=== PATIENT | male | born 1980 | race Caucasian/White ===

== ENCOUNTER 2016-06-08 06:55 | Day surgery (SDC) | payer OTHER ==
[2016-06-08] MEDS ORDERED: ONDANSETRON IVPB ONE (08:00)
[2016-06-08] MEDS ORDERED: SODIUM CHLORIDE IVPB ONE ×2 (08:00→08:30)
[2016-06-08] MEDS ORDERED: CYANOCOBALAMIN (VITAMIN B-12) 1000 MCG/1 ML VIAL IM ONE (08:00)
[2016-06-08] MEDS ORDERED: DEXAMETHASONE IVPB ONE (08:00)
[2016-06-08] MEDS ORDERED: PEMETREXED DISODIUM IVPB ONE (08:30)
[2016-06-08] MEDS ORDERED: SODIUM CHLORIDE 250 ML IV ONE (08:40)
[2016-06-08 11:50] LABS: BASOPHIL 0.9 % (0-2.0); EOSINOPHIL 1.5 % (0-4.5); MCH 30.6 pg (25.7-33.7); MCHC 33.9 g/dl (32.0-35.9); MEAN CELL VOLUME 90.2 fl (80-96); MEAN PLT VOLUME 7.4 fl (7.5-11.1); PLATELET COUNT 376 K/MM3 (134-434); RDW 14.9 % (11.9-15.9); WHITE BLOOD COUNT 8.3 K/mm3 (4.0-10.0)
[2016-06-08 12:02] LABS: ALBUMIN 3.9 g/dl (3.4-5.0); ALK PHOS 114 U/L (45-117); ANION GAP 9 (8-16); BILIRUBIN,TOTAL 0.7 mg/dL (0.2-1.0); CALCIUM 9.4 mg/dL (8.5-10.1); CO2 22 mmol/L (21-32); CREATININE 0.7 mg/dL (0.7-1.3); GLUCOSE,RANDOM 87 mg/dL (74-106); SGOT/AST 66 U/L (15-37); SGPT/ALT 56 U/L (12-78); TOT PROT 7.4 g/dl (6.4-8.2)
[2016-06-08 15:16] LABS: ALK PHOS 107 U/L (45-117); ANION GAP 10 (8-16); BILIRUBIN,TOTAL 0.5 mg/dL (0.2-1.0); CO2 27 mmol/L (21-32); CREATININE 0.6 mg/dL (0.7-1.3); GLUCOSE,RANDOM 76 mg/dL (74-106); SGOT/AST 28 U/L (15-37); SGPT/ALT 50 U/L (12-78); TOT PROT 7.1 g/dl (6.4-8.2)
[2016-06-08 15:57] VITALS: BP 117/70; PULSE 86; TEMP 98.1
== END 2016-06-08 16:20 | disposition home or self-care (01) ==
LOC: JONCCHEMO 06:55 → J7W 06:55 → JONCCHEMO 16:20
PROVIDERS: ATTEND Internal Medicine Hematology & Oncology
DX: Z51.11 Encounter for antineoplastic chemotherapy (principal); C34.92 Malignant neoplasm of unspecified part of left bronchus or lung; C79.31 Secondary malignant neoplasm of brain; C79.49 Secondary malignant neoplasm of other parts of nervous system
CPT/HCPCS: 96361; 96367; 96409; J9305; 36415; 80053; 85025; 96413

== ENCOUNTER 2016-06-08 22:23 | Emergency (ER) | payer OTHER ==
[2016-06-08 22:48] VITALS: BP 125/80; PULSE 80; TEMP 98.5; BMI 28.7
[2016-06-08] MEDS ORDERED: PANTOPRAZOLE SODIUM 40 MG in SODIUM CHLORIDE 100 ML IVPB ONE (22:49)
[2016-06-08] MEDS ORDERED: SODIUM CHLORIDE 1,000 ML IV STA (22:49)
[2016-06-08] MEDS ORDERED: DEXAMETHASONE SOD PHOSPHATE 10 MG/1 ML VIAL IVPB ONE (22:49)
--- NOTE | 2016-06-08 22:51 | PDOC ---
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 Today the patient underwent chemo, states he felt fine prior to treatment, and afterwards went to visit family. The patient takes Decadron before and after his chemotherapy sessions, but today he missed a dose after his session. He reports feeling fine afterwards, however, at around 9:00PM he began feeling a throbbing and numbing sensation to his left arm. When the patient went to urinate, he had a ten minute episode of uncontrollable jerking movements to his left arm and left sided facial twitching. The patient contacted his oncologist, Dr. Conde, who advised him to be evaluated in the ED. The patient also takes 500 mg of Keppra BID. The patient denies LOC. Allergies: NKDA Past Surgical History: Stent placement. Lung tumor removal. Social Histroy: Former smoker (quit in 01/2015) Oncologist: Dr. Amaya León [phone] when diagnosed with lung Ca) . He denies ETOH use. He admits to Marijuana use. Neurologist: Dr. Ochoa Michaud [phone] <Sonal Malloy - Last Filed: 06/09/16 01:17> - General History Source: Patient, Old Records Exam Limitations: No Limitations <Curtis Marte - Last Filed: 06/09/16 02:18> - General Stated Complaint: SEIZURE Time Seen by Provider: 06/08/16 22:28 Past History <Sonal Malloy - Last Filed: 06/09/16 01:17> - Past Medical History Anemia: No Asthma: Yes ( A CHILD - RESOLVED) 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,RADIATION) Cardiac Disorders: No CVA: No COPD: No CHF: No Dementia: No Diabetes: No GI Disorders: No Disorders: No HTN: No Hypercholesterolemia: No Liver Disease: No Seizures: No Thyroid Disease: No - Surgical History Lung Surgery: Yes (TUMOR REMOVED L LUNG) - Immunization History Immunization Up to Date: Yes - Psycho/Social/Smoking Cessation Hx Anxiety: No Suicidal Ideation: No Smoking History: Former smoker Have you smoked in the past 12 months: Yes Number of Cigarettes Smoked Daily: 0 If you are a former smoker, when did you quit?: 7 MO AGO Information on smoking cessation initiated: No 'Breaking Loose' booklet given: 02/21/16 Hx Alcohol Use: No Drug/Substance Use Hx: No Substance Use Type: Marijuana Hx Substance Use Treatment: No <Curtis Marte - Last Filed: 06/09/16 02:18> - Past Medical History Allergies/Adverse Reactions: Allergies Allergy/AdvReac Type Severity Reaction Status Date / Time No Known Drug Allergies Allergy Verified 03/07/16 10:01 Home Medications: Ambulatory Orders Aspirin [ASA -] 81 mg PO DAILY 08/20/15 Alprazolam [Xanax] 0.25 mg PO DAILY PRN 02/21/16 Oxycodone HCl 5 mg PO Q4H PRN 02/21/16 Dexamethasone [Decadron -] 4 mg PO Q6H #120 tablet 03/08/16 Pantoprazole Sodium [Protonix -] 40 mg PO DAILY #30 tablet.ec 03/08/16 Levetiracetam [Keppra -] 750 mg PO BID #60 tablet 06/09/16 Review of Systems - Review of Systems Comments:: 06/09/16 00:01 GENERAL/CONSTITUTIONAL: No fever or chills. No weakness. HEAD, EYES, EARS, NOSE AND THROAT: No change in vision. No ear pain or discharge. No sore throat. CARDIOVASCULAR: No chest pain or shortness of breath. RESPIRATORY: No cough, wheezing, or hemoptysis. GASTROINTESTINAL: No nausea, vomiting, diarrhea or constipation. GENITOURINARY: No dysuria, frequency, or change in urination. MUSCULOSKELETAL: No joint or muscle swelling or pain. No neck or back pain. SKIN: No rash NEUROLOGIC: Left arm numbness and jerking. Left facial twitching. No headache, vertigo, or loss of consciousness. <Sonal Malloy - Last Filed: 06/09/16 01:17> *Physical Exam - Vital Signs Last Vital Signs Temp Pulse Resp BP Pulse Ox 98.5 F 80 20 125/80 99 06/08/16 22:44 06/08/16 22:44 06/08/16 22:44 06/08/16 22:44 06/08/16 22:44 - Physical Exam Comments: 06/09/16 00:02 GENERAL: Awake, alert, and fully oriented, in no acute distress HEAD: No signs of trauma EYES: PERRLA, EOMI, sclera anicteric, conjunctiva clear ENT: Auricles normal inspection, hearing grossly normal, nares patent, oropharynx clear without exudates. Moist mucosa NECK: Normal ROM, supple, no lymphadenopathy, JVD, or masses LUNGS: Breath sounds equal, clear to auscultation bilaterally. No wheezes, and no crackles HEART: Regular rate and rhythm, normal S1 and S2, no murmurs, rubs or gallops ABDOMEN: Soft, nontender, normoactive bowel sounds. No guarding, no rebound. No masses EXTREMITIES: Normal range of motion, no edema. No clubbing or cyanosis. No cords, erythema, or tenderness NEUROLOGICAL: Cranial nerves II-XII intact, 5/5 motor strength to the upper and lower extremities, sensation intact throughout, speech normal, gait normal, finger to nose normal, rapid alternating normal. SKIN: Warm, Dry, normal turgor, no rashes or lesions noted. ENDOCRINE: No increased thirst. No abnormal weight change. HEMATOLOGIC/LYMPHATIC: No anemia, easy bleeding, or history of blood clots. ALLERGIC/IMMUNOLOGIC: No hives or skin allergy. <Sonal Malloy - Last Filed: 06/09/16 01:17> - Vital Signs Last Vital Signs Temp Pulse Resp BP Pulse Ox 98.5 F 80 20 125/80 99 06/08/16 22:44 06/08/16 22:44 06/08/16 22:44 06/08/16 22:44 06/08/16 22:44 <Curtis Marte - Last Filed: 06/09/16 02:18> ED Treatment Course - LABORATORY CBC & Chemistry Diagram: 06/08/16 23:23 06/08/16 23:23 - RADIOLOGY Radiograph Interpretation: 06/09/16 01:17 Produce Department Supervisor: ([email or web address]) Report Date: 06/09/2016 00:14:00 Report Status: Addendum Begin of Report Content Referring Physician: Curtis Marte Sherman Bermanmo Discussed with Dr. Marte at 12:56am (EST). THIS DOCUMENT HAS BEEN ELECTRONICALLY SIGNED Anurag Zaragoza MD 06/09/2016 00:57 EST M.D. Please call Imaging Binder Fixer [phone]) with questions. PREVIOUS REPORT: Referring Physician: Curtis Marte Patient Name: Sherman Frias THIS IS A PRELIMINARY REPORT FROM IMAGING PROJECT DEVELOPMENT MANAGER EXAM: CT of the brain without contrast. IMAGES: 409. Comparison made to the provided prior evaluation dated 03/07/2016 While the region of right temporal lobe presumed vasogenic edema remains grossly unchanged in distribution but not as hypodense as on the prior (? interval XRT), the ipsilateral focus of vasogenic edema documented on the prior involving the vertex frontoparietal junction has substantially increased in size (e.g. axial image 24 of the current vs. image 21 of the prior). A small new focus of presumed vasogenic edema is present in the mesial portion of the left frontal lobe vertex. There is no intra/extra-axial hemorrhage, midline shift or gross additional interval change. Impression: progression of disease, as above. THIS DOCUMENT HAS BEEN ELECTRONICALLY SIGNED Anurag Zaragoza MD 06/09/2016 00:54 EST M.D. Please call Imaging Binder Fixer [phone] with questions. End of Report Content Produce Department Supervisor: ([email or web address]) Report Date: 06/09/2016 00:14:00 Report Status: Preliminary Begin of Report Content Referring Physician: Curtis Marte Patient Name: Sherman Frias THIS IS A PRELIMINARY REPORT FROM IMAGING PROJECT DEVELOPMENT MANAGER EXAM: CT of the brain without contrast. IMAGES: 409. Comparison made to the provided prior evaluation dated 03/07/2016 While the region of right temporal lobe presumed vasogenic edema remains grossly unchanged in distribution but not as hypodense as on the prior (? interval XRT), the ipsilateral focus of vasogenic edema documented on the prior involving the vertex frontoparietal junction has substantially increased in size (e.g. axial image 24 of the current vs. image 21 of the prior). A small new focus of presumed vasogenic edema is present in the mesial portion of the left frontal lobe vertex. There is no intra/extra-axial hemorrhage, midline shift or gross additional interval change. Impression: progression of disease, as above. THIS DOCUMENT HAS BEEN ELECTRONICALLY SIGNED Anurag Zaragoza MD 06/09/2016 00:54 TOM Galdamez. Please call Imaging Binder Fixer [phone] with questions. End of Report Content - Medications Given in the ED: ED Medications Discontinued Medications Generic Name Dose Route Start Last Admin Trade Name Shayna PRN Reason Stop Dose Admin Dexamethasone Sodium Phosphate 10 mg 06/08/16 22:49 06/08/16 23:39 Decadron Injection - IVPB 06/08/16 22:50 10 mg ONCE ONE Administration Pantoprazole Sodium 40 mg/ 100 mls @ 200 mls/hr 06/08/16 22:49 06/08/16 23:39 Sodium Chloride IVPB 06/08/16 23:18 200 mls/hr ONCE ONE Administration Sodium Chloride 1,000 mls @ 1,000 mls/hr 06/08/16 22:49 06/08/16 23:39 Normal Saline - IV 06/08/16 23:48 1,000 mls/hr ASDIR STA Administration <Sonal Malloy - Last Filed: 06/09/16 01:17> - LABORATORY CBC & Chemistry Diagram: 06/08/16 23:23 06/08/16 23:23 - RADIOLOGY Radiology Studies Ordered: Category Date Time Status HEAD CT WITHOUT CONTRAST [CT] Stat CT Scan 06/08/16 22:48 Ordered <Curtis Marte - Last Filed: 06/09/16 02:18> Medical Decision Making - Medical Decision Making 06/08/16 23:12 A portion of this note was documented by scribe services under my direction. I have reviewed the details of the note, within reason, and agree with the documentation with the following case summary and management plan written by me. Patient treated in the ED. Nursing notes are reviewed and incorporated into the medical decision-making. Vital signs reviewed. Peripheral IV access obtained by the nurse, laboratory studies are drawn and sent, reviewed and interpreted by myself. 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 The patient reports that he takes 500 mg Keppra twice a day and reports adherence to the medications. States he initially was on for a grams of Decadron has been only taking them prior and after his chemotherapy sessions. Today, he was on his fourth chemotherapy session and missed a dose of Decadron. He had completed his chemotherapy today and was feeling in his usual state health. Approximate 9: 30 PM, the patient started developing spastic tonic clonic movements of his left upper extremity and left face but never lost consciousness. His symptoms persisted for 10 minutes until it resolved on its own. The patient called his oncologist Dr. Conde who advised the patient to go to the emergency room. She requested Decadron 10 mg IV and then subsequently 4 mg IV every 6 hours. The patient is currently neurologically intact and in no distress. We'll obtain a head CT and blood work and a Keppra level. We'll need to touch base with the patient's oncologist for further management disposition. We'll initiate IV Decadron. 06/09/16 02:06 CT head reviewed. CBC, BMP 06/08/16 23:23 06/08/16 23:23 CMP Sodium 137 mmol/L (136-145) 06/08/16 23:23 Potassium 4.9 mmol/L (3.5-5.1) 06/08/16 23:23 Chloride 99 mmol/L (98-107) 06/08/16 23:23 Carbon Dioxide 25 mmol/L (21-32) 06/08/16 23:23 Anion Gap 13 (8-16) 06/08/16 23:23 BUN 12 mg/dL (7-18) 06/08/16 23:23 Creatinine 0.9 mg/dL (0.7-1.3) D 06/08/16 23:23 Creat Clearance w eGFR > 60 (>60) 06/08/16 23:23 Random Glucose 116 mg/dL (74-106) H D 06/08/16 23:23 Calcium 9.5 mg/dL (8.5-10.1) 06/08/16 23:23 Magnesium 2.0 mg/dL (1.8-2.4) 06/08/16 23:23 Total Bilirubin 0.4 mg/dL (0.2-1.0) 06/08/16 23:23 AST 32 U/L (15-37) 06/08/16 23:23 ALT 55 U/L (12-78) 06/08/16 23:23 Alkaline Phosphatase 114 U/L (45-117) 06/08/16 23:23 Total Protein 7.9 g/dl (6.4-8.2) 06/08/16 23:23 Albumin 4.3 g/dl (3.4-5.0) 06/08/16 23:23 The patient has been observed and without any symptoms. Given the findings on the CT head, the patient was recommended that he be admitted to the hospital for q6h IV decadron. However, after a lengthy discussion with the patient, the patient does not absolutely want to stay in the hospital. He prefers to go home and take care of the symptoms as an outpatient. Despite my attempts to keep him, the patient requests to leave AMA. The patient does have capacity and is AAOx3. He can repeat the risks to me including more seizures, neurological sequelae. I had discussed in details regarding the patient's preference for AMA to Dr. Conde. Dr. Conde requests that I discharge him with 4 mg decadron q6h for 2 days and then 4mg q8h until his next appointment next week. I had contacted Dr. Holt at the request of Dr. Conde. After discussing case with Dr. Holt (as patient has not yet has his first appointment with [facility]), will give loading dose of 1g of keppra IV here and increase his dosing to 750 mg IV keppra BID. Patient reports that he has a significant amount of decadron in his home and declines a prescription. However, he will take a prescription for the keppra. Return precautions given. Patient will leave AMA. <Curtis Marte - Last Filed: 06/09/16 02:18> *DC/Admit/Observation/Transfer - Attestations Scribe Attestion: 06/09/16 00:05 Documentation prepared by Sonal Malloy, acting as nurses medical assistants phlebotomists for Curtis Marte MD. 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 We are increasing your steroids. Take 750 mg keppra every 12 hours. At the request of your oncologist, take 4 mg of decadron every 6 hours for the first 2 days. Then take 4 mg of decadron every 8 hours for days 3 to 6. This medication may give you severe acid reflux, so take your protonix and carafate at home. Please follow up with Dr. Conde next week.
--- NOTE | 2016-06-08 23:12 | PDOC ---
NIH Stroke Scale - Last Known Well Date/Time & Onset Date Last Known Well: 06/08/16 Time Last Known Well: 21:30 - Initial Evaluation Level of consciousness: Alert Ask patient the month and their age: Answers both correctly Ask patient to open & close eyes; make fist and let go: Obeys both correctly Best gaze (horizontal eye movement): Normal Visual field testing: No visual field loss Facial paresis (Show teeth/raise eyebrows/close eyes tight): Normal symmetrical movement Motor Function: Left Arm: Normal Motor Function: Right Arm: Normal (extends arm 90 (or 45) degrees for 10 seconds without drift Motor Function: Left Leg: Normal (extends leg 30 degrees for 5 seconds without drift) Motor Function: Right Leg: Normal (extends leg 30 degrees for 5 seconds without drift) Limb Ataxia: No ataxia Sensory(Use pinprick test arms,legs,trunk,face/side to side): Normal Best language (Describe picture, name items, read sentences): No Aphasia Dysarthria (read several words): Normal articulation Extinction and Inattention: No abnormality - Total Score NIH Stroke Scale Score: 0
[2016-06-08] MEDS ORDERED: PANTOPRAZOLE SODIUM 40 MG VIAL ONE (23:25)
[2016-06-08] MEDS ORDERED: DEXAMETHASONE SOD PHOSPHATE 10 MG/1 ML VIAL ONE (23:25)
[2016-06-08 23:55] LABS: BASOPHIL 0.4 % (0-2.0); MCH 30.4 pg (25.7-33.7); MCHC 33.7 g/dl (32.0-35.9); MEAN CELL VOLUME 90.2 fl (80-96); MEAN PLT VOLUME 7.3 fl (7.5-11.1); NEUTROPHILS 92.5 % (42.8-82.8); PLATELET COUNT 410 K/MM3 (134-434); RDW 14.4 % (11.9-15.9); WHITE BLOOD COUNT 9.5 K/mm3 (4.0-10.0)
[2016-06-09 00:06] LABS: ALBUMIN 4.3 g/dl (3.4-5.0); ALK PHOS 114 U/L (45-117); ANION GAP 13 (8-16); BILIRUBIN,TOTAL 0.4 mg/dL (0.2-1.0); CALCIUM 9.5 mg/dL (8.5-10.1); CO2 25 mmol/L (21-32); CREATININE 0.9 mg/dL (0.7-1.3); GLUCOSE,RANDOM 116 mg/dL (74-106); SGOT/AST 32 U/L (15-37); SGPT/ALT 55 U/L (12-78); TOT PROT 7.9 g/dl (6.4-8.2)
[2016-06-09] MEDS ORDERED: levETIRAcetam 500 MG/5 ML INJECTION VIAL IVPB ONE ×2 (01:52→01:59)
== END 2016-06-09 02:18 | disposition left against medical advice (07) ==
LOC: JER 22:23
PROC: 3E033GC Introduction of Other Therapeutic Substance into Peripheral Vein, Percutaneous Approach (ICD-10-PCS; principal; 2016-06-08)
PROC: 3E0337Z Introduction of Electrolytic and Water Balance Substance into Peripheral Vein, Percutaneous Approach (ICD-10-PCS; 2016-06-08)
DX: G40.89 Other seizures (principal); C34.90 Malignant neoplasm of unspecified part of unspecified bronchus or lung; C79.31 Secondary malignant neoplasm of brain; Z79.899 Other long term (current) drug therapy; Z87.891 Personal history of nicotine dependence
CPT/HCPCS: 36415; 70450-TC; 80053; 83735; 85025; 99282-25

== ENCOUNTER 2016-07-10 18:43 | Emergency (ER) | payer OTHER ==
[2016-07-10 19:16] VITALS: BMI 28.9
--- NOTE | 2016-07-10 19:56 | PDOC ---
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 Patient denies any head trauma, tongue biting , or bladder/bowel incontinence. Patient had his first seizure in February 2016 and at that time he was found to have a brain mass. Patient is being followed by Dr. Amaya León and is currently on keppra 750mg BID and decadron 3mg. Recent radiation was 2 weeks ago. Patient states he became concerned because he has not had a seizure episode within the past 2 months and thus decided to come into the ER. The patient denies fever, chills, cough, SOB, chest pain, and palpitations. The patient denies abdominal pain, nausea, vomiting, and diarrhea. Allergies: NKDA Social History: Admits to being an occasional smoker. Marijuana use. Denies etoh use. Past Surgical History: Stent placement. Lung tumor removal. Oncologist: Dr. Amaya León <Nicolette Dobbins - Last Filed: 07/10/16 23:08> - General Chief Complaint: Seizure Stated Complaint: SEIZURE Time Seen by Provider: 07/10/16 19:49 Past History - Past Medical History Anemia: No Asthma: Yes ( A CHILD - RESOLVED) 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,RADIATION,BRAIN,ADRENAL GLAND) Cardiac Disorders: No CVA: No COPD: No CHF: No Dementia: No Diabetes: No GI Disorders: No Disorders: No HTN: No Hypercholesterolemia: No Liver Disease: No Seizures: No Thyroid Disease: No Other medical history: BLOOD CLOTS TO LUE - Surgical History Lung Surgery: Yes (TUMOR REMOVED GENNY LUNG) - Immunization History Immunization Up to Date: Yes - Psycho/Social/Smoking Cessation Hx Anxiety: No Suicidal Ideation: No Smoking History: Current every day smoker Have you smoked in the past 12 months: Yes Number of Cigarettes Smoked Daily: 3 If you are a former smoker, when did you quit?: 7 MO AGO Information on smoking cessation initiated: No 'Breaking Loose' booklet given: 02/21/16 Hx Alcohol Use: No Drug/Substance Use Hx: Yes Substance Use Type: Marijuana Hx Substance Use Treatment: No <Dov Ochoa - Last Filed: 07/10/16 22:42> <Nicolette Dobbins - Last Filed: 07/10/16 23:08> - Past Medical History Allergies/Adverse Reactions: Allergies Allergy/AdvReac Type Severity Reaction Status Date / Time No Known Drug Allergies Allergy Verified 07/10/16 19:16 Home Medications: Ambulatory Orders Aspirin [ASA -] 81 mg PO DAILY 08/20/15 Alprazolam [Xanax] 0.25 mg PO TID PRN 02/21/16 Oxycodone HCl 10 mg PO Q4H PRN 02/21/16 Pantoprazole Sodium [Protonix -] 40 mg PO DAILY #30 tablet.ec 03/08/16 Levetiracetam [Keppra -] 750 mg PO BID #60 tablet 06/09/16 Dexamethasone [Decadron -] 3 mg PO Q6H 07/10/16 Folic Acid 1 mg PO DAILY 07/10/16 Review of Systems - Review of Systems Able to Perform ROS?: Yes Comments:: 07/10/16 20:10 CONSTITUTIONAL: Absent: fever, chills, diaphoresis, generalized weakness, malaise, loss of appetite HEENT: Absent: rhinorrhea, nasal congestion, throat pain, throat swelling, difficulty swallowing, mouth swelling, ear pain, eye pain, visual Changes CARDIOVASCULAR: Absent: chest pain, syncope, palpitations, irregular heart rate, lightheadedness , peripheral edema RESPIRATORY: Absent: cough, shortness of breath, dyspnea with exertion, orthopnea, wheezing, stridor, hemoptysis GASTROINTESTINAL: Absent: abdominal pain, abdominal distension, nausea, vomiting, diarrhea, constipation, melena, hematochezia GENITOURINARY: Absent: dysuria, frequency, urgency, hesitancy, hematuria, flank pain, genital pain MUSCULOSKELETAL: Absent: myalgia, arthralgia, joint swelling SKIN: Absent: rash, itching, pallor NEUROLOGIC: +seizure Absent: headache, focal weakness or paresthesias, dizziness, unsteady gait, mental status changes, bladder or bowel incontinence <Nicolette Dobbins - Last Filed: 07/10/16 23:08> *Physical Exam - Vital Signs Last Vital Signs Temp Pulse Resp BP Pulse Ox 98.3 F 102 H 16 141/78 97 07/10/16 18:50 07/10/16 18:50 07/10/16 18:50 07/10/16 18:50 07/10/16 18:50 <Dov Ochoa - Last Filed: 07/10/16 22:42> - Vital Signs Last Vital Signs Temp Pulse Resp BP Pulse Ox 98.3 F 102 H 16 141/78 97 07/10/16 18:50 07/10/16 18:50 07/10/16 18:50 07/10/16 18:50 07/10/16 18:50 - Physical Exam Comments: 07/10/16 20:11 GENERAL: Well developed, well nourished. Awake and alert. No acute distress. HEENT: Normocephalic, atraumatic. No raccoon or plunkett signs. PERRLA, EOMI. No conjunctival pallor. Sclera are non-icteric. Moist mucous membranes. Oropharynx is clear. No tongue lesions. No hemotympanum. NECK: Supple. Full ROM. No JVD. Carotid pulses 2+ and symmetric, without bruits. No thyromegaly. No lymphadenopathy. CARDIOVASCULAR: Regular rate and rhythm. No murmurs, rubs, or gallops. Distal pulses are 2+ and symmetric. PULMONARY: No evidence of respiratory distress. Lungs clear to auscultation bilaterally. No wheezing, rales or rhonchi. ABDOMINAL: Soft. Non-tender. Non-distended. No rebound or guarding. No organomegaly. Normoactive bowel sounds. MUSCULOSKELETAL Normal range of motion at all joints. No bony deformities or tenderness. No CVA tenderness. EXTREMITIES: No cyanosis. No clubbing. No edema. No calf tenderness. SKIN: Warm and dry. Normal capillary refill. No rashes. No jaundice. NEUROLOGICAL: Alert, awake, appropriate. Cranial nerves 2-12 intact. No deficits to light touch and temperature in face, upper extremities and lower extremities. No motor deficits in the in face, upper extremities and lower extremities. Normoreflexic in the upper and lower extremities. Normal speech. <Nicolette Dobbins - Last Filed: 07/10/16 23:08> Heart Score/ECG Review - ECG Impressions Comment:: 07/10/16 22:34 NSR @82bpm Possible left atrial enlargement Borderline ECG <Nicolette Dobbins - Last Filed: 07/10/16 23:08> ED Treatment Course - LABORATORY CBC & Chemistry Diagram: 07/10/16 20:20 07/10/16 20:20 <Dov Ochoa - Last Filed: 07/10/16 22:42> - LABORATORY CBC & Chemistry Diagram: 07/10/16 20:20 07/10/16 20:20 - RADIOLOGY Radiograph Interpretation: 07/10/16 22:13 EXAM: CT/HEAD CT WITHOUT CONTRAST Radiologist's Impression: in comparison to a previous CT exam of 06/09/2016 interval development of a 2.9 x 2 x 1.7 cm acute right parietal hemorrhage is noted at the site of a previously identified metastatic neoplastic lesion. There is mild perihemorrhagic edema. The degree of edema in that region appears improved since the previous study. Mild ventral temporal lobe edema is seen which has improved since the previous study. There has been interval resolution of a small focus of edema within the left posterior frontal lobe at the high convexity level medially. No midline displacement is identified. There is no extra-axial fluid collection. The ventricles and cisterns appear unremarkable. Impression: In comparison to a previous CT exam of 06/09/2016 interval development of a 2.9 x 2 x 1.7 cm right parietal hemorrhage is seen. There is mild perihemorrhagic edema. The degree of edema in that region has improved since the prior study. Mild right temporal lobe focal edema is noted which appears improved. There has been interval resolution of a small focus of edema within the left posterior frontal lobe. <Nicolette Dobbins - Last Filed: 07/10/16 23:08> Medical Decision Making - Medical Decision Making 07/10/16 22:44 Dr. Ochoa: The scribe's documentation has been prepared under my direction and personally reviewed by me in its entirery. I confirm that the note above accurately reflects all work, treatment, procedures, and medical decision making performed by me. <Dov Ochoa - Last Filed: 07/10/16 22:42> - Medical Decision Making 07/10/16 21:51 Paged [facility]) transfer center for neurology on-call [phone] Awaiting call back for possible acceptance 07/10/16 21:[address] Amaya León (via answering service) at 21:55 Awaiting call back 07/10/16 21:56 Patient case discussed with Dr. León at 21:[address] Ramirez, neurosurgeon, accepts patient's case. Patient to be transferred to ER at [facility]). <Nicolette Dobbins - Last Filed: 07/10/16 23:08> *DC/Admit/Observation/Transfer - Discharge Dispostion Admit: No - Transfer to Acute Care Facility Receiving Facility: [facility] (Dr. Ramirez accepts) <Dov Ochoa - Last Filed: 07/10/16 22:42> - Attestations Scribe Attestion: 07/10/16 20:11 Documentation prepared by Nicolette Dobbins, acting as diploma medical assistant for Dov Ochoa MD <Nicolette Dobbins - Last Filed: 07/10/16 23:08> Diagnosis at time of Disposition: Seizure, Intracranial hemorrhage - Discharge Dispostion Disposition: TRANSFER ACUTE CARE/OTHER HOSP Condition at time of disposition: Stable
[2016-07-10] MEDS ORDERED: levETIRAcetam 500 MG/5 ML INJECTION VIAL IVPB ONE ×2 (19:57→20:03)
[2016-07-10 20:35] LABS: MCH 31.3 pg (25.7-33.7); MCHC 33.4 g/dl (32.0-35.9); MEAN CELL VOLUME 93.9 fl (80-96); PLATELET COUNT 237 K/MM3 (134-434); RDW 17.1 % (11.9-15.9); WHITE BLOOD COUNT 21.4 K/mm3 (4.0-10.0)
[2016-07-10 20:56] LABS: INR 0.9 (0.82-1.09); PROTHROMBIN TIME (PATIENT) 9.9 SEC (9.98-11.88)
[2016-07-10 21:07] LABS: ALK PHOS 73 U/L (45-117); ANION GAP 12 (8-16); BILIRUBIN,TOTAL 0.3 mg/dL (0.2-1.0); CALCIUM 8.8 mg/dL (8.5-10.1); CO2 26 mmol/L (21-32); CREATININE 1.1 mg/dL (0.7-1.3); GLUCOSE,RANDOM 128 mg/dL (74-106); SGOT/AST 21 U/L (15-37); SGPT/ALT 71 U/L (12-78); TOT PROT 6.9 g/dl (6.4-8.2)
[2016-07-10 21:18] LABS: METAMYELOCYTE 2 % (0-2)
[2016-07-10 21:19] LABS: PLATELET ESTIMATE ADEQUATE (NORMAL)
[2016-07-10] MEDS ORDERED: FOLIC ACID 1 MG TABLET (FP) PO ONE (22:31)
[2016-07-10] MEDS ORDERED: ALPRAZolam 0.25 MG TABLET PO ONE (22:32)
[2016-07-10] MEDS ORDERED: DEXAMETHASONE 4 MG TABLET (FP) PO STA (22:32)
[2016-07-10] MEDS ORDERED: ALPRAZolam 0.25 MG TABLET ONE (22:56)
[2016-07-10] MEDS ORDERED: FOLIC ACID 1 MG TABLET (FP) ONE (22:57)
[2016-07-10] MEDS ORDERED: DEXAMETHASONE SOD PHOSPHATE 4 MG/1 ML VIAL ONE (22:57)
[2016-07-10 23:18] VITALS: BP 134/78; PULSE 80; TEMP 98
--- NOTE | 2016-07-11 11:55 | EKG ---
Test Reason : Blood Pressure : / mmHG Vent. Rate : 082 BPM Atrial Rate : 082 BPM P-R Int : 116 ms QRS Dur : 082 ms QT Int : 336 ms P-R-T Axes : 062 073 025 degrees QTc Int : 392 ms NORMAL SINUS RHYTHM POSSIBLE LEFT ATRIAL ENLARGEMENT BORDERLINE ECG WHEN COMPARED WITH ECG OF 09-JAN-2015 11:38, NO SIGNIFICANT CHANGE WAS FOUND Confirmed by JOANN KOCH MD ([id number]) on 07/11/2016 11:55:03 AM Referred By: Confirmed By:JOANN KOCH MD
== END 2016-07-10 23:00 | disposition short-term general hospital (02) ==
LOC: JER 18:43
PROC: 3E033GC Introduction of Other Therapeutic Substance into Peripheral Vein, Percutaneous Approach (ICD-10-PCS; principal; 2016-07-10)
DX: I61.8 Other nontraumatic intracerebral hemorrhage (principal); C34.92 Malignant neoplasm of unspecified part of left bronchus or lung; C79.31 Secondary malignant neoplasm of brain; C79.70 Secondary malignant neoplasm of unspecified adrenal gland; Z86.718 Personal history of other venous thrombosis and embolism; F17.210 Nicotine dependence, cigarettes, uncomplicated
CPT/HCPCS: 36415; 70450-TC; 80053; 83735; 85025; 85610; 85730; 93005; 93010; 96374; 99285-25

== ENCOUNTER 2016-07-13 07:02 | Day surgery (SDC) | payer OTHER ==
[2016-07-13] MEDS ORDERED: FAMOTIDINE 20 MG/50 ML IVPB 50 ML IVPB ONE (08:00)
[2016-07-13] MEDS ORDERED: CYANOCOBALAMIN (VITAMIN B-12) 1000 MCG/1 ML VIAL IM ONE (08:00)
[2016-07-13] MEDS ORDERED: SODIUM CHLORIDE IVPB ONE ×6 (08:00→12:30)
[2016-07-13] MEDS ORDERED: DEXAMETHASONE IVPB ONE ×3 (08:00)
[2016-07-13] MEDS ORDERED: ONDANSETRON IVPB ONE ×2 (08:00)
[2016-07-13] MEDS ORDERED: SODIUM CHLORIDE 250 ML IV ONE ×3 (08:00→11:25)
[2016-07-13] MEDS ORDERED: DIPHENHYDRAMINE IVPB ONE (08:00)
[2016-07-13] MEDS ORDERED: PEMETREXED DISODIUM IVPB ONE ×2 (08:30→12:30)
[2016-07-13] MEDS ORDERED: DARATUMUMAB IVPB ONE (08:30)
[2016-07-13 10:55] LABS: EOSINOPHIL 0.1 % (0-4.5); MCH 31.4 pg (25.7-33.7); MCHC 33.3 g/dl (32.0-35.9); MEAN CELL VOLUME 94.3 fl (80-96); MEAN PLT VOLUME 7.4 fl (7.5-11.1); NEUTROPHILS 96.3 % (42.8-82.8); PLATELET COUNT 257 K/MM3 (134-434); RDW 16.8 % (11.9-15.9); WHITE BLOOD COUNT 17.7 K/mm3 (4.0-10.0)
[2016-07-13] MEDS ORDERED: DEXTROSE 5% IV ONE (11:15)
[2016-07-13] MEDS ORDERED: WATER IV ONE (11:15)
[2016-07-13] MEDS ORDERED: CARFILZOMIB IV ONE (11:15)
[2016-07-13 11:25] LABS: ALBUMIN 4.1 g/dl (3.4-5.0); ANION GAP 13 (8-16); CALCIUM 9.5 mg/dL (8.5-10.1); CO2 22 mmol/L (21-32); CREATININE 0.9 mg/dL (0.7-1.3); GLUCOSE,RANDOM 169 mg/dL (74-106); MAGNESIUM 2.1 mg/dL (1.8-2.4); TOT PROT 7.4 g/dl (6.4-8.2)
[2016-07-13 11:26] LABS: ALK PHOS 75 U/L (45-117); BILIRUBIN,TOTAL 0.7 mg/dL (0.2-1.0); SGOT/AST 43 U/L (15-37); SGPT/ALT 76 U/L (12-78)
[2016-07-13 11:39] LABS: BILIRUBIN,DIRECT 0.1 mg/dL (0.0-0.2)
[2016-07-13 14:46] VITALS: TEMP 98.1
[2016-07-13 14:48] VITALS: BP 120/80; PULSE 92
[2016-07-13] MEDS ORDERED: PORTA CATH FLUSH 10 ML IVPUSH ONE (14:48)
--- NOTE | 2016-07-14 10:11 | PN ---
Progress Note (short form) - Note Progress Note: called patient informed him about CT findings PAtient repiorts no symptoms scheuled for MRI On sunday to /u next week
== END 2016-07-13 13:00 | disposition home or self-care (01) ==
LOC: JONCCHEMO 07:02 → J7W 11:17 → JONCCHEMO 13:00
PROVIDERS: ATTEND Internal Medicine Hematology & Oncology
PROC: 3E03305 Introduction of Other Antineoplastic into Peripheral Vein, Percutaneous Approach (ICD-10-PCS; principal; 2016-07-13)
PROC: 3E013GC Introduction of Other Therapeutic Substance into Subcutaneous Tissue, Percutaneous Approach (ICD-10-PCS; 2016-07-13)
DX: Z51.11 Encounter for antineoplastic chemotherapy (principal); C34.90 Malignant neoplasm of unspecified part of unspecified bronchus or lung; C79.9 Secondary malignant neoplasm of unspecified site; E53.8 Deficiency of other specified B group vitamins
CPT/HCPCS: 36415; 70450-TC; 80053; 80076; 83735; 85025; 96372; 96409; 96413; J9305

== ENCOUNTER 2016-08-03 07:05 | Day surgery (SDC) | payer OTHER ==
[2016-08-03] MEDS ORDERED: CYANOCOBALAMIN (VITAMIN B-12) 1000 MCG/1 ML VIAL IM ONE (08:00)
[2016-08-03] MEDS ORDERED: DEXAMETHASONE INJECTION 8 MG in SODIUM CHLORIDE 50 ML IVPB ONE (08:00)
[2016-08-03] MEDS ORDERED: ONDANSETRON INJECTION 12 MG in SODIUM CHLORIDE 50 ML IVPB ONE (08:00)
[2016-08-03] MEDS ORDERED: SODIUM CHLORIDE IVPB ONE (08:30)
[2016-08-03] MEDS ORDERED: PEMETREXED DISODIUM IVPB ONE (08:30)
[2016-08-03] MEDS ORDERED: SODIUM CHLORIDE 250 ML IV ONE (08:40)
[2016-08-03 11:15] LABS: BASOPHIL 0.4 % (0-2.0); EOSINOPHIL 0.4 % (0-4.5); MCH 32.5 pg (25.7-33.7); MEAN CELL VOLUME 95.5 fl (80-96); MEAN PLT VOLUME 6.7 fl (7.5-11.1); NEUTROPHILS 80.1 % (42.8-82.8); PLATELET COUNT 179 K/MM3 (134-434); RDW 17.8 % (11.9-15.9); WHITE BLOOD COUNT 9.3 K/mm3 (4.0-10.0)
[2016-08-03 11:51] LABS: ALBUMIN 3.9 g/dl (3.4-5.0); ALK PHOS 65 U/L (45-117); ANION GAP 9 (8-16); BILIRUBIN,TOTAL 0.4 mg/dL (0.2-1.0); CALCIUM 8.9 mg/dL (8.5-10.1); CO2 30 mmol/L (21-32); COCKROFT - GAULT 0; CREATININE 0.7 mg/dL (0.7-1.3); GLUCOSE,RANDOM 73 mg/dL (74-106); MAGNESIUM 2.2 mg/dL (1.8-2.4); SGOT/AST 35 U/L (15-37); SGPT/ALT 150 U/L (12-78); TOT PROT 6.7 g/dl (6.4-8.2)
[2016-08-03 12:53] LABS: BILIRUBIN,DIRECT 0.1 mg/dL (0.0-0.2)
[2016-08-03 14:50] VITALS: TEMP 97.8
[2016-08-03 14:55] VITALS: BP 113/65; PULSE 76
== END 2016-08-03 13:30 | disposition home or self-care (01) ==
LOC: JONCCHEMO 07:05 → J7W 11:53 → JONCCHEMO 13:30
PROVIDERS: ATTEND Internal Medicine Hematology & Oncology
PROC: 3E04305 Introduction of Other Antineoplastic into Central Vein, Percutaneous Approach (ICD-10-PCS; principal; 2016-08-03)
PROC: 3E013GC Introduction of Other Therapeutic Substance into Subcutaneous Tissue, Percutaneous Approach (ICD-10-PCS; 2016-08-03)
PROC: 3E043GC Introduction of Other Therapeutic Substance into Central Vein, Percutaneous Approach (ICD-10-PCS; 2016-08-03)
DX: Z51.11 Encounter for antineoplastic chemotherapy (principal); C34.90 Malignant neoplasm of unspecified part of unspecified bronchus or lung; C79.9 Secondary malignant neoplasm of unspecified site; E53.8 Deficiency of other specified B group vitamins
CPT/HCPCS: 36415; 80053; 80076; 83735; 85025; 96360; 96367; 96372; 96409; 96413; J9305

== ENCOUNTER 2016-08-19 15:45 | Inpatient (IN) | payer OTHER ==
[2016-08-19] MEDS ORDERED: LORAZEPAM CARPU-JECT 2 MG/ML DISP.SYRIN ONE ×3 (15:48→16:36)
[2016-08-19] MEDS ORDERED: DEXAMETHASONE SOD PHOSPHATE 10 MG/1 ML VIAL ONE (15:54)
[2016-08-19] MEDS ORDERED: SODIUM CHLORIDE 1,000 ML IV ONE (16:01)
--- NOTE | 2016-08-19 16:01 | PDOC ---
History of Present Illness - General History Source: Patient, Family Exam Limitations: No Limitations - History of Present Illness Initial Comments: 08/19/16 16:50 The patient is a 36 year old male presenting with his mother, with a significant past medical history of Multiple brain tumors (one growing in size) , Metastatic Lung CA (2014, currently on chemo, last chemo 3 weeks ago) s/p left lung surgery and seizures who presents to the emergency department with seizures onset shortly prior to arrival while shopping with his mother. Upon presentation the patient is seizing constantly, which is involving both his eyes , face, upper body and left upper extremity. He reports that his Keppra medication was recently increased from 500 mg to 750 mg. He also notes that his last seizure was on 07/10/2016. The patient denies chest pain, shortness of breath, headache and dizziness. Denies fever, chills, nausea, vomit, diarrhea and constipation. Allergies: None Past surgical history: Tumor removed left lung Social history: Former smoker of cigarettes and marijuana <Dov Starks - Last Filed: 08/19/16 17:04> <Allan Cook - Last Filed: 08/19/16 17:17> - General Stated Complaint: SEIZURE Time Seen by Provider: 08/19/16 15:54 Past History <Dov Starks - Last Filed: 08/19/16 17:04> - Past Medical History Anemia: No Asthma: Yes ( A CHILD - RESOLVED) 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,RADIATION,BRAIN,ADRENAL GLAND) Cardiac Disorders: No CVA: No COPD: No CHF: No Dementia: No Diabetes: No GI Disorders: No Disorders: No HTN: No Hypercholesterolemia: No Liver Disease: No Seizures: No Thyroid Disease: No - Surgical History Lung Surgery: Yes (TUMOR REMOVED GENNY LUNG) - Immunization History Immunization Up to Date: Yes - Psycho/Social/Smoking Cessation Hx Anxiety: No Suicidal Ideation: No Smoking History: Current every day smoker Have you smoked in the past 12 months: Yes Number of Cigarettes Smoked Daily: 3 If you are a former smoker, when did you quit?: 7 MO AGO 'Breaking Loose' booklet given: 02/21/16 Hx Alcohol Use: No Drug/Substance Use Hx: Yes Substance Use Type: Marijuana Hx Substance Use Treatment: No <Allan Cook - Last Filed: 08/19/16 17:17> - Past Medical History Allergies/Adverse Reactions: Allergies Allergy/AdvReac Type Severity Reaction Status Date / Time No Known Drug Allergies Allergy Verified 08/19/16 16:13 Home Medications: Ambulatory Orders Aspirin [ASA -] 81 mg PO DAILY 08/20/15 Alprazolam [Xanax] 0.25 mg PO TID PRN 02/21/16 Oxycodone HCl 10 mg PO Q4H PRN 02/21/16 Pantoprazole Sodium [Protonix -] 40 mg PO DAILY #30 tablet.ec 03/08/16 Levetiracetam [Keppra -] 750 mg PO BID #60 tablet 06/09/16 Dexamethasone [Decadron -] 3 mg PO Q6H 07/10/16 Folic Acid 1 mg PO DAILY 07/10/16 Review of Systems - Review of Systems Constitutional: No: Chills, Fever HEENTM: No: Recent change in vision Cardiac (ROS): No: Chest Pain ABD/GI: No: Nausea, Vomiting Neurological: Yes: Seizure. No: Headache All Other Systems: Reviewed and Negative <Allan Cook - Last Filed: 08/19/16 17:17> *Physical Exam - Vital Signs Last Vital Signs Temp Pulse Resp BP Pulse Ox 88 18 166/55 100 08/19/16 16:03 08/19/16 16:03 08/19/16 16:03 08/19/16 16:03 - Physical Exam Comments: 08/19/16 16:49 GENERAL: The patient is awake, alert, and fully oriented. (+) Diaphoretic. HEAD: Normal with no signs of trauma. EYES: Pupils equal, round and reactive to light, extraocular movements intact, sclera anicteric, conjunctiva clear with no pallor. ENT: Ears normal, nares patent, oropharynx clear without exudates. Moist mucous membranes. NECK: Normal range of motion, supple without lymphadenopathy, JVD, or masses. LUNGS: Breath sounds equal, clear to auscultation bilaterally. No wheeze/ crackles. HEART: Regular rate and rhythm, normal S1 and S2 without murmur or rub. ABDOMEN: Soft/nontender/nondistended. BS wnl. No guarding or rebound. No palpable masses. No hepatosplenomegaly. EXTREMITIES: Normal range of motion, no edema. No clubbing or cyanosis. No cords , erythema, or tenderness. NEUROLOGICAL: Cranial nerves II through XII grossly intact. Normal speech. (+) Seizure involving both eyes, left side of face and left arm. SKIN: Warm, Dry, normal turgor, no rashes or lesions noted. <Dov Starks - Last Filed: 08/19/16 17:04> Heart Score/ECG Review #1 ECG reviewed & interpreted by me at: 17:06 (still with partial seizure) General ECG Interpretation: Sinus Rhythm, Normal Rate (127), Normal Intervals ( qtc 430), No acute ischemic changes <Allan Cook - Last Filed: 08/19/16 17:17> ED Treatment Course - LABORATORY CBC & Chemistry Diagram: 08/19/16 16:00 08/19/16 16:00 - ADDITIONAL ORDERS Additional order review: Laboratory Results 08/19/16 16:00 INR 1.08 08/19/16 16:00 RBC 4.32 MCV 95.9 MCHC 32.8 RDW 17.3 H MPV 7.1 L Neutrophils % 85.6 H Lymphocytes % 9.8 D Monocytes % 4.5 Eosinophils % 0.0 D Basophils % 0.1 - RADIOLOGY Radiograph Interpretation: 08/19/16 17:[address] Reviewed by: Dr. David Cochran Impression: A 2.7 cm right parietal lesion is noted which is partially hemorrhagic. More confluent hemorrhage was note that site on a previous CT study of 07/13/2016. On the current exam there is moderate perilesional edema which appears increased. Mild focal right temporal lobe edema is seen ventrally which is probably slightly increased. - Medications Given in the ED: ED Medications Discontinued Medications Generic Name Dose Route Start Last Admin Trade Name Freq PRN Reason Stop Dose Admin Dexamethasone Sodium Phosphate 10 mg 08/19/16 16:02 08/19/16 16:00 Decadron Injection - IVPUSH 08/19/16 16:03 10 mg ONCE ONE Administration Lorazepam 4 mg 08/19/16 16:02 08/19/16 16:00 Ativan Injection - IVPUSH 08/19/16 16:03 4 mg ONCE ONE Administration Lorazepam 2 mg 08/19/16 16:36 08/19/16 16:39 Ativan Injection - IVPUSH 08/19/16 16:37 2 mg ONCE ONE Administration <Dov Starks - Last Filed: 08/19/16 17:04> - LABORATORY CBC & Chemistry Diagram: 08/19/16 16:00 08/19/16 16:00 <JoyceAllan - Last Filed: 08/19/16 17:17> Medical Decision Making - Medical Decision Making 08/19/16 16:50 Dr. Conde was consuled regading the patient at 3:50pm Dr. Sanchez was consulted regarding the patietn at 4:38pm <Dov Starks - Last Filed: 08/19/16 17:04> - Critical Care Time Total Critical Care Time (minutes): 65 Critical Care Statement: The care of this patient involved high complexity decision making to prevent further life threatening deterioration of the patient 's condition and/or to evalute & treat vital organ system(s) failure or risk of failure. - Medical Decision Making 08/19/16 16:04 A portion of this note was documented by scribe services under my direction. I have reviewed the details of the note, within reason, and agree with the documentation with the following case summary and management plan written by me. Called to bedside to evaluate this 36-year-old male with known metastatic lung CA with brain metastases resulting in seizures, controlled on Keppra with last seizure on 07/10, had MRI this week that showed progression of one of the 4 brain lesions with plans for radiation therapy on Sunday at [facility], now brought in by mom after he began having left-sided seizures while shopping. Facial and left upper extremity involvement, has maintained his mental status throughout, seizure has been ongoing for about 10 minutes now. Compliant with his Keppra, denies any other infectious complaints. Vital signs as noted. Alert and following commands and speaking full sentences, but left facial and left upper extremity partial seizure, early involvement of left leg improved after he was given the first dose of IV Ativan push at the bedside 36-year-old male with known seizures secondary to brain metastases from lung CA presents with recurrence of seizure in the setting of known worsening of a brain lesion. Airway and mental status are intact. Placed immediately on monitor, supplemental oxygen administered, 2 mg of Ativan IV push [address] Darnell while at bedside, who knows the patient well. Recommends decadron 10mg IV and likely admission - transfer to [facility] if acute hemorrhage on CT CT head will load with fosphenytoin given limited response to benzo IV admit v. transfer 08/19/16 16:38 CT confirms acute/subacute hemorrhage around a right parietal lesion, this is all questionably changed from a CT on 07/13/16, which also had confluent hemorrhage around the lesion. There is some increased edema in the area. Patient states symptoms have slightly improved, still with convulsions of the left arm -- now ongoing for about 60 minutes, consistent with status. Mental status remains intact, vital signs remained within normal limits other than tachycardia. So far he has received the 4 mg of Ativan, the Decadron push, and a fosphenytoin load has been started. We'll give another dose of Ativan, case discussed with Dr. Yanez of neurology, who is in house and en route to see the patient. Pt does not want to go to [facility]. Will require ICU admission. 08/19/16 17:01 White count 11.5, anion gap 18, labs are otherwise within normal limits including CK. Rectal temp 98, glucose 118. Seizures improving significantly on fosphenytoin. Accepted for ICU by Dr. Galeano. Accepted for admission by Dr. Worthington, signout given to [employer] MACHINE OPERATOR Curtis. Awaiting neuro consult. Patient was signed out to the oncoming ED physician to monitor the patient and airway, and proceed with ICU admission plan. 08/19/16 17:[address] Sanchez, will add additional 500mg fosphenytoin and keppra 1000mg. Discussed again with Dr. Darnell, requested consults from rad onc and nsgy, which were entered. <Allan Cook - Last Filed: 08/19/16 17:17> *DC/Admit/Observation/Transfer - Attestations Scribe Attestion: 08/19/16 16:50 Documentation prepared by Dov Starks, acting as biomedical engineering technologist for Allan Cook MD <Dov Starks - Last Filed: 08/19/16 17:04> - Discharge Dispostion Admit: Yes <Allan Cook - Last Filed: 08/19/16 17:17> Diagnosis at time of Disposition: Simple partial seizure disorder, Status epilepticus due to complex partial seizure Metastatic lung carcinoma Qualifiers: Laterality: left Qualified Code(s): C78.02 - Secondary malignant neoplasm of left lung - Discharge Dispostion Condition at time of disposition: Guarded - Referrals Referrals: Harlan Brown MD [Primary Care Provider] -
[2016-08-19] MEDS ORDERED: DEXAMETHASONE SOD PHOSPHATE 10 MG/1 ML VIAL IVPUSH ONE (16:02)
[2016-08-19] MEDS ORDERED: LORAZEPAM CARPU-JECT 2 MG/ML DISP.SYRIN IVPUSH ONE ×3 (16:02→16:43)
[2016-08-19] MEDS ORDERED: FOSPHENYTOIN SODIUM 1,000 MG in SODIUM CHLORIDE 100 ML IVPB ONE (16:02)
[2016-08-19 16:13] VITALS: BMI 29.9
[2016-08-19 16:19] LABS: BASOPHIL 0.1 % (0-2.0); MCH 31.4 pg (25.7-33.7); MCHC 32.8 g/dl (32.0-35.9); MEAN CELL VOLUME 95.9 fl (80-96); MEAN PLT VOLUME 7.1 fl (7.5-11.1); NEUTROPHILS 85.6 % (42.8-82.8); PLATELET COUNT 404 K/MM3 (134-434); RDW 17.3 % (11.9-15.9); WHITE BLOOD COUNT 11.5 K/mm3 (4.0-10.0)
[2016-08-19 16:36] LABS: INR 1.08 (0.82-1.09); PROTHROMBIN TIME (PATIENT) 11.9 SEC (9.98-11.88)
[2016-08-19 16:47] LABS: ALBUMIN 4.4 g/dl (3.4-5.0); ANION GAP 18 (8-16); BILIRUBIN,TOTAL 0.2 mg/dL (0.2-1.0); CALCIUM 9.6 mg/dL (8.5-10.1); CO2 18 mmol/L (21-32); CREATININE 1.2 mg/dL (0.7-1.3); GLUCOSE,RANDOM 118 mg/dL (74-106); SGOT/AST 63 U/L (15-37); SGPT/ALT 172 U/L (12-78); TOT PROT 7.5 g/dl (6.4-8.2)
[2016-08-19 16:50] LABS: ALK PHOS 91 U/L (45-117); TROPONIN I < 0.02 ng/ml (0.00-0.05)
[2016-08-19] MEDS ORDERED: FOSPHENYTOIN SODIUM 500 MG in SODIUM CHLORIDE 100 ML IVPB ONE (17:11)
[2016-08-19] MEDS ORDERED: levETIRAcetam 500 MG/5 ML INJECTION VIAL IVPB ONE ×2 (17:11→17:36)
--- NOTE | 2016-08-19 17:15 | HP ---
CHIEF COMPLAINT: status seizure activities PCP: Dr. Conde HISTORY OF PRESENT ILLNESS: The patient is a 36 year old male presenting with his mother, with a significant past medical history of Multiple brain tumors (one growing in size) , Metastatic Lung CA (2014, currently on chemo, last chemo 3 weeks ago) s/p left lung surgery and seizures who presents to the emergency department with seizures onset shortly prior to arrival while shopping with his mother. Upon presentation the patient is seizing constantly, which is involving both his eyes , face, upper body and left upper extremity. He reports that his Keppra medication was recently increased from 500 mg to 750 mg. He also notes that his last seizure was on 07/10/2016. The patient denies chest pain, shortness of breath, headache and dizziness. Denies fever, chills, nausea, vomit, diarrhea and constipation. ER course was notable for: (1) seizure activity on keppra with initiation of fosphenytoin loading dose and 6 mg of atvian to help break cycle. (2) CT head, according to oncologist appears similar (3) current chemo treatment Recent Travel: none PAST MEDICAL HISTORY: lung CA with mets to brain with seizure activities on keppra PAST SURGICAL HISTORY: lobectomy Social History: Smoking:current every day Alcohol:denies Drugs: marijuana Family History: Allergies No Known Drug Allergies Allergy (Verified 08/19/16 16:13) HOME MEDICATIONS: Home Medications Medication Instructions Recorded Aspirin [ASA -] 81 mg PO DAILY 08/20/15 Alprazolam [Xanax] 0.25 mg PO TID PRN 02/21/16 Oxycodone HCl 10 mg PO Q4H PRN 02/21/16 Pantoprazole Sodium [Protonix -] 40 mg PO DAILY #30 tablet.ec 03/08/16 Levetiracetam [Keppra -] 750 mg PO BID #60 tablet 06/09/16 Dexamethasone [Decadron -] 3 mg PO Q6H 07/10/16 Folic Acid 1 mg PO DAILY 07/10/16 REVIEW OF SYSTEMS Difficult to obtain with current seizure activity and postictal state. PHYSICAL EXAMINATION Vital Signs - 24 hr 08/19/16 08/19/16 08/19/16 15:50 16:03 16:15 Temperature Pulse Rate 88 Pulse Rate [ 150 H 140 H Left] Respiratory 36 H 18 30 H Rate Blood Pressure 166/55 Blood Pressure [Arm] O2 Sat by Pulse 99 100 100 Oximetry (%) 08/19/16 08/19/16 16:53 17:04 Temperature 98.0 F Pulse Rate Pulse Rate [ 123 H Left] Respiratory 26 H Rate Blood Pressure Blood Pressure 153/62 [Arm] O2 Sat by Pulse 100 Oximetry (%) GENERAL: lethargic and postictal HEAD: Normal with no signs of trauma. EYES: NECK: Normal range of motion, supple without lymphadenopathy, JVD, or masses. LUNGS: Breath sounds equal, clear to auscultation bilaterally. No wheezes, and no crackles. No accessory muscle use. no airway compromise HEART: Regular rate and rhythm, normal S1 and S2 without murmur, rub or gallop. tachycardic ABDOMEN: Soft, nontender, not distended, normoactive bowel sounds, no guarding, no rebound, no masses. No hepatomegaly or splenomegaly. MUSCULOSKELETAL: unable to assess at current with postical state UPPER EXTREMITIES: 2+ pulses, warm, well-perfused. No cyanosis. No clubbing. No peripheral edema. LOWER EXTREMITIES: 2+ pulses, warm, well-perfused. No calf tenderness. No peripheral edema. NEUROLOGICAL: lethargic Laboratory Results - last 24 hr 08/19/16 08/19/16 08/19/16 16:00 16:00 16:00 WBC 11.5 H RBC 4.32 Hgb 13.6 Hct 41.5 MCV 95.9 MCHC 32.8 RDW 17.3 H Plt Count 404 D MPV 7.1 L Neutrophils % 85.6 H Lymphocytes % 9.8 D Monocytes % 4.5 Eosinophils % 0.0 D Basophils % 0.1 INR 1.08 Sodium 141 Potassium 4.4 Chloride 105 Carbon Dioxide 18 L D Anion Gap 18 H BUN 16 D Creatinine 1.2 D Creat Clearance w eGFR > 60 Random Glucose 118 H D Calcium 9.6 Total Bilirubin 0.2 D AST 63 H D ALT 172 H Alkaline Phosphatase 91 D Creatine Kinase 124 Troponin I < 0.02 Total Protein 7.5 Albumin 4.4 ASSESSMENT/PLAN: 36 yr old male with seizure activity presenting to ER with status formation 2nd to brain mets and + brain leisions. 1. Seizures -was on keppra, recently increased to 750 mg BID per neurology will start with load and continue with 1 gm IV -dilantin daily with 400 mg iv per neuro -klonopin 1 mg bid -was given fosphenytoin, steriods, ativan and seizure activity slowing in ER with good airway patency -placing in ICU for monitoring -appreciate neurology consult to evaluate for antiseizure meds -monitor for airway patency -pulse ox -care per ICU team -repeat head CT in 8 hours. -seizure precautions -NPO currently -IVF for hydration -appreciate RENEE consult placed. 2. CA lung and brain -appreciate ER placing Dr. Conde, onc on consult. Visit type - Emergency Visit Emergency Visit: Yes ED Registration Date: 08/19/16 Care time: The patient presented to the Emergency Department on the above date and was hospitalized for further evaluation of their emergent condition. - New Patient This patient is new to me today: Yes Date on this admission: 08/19/16 - Critical Care Critical Care patient: Yes Total Critical Care Time (in minutes): 35 Critical Care Statement: The care of this patient involved high complexity decision making to prevent further life threatening deterioration of the patient 's condition and/or to evalute & treat vital organ system(s) failure or risk of failure.
--- NOTE | 2016-08-19 17:24 | CON.NEURO ---
Consult Consult Specialty:: Neurology Reason for Consultation:: Partial status epilepticus - History of Present Illness Chief Complaint: Left face/arm/leg shaking History of Present Illness: The patient is a 36 year old male presenting with his mother, with a significant past medical history of Multiple brain tumors (one growing in size) , Metastatic Lung CA (2014, currently on chemo, last chemo 3 weeks ago) s/p left lung surgery and seizures who presents to the emergency department with seizures onset shortly prior to arrival while shopping with his mother. This past year he has had multiple episodes of partial( focal) seizures involving left face/arm/leg movements.Upon presentation the patient was seizing constantly, which is involving left eye, face, upper body and left upper extremity. He reports that his Keppra was recently increased from 500 mg to 750 mg. He also notes that his last seizure was on 07/10/2016. In the ER given Decadron 10mg i/vx1, Ativan 4mgx1 than 2mgx1. Ct head 2.7 cm right parietal subcortical lesion at high convexity level with small amount of blood acute/ subacute in this lesion + perilesional edema is noted which appears increased with resultant partial effacement of the trigone of the right lat. vent. No midline shift is seen. + mild focal subcortical edema is seen within rioght ventral temporal lobe which may be slightly increased compared to previous CT. of 07/13/16 - Past Medical History Cardio/Vascular: Yes: Deep Vein Thrombosis, HTN, Other Pulmonary: Yes: Cancer, Other Gastrointestinal: Yes: Other (adrenal gland metastasis ) Endocrine: Yes: Other (rt adrenal mass) - Alcohol/Substance Use Hx Alcohol Use: No History of Substance Use: reports: Marijuana Date of Last Use: 03/06/16 (2-3 joints/day) - Smoking History Smoking history: Current every day smoker Have you smoked in the past 12 months: Yes Aproximately how many cigarettes per day: 3 If you are a former smoker, when did you quit?: 7 MO AGO - Social History Usual Living Arrangement: Other ADL: Independent Occupation: works at [employer] History of Recent Travel: No Home Medications - Allergies Allergies/Adverse Reactions: Allergies Allergy/AdvReac Type Severity Reaction Status Date / Time No Known Drug Allergies Allergy Verified 08/19/16 16:13 - Home Medications Home Medications: Ambulatory Orders Aspirin [ASA -] 81 mg PO DAILY 08/20/15 Alprazolam [Xanax] 0.25 mg PO TID PRN 02/21/16 Oxycodone HCl 10 mg PO Q4H PRN 02/21/16 Pantoprazole Sodium [Protonix -] 40 mg PO DAILY #30 tablet.ec 03/08/16 Levetiracetam [Keppra -] 750 mg PO BID #60 tablet 06/09/16 Dexamethasone [Decadron -] 3 mg PO Q6H 07/10/16 Folic Acid 1 mg PO DAILY 07/10/16 Family Disease History - Family Disease History Family Disease History: CA: Mother (HTN, ovarian cancer), Other: Father (, had HIV) Physical Exam-Neuro Vital Signs: Vital Signs Temperature 98.0 F 08/19/16 17:04 Pulse Rate 123 H 08/19/16 16:53 Respiratory Rate 26 H 08/19/16 16:53 Blood Pressure 153/62 08/19/16 16:53 O2 Sat by Pulse Oximetry (%) 100 08/19/16 16:53 Labs: CBC, BMP 08/19/16 16:00 08/19/16 16:00 INR, PTT INR 1.08 (0.82-1.09) 08/19/16 16:00 - Neuro Exam Level Of Consciousness: Yes: Alert, Oriented to Person, Oriented to Place Speech: WNL (touch/pain diminished in left face/arm/leg) Dominant Hand: Right Mini Mental Exam: Awake, well orineted, impaired attention DTR's: 0 Right Achilles, 2+ Left Tricep, 2+ Right Tricep, 2+ Right Brachioradialis, 3+ Left Bicep, 3+ Right Bicep, 3+ Left Brachioradialis, 3+ Left Achilles Babinski: Present (left is upgoing) Response to light touch: Abnormal Response to pain prick: Abnormal Movement Disorders: Seizures (noted to have left face twitching and left leg shaking on arrival in er but not now. + irregular, rather rapid movenments persistent of left arm ) Coordination: Normal: Finger to Nose (Unabl;e to test coordination) Motor Strength: 3/5: Left Arm, 4/5: Left Leg, 5/5: Right Arm, Right Leg Gait: Deferred (Pt. in status, unable to atand) NIH Stroke Scale - Total Score NIH Stroke Scale Score: 0 Imaging - Results Cat Scan: Report Reviewed (Ct head 2.7 cm right parietal subcortical lesion at high convexity level with small amount of blood acute/subacute in this lesion + perilesional edema is noted which appears increased with resultant partial effacement of the trigone of the right lat. vent. No midline shift is seen. + mild focal subcortical edema is seen within rioght ventral temporal lobe which may be slightly increased compared to previous CT. of 07/13/16) Assessment/Plan Pt. in partial(focal status epilepticus secondary to right parietal met, niow with increased edema. Suggest 1) Load with dilantin 1500mg I/V slowly and contionue with 400mg i/V slowly daily 2) Load with Keppra 1000mg i/v x1 now and cont with 1000mg i/v bid 3) Klonopin 1mg, po, bid-pt. is on Xanax, he is at risk for reduction of seizure threshold from Xanax and may have with drawl seizures. 4) Decadron 4mg i/vss q 6 hrs. Please call me if needed anytime Thank you, MNorris Sanchez MD [phone]
[2016-08-19] MEDS: SODIUM CHLORIDE 1,000 ML IV SCH (18:18)
--- NOTE | 2016-08-19 20:55 | CONSULT ---
Consult - text type - Consultation Consultation Note: PULM/CCM CHIEF COMPLAINT: status seizure activities PCP: Dr. Conde HISTORY OF PRESENT ILLNESS: Briefly Mr Frias is a 36 year old man with a significant past medical history of Metastatic Lung CA (2014, currently on chemo, last chemo 3 weeks ago) s/p left lung surgery, and brain metastases with resultant seizure disorder who presented today to emergency department with status epilepticus. He initially was seizing while out shopping with his mother. He was postical but then had more sz in ED without full regaining of consciousness. He received multiple doses of ativan, was given additional dose of Keppra and loaded with phenytoin as well. CT of head shows " 2.7 cm right parietal sub-cortical lesion at high convexity level with small amount of blood acute/subacute in this lesion + perilesional edema is noted which appears increased with resultant partial effacement of the trigone of the right lat. vent. No midline shift is seen. + mild focal subcortical edema is seen within right ventral temporal lobe which may be slightly increased compared to 07/13/16" . He was given decadron 10 given noted edema. Pt was otherwise hemodynamically stable once sz resolved. Mental status improved and pt was brought to ICU for close monitoring for status. - Past Medical History Cardio/Vascular: Yes: Deep Vein Thrombosis, HTN, Other Pulmonary: Yes: Cancer, Other Gastrointestinal: Yes: Other (adrenal gland metastasis ) Endocrine: Yes: Other (rt adrenal mass) - Alcohol/Substance Use Hx Alcohol Use: No History of Substance Use: reports: Marijuana Date of Last Use: 03/06/16 (2-3 joints/day) - Smoking History Smoking history: Current every day smoker Have you smoked in the past 12 months: Yes Aproximately how many cigarettes per day: 3 If you are a former smoker, when did you quit?: 7 MO AGO - Social History Usual Living Arrangement: Other ADL: Independent Occupation: works at [employer] History of Recent Travel: No No Known Drug Allergies Allergy (Verified 08/19/16 16:13) HOME MEDICATIONS: Home Medications Medication Instructions Recorded Aspirin [ASA -] 81 mg PO DAILY 08/20/15 Alprazolam [Xanax] 0.25 mg PO TID PRN 02/21/16 Oxycodone HCl 10 mg PO Q4H PRN 02/21/16 Pantoprazole Sodium [Protonix -] 40 mg PO DAILY #30 tablet.ec 03/08/16 Levetiracetam [Keppra -] 750 mg PO BID #60 tablet 06/09/16 Dexamethasone [Decadron -] 3 mg PO Q6H 07/10/16 Folic Acid 1 mg PO DAILY 07/10/16 REVIEW OF SYSTEMS No other complaints, as per HPI. PHYSICAL EXAMINATION Vital Signs Temp 98.4 F 08/19/16 19:43 Pulse 104 H 08/19/16 20:00 Resp 17 08/19/16 20:00 BP 132/94 08/19/16 20:00 Pulse Ox 100 08/19/16 19:53 Intake & Output 08/18/16 08/19/16 08/19/16 23:59 11:59 23:59 Weight 84.368 kg Other: Voiding Method External Catheter Height 5 ft 6 in Body Mass Index (BMI) 29.9 GENERAL: lethargic but awake, alert HEAD: Normal with no signs of trauma. EYES: EOMI NECK: Normal range of motion, supple without lymphadenopathy, JVD, or masses. LUNGS: Breath sounds equal, clear to auscultation bilaterally. No wheezes, and no crackles. No accessory muscle use. no airway compromise HEART: Regular rate and rhythm, normal S1 and S2 without murmur, rub or gallop. tachycardic ABDOMEN: Soft, nontender, not distended, normoactive bowel sounds, no guarding, no rebound, no masses. No hepatomegaly or splenomegaly. MUSCULOSKELETAL: unable to assess at current with postical state UPPER EXTREMITIES: 2+ pulses, warm, well-perfused. No cyanosis. No clubbing. No peripheral edema. LOWER EXTREMITIES: 2+ pulses, warm, well-perfused. No calf tenderness. No peripheral edema. NEUROLOGICAL: lethargic, no Laboratory Results - last 24 hr 08/19/16 08/19/16 08/19/16 16:00 16:00 16:00 WBC 11.5 H RBC 4.32 Hgb 13.6 Hct 41.5 MCV 95.9 MCHC 32.8 RDW 17.3 H Plt Count 404 D MPV 7.1 L Neutrophils % 85.6 H Lymphocytes % 9.8 D Monocytes % 4.5 Eosinophils % 0.0 D Basophils % 0.1 INR 1.08 Sodium 141 Potassium 4.4 Chloride 105 Carbon Dioxide 18 L D Anion Gap 18 H BUN 16 D Creatinine 1.2 D Creat Clearance w eGFR > 60 Random Glucose 118 H D Calcium 9.6 Total Bilirubin 0.2 D AST 63 H D ALT 172 H Alkaline Phosphatase 91 D Creatine Kinase 124 Troponin I < 0.02 Total Protein 7.5 Albumin 4.4 ASSESSMENT/PLAN: 36 yr old male with seizure activity presenting to ER with status epilepitcus 2nd to brain mets despite increasing level of AE -neurology following, recs appreciated 1) Load with dilantin 1500mg I/V slowly and continue with 400mg i/V slowly daily 2) Load with Keppra 1000mg i/v x1 now and cont with 1000mg i/v bid 3) Klonopin 1mg, po, bid-pt. is on Xanax, he is at risk for reduction of seizure threshold from Xanax and may have with drawl seizures. 4) Decadron 4mg i/vss q 6 hrs -pt seen by radiation oncologist, planning for whole brain radiation on sunday -ativan prn for breakthrough -no heparin--> SCD -regular diet -observe overnight, if no further sz, can go to floor, ultimately needs d/c home so can go to radiation on sunday - Critical Care Critical Care patient: Yes Total Critical Care Time (in minutes): 35 Critical Care Statement: The care of this patient involved high complexity decision making to prevent further life threatening deterioration of the patient 's condition and/or to evalute & treat vital organ system(s) failure or risk of failure.
--- NOTE | 2016-08-19 21:14 | PN ---
Progress Note (short form) - Note Progress Note: Radiation Oncology: patient seen and examined and films reviewed. consult dictated. He would benefit from whole brain radiation . Plan would be to initiate on sunday. I discussed the risks and benefits with the patient.
[2016-08-19 21:43] LABS: URINE APPEARANCE CLEAR; URINE BILIRUBIN NEGATIVE (NEGATIVE); URINE BLOOD NEGATIVE (NEGATIVE); URINE COLOR STRAW; URINE GLUCOSE (UA) NEGATIVE (NEGATIVE); URINE KETONE NEGATIVE (NEGATIVE); URINE LEUK ESTERASE NEGATIVE (NEGATIVE); URINE NITRITE NEGATIVE (NEGATIVE); URINE PROTEIN NEGATIVE (NEGATIVE); URINE UROBILINOGEN NEGATIVE E.U./dl (0.2-1.0)
[2016-08-19] MEDS: DEXAMETHASONE SOD PHOSPHATE 4 MG/1 ML VIAL IVPB SCH (21:47)
[2016-08-19] MEDS: CHLORHEXIDINE GLUCONATE 4% CLEANSER FOR DECOLONIZATION TP SCH (21:47)
[2016-08-19] MEDS: MUPIROCIN 2% TOPICAL OINTMENT FOR DECOLONIZATION NS SCH (21:47)
[2016-08-19] MEDS: levETIRAcetam 500 MG/5 ML INJECTION VIAL IVPB SCH (21:48)
[2016-08-19] MEDS ORDERED: clonazePAM 2 MG TABLET PO SCH (22:00)
[2016-08-19] MEDS: clonazePAM 0.5 MG TABLET PO SCH (22:07)
--- NOTE | 2016-08-19 22:56 | CONS ---
DATE OF CONSULTATION: 08/19/2016 DIAGNOSIS: Brain metastasis from lung cancer. HISTORY OF PRESENT ILLNESS: The patient is a 36-year-old man who presented more than a year ago with a locally advanced lung cancer, treated with surgery, radiation , and chemotherapy. He subsequently developed brain metastasis and, according to him , he had 2 courses of radiosurgery, initially for 3 lesions, date unknown, but, more recently, in June, he developed a seizure. Workup revealed a single lesion, which he received radiosurgery. Both of these were delivered at [facility]. He was discussing with them whole-brain radiotherapy, but this was not delivered. He is now admitted because of seizures. He responded to Decadron and he had a CT of the head, which showed a 2.7-cm right parietal subcortical linked lesion. An MRI was done, which has not been reported, but appears to show only one lesion. PAST MEDICAL HISTORY: Other than the cancer with systemic metastasis, no other known risks, other than deep vein thrombosis and hypertension. SOCIAL HISTORY: He has a long history of smoking both cigarettes and, in the past, he has smoked marijuana. ALLERGIES: None known. HOME MEDICATIONS: Dexamethasone 3 mg q.6 hours, pantoprazole 40 mg once a day, oxycodone 10 mg q.4 hours as needed, alprazolam 0.25 mg, and aspirin 81 mg. FAMILY HISTORY: His mother had a history of hypertension and ovarian cancer. His father from HIV. PHYSICAL EXAMINATION: Vital Signs: Blood pressure of 132/84, pulse of 85. His respiratory rate is 17. His temperature is 98.5 degrees Fahrenheit. His KPS is 30. General: He is a fall risk and bedridden. HEENT: His face is symmetric. His tongue is midline. Neurologic: He is alert and oriented by three. He is able to raise his eyebrows, blow out his cheeks, raise his shoulders. On strength testing, on his left side, he has 3/5 strength in his left hand, 4/5 in his left leg; 5/5 strength in right leg and right arm. He is alert and oriented. His cranial nerves are intact. Heart: Normal heart sounds are present. Lungs: Clear. Abdomen: Soft. Bowel sounds are present. Extremities: No edema. IMPRESSION/PLAN: Although he has the history of metastatic disease, given that this is a solitary lesion and very close to the skull, a neurosurgical consult might be of benefit. He would certainly benefit from whole-brain radiotherapy. We will track down the records from his previous radiosurgeries. I discussed the risks and benefits with the patient for considering radiation, which he has agreed to. DAYTON PASCUAL M.D. GASTON/[id number] MTDD
[2016-08-20] MEDS: DEXAMETHASONE SOD PHOSPHATE 4 MG/1 ML VIAL IVPB SCH ×4 (02:31→21:24)
[2016-08-20 06:57] LABS: BASOPHIL 0.1 % (0-2.0); MCH 32.6 pg (25.7-33.7); MCHC 34.5 g/dl (32.0-35.9); MEAN CELL VOLUME 94.5 fl (80-96); MEAN PLT VOLUME 7.1 fl (7.5-11.1); NEUTROPHILS 91.6 % (42.8-82.8); PLATELET COUNT 348 K/MM3 (134-434); RDW 16.5 % (11.9-15.9); WHITE BLOOD COUNT 9.9 K/mm3 (4.0-10.0)
[2016-08-20 07:15] LABS: INR 1.1 (0.82-1.09); PROTHROMBIN TIME (PATIENT) 12.1 SEC (9.98-11.88)
[2016-08-20 07:18] LABS: ACTIVATED PTT 28.2 SECONDS (26.9-34.4)
[2016-08-20 07:42] LABS: CALCIUM 9.3 mg/dL (8.5-10.1); MAGNESIUM 2.3 mg/dL (1.8-2.4)
[2016-08-20 07:43] LABS: COCKROFT - GAULT 248.41; CREATININE 0.5 mg/dL (0.7-1.3); PHOSPHOROUS 3.4 mg/dL (2.5-4.9)
--- NOTE | 2016-08-20 09:30 | PN ---
Progress Note (short form) - Note Progress Note: Patient seen and examined in the ICU. Awake and alert. No seizure overnight. No CP or SOB. No RAM or Dizziness or BOV. Intake & Output 08/17/16 08/18/16 08/19/16 08/20/16 23:59 23:59 23:59 23:59 Intake Total 500 1400 Output Total 1500 1200 Balance -1000 200 Weight 186 lb Last Vital Signs Temp Pulse Resp BP Pulse Ox 98.5 F 80 16 144/84 98 08/20/16 06:00 08/20/16 08:00 08/20/16 08:00 08/20/16 08:00 08/20/16 08:10 Active Medications Chlorhexidine Gluconate (Hibiclens For Decolonization -) 1 applic TP HS [facility] Last Admin: 08/19/16 21:47 Dose: 1 applic Clonazepam (Klonopin -) 1 mg PO BID [facility] Last Admin: 08/19/16 22:07 Dose: 1 mg Dexamethasone Sodium Phosphate (Decadron Injection -) 4 mg IVPB Q6H-IV [facility] Last Admin: 08/20/16 02:31 Dose: 4 mg Sodium Chloride (Normal Saline -) 1,000 mls @ 100 mls/hr IV ASDIR [facility] Last Admin: 08/19/16 18:18 Dose: 100 mls/hr Levetiracetam (Keppra Injection -) 1,000 mg IVPB BID [facility] Last Admin: 08/19/16 21:48 Dose: 1,000 mg Mupirocin (Bactroban Ointment (For Decolonization) -) 1 applic NS BID [facility] Stop: 08/24/16 21:59 Last Admin: 08/19/16 21:47 Dose: 1 applic Phenytoin Sodium (Dilantin Injection -) 400 mg IVPB DAILY [facility] GENERAL: awake, alert HEAD: Normal with no signs of trauma. EYES: EOMI NECK: (-) JVD LUNGS: Breath sounds equal, clear to auscultation bilaterally. No wheezes, and no crackles. No accessory muscle use. HEART: Regular rate and rhythm, normal S1 and S2 without murmur ABDOMEN: Soft, NT, ND, (+) BS, no guarding, no rebound, no masses. No hepatomegaly or splenomegaly. MUSCULOSKELETAL: WNL UPPER EXTREMITIES: 2+ pulses, warm. LOWER EXTREMITIES: 2+ pulses, warm NEUROLOGICAL: Non-focal Laboratory Results - last 24 hr 08/19/16 08/19/16 08/19/16 16:00 16:00 16:00 WBC 11.5 H RBC 4.32 Hgb 13.6 Hct 41.5 MCV 95.9 MCHC 32.8 RDW 17.3 H Plt Count 404 D MPV 7.1 L Neutrophils % 85.6 H Lymphocytes % 9.8 D Monocytes % 4.5 Eosinophils % 0.0 D Basophils % 0.1 INR 1.08 PTT (Actin FS) Sodium 141 Potassium 4.4 Chloride 105 Carbon Dioxide 18 L D Anion Gap 18 H BUN 16 D Creatinine 1.2 D Creat Clearance w eGFR > 60 POC Glucometer Random Glucose 118 H D Calcium 9.6 Phosphorus Magnesium Total Bilirubin 0.2 D AST 63 H D ALT 172 H Alkaline Phosphatase 91 D Creatine Kinase 124 Troponin I < 0.02 Total Protein 7.5 Albumin 4.4 Urine Color Urine Appearance Urine pH Ur Specific [place] Urine Protein Urine Glucose (UA) Urine Ketones Urine Blood Urine Nitrite Urine Bilirubin Urine Urobilinogen Ur Leukocyte Esterase Blood Type Antibody Screen 08/19/16 08/19/16 08/19/16 16:00 20:45 20:58 WBC RBC Hgb Hct MCV MCHC RDW Plt Count MPV Neutrophils % Lymphocytes % Monocytes % Eosinophils % Basophils % INR PTT (Actin FS) Sodium Potassium Chloride Carbon Dioxide Anion Gap BUN Creatinine Creat Clearance w eGFR POC Glucometer [id number] Random Glucose Calcium Phosphorus Magnesium Total Bilirubin AST ALT Alkaline Phosphatase Creatine Kinase Troponin I Total Protein Albumin Urine Color Straw Urine Appearance Clear Urine pH 7.0 D Ur Specific [place] 1.010 Urine Protein Negative Urine Glucose (UA) Negative Urine Ketones Negative Urine Blood Negative Urine Nitrite Negative Urine Bilirubin Negative Urine Urobilinogen Negative Ur Leukocyte Esterase Negative Blood Type A POSITIVE Antibody Screen Negative 08/19/16 08/20/16 08/20/16 22:20 05:27 05:27 WBC 9.9 RBC 4.15 Hgb 13.5 Hct 39.2 MCV 94.5 MCHC 34.5 RDW 16.5 H Plt Count 348 MPV 7.1 L Neutrophils % 91.6 H Lymphocytes % 5.4 L D Monocytes % 2.9 L Eosinophils % 0.0 Basophils % 0.1 INR 1.10 PTT (Actin FS) 28.2 Sodium Potassium Chloride Carbon Dioxide Anion Gap BUN Creatinine Creat Clearance w eGFR POC Glucometer [id number] Random Glucose Calcium Phosphorus Magnesium Total Bilirubin AST ALT Alkaline Phosphatase Creatine Kinase Troponin I Total Protein Albumin Urine Color Urine Appearance Urine pH Ur Specific [place] Urine Protein Urine Glucose (UA) Urine Ketones Urine Blood Urine Nitrite Urine Bilirubin Urine Urobilinogen Ur Leukocyte Esterase Blood Type Antibody Screen 08/20/16 05:27 WBC RBC Hgb Hct MCV MCHC RDW Plt Count MPV Neutrophils % Lymphocytes % Monocytes % Eosinophils % Basophils % INR PTT (Actin FS) Sodium 139 Potassium 4.3 Chloride 102 Carbon Dioxide 26 D Anion Gap 11 BUN 9 D Creatinine 0.5 L D Creat Clearance w eGFR POC Glucometer Random Glucose 120 H Calcium 9.3 Phosphorus 3.4 Magnesium 2.3 Total Bilirubin AST ALT Alkaline Phosphatase Creatine Kinase Troponin I Total Protein Albumin Urine Color Urine Appearance Urine pH Ur Specific [place] Urine Protein Urine Glucose (UA) Urine Ketones Urine Blood Urine Nitrite Urine Bilirubin Urine Urobilinogen Ur Leukocyte Esterase Blood Type Antibody Screen ASSESSMENT/PLAN: 36 yr old male with seizure activity presenting to ER with status epilepitcus 2nd to brain mets due to Adenocarcinoma lung AE per Neuro D/C johnson O2 as needed Decadron Ativan PRN SCDs PO as tolerated Floor Dr Galeano
--- NOTE | 2016-08-20 09:47 | PN ---
Progress Note (short form) - Note Progress Note: NEUROSURGERY CONSULT DICTATED Chart reviewed MRI/CT reviewed Pt examined H/o metastatic Lung CA since 2014, currently on chemo s/p left lung surgery and seizure order who presents with seizures while shopping with his mother. This past year he has had multiple episodes of focal seizures involving left face/arm /leg movements. He reports that his last seizure was on 07/10/2016. In the ED pt was given Decadron and Ativan. PE: T 98.5, VSS; O2 sat 98% HEENT- NC/AT; Neck- supple; Cor- RR; Lungs- decreased BS at bases B; Abd- benign ; Ext- no sign of DVT A/A/Ox3; CN- intact without facial or tongue assymmetry; Motor- L UE and foot DF 4+; Sensation- intact LT; DTR- 3+, toes downgoing Head CT- R frontal (motor) hyperdensity with associated edema and mass effect; R anterior temporal and L high medial frontal mild edema; no HCP MRI (08-17) c/w with June scan: enlarging R ant temporal ring enhancing lesion( about 1.5 cm diameter) and R frontal motor 2.5x 2.8 cm enhancing tumor with edema and mass effect; and small L high medial frontal ring enhancing lesion Multiple prior scans reviewed from last 6 months and tumors have continued to enlarge, andrew R frontal 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 and could receive his f/u care/tx there Prognosis poor given progression of brain lesions despite tx
--- NOTE | 2016-08-20 09:47 | CONSULT ---
Consult Consult Specialty:: Oncology-HematologyDr. Worthington Referred by:: Dr. Worthington Reason for Consultation:: Lung ca -BRUSH FILLER HAND Mets. . - History of Present Illness Chief Complaint: Left sided seizures History of Present Illness: Adenoca of lung , s/p surgery, RT, Multiple lines of chemotherapy, including immunotherpy , currently on Alimta. Developed seizures while shopping in mall. Has had SRS x [address] with progressive BRUSH FILLER HAND met and plan was for institution of whole brain RT as outpatient. Developed seizures and came to ER. - History Source History Provided By: Patient - Past Medical History BRUSH FILLER HAND: Yes: Seizure, Other (brain mets, s/p SRS x 2 ; progression of BRUSH FILLER HAND met) Cardio/Vascular: Yes: Deep Vein Thrombosis, HTN, Other Pulmonary: Yes: Cancer, Other (adenoca of lung undergoing chemotherapy) Gastrointestinal: Yes: Other (adrenal gland metastasis ) Endocrine: Yes: Other (rt adrenal mass) - Alcohol/Substance Use Hx Alcohol Use: No History of Substance Use: reports: Marijuana Date of Last Use: 03/06/16 (2-3 joints/day) - Smoking History Smoking history: Current every day smoker Have you smoked in the past 12 months: Yes Aproximately how many cigarettes per day: 3 If you are a former smoker, when did you quit?: 7 MO AGO - Social History Usual Living Arrangement: Other ADL: Independent Occupation: works at [employer] History of Recent Travel: No Home Medications - Allergies Allergies/Adverse Reactions: Allergies Allergy/AdvReac Type Severity Reaction Status Date / Time No Known Drug Allergies Allergy Verified 08/19/16 16:13 - Home Medications Home Medications: Ambulatory Orders Aspirin [ASA -] 81 mg PO DAILY 08/20/15 Alprazolam [Xanax] 0.25 mg PO TID PRN 02/21/16 Oxycodone HCl 10 mg PO Q4H PRN 02/21/16 Pantoprazole Sodium [Protonix -] 40 mg PO DAILY #30 tablet.ec 03/08/16 Levetiracetam [Keppra -] 750 mg PO BID #60 tablet 06/09/16 Dexamethasone [Decadron -] 3 mg PO Q6H 07/10/16 Folic Acid 1 mg PO DAILY 07/10/16 Family Disease History - Family Disease History Family Disease History: CA: Mother (HTN, ovarian cancer), Other: Father (, had HIV) Review of Systems - Review of Systems Constitutional: reports: Loss of Appetite, Weakness Eyes: denies: Blurred Vision, Double Vision, Photophobia, Recent Change in Vision HENT: denies: Throat Pain Neck: denies: Stiffness, Tenderness Cardiovascular: reports: Shortness of Breath. denies: Chest Pain Respiratory: reports: SOB on Exertion Gastrointestinal: denies: Diarrhea, Dysphagia, Nausea, Vomiting Musculoskeletal: reports: Muscle Weakness Integumentary: denies: Bruising, Erythema Neurological: reports: Weakness, Other (left sided weakness recently) Hematology/Lymphatic: denies: Easily Bruised, Swollen Glands Psychiatric: reports: No Symptoms Physical Exam Vital Signs: Vital Signs Temperature 98.5 F 08/20/16 06:00 Pulse Rate 80 08/20/16 08:00 Respiratory Rate 16 08/20/16 08:00 Blood Pressure 144/84 08/20/16 08:00 O2 Sat by Pulse Oximetry (%) 98 08/20/16 08:10 Constitutional: Yes: Mild Distress Eyes: Yes: PERRL. No: Diplopia, Ptosis, Sclera Icterus HENT: No: Hoarseness, Pharyngeal Erythema, Tonsillar Exudate Neck: Yes: Supple. No: Lymphadenopathy, Tenderness, Thyromegaly Cardiovascular: Yes: Regular Rate and Rhythm. No: Murmur Respiratory: Yes: CTA Bilaterally Gastrointestinal: Yes: Soft. No: Splenomegaly Renal/: No: CVA Tenderness - Left, CVA Tenderness - Right Musculoskeletal: Yes: Muscle Weakness Extremities: No: Calf Tenderness Edema: No Integumentary: No: Bruising, Erythema, Jaundice, Rash Neurological: Yes: Weakness, Other (left sided) Psychiatric: Yes: WNL Labs: CBC, BMP 08/20/16 05:27 08/20/16 05:27 Imaging - Results X-ray: Report Reviewed, Image Reviewed Cat Scan: Report Reviewed, Image Reviewed Problem List - Problems (1) Metastatic lung carcinoma Assessment/Plan: Systemically on Alimta. To continue q 3 weeks. Has had SRS x 2 . Progression of BRUSH FILLER HAND met. For whole brain RT. Code(s): C78.00 - SECONDARY MALIGNANT NEOPLASM OF UNSPECIFIED LUNG Qualifiers : Laterality: left Qualified Code(s): C78.02 - Secondary malignant neoplasm of left lung (2) Seizure Assessment/Plan: Presented with uncontrolled seizures requiring ativan and dilant. Would follow up dilantin level. Code(s): R56.9 - UNSPECIFIED CONVULSIONS (3) Cavitating mass in left upper lung lobe Assessment/Plan: History of adenoca of lung , s/p Surgery and RT. Multiple therapies in past. Currently on q 3 weeks Alimta. Will be continued on same. Code(s): J98.4 - OTHER DISORDERS OF LUNG Assessment/Plan Adenoca of lung s/p surgery, RT, multiple lines of therapy including immunotherpy currently on Alimta. Has BRUSH FILLER HAND and adrenal mets . S/P whole brain SRS x 2 with BRUSH FILLER HAND progression and breakthrough seizures. Currently seizures have been broken with ativan and dilantin. Will need to check dilantin level. Would hold on DVT prophylaxis. Has been seen by radiation and will begin RT to whole brain. Seizure management per neurology.
[2016-08-20] MEDS: PHENYTOIN SODIUM 100 MG/2 ML VIAL IVPB SCH (10:18)
[2016-08-20] MEDS: clonazePAM 0.5 MG TABLET PO SCH ×2 (10:25→21:24)
[2016-08-20] MEDS: levETIRAcetam 500 MG/5 ML INJECTION VIAL IVPB SCH ×2 (10:42→21:24)
[2016-08-20] MEDS: MUPIROCIN 2% TOPICAL OINTMENT FOR DECOLONIZATION NS SCH ×2 (10:46→21:24)
--- NOTE | 2016-08-20 11:06 | CONS ---
DATE OF CONSULTATION: DATE OF DICTATION: 08/20/2016 REQUESTING PHYSICIAN: Allan Cook MD DIRECTOR OF PEOPLE: Archie Muir MD, Neurosurgery CHIEF COMPLAINT: Focal seizure secondary to brain metastasis. HISTORY OF PRESENT ILLNESS: The patient is a 36-year-old right-handed male with history of metastatic lung adenocarcinoma initially diagnosed in 2014, who complains of intermittent seizure activity. He generally experiences focal seizure activity involving the left face, arm, and one in the leg. These would generally be self-limiting. The last seizure was on July 20, 2016. Just prior to admission, he was out shopping with his mother when he experienced a focal seizure episode again. He denies significant headache and has no nausea or vomiting. He has been on Keppra, which has recently been increased. He denies fevers or chills. He has undergone left lung surgery previously. He stated that he has also undergone whole-brain radiation, by report. He has been on chemotherapy; the last dose was about 3 weeks ago. PAST MEDICAL HISTORY: Left lung adenocarcinoma with brain metastases, seizure disorder. MEDICATION: Currently includes Decadron, Dilantin, Keppra, Klonopin and he had previously received Ativan during the seizure episode. PHYSICAL EXAMINATION: Vital Signs: Temperature is 98.5, blood pressure is 144/84 with a pulse rate 80, O2 saturation 98% on room air. HEENT: Normocephalic, atraumatic, anicteric. Neck: Supple with no lymphadenopathy, no carotid bruit. Coronary: Regular rhythm. Lungs: Clear bilaterally, except for decreased breath sounds in the bases. Abdomen: Mildly obese, but benign. Extremities: No signs of DVT. Neurologic: He is awake, alert, and oriented x3. His speech is slightly slow, but he is generally fluent. There is no significant aphasia. Cranial nerve examination is intact, 2 through 12. He has symmetric facial musculature and his tongue was midline. Motor examination is 5/5, except for left upper extremity and leftward dorsiflexion, which are 4+/5. He has a slight drift of the left upper extremity. Sensory examination is intact to light touch and vibratory sensation. Deep tendon reflexes are 3+ throughout and toes are downgoing. Gait is not tested for safety reasons. Cerebellar examination demonstrates normal coordination without tremor. LABORATORY EXAMINATION: White blood cell count is 9900, hemoglobin is 13.5, platelet count is 348,000. INR is 1.1 and PTT is 28.2. Serum sodium is 139, potassium is 4.3, BUN is 9, creatinine is 0.5. Urinalysis was negative. CT scan of the head done yesterday demonstrates a 3 cm right posterior frontal region just under modal cortex and just anterior to the central sulcus. There is partial hyperdensity. There was a prior CT scan on July 13, which also demonstrated the right frontal hemorrhage, which was more confluent at the time. There is somewhat more perilesional edema. There is a small right anterior frontal region edema as well as a left medial frontal region edema, which is noted as well. MRI of the brain from August 17 demonstrated was compared to a prior scan done in June 2016. On the MRI from 3 days earlier, there is a right anterior temporal 15 x 11 mm oval-shaped, rim-enhancing lesion. There was a small left medial high frontal 5 to 7 to 8 mm rim-enhancing lesion. The largest lesion is the right frontal lobe just anterior to the central sulcus. There is associated edema. The size is approximately 25 x 28 mm, 2.5 x 2.8 cm, which is slightly larger compared to the MRI from June. There is associated vasogenic edema and mild mass effect. These MRIs were compared to a 3rd prior MRI from last year, at which time these lesions were generally less than 1 cm. IMPRESSION: 1. Metastatic lung adenocarcinoma to the brain with increased size of the edema as well as intralesional hemorrhage. 2. Seizure disorder. RECOMMENDATIONS: The patient presents with focal seizure associated with brain metastases. He has had these hemorrhagic transformations to the largest right frontal metastasis. There is slightly more vasogenic edema currently, which is not unexpected given the recent hemorrhage. Further neurology treatment and medication adjustment for his focal motor seizures is recommended. Given that the tumors have continued to increase somewhat in size, local boost with gamma stereotactic radiosurgery could be considered. The patient has reportedly been treated at [facility] previously and continues to receive his followup care there as well. The above option was discussed with the patient. The patient is not a surgical candidate because of the location of the largest lesion, of which is right under modal cortex and just under the central sulcus. Pros and cons of treatment approach were discussed. All questions were answered at the bedside. ARCHIE MUIR M.D. [id number]
[2016-08-20] MEDS: SODIUM CHLORIDE 1,000 ML IV SCH (13:31)
--- NOTE | 2016-08-20 14:13 | PN ---
Physical Exam: SUBJECTIVE: Patient seen and examined at bedside in ICU. OBJECTIVE: Vital Signs Period Temp Pulse Resp BP Sys/Lindo Pulse Ox Last 24 Hr 98.0 F-98.5 F 65-104 13-17 92-147/57-96 98-100 GENERAL: The patient is awake, alert, and fully oriented, in no acute distress. HEAD: Normal with no signs of trauma. EYES: PERRL, extraocular movements intact, sclera anicteric, conjunctiva clear. No ptosis. LUNGS: Breath sounds equal, clear to auscultation bilaterally, no wheezes, no crackles, no accessory muscle use. HEART: Regular rate and rhythm, S1, S2 without murmur, rub or gallop. ABDOMEN: Soft, nontender, nondistended, normoactive bowel sounds, no guarding, no rebound EXTREMITIES: 2+ pulses, warm, well-perfused, no edema. NEUROLOGICAL: Cranial nerves II through XII grossly intact. Normal speech, gait not observed. Laboratory Results - last 24 hr 08/19/16 08/19/16 08/19/16 20:45 20:58 22:20 WBC RBC Hgb Hct MCV MCHC RDW Plt Count MPV Neutrophils % Lymphocytes % Monocytes % Eosinophils % Basophils % INR PTT (Actin FS) Sodium Potassium Chloride Carbon Dioxide Anion Gap BUN Creatinine POC Glucometer [phone] Random Glucose Calcium Phosphorus Magnesium Urine Color Straw Urine Appearance Clear Urine pH 7.0 D Ur Specific [place] 1.010 Urine Protein Negative Urine Glucose (UA) Negative Urine Ketones Negative Urine Blood Negative Urine Nitrite Negative Urine Bilirubin Negative Urine Urobilinogen Negative Ur Leukocyte Esterase Negative 08/20/16 08/20/16 08/20/16 05:27 05:27 05:27 WBC 9.9 RBC 4.15 Hgb 13.5 Hct 39.2 MCV 94.5 MCHC 34.5 RDW 16.5 H Plt Count 348 MPV 7.1 L Neutrophils % 91.6 H Lymphocytes % 5.4 L D Monocytes % 2.9 L Eosinophils % 0.0 Basophils % 0.1 INR 1.10 PTT (Actin FS) 28.2 Sodium 139 Potassium 4.3 Chloride 102 Carbon Dioxide 26 D Anion Gap 11 BUN 9 D Creatinine 0.5 L D POC Glucometer Random Glucose 120 H Calcium 9.3 Phosphorus 3.4 Magnesium 2.3 Urine Color Urine Appearance Urine pH Ur Specific [place] Urine Protein Urine Glucose (UA) Urine Ketones Urine Blood Urine Nitrite Urine Bilirubin Urine Urobilinogen Ur Leukocyte Esterase Active Medications Generic Name Dose Route Start Last Admin Trade Name Shayna PRN Reason Stop Dose Admin Chlorhexidine Gluconate 1 applic 08/19/16 22:00 08/19/16 21:47 Hibiclens For Decolonization - TP 1 applic HS RISHI Administration Clonazepam 1 mg 08/19/16 22:00 08/20/16 10:25 Klonopin - PO 1 mg BID RISHI Administration Dexamethasone Sodium Phosphate 4 mg 08/19/16 21:00 08/20/16 10:24 Decadron Injection - IVPB 4 mg Q6H-IV RISHI Administration Sodium Chloride 1,000 mls @ 100 mls/hr 08/19/16 17:30 08/20/16 13:31 Normal Saline - IV 100 mls/hr ASDIR RISHI Administration Levetiracetam 1,000 mg 08/19/16 22:00 08/20/16 10:42 Keppra Injection - IVPB 1,000 mg BID RISHI Administration Mupirocin 1 applic 08/19/16 22:00 08/20/16 10:46 Bactroban Ointment (For Decolonization) - NS 08/24/16 21:59 1 applic BID RISHI Administration Phenytoin Sodium 400 mg 08/20/16 10:00 08/20/16 10:18 Dilantin Injection - IVPB 400 mg DAILY RISHI Administration ASSESSMENT/PLAN 36 year-old male with a PMH of adenocarcinoma of the lung with multiple brain mets, admitted for seizure. Focal status epilepticus secondary to metastatic lung cancer with metastases to brain --loaded with dilantin IV 1500mg; continue 400mg IV daily --loaded with Keppra 1000mg IV; continue 1000mg IV bid --Xanax dc'd --continue Klonopin PO 1mg BID --continue decadron IV 4mg q6h Metastatic lung cancer --plan is for patient to start full brain radiation, appointment with Dr. Barroso on 08/21 F/E/N Fluids: PO intake adequate Electrolytes: replete as indicated Nutrition: regular diet Physical therapy evaluation: patient with unsteady gait today when ambulated with staff DVT prophylaxis: SCDs, oob, ambulation Dispo: continues to require inpatient care. Full code. Visit type - Emergency Visit Emergency Visit: Yes ED Registration Date: 08/19/16 Care time: The patient presented to the Emergency Department on the above date and was hospitalized for further evaluation of their emergent condition. - New Patient This patient is new to me today: Yes Date on this admission: 08/20/16 - Critical Care Critical Care patient: Yes Total Critical Care Time (in minutes): 35 Critical Care Statement: The care of this patient involved high complexity decision making to prevent further life threatening deterioration of the patient 's condition and/or to evalute & treat vital organ system(s) failure or risk of failure.
[2016-08-20] MEDS: FOLIC ACID 1 MG TABLET (FP) PO SCH (18:13)
[2016-08-20] MEDS: oxyCODONE HCL 5 MG TABLET PO PRN (19:19)
[2016-08-20] MEDS ORDERED: ATOVAQUONE 750 MG/5 ML (UNIT-DOSE PACKAGING) PO SCH (19:30)
[2016-08-20] MEDS ORDERED: ATOVAQUONE 750 MG/5 ML PO SCH (19:31)
[2016-08-20] MEDS: CHLORHEXIDINE GLUCONATE 4% CLEANSER FOR DECOLONIZATION TP SCH (21:24)
--- NOTE | 2016-08-21 00:08 | EKG ---
Test Reason : Blood Pressure : / mmHG Vent. Rate : 127 BPM Atrial Rate : 127 BPM P-R Int : 124 ms QRS Dur : 066 ms QT Int : 296 ms P-R-T Axes : 055 070 012 degrees QTc Int : 430 ms POOR DATA QUALITY, INTERPRETATION MAY BE ADVERSELY AFFECTED SINUS TACHYCARDIA OTHERWISE NORMAL ECG WHEN COMPARED WITH ECG OF 10-JUL-2016 22:20, VENT. RATE HAS INCREASED BY 45 BPM T WAVE AMPLITUDE HAS DECREASED IN LATERAL LEADS Confirmed by MARISOL PAREDES MD ([id number]) on 08/21/2016 12:07:25 AM Referred By: Confirmed By:MARISOL PAREDES MD
[2016-08-21] MEDS: oxyCODONE HCL 5 MG TABLET PO PRN (02:44)
[2016-08-21] MEDS: DEXAMETHASONE SOD PHOSPHATE 4 MG/1 ML VIAL IVPB SCH ×3 (02:44→15:33)
[2016-08-21 06:13] LABS: MCHC 33.9 g/dl (32.0-35.9); MEAN CELL VOLUME 94.5 fl (80-96); MEAN PLT VOLUME 6.7 fl (7.5-11.1); NEUTROPHILS 85.2 % (42.8-82.8); PLATELET COUNT 389 K/MM3 (134-434); RDW 16.8 % (11.9-15.9); WHITE BLOOD COUNT 10.6 K/mm3 (4.0-10.0)
[2016-08-21 06:58] LABS: CALCIUM 9.4 mg/dL (8.5-10.1)
[2016-08-21 07:05] LABS: ALBUMIN 3.6 g/dl (3.4-5.0); ALK PHOS 80 U/L (45-117); ANION GAP 10 (8-16); BILIRUBIN,TOTAL 0.3 mg/dL (0.2-1.0); CO2 29 mmol/L (21-32); COCKROFT - GAULT 207.01; CREATININE 0.6 mg/dL (0.7-1.3); GLUCOSE,RANDOM 91 mg/dL (74-106); MAGNESIUM 2.6 mg/dL (1.8-2.4); SGOT/AST 65 U/L (15-37); SGPT/ALT 130 U/L (12-78); TOT PROT 6.2 g/dl (6.4-8.2)
[2016-08-21] MEDS ORDERED: PT OWN MED DRAWER 7, Y5N ONE ×2 (08:58→17:58)
--- NOTE | 2016-08-21 08:59 | PN ---
Progress Note (short form) - Note Progress Note: Radiation Oncology: neurosurgery note appreciated. I will arrange for whole brain radiotherapy when patient is out of ICU and stable.
[2016-08-21] MEDS: FOLIC ACID 1 MG TABLET (FP) PO SCH (09:00)
[2016-08-21] MEDS: clonazePAM 0.5 MG TABLET PO SCH (09:00)
[2016-08-21] MEDS: PHENYTOIN SODIUM 100 MG/2 ML VIAL IVPB SCH (09:02)
[2016-08-21] MEDS: levETIRAcetam 500 MG/5 ML INJECTION VIAL IVPB SCH (09:02)
[2016-08-21] MEDS ORDERED: LORAZEPAM CARPU-JECT 2 MG/ML DISP.SYRIN IVPUSH ONE (09:03)
--- NOTE | 2016-08-21 09:34 | PN ---
Progress Note (short form) - Note Progress Note: NEUROSURGERY No H/A, N/V Had one focal sz episode PE: Tmax 99.1, VSS; O2 sat 100% on RA HEENT- NC/AT; Neck- supple; Cor- RR; Lungs- decreased BS at bases B; Abd- benign ; Ext- no sign of DVT A/A/Ox3; CN- intact without facial or tongue assymmetry; Motor- L UE and foot DF 4+; Sensation- intact LT; DTR- 3+, toes downgoing Head CT- R frontal (motor) hyperdensity with associated edema and mass effect; R anterior temporal and L high medial frontal mild edema; no HCP MRI (08-17) c/w with June MRI: enlarging R ant temporal ring enhancing lesion( now about 1.5 cm diameter) and R frontal motor 2.5x 2.8 cm enhancing tumor with edema and mass effect; and small L high medial frontal ring enhancing lesion Multiple prior scans reviewed from last 6 months and tumors have continued to enlarge, andrew R frontal lesion Multiple brain mets (lung adenocarcinoma) with focal motor seizure Neurology f/u for anticonvulsant adjustments Had reportedly undergone WBXRT? could consider gamma knife boost for the 3 lesions or additional fractions per rad onc if feasible Prognosis poor given progression of brain lesions despite prior treatments
--- NOTE | 2016-08-21 10:30 | PN ---
Physical Exam: SUBJECTIVE: Patient seen and examined. Nurse reports pt with seizure activity this AM. Pt states he woke up fine, but then shortly after awakening his right arm started shaking which is typical of his seizure activity. He was given ativan 2mg IV at 910am. No seizure activity at time of exam at 1010AM. Pt reports feeling "tired"; otherwise without complaint. OBJECTIVE: Vital Signs - 24 hr 3 08/20/16 08/20/16 08/20/16 12:00 14:00 16:00 Temperature Pulse Rate 100 H 84 Respiratory 18 20 18 Rate Blood Pressure 125/87 124/87 O2 Sat by Pulse 98 Oximetry (%) 3 08/20/16 08/20/16 08/20/16 17:00 18:00 19:46 Temperature Pulse Rate 104 H Respiratory 18 18 18 Rate Blood Pressure 125/87 114/87 O2 Sat by Pulse 98 Oximetry (%) 3 08/20/16 08/20/16 08/21/16 20:00 21:00 00:00 Temperature 98.4 F Pulse Rate 87 Respiratory 18 18 Rate Blood Pressure 123/74 117/75 O2 Sat by Pulse 98 Oximetry (%) 3 08/21/16 08/21/16 08/21/16 02:00 03:46 04:00 Temperature 99.1 F Pulse Rate 75 80 Respiratory 18 18 20 Rate Blood Pressure 130/90 O2 Sat by Pulse 98 Oximetry (%) 3 08/21/16 08/21/16 08/21/16 06:00 08:00 09:44 Temperature 98.1 F Pulse Rate 83 80 88 Respiratory 18 18 18 Rate Blood Pressure 134/84 120/80 102/84 O2 Sat by Pulse 100 Oximetry (%) 08/21/16 08/21/16 09:46 09:54 Temperature Pulse Rate 91 H Respiratory Rate Blood Pressure O2 Sat by Pulse 97 95 Oximetry (%) GENERAL: The patient is awake, alert, and fully oriented, in no acute distress. HEAD: Normal with no signs of trauma. EYES: PERRL, extraocular movements intact, sclera anicteric, conjunctiva clear. No ptosis. ENT: Ears normal, nares patent, oropharynx clear without exudates, moist mucous membranes. NECK: Trachea midline, full range of motion, supple. LUNGS: Breath sounds equal, clear to auscultation bilaterally, no wheezes, no crackles, no accessory muscle use. HEART: Regular rate and rhythm, S1, S2 without murmur, rub or gallop. ABDOMEN: Soft, nontender, nondistended, normoactive bowel sounds, no guarding, no rebound, no hepatosplenomegaly, no masses. EXTREMITIES: 2+ pulses, warm, well-perfused, no edema. NEUROLOGICAL: Cranial nerves II through XII grossly intact. Normal speech, gait not observed. PSYCH: Normal mood, normal affect. SKIN: Warm, dry, normal turgor, no rashes or lesions noted Laboratory Results - last 24 hr 3 08/20/16 08/21/16 08/21/16 19:40 05:20 05:20 WBC 10.6 H RBC 4.07 Hgb 13.0 Hct 38.5 MCV 94.5 MCHC 33.9 RDW 16.8 H Plt Count 389 MPV 6.7 L Neutrophils % 85.2 H Lymphocytes % 7.3 L D Monocytes % 7.5 D Eosinophils % 0.0 Basophils % 0.0 Sodium 141 Potassium 4.0 Chloride 102 Carbon Dioxide 29 Anion Gap 10 BUN 13 D Creatinine 0.6 L Creat Clearance w eGFR > 60 POC Glucometer [phone] Random Glucose 91 D Calcium 9.4 Magnesium 2.6 H Total Bilirubin 0.3 D AST 65 H ALT 130 H D Alkaline Phosphatase 80 Total Protein 6.2 L Albumin 3.6 Active Medications 3 Generic Name Dose Route Start Last Admin Trade Name Freq PRN Reason Stop Dose Admin Atovaquone 1,500 mg 08/20/16 19:31 Mepron - PO DAILY@1800 RISHI Chlorhexidine Gluconate 1 applic 08/19/16 22:00 08/20/16 21:24 Hibiclens For Decolonization - TP 1 applic HS RISHI Administration Clonazepam 1 mg 08/19/16 22:00 08/21/16 09:00 Klonopin - PO 1 mg BID RISHI Administration Dexamethasone Sodium Phosphate 4 mg 08/19/16 21:00 08/21/16 09:02 Decadron Injection - IVPB 4 mg Q6H-IV RISHI Administration Folic Acid 1 mg 08/20/16 17:45 08/21/16 09:00 Folic Acid - PO 1 mg DAILY RISHI Administration Levetiracetam 1,000 mg 08/19/16 22:00 08/21/16 09:02 Keppra Injection - IVPB 1,000 mg BID RISHI Administration Mupirocin 1 applic 08/19/16 22:00 08/20/16 21:24 Bactroban Ointment (For Decolonization) - NS 08/24/16 21:59 1 applic BID RISHI Administration Oxycodone HCl 10 mg 08/20/16 19:03 08/21/16 02:44 Roxicodone - PO 10 mg Q4H PRN Administration PAIN Phenytoin Sodium 400 mg 08/20/16 10:00 08/21/16 09:02 Dilantin Injection - IVPB 400 mg DAILY RISHI Administration ASSESSMENT/PLAN: 36 year-old male with a PMH of adenocarcinoma of the lung with multiple brain mets, admitted for seizure. Focal status epilepticus secondary to metastatic lung cancer with metastases to brain - loaded with dilantin IV 1500mg; continue 400mg IV daily - loaded with Keppra 1000mg IV; continue 1000mg IV bid - home xanax changed to klonopin - Neurology regarding home medication recommendations. Advised to obtain drug levels and then decision to be made. Lung cancer with mets to brain - continue decadron IV 4mg q6h - plan is for patient to start full brain radiation, appointment with Dr. Barroso on 08/21, will put on hold until out of ICU - unsteady gait noted yesterday, PT eval ordered and pending. F/E/N Fluids: PO intake adequate Electrolytes: replete as indicated Nutrition: regular diet DVT prophylaxis: SCDs, oob, ambulation, defer chemoprophylaxis due to bleeding risk at tumor site Dispo: continues to require inpatient care. Full code. Visit type - Emergency Visit Emergency Visit: Yes ED Registration Date: 08/19/16 Care time: The patient presented to the Emergency Department on the above date and was hospitalized for further evaluation of their emergent condition. - New Patient This patient is new to me today: Yes Date on this admission: 08/21/16 - Critical Care Critical Care patient: No - Discharge Referral Referred to [facility] No
--- NOTE | 2016-08-21 13:48 | PN ---
Physical Exam: SUBJECTIVE: Patient seen and examined Patient had seizure this morningaround 9:00 am, ativan 2mg given and patient iv antiepileptic given. Seizure stopped. irregular movements were just noticed in left upper limb Patient denies aura. Patient has no post ictal confusion Patient denies lightheadedness, dizziness, chest pain, sob, palpitations, nausea , vomiting OBJECTIVE: Vital Signs Period Temp Pulse Resp BP Sys/Lindo Pulse Ox Last 24 Hr 98.1 F-99.1 F 75-111 18-20 102-134/68-90 95-100 GENERAL: The patient is awake, alert, and fully oriented, in no acute distress. EYES: PERRL, extraocular movements intact, ENT: Ears normal, nares patent,, moist mucous membranes. LUNGS: Breath sounds equal, clear to auscultation bilaterally, no wheezes, no crackles, no accessory muscle use. mid line scar present from previous surgery HEART: s1s2 normal . ABDOMEN: Soft, nontender, nondistended, normoactive bowel sounds, no guarding, no rebound, EXTREMITIES: 2+ pulses, warm, well-perfused, no edema. NEUROLOGICAL: Cranial nerves II through XII grossly intact. Normal speech, gait not observed. PSYCH: Normal mood, normal affect. SKIN: Warm, dry, Laboratory Results - last 24 hr 08/20/16 08/21/16 08/21/16 19:40 05:20 05:20 WBC 10.6 H RBC 4.07 Hgb 13.0 Hct 38.5 MCV 94.5 MCHC 33.9 RDW 16.8 H Plt Count 389 MPV 6.7 L Neutrophils % 85.2 H Lymphocytes % 7.3 L D Monocytes % 7.5 D Eosinophils % 0.0 Basophils % 0.0 Sodium 141 Potassium 4.0 Chloride 102 Carbon Dioxide 29 Anion Gap 10 BUN 13 D Creatinine 0.6 L Creat Clearance w eGFR > 60 POC Glucometer 169.96369 Random Glucose 91 D Calcium 9.4 Magnesium 2.6 H Total Bilirubin 0.3 D AST 65 H ALT 130 H D Alkaline Phosphatase 80 Total Protein 6.2 L Albumin 3.6 Phenytoin 08/21/16 08/21/16 11:20 12:33 WBC RBC Hgb Hct MCV MCHC RDW Plt Count MPV Neutrophils % Lymphocytes % Monocytes % Eosinophils % Basophils % Sodium Potassium Chloride Carbon Dioxide Anion Gap BUN Creatinine Creat Clearance w eGFR POC Glucometer [phone] Random Glucose Calcium Magnesium Total Bilirubin AST ALT Alkaline Phosphatase Total Protein Albumin Phenytoin 27.7 H* Active Medications Generic Name Dose Route Start Last Admin Trade Name Shayna PRN Reason Stop Dose Admin Atovaquone 1,500 mg 08/20/16 19:31 Mepron - PO DAILY@1800 RISHI Chlorhexidine Gluconate 1 applic 08/19/16 22:00 08/20/16 21:24 Hibiclens For Decolonization - TP 1 applic HS RISHI Administration Clonazepam 1 mg 08/19/16 22:00 08/21/16 09:00 Klonopin - PO 1 mg BID RISHI Administration Dexamethasone Sodium Phosphate 4 mg 08/19/16 21:00 08/21/16 09:02 Decadron Injection - IVPB 4 mg Q6H-IV RISHI Administration Folic Acid 1 mg 08/20/16 17:45 08/21/16 09:00 Folic Acid - PO 1 mg DAILY RISHI Administration Levetiracetam 1,000 mg 08/19/16 22:00 08/21/16 09:02 Keppra Injection - IVPB 1,000 mg BID RISHI Administration Mupirocin 1 applic 08/19/16 22:00 08/20/16 21:24 Bactroban Ointment (For Decolonization) - NS 08/24/16 21:59 1 applic BID RISHI Administration Oxycodone HCl 10 mg 08/20/16 19:03 08/21/16 02:44 Roxicodone - PO 10 mg Q4H PRN Administration PAIN Phenytoin Sodium 400 mg 08/20/16 10:00 08/21/16 09:02 Dilantin Injection - IVPB 400 mg DAILY RISHI Administration ASSESSMENT/PLAN: 36 yr old male with seizure activity presenting to ER with status formation 2nd to brain mets and + brain leisions. 1. Seizures continue with keppra 1000mg bid continue with phenytoin continue with decadron 4mg q6h neurology on case take aspiration precautions Take aspiration precautions 2 Lung cancer with mets to brain continue decadron IV 4mg q6h plan is for patient to start full brain radiation, neurosurgery, oncology and radiation oncology F/E/N Fluids:orally allowed Electrolytes: repeat in am Nutrition: regular diet DVT prophylaxis: SCDs, oob, ambulation, gi : not required dispo : transfer to med surg Visit type - Emergency Visit Emergency Visit: Yes ED Registration Date: 08/20/16 Care time: The patient presented to the Emergency Department on the above date and was hospitalized for further evaluation of their emergent condition. - New Patient This patient is new to me today: No - Critical Care Critical Care patient: Yes Total Critical Care Time (in minutes): 45 Critical Care Statement: The care of this patient involved high complexity decision making to prevent further life threatening deterioration of the patient 's condition and/or to evalute & treat vital organ system(s) failure or risk of failure.
--- NOTE | 2016-08-21 14:29 | PN ---
Teaching Attending Note Name of Resident: Ashvin Vallejo ATTENDING PHYSICIAN STATEMENT I saw and evaluated the patient. I reviewed the resident's note and discussed the case with the resident. I agree with the resident's findings and plan as documented. SUBJECTIVE: Pt seen and examined in the ICU. Focal seizure activity this AM. No headache, nausea or vomiting. No shortness of breath or chest pain. OBJECTIVE: Last Vital Signs Temp Pulse Resp BP Pulse Ox 98.1 F 86 20 115/78 95 08/21/16 13:47 08/21/16 13:47 08/21/16 13:47 08/21/16 13:47 08/21/16 09:54 Intake & Output 08/18/16 08/19/16 08/20/16 08/21/16 23:59 23:59 23:59 23:59 Intake Total 500 2800 700 Output Total 1500 1900 1000 Balance -1000 900 -300 Weight 186 lb 183 lb 1.6 oz Gen: NAD at rest Heart: RRR Lung: decreased breath sounds at the bases Abd: soft, nontender Ext: no edema CBC, BMP 08/21/16 05:20 08/21/16 05:20 Active Medications Atovaquone (Mepron -) 1,500 mg PO DAILY@1800 [facility] Chlorhexidine Gluconate (Hibiclens For Decolonization -) 1 applic TP HS [facility] Last Admin: 08/20/16 21:24 Dose: 1 applic Clonazepam (Klonopin -) 1 mg PO BID [facility] Last Admin: 08/21/16 09:00 Dose: 1 mg Dexamethasone Sodium Phosphate (Decadron Injection -) 4 mg IVPB Q6H-IV [facility] Last Admin: 08/21/16 09:02 Dose: 4 mg Folic Acid (Folic Acid -) 1 mg PO DAILY [facility] Last Admin: 08/21/16 09:00 Dose: 1 mg Levetiracetam (Keppra Injection -) 1,000 mg IVPB BID [facility] Last Admin: 08/21/16 09:02 Dose: 1,000 mg Mupirocin (Bactroban Ointment (For Decolonization) -) 1 applic NS BID [facility] Stop: 08/24/16 21:59 Last Admin: 08/20/16 21:24 Dose: 1 applic Oxycodone HCl (Roxicodone -) 10 mg PO Q4H PRN PRN Reason: PAIN Last Admin: 08/21/16 02:44 Dose: 10 mg Phenytoin Sodium (Dilantin Injection -) 400 mg IVPB DAILY RISHI Last Admin: 08/21/16 09:02 Dose: 400 mg ASSESSMENT AND PLAN: Metastatic NSCLC (adenocarcinoma) with brain mets Seizures - titrate antiepileptics per neurology - benzos PRN - continue decadron - seizure precautions - DVT prophylaxis - can monitor on floor
[2016-08-21] MEDS: MUPIROCIN 2% TOPICAL OINTMENT FOR DECOLONIZATION NS SCH (15:29)
[2016-08-21] MEDS ORDERED: oxyCODONE HCL 5 MG TABLET PO PRN (16:34)
[2016-08-21] MEDS ORDERED: ATOVAQUONE 750 MG/5 ML PO SCH (18:00)
[2016-08-21 18:59] VITALS: BP 121/84; PULSE 100; TEMP 97.3
--- NOTE | 2016-08-21 19:02 | DS ---
Physical Exam: SUBJECTIVE: Patient seen and examined OBJECTIVE: Vital Signs 3 Period Temp Pulse Resp BP Sys/Lindo Pulse Ox Last 24 Hr 98.1 F-99.1 F 75-111 18-20 102-134/68-90 95-100 PHYSICAL EXAM GENERAL: The patient is awake, alert, and fully oriented, in no acute distress. HEAD: Normal with no signs of trauma. EYES: PERRL, extraocular movements intact, sclera anicteric, conjunctiva clear. ENT: Ears normal, nares patent, oropharynx clear without exudates, moist mucous membranes. NECK: Trachea midline, full range of motion, supple. LUNGS: Breath sounds equal, clear to auscultation bilaterally, no wheezes, no crackles, no accessory muscle use. HEART: Regular rate and rhythm, S1, S2 without murmur, rub or gallop. ABDOMEN: Soft, nontender, nondistended, normoactive bowel sounds, no guarding, no rebound, no hepatosplenomegaly, no masses. EXTREMITIES: 2+ pulses, warm, well-perfused, no edema. NEUROLOGICAL: Cranial nerves II through XII grossly intact. Normal speech, gait not observed. no seizure activity noted. PSYCH: Normal mood, normal affect. SKIN: Warm, dry, normal turgor, no rashes or lesions noted. LABS Laboratory Results - last 24 hr 3 08/20/16 08/21/16 08/21/16 19:40 05:20 05:20 WBC 10.6 H RBC 4.07 Hgb 13.0 Hct 38.5 MCV 94.5 MCHC 33.9 RDW 16.8 H Plt Count 389 MPV 6.7 L Neutrophils % 85.2 H Lymphocytes % 7.3 L D Monocytes % 7.5 D Eosinophils % 0.0 Basophils % 0.0 Sodium 141 Potassium 4.0 Chloride 102 Carbon Dioxide 29 Anion Gap 10 BUN 13 D Creatinine 0.6 L Creat Clearance w eGFR > 60 POC Glucometer [phone] Random Glucose 91 D Calcium 9.4 Magnesium 2.6 H Total Bilirubin 0.3 D AST 65 H ALT 130 H D Alkaline Phosphatase 80 Total Protein 6.2 L Albumin 3.6 Phenytoin 3 08/21/16 08/21/16 11:20 12:33 WBC RBC Hgb Hct MCV MCHC RDW Plt Count MPV Neutrophils % Lymphocytes % Monocytes % Eosinophils % Basophils % Sodium Potassium Chloride Carbon Dioxide Anion Gap BUN Creatinine Creat Clearance w eGFR POC Glucometer [phone] Random Glucose Calcium Magnesium Total Bilirubin AST ALT Alkaline Phosphatase Total Protein Albumin Phenytoin 27.7 H* HOSPITAL COURSE: Date of Admission:08/19/16 Date of Discharge: 08/21/16 36 year-old male with a PMH of adenocarcinoma of the lung with multiple brain mets, admitted for seizure. Pt presented to the ED on 08/19 with focal status epilepticus secondary to metastatic lung cancer with metastases to brain. He was loaded with keppra and dilantin IV. He had no further seizure until a focal seizure this morning in left arm/shoulder. He was given ativan 2mg IVP with resolution. Pt with no further seizure activity. DW neurology. Pt ok for DC home. Dr. Sanchez to call pt in AM to tell him what time to see him in the morning. Pt also to f/u with radiation oncology for initiation of whole brain therapy. Pt and sister aware of discharge instructions and are in understanding. Sister already picked up prescriptions from pharmacy. Minutes to complete discharge: 45 Discharge Summary Reason For Visit: SEIZURE DISORDER/ LUNG CARCINOMA Current Active Problems Metastatic lung carcinoma (Acute) Simple partial seizure disorder (Acute) Status epilepticus due to complex partial seizure (Acute) Condition: Stable - Instructions Diet, Activity, Other Instructions: Return to the ED for any recurrence of seizure activity. Follow up with neurology and radiation oncology as instructed. You may resume a regular diet. Referrals: Harlan Brown MD [Primary Care Provider] - Anurag Wallace MD [Staff Physician] - (call TOMORROW to make an appointment to start your radiation therapy) Fish Sanchez MD [Staff Physician] - (follow up first thing in the morning, Dr. Sanchez will call you with a time in the morning.) Disposition: HOME - Home Medications Comprehensive Discharge Medication List: Ambulatory Orders Oxycodone HCl 10 mg PO Q4H PRN 02/21/16 Pantoprazole Sodium [Protonix -] 40 mg PO DAILY #30 tablet.ec 03/08/16 Folic Acid 800 mcg PO DAILY 07/10/16 Atovaquone [Mepron Oral Solution -] 1,500 mg PO DAILY@1800 #300 ml 08/21/16 Clonazepam [Klonopin -] 1 mg PO BID #14 tablet MDD 2 08/21/16 Dexamethasone 4 mg PO QID #120 tablet 08/21/16 Levetiracetam [Keppra -] 1,000 mg PO BID #120 tablet 08/21/16 This patient is new to me today: Yes Date on this admission: 08/21/16 Emergency Visit: Yes ED Registration Date: 08/20/16 Care time: The patient presented to the Emergency Department on the above date and was hospitalized for further evaluation of their emergent condition. Critical Care patient: Yes Total Critical Care Time (in minutes): 35 Critical Care Statement: The care of this patient involved high complexity decision making to prevent further life threatening deterioration of the patient 's condition and/or to evalute & treat vital organ system(s) failure or risk of failure. - Discharge Referral Referred to [facility] No
[2016-08-21] MEDS ORDERED: DEXAMETHASONE SOD PHOSPHATE 4 MG/1 ML VIAL IVPB SCH (21:00)
[2016-08-21] MEDS ORDERED: CHLORHEXIDINE GLUCONATE 4% CLEANSER FOR DECOLONIZATION TP SCH (22:00)
[2016-08-21] MEDS ORDERED: clonazePAM 0.5 MG TABLET PO SCH (22:00)
[2016-08-21] MEDS ORDERED: MUPIROCIN 2% TOPICAL OINTMENT FOR DECOLONIZATION NS SCH (22:00)
[2016-08-21] MEDS ORDERED: levETIRAcetam 500 MG/5 ML INJECTION VIAL IVPB SCH (22:00)
[2016-08-22] MEDS ORDERED: PHENYTOIN SODIUM 100 MG/2 ML VIAL IVPB SCH (10:00)
[2016-08-22] MEDS ORDERED: FOLIC ACID 1 MG TABLET (FP) PO SCH (10:00)
== END 2016-08-21 19:15 | disposition home or self-care (01) | DRG 53 ==
LOC: JER 15:45 → INTOOBSV 17:03 → JERBED 17:03 → OBSVTOIN 17:03 → UNDOADMIN 17:03 → JERBED 19:21 → JICU 19:21 → JERBED 08-20 13:39 → JICU 08-20 13:39
PROVIDERS: ADMIT Internal Medicine; ATTEND Registered Nurse
DX: G40.801 Other epilepsy, not intractable, with status epilepticus (principal); C34.90 Malignant neoplasm of unspecified part of unspecified bronchus or lung; C79.31 Secondary malignant neoplasm of brain; C79.70 Secondary malignant neoplasm of unspecified adrenal gland; G93.6 Cerebral edema; I10 Essential (primary) hypertension; R26.81 Unsteadiness on feet; F12.10 Cannabis abuse, uncomplicated; Z51.11 Encounter for antineoplastic chemotherapy; Z51.12 Encounter for antineoplastic immunotherapy; Z87.891 Personal history of nicotine dependence; Z86.718 Personal history of other venous thrombosis and embolism
CPT/HCPCS: 36415; 70450-TC; 71010-TC; 80048; 80053; 80185; 81003; 82550; 83735; 84100; 84484; 85025; 85610; 85730; 86850; 86900; 86901; 93005; 93010; 97161-GP; 99284-25

== ENCOUNTER 2016-08-24 17:06 | Emergency (ER) | payer OTHER ==
[2016-08-24] MEDS ORDERED: LORAZEPAM CARPU-JECT 2 MG/ML DISP.SYRIN ONE (17:12)
[2016-08-24 17:18] VITALS: BP 126/76; PULSE 104; TEMP 98.3; BMI 29.9
[2016-08-24] MEDS ORDERED: LORAZEPAM CARPU-JECT 2 MG/ML DISP.SYRIN IVPUSH ONE ×2 (17:38→17:39)
[2016-08-24] MEDS ORDERED: levETIRAcetam 500 MG TABLET (FP) PO ONE ×4 (17:39→19:00)
--- NOTE | 2016-08-24 18:03 | PDOC ---
History of Present Illness - General Chief Complaint: Seizure Stated Complaint: SEIZURE Time Seen by Provider: 08/24/16 17:34 History Source: Patient Exam Limitations: No Limitations - History of Present Illness Initial Comments: 08/24/16 18:03 36-year-old male presents to the ED status post seizure activity. As per patient he started to have tremors to the left arm which is normally a precursor for seizure activity but states since symptoms continue and did not resolve he decided come to the ER for further evaluation. Patient denies other associated symptoms but states since being diagnosed with lung cancer along with brain metastases in February, seizures have been coming more frequently requiring increased dosing of his Keppra. Patient also states receives radiation therapy for the brain lesions and is under the care of Dr. Alvarez. Patient arrived with twitching along with involuntary movement of his left arm without decreased alertness or change in mentation. Patient was here on Sunday which required him to be admitted after having a head CT and an increase in his Keppra he had went home. Timing/Duration: momentarily Severity: moderate Associated Symptoms: reports: seizure Past History - Past Medical History Allergies/Adverse Reactions: Allergies Allergy/AdvReac Type Severity Reaction Status Date / Time No Known Drug Allergies Allergy Verified 08/19/16 16:13 Home Medications: Ambulatory Orders Oxycodone HCl 10 mg PO Q4H PRN 02/21/16 Pantoprazole Sodium [Protonix -] 40 mg PO DAILY #30 tablet.ec 03/08/16 Folic Acid 800 mcg PO DAILY 07/10/16 Atovaquone [Mepron Oral Solution -] 1,500 mg PO DAILY@1800 #300 ml 08/21/16 Dexamethasone 4 mg PO QID #120 tablet 08/21/16 Clonazepam [Klonopin -] 0.5 mg PO BID MDD 2 08/26/16 Lamotrigine [Lamictal] 25 mg PO BID #60 tablet 08/26/16 Levetiracetam [Keppra -] 1,500 mg PO BID 08/26/16 Anemia: No Asthma: Yes ( A CHILD - RESOLVED) 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,RADIATION,BRAIN,ADRENAL GLAND) Cardiac Disorders: No CVA: No COPD: No CHF: No Dementia: No Diabetes: No GI Disorders: No Disorders: No HTN: Yes Hypercholesterolemia: No Liver Disease: No Seizures: Yes Thyroid Disease: No - Surgical History Lung Surgery: Yes (TUMOR REMOVED GENNY LUNG) - Immunization History Immunization Up to Date: Yes - Psycho/Social/Smoking Cessation Hx Anxiety: No Suicidal Ideation: No Smoking History: Current some day smoker Have you smoked in the past 12 months: Yes Number of Cigarettes Smoked Daily: 2 If you are a former smoker, when did you quit?: 7 MO AGO Information on smoking cessation initiated: No 'Breaking Loose' booklet given: 08/19/16 Hx Alcohol Use: No Drug/Substance Use Hx: No Substance Use Type: None Hx Substance Use Treatment: No Patient Lives Alone: No Review of Systems - Review of Systems Able to Perform ROS?: Yes Constitutional: No: Symptoms Reported HEENTM: No: Symptoms Reported Respiratory: No: Symptoms reported Cardiac (ROS): No: Symptoms Reported ABD/GI: No: Symptoms Reported : No: Symptoms Reported Integumentary: No: Symptoms Reported Neurological: Yes: Seizure, Tremors Endocrine: No: Symptoms Reported *Physical Exam - Vital Signs Last Vital Signs Temp Pulse Resp BP Pulse Ox 98.3 F 104 H 20 126/76 97 08/24/16 17:14 08/24/16 17:14 08/24/16 17:14 08/24/16 17:14 08/24/16 17:14 - Physical Exam General Appearance: Yes: Nourished, Appropriately Dressed. No: Apparent Distress HEENT: positive: EOMI, YEIMI, TMs Normal, Pharynx Normal. negative: Pale Conjunctivae Neck: positive: Supple Respiratory/Chest: positive: Lungs Clear, Normal Breath Sounds. negative: Respiratory Distress, Accessory Muscle Use Cardiovascular: positive: Regular Rhythm, Tachycardia. negative: Murmur Gastrointestinal/Abdominal: positive: Soft. negative: Tenderness Extremity: positive: Normal Capillary Refill. negative: Pedal Edema Integumentary: positive: Normal Color, Warm, Moist Neurologic: positive: Normal Mood/Affect, Motor Strength 08/25 ED Treatment Course - LABORATORY CBC & Chemistry Diagram: 08/24/16 17:50 08/24/16 17:50 - Medications Given in the ED: ED Medications Discontinued Medications Generic Name Dose Route Start Last Admin Trade Name Freq PRN Reason Stop Dose Admin Levetiracetam 1,000 mg 08/24/16 17:39 08/24/16 17:44 Keppra - PO 08/24/16 17:40 1,000 mg ONCE ONE Administration Lorazepam 1 mg 08/24/16 17:38 08/24/16 17:13 Ativan Injection - IVPUSH 08/24/16 17:39 1 mg ONCE ONE Administration Lorazepam 1 mg 08/24/16 17:39 08/24/16 17:14 Ativan Injection - IVPUSH 08/24/16 17:40 1 mg ONCE ONE Administration Medical Decision Making - Critical Care Time Total Critical Care Time (minutes): 35 Critical Care Statement: The care of this patient involved high complexity decision making to prevent further life threatening deterioration of the patient 's condition and/or to evalute & treat vital organ system(s) failure or risk of failure. - Medical Decision Making 08/24/16 18:07 Patient status post seizure activity which involved his left upper extremity. Patient on Sunday was admitted for the same but with weakness of the left upper extremity and left lower extremity. Head CT showed no acute infarct but was admitted for monitoring and increased of his Keppra upon discharge. Call was received prior to patient's arrival today by his oncologist Dr. Alvarez who recommends patient be admitted to hospitalist and have Dilantin loading. I have discussed this with the patient states does not want to be admitted since he does not want to Mrs. rasta tomorrow and needs to be home with his family. Patient was given 2 mg of Ativan since arrival which seemed to subside his symptoms. Patient also ordered for labs, fluids, urine, and was given his dose of Keppra. 08/24/16 18:30 Recieved call from patient's oncologist Dr. Alvarez who recommended that I contact patient no neurologist Dr. Yariel quinones in regards to his consideration of starting Dilantin. I have called Dr. Sandoval at [phone] which is his cellular phone and he recommends to increase his Keppra now to 1500 twice a day and does not recommend Dilantin at this time since it has adverse effects with someone there is receiving radiation therapy. 08/24/16 18:45 Patient given his 1500 mg here in the ER for tonight and understands that he is signing out AGAINST MEDICAL ADVICE. forms signed by patient. fluids almost completed. *DC/Admit/Observation/Transfer Diagnosis at time of Disposition: Seizure disorder, Simple partial seizure disorder - Discharge Dispostion Disposition: AGAINST MEDICAL ADVICE Condition at time of disposition: Stable - Referrals Referrals: Amaya León MD [Primary Care Provider] - - Patient Instructions Printed Discharge Instructions: DI for Seizure Disorder -- Adult Additional Instructions: Understand that you are signing out AGAINST MEDICAL ADVICE and assume responsibility including seizure activity and possibly . You have an appointment with the neurologist Dr. Sandoval tomorrow at 10 AM has recommended that you take 1500 mg of Keppra twice a day starting tomorrow morning.
[2016-08-24 18:28] LABS: MCH 31.8 pg (25.7-33.7); MCHC 33.8 g/dl (32.0-35.9); MEAN CELL VOLUME 94.1 fl (80-96); PLATELET COUNT 336 K/MM3 (134-434); RDW 17.2 % (11.9-15.9); WHITE BLOOD COUNT 10.8 K/mm3 (4.0-10.0)
[2016-08-24] MEDS ORDERED: SODIUM CHLORIDE 1,000 ML IV STA (18:35)
[2016-08-24 19:06] LABS: ALBUMIN 3.6 g/dl (3.4-5.0); ANION GAP 11 (8-16); CALCIUM 9.2 mg/dL (8.5-10.1); CO2 30 mmol/L (21-32); GLUCOSE,RANDOM 146 mg/dL (74-106); MAGNESIUM 2.3 mg/dL (1.8-2.4)
[2016-08-24 19:11] LABS: ALK PHOS 90 U/L (45-117); BILIRUBIN,TOTAL 0.2 mg/dL (0.2-1.0); SGOT/AST 35 U/L (15-37); SGPT/ALT 96 U/L (12-78); TOT PROT 6.3 g/dl (6.4-8.2)
--- NOTE | 2016-08-24 19:18 | PDOC ---
*Physical Exam - Vital Signs Last Vital Signs Temp Pulse Resp BP Pulse Ox 98.3 F 104 H 20 126/76 97 08/24/16 17:14 08/24/16 17:14 08/24/16 17:14 08/24/16 17:14 08/24/16 17:14 ED Treatment Course - LABORATORY CBC & Chemistry Diagram: 08/24/16 17:50 08/24/16 17:50 - ADDITIONAL ORDERS Additional order review: 08/24/16 17:50 RBC 4.28 MCV 94.1 MCHC 33.8 RDW 17.2 H MPV 7.0 L Neutrophils % Y Lymphocytes % Y - Medications Given in the ED: ED Medications Discontinued Medications Generic Name Dose Route Start Last Admin Trade Name Freq PRN Reason Stop Dose Admin Levetiracetam 1,000 mg 08/24/16 17:39 08/24/16 17:44 Keppra - PO 08/24/16 17:40 1,000 mg ONCE ONE Administration Levetiracetam 500 mg 08/24/16 18:38 08/24/16 19:00 Keppra - PO 08/24/16 18:39 500 mg ONCE ONE Administration Lorazepam 1 mg 08/24/16 17:38 08/24/16 17:13 Ativan Injection - IVPUSH 08/24/16 17:39 1 mg ONCE ONE Administration Lorazepam 1 mg 08/24/16 17:39 08/24/16 17:14 Ativan Injection - IVPUSH 08/24/16 17:40 1 mg ONCE ONE Administration Medical Decision Making - Medical Decision Making 08/24/16 19:17 36 yo male with h/o brain mass, secondary seizure disorder, currently on decadron and keppra recently increased, here with seizure this evening. given versed by EMS, now with persistant lue partial seizures. no f/c no head trauma. pt recently had imaging one week ago. on exam awake and alert, nuerologically intact CTAB. RRRR no m/r/g. ddgx worsening mass effect, infeective medication, electrolyte disturbance, plan keppra, possible dilanting load, labs, will d/w nuerology. pt likley to be admitted. due to recent imaging no recurrent imageing needed. agree with assessment and plan by AVIVA [email or web address] *DC/Admit/Observation/Transfer Diagnosis at time of Disposition: Seizure disorder, Simple partial seizure disorder - Discharge Dispostion Disposition: AGAINST MEDICAL ADVICE Condition at time of disposition: Stable - Referrals Referrals: Amaya León MD [Primary Care Provider] - - Patient Instructions Printed Discharge Instructions: DI for Seizure Disorder -- Adult Additional Instructions: Understand that you are signing out AGAINST MEDICAL ADVICE and assume responsibility including seizure activity and possibly . You have an appointment with the neurologist Dr. Sandoval tomorrow at 10 AM has recommended that you take 1500 mg of Keppra twice a day starting tomorrow morning. - Post Discharge Activity
[2016-08-24 20:56] LABS: PLATELET ESTIMATE ADEQUATE (NORMAL)
== END 2016-08-24 19:33 | disposition left against medical advice (07) ==
LOC: JER 17:06
PROC: 3E0337Z Introduction of Electrolytic and Water Balance Substance into Peripheral Vein, Percutaneous Approach (ICD-10-PCS; principal; 2016-08-24)
PROC: 3E033NZ Introduction of Analgesics, Hypnotics, Sedatives into Peripheral Vein, Percutaneous Approach (ICD-10-PCS; 2016-08-24)
DX: G40.109 Localization-related (focal) (partial) symptomatic epilepsy and epileptic syndromes with simple partial seizures, not intractable, without status epilepticus (principal); I10 Essential (primary) hypertension; C34.92 Malignant neoplasm of unspecified part of left bronchus or lung; C79.70 Secondary malignant neoplasm of unspecified adrenal gland; C79.31 Secondary malignant neoplasm of brain; Z87.891 Personal history of nicotine dependence
CPT/HCPCS: 36415; 80053; 83735; 85025; 99284-25

== ENCOUNTER 2016-08-26 05:57 | Emergency (ER) | payer OTHER ==
[2016-08-26 06:21] VITALS: PULSE 87; TEMP 98.2; BMI 30.2
--- NOTE | 2016-08-26 07:10 | PDOC ---
History of Present Illness <Anabella Peters - Last Filed: 08/26/16 07:41> - General History Source: Patient, Old Records Exam Limitations: No Limitations - History of Present Illness Initial Comments: 08/26/16 07:27 36-year-old male with history of lung cancer with metastases to the brain and subsequent seizures recently admitted to the hospital with grand mal seizures and several visits to the ED within the past week with focal seizures presents to the emergency department today after having left arm "shaking" that lasted approximately 5 minutes this morning. The patient has been taking Keppra that was recently increased to 1500 mg twice a day for the seizures. There was consideration of starting Dilantin in addition to the Her however it was decided that Dilantin was not a good choice because it has adverse effects with the radiation and other medications that the patient is receiving. The patient had no loss of urinary or fecal continence, tongue biting. He is currently asymptomatic and has no complaints. <Char Garcia - Last Filed: 08/26/16 09:27> - General Chief Complaint: Seizure Stated Complaint: SEIZURE Time Seen by Provider: 08/26/16 06:07 Past History <Anabella Peters - Last Filed: 08/26/16 07:41> - Travel Traveled outside of the country in the last 30 days: No Close contact w/someone who was outside of country & ill: No - Past Medical History Anemia: No Asthma: Yes ( A CHILD - RESOLVED) 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,RADIATION,BRAIN,ADRENAL GLAND) Cardiac Disorders: No CVA: No COPD: No CHF: No Dementia: No Diabetes: No GI Disorders: No Disorders: No HTN: Yes Hypercholesterolemia: No Liver Disease: No Seizures: Yes Thyroid Disease: No - Surgical History Lung Surgery: Yes (TUMOR REMOVED GENNY LUNG) - Immunization History Immunization Up to Date: Yes - Psycho/Social/Smoking Cessation Hx Anxiety: No Suicidal Ideation: No Smoking History: Current some day smoker Have you smoked in the past 12 months: Yes Number of Cigarettes Smoked Daily: 4 If you are a former smoker, when did you quit?: 7 MO AGO Information on smoking cessation initiated: No 'Breaking Loose' booklet given: 08/19/16 Hx Alcohol Use: No Drug/Substance Use Hx: No Substance Use Type: None Hx Substance Use Treatment: No <Benny Garciay - Last Filed: 08/26/16 09:27> - Past Medical History Allergies/Adverse Reactions: Allergies Allergy/AdvReac Type Severity Reaction Status Date / Time No Known Drug Allergies Allergy Verified 08/26/16 06:18 Home Medications: Ambulatory Orders Oxycodone HCl 10 mg PO Q4H PRN 02/21/16 Pantoprazole Sodium [Protonix -] 40 mg PO DAILY #30 tablet.ec 03/08/16 Folic Acid 800 mcg PO DAILY 07/10/16 Atovaquone [Mepron Oral Solution -] 1,500 mg PO DAILY@1800 #300 ml 08/21/16 Dexamethasone 4 mg PO QID #120 tablet 08/21/16 Clonazepam [Klonopin -] 0.5 mg PO BID MDD 2 08/26/16 Lamotrigine [Lamictal] 25 mg PO BID #60 tablet 08/26/16 Levetiracetam [Keppra -] 1,500 mg PO BID 08/26/16 Review of Systems - Review of Systems Able to Perform ROS?: Yes Is the patient limited Italian proficient: No Constitutional: No: Symptoms Reported HEENTM: No: Symptoms Reported Respiratory: No: Symptoms reported Cardiac (ROS): No: Symptoms Reported ABD/GI: No: Symptoms Reported : No: Symptoms Reported Musculoskeletal: No: Symptoms Reported Integumentary: No: Symptoms Reported Neurological: Yes: See HPI, Seizure <SolnikChar - Last Filed: 08/26/16 09:27> *Physical Exam - Vital Signs Last Vital Signs Temp Pulse Resp BP Pulse Ox 98.2 F 87 18 107/63 100 08/26/16 06:18 08/26/16 06:18 08/26/16 06:18 08/26/16 06:18 08/26/16 06:18 <Anabella Peters - Last Filed: 08/26/16 07:41> - Vital Signs Last Vital Signs Temp Pulse Resp BP Pulse Ox 98.2 F 87 18 107/63 100 08/26/16 06:18 08/26/16 06:18 08/26/16 06:18 08/26/16 06:18 08/26/16 06:18 - Physical Exam Comments: 08/26/16 07:28 GENERAL: Well developed, well nourished. Awake and alert. No acute distress. HEENT: Normocephalic, atraumatic. PERRLA, EOMI. No conjunctival pallor. Sclera are non- icteric. Moist mucous membranes. Oropharynx is clear. NECK: Supple. Full ROM. No JVD. No lymphadenopathy. CARDIOVASCULAR: Regular rate and rhythm. No murmurs, rubs, or gallops. Distal pulses are 2+ and symmetric. PULMONARY: No evidence of respiratory distress. Lungs clear to auscultation bilaterally. No wheezing, rales or rhonchi. ABDOMINAL: Soft. Non-tender. Non-distended. No rebound or guarding. No organomegaly. Normoactive bowel sounds. MUSCULOSKELETAL Normal range of motion at all joints. No bony deformities or tenderness. No CVA tenderness. EXTREMITIES: No cyanosis. No clubbing. No edema. No calf tenderness. SKIN: Warm and dry. Normal capillary refill. No rashes. No jaundice. NEUROLOGICAL: Alert, awake, appropriate. Cranial nerves 2-12 intact. Grossly non-focal exam. PSYCHIATRIC: Cooperative. Good eye contact. Appropriate mood and affect. <Char Garcia - Last Filed: 08/26/16 09:27> ED Treatment Course - LABORATORY CBC & Chemistry Diagram: 08/26/16 07:30 08/26/16 07:30 <Anabella Peters - Last Filed: 08/26/16 07:41> - LABORATORY CBC & Chemistry Diagram: 08/26/16 07:30 08/26/16 07:30 <Char Garcia - Last Filed: 08/26/16 09:27> Medical Decision Making - Medical Decision Making 08/26/16 07:41 Call placed to Neurologist, Dr. Colon. Immediate connection. Case was discussed. <Anabella Peters - Last Filed: 08/26/16 07:41> - Medical Decision Making 08/26/16 07:30 36-year-old male with lung cancer and metastases to the brain with frequent seizures on Keppra 1500 mg twice a day presenting with a focal seizure to the left upper extremity. Differential diagnosis includes but is not limited to: Breakthrough seizure, electrolyte abnormality, toxic/metabolic derangement. Plan: 1. Labs 2. Willl contact the patient's neurologist to see if there is another antiepileptic agent other than Dilantin at is recommended as a second agent 3. Observe and reevaluate 08/26/16 09:24 Addendum: I have spoken to the patient's neurologist regarding this case. The feeling was that the patient has not been on the most recently increased dose of Keppra for it to take its therapeutic effect. However, since he's had repeated seizures will add an additional agent: Lamictal 25 mg twice a day. The labs have been reviewed and are noted in the EMR. We'll discharge home on lamictal 25 mg twice a day. Follow-up with neurologist as scheduled on Sunday of this coming week. Return to the emergency department if symptoms persist, worsen, or new symptoms arise. <Char Garcia - Last Filed: 08/26/16 09:27> *DC/Admit/Observation/Transfer <David Petersine - Last Filed: 08/26/16 07:41> - Discharge Dispostion Admit: No <Char Garcia - Last Filed: 08/26/16 09:27> Diagnosis at time of Disposition: Seizure disorder, Metastatic lung carcinoma - Discharge Dispostion Disposition: HOME Condition at time of disposition: Stable - Prescriptions Prescriptions: Lamotrigine [Lamictal] 25 mg PO BID #60 tablet - Referrals Referrals: Harlan Brown MD [Primary Care Provider] - - Patient Instructions Printed Discharge Instructions: DI for Seizure Disorder -- Adult Additional Instructions: You are being prescribed an additional antiepileptic agent called Lamictal. The doses 25 mg twice per day. You received the first dose in the emergency department. A prescription has been sent to your pharmacy. Please follow-up with the neurologist as scheduled on Sunday. Please continue to take the Keppra 1500 mg twice daily as prescribed in addition to this new medication. Please return to the emergency department if your symptoms persist, worsen, or new symptoms arise.
[2016-08-26 07:47] LABS: BASOPHIL 0.1 % (0-2.0); EOSINOPHIL 0.1 % (0-4.5); MCH 32.5 pg (25.7-33.7); MCHC 34.3 g/dl (32.0-35.9); MEAN CELL VOLUME 94.7 fl (80-96); MEAN PLT VOLUME 6.9 fl (7.5-11.1); PLATELET COUNT 301 K/MM3 (134-434); RDW 16.8 % (11.9-15.9); WHITE BLOOD COUNT 9.9 K/mm3 (4.0-10.0)
[2016-08-26] MEDS ORDERED: lamoTRIgine 25 MG TABLET PO ONE (07:53)
[2016-08-26] MEDS ORDERED: lamoTRIgine 25 MG TABLET ONE (07:57)
[2016-08-26 08:22] LABS: ALK PHOS 96 U/L (45-117); ANION GAP 10 (8-16); BILIRUBIN,TOTAL 0.3 mg/dL (0.2-1.0); CO2 28 mmol/L (21-32); COCKROFT - GAULT 208.12; CREATININE 0.6 mg/dL (0.7-1.3); GLUCOSE,RANDOM 88 mg/dL (74-106); MAGNESIUM 2.3 mg/dL (1.8-2.4); PHOSPHOROUS 2.2 mg/dL (2.5-4.9); SGOT/AST 39 U/L (15-37); SGPT/ALT 109 U/L (12-78); TOT PROT 7.1 g/dl (6.4-8.2)
[2016-08-26 09:14] LABS: URINE APPEARANCE CLEAR; URINE BILIRUBIN NEGATIVE (NEGATIVE); URINE BLOOD NEGATIVE (NEGATIVE); URINE COLOR STRAW; URINE GLUCOSE (UA) NEGATIVE (NEGATIVE); URINE KETONE NEGATIVE (NEGATIVE); URINE LEUK ESTERASE NEGATIVE (NEGATIVE); URINE NITRITE NEGATIVE (NEGATIVE); URINE PROTEIN NEGATIVE (NEGATIVE); URINE UROBILINOGEN NEGATIVE E.U./dl (0.2-1.0)
[2016-08-26 09:47] VITALS: BP 128/88
== END 2016-08-26 09:47 | disposition home or self-care (01) ==
LOC: JER 05:57
DX: G40.109 Localization-related (focal) (partial) symptomatic epilepsy and epileptic syndromes with simple partial seizures, not intractable, without status epilepticus (principal); I10 Essential (primary) hypertension; C34.92 Malignant neoplasm of unspecified part of left bronchus or lung; C79.70 Secondary malignant neoplasm of unspecified adrenal gland; C79.31 Secondary malignant neoplasm of brain; Z87.891 Personal history of nicotine dependence
CPT/HCPCS: 36415; 80053; 81003; 83735; 84100; 85025; 99283-25

== ENCOUNTER 2016-09-19 07:23 | Day surgery (SDC) | payer OTHER ==
[2016-09-19] MEDS ORDERED: PALONOSETRON HCL 0.25 MG in SODIUM CHLORIDE 50 ML IVPB ONE (10:00)
[2016-09-19] MEDS ORDERED: DEXAMETHASONE INJECTION 10 MG in SODIUM CHLORIDE 50 ML IVPB ONE (10:00)
[2016-09-19] MEDS ORDERED: SODIUM CHLORIDE IVPB ONE (10:30)
[2016-09-19] MEDS ORDERED: PACLITAXEL PROTEIN BOUND IVPB ONE (10:30)
[2016-09-19 10:59] LABS: MCH 32.6 pg (25.7-33.7); MEAN CELL VOLUME 95.7 fl (80-96); MEAN PLT VOLUME 6.6 fl (7.5-11.1); PLATELET COUNT 147 K/MM3 (134-434); RDW 17.1 % (11.9-15.9); WHITE BLOOD COUNT 12.6 K/mm3 (4.0-10.0)
[2016-09-19 11:25] LABS: ALBUMIN 3.9 g/dl (3.4-5.0); ANION GAP 9 (8-16); BILIRUBIN,TOTAL 0.7 mg/dL (0.2-1.0); CALCIUM 9.3 mg/dL (8.5-10.1); CO2 29 mmol/L (21-32); COCKROFT - GAULT 140; CREATININE 0.9 mg/dL (0.7-1.3); GLUCOSE,RANDOM 104 mg/dL (74-106); MAGNESIUM 2.4 mg/dL (1.8-2.4); SGOT/AST 67 U/L (15-37); SGPT/ALT 227 U/L (12-78); TOT PROT 6.8 g/dl (6.4-8.2)
[2016-09-19 11:26] LABS: ALK PHOS 73 U/L (45-117)
[2016-09-19 11:47] VITALS: TEMP 98.7
[2016-09-19] MEDS ORDERED: PORTA CATH FLUSH 10 ML IVPUSH ONE (11:56)
[2016-09-19 12:08] LABS: METAMYELOCYTE 1 % (0-2); PLATELET ESTIMATE ADEQUATE (NORMAL)
[2016-09-19 13:46] VITALS: BP 139/90; PULSE 77
== END 2016-09-19 14:37 | disposition home or self-care (01) ==
LOC: JONCCHEMO 07:23 → J7W 11:32 → JONCCHEMO 14:37
PROVIDERS: ATTEND Internal Medicine Hematology & Oncology
DX: Z51.11 Encounter for antineoplastic chemotherapy (principal); C34.92 Malignant neoplasm of unspecified part of left bronchus or lung; C79.31 Secondary malignant neoplasm of brain; C79.49 Secondary malignant neoplasm of other parts of nervous system
CPT/HCPCS: 36415; 80053; 83735; 85025; 96367; 96375; 96413; J2469; J9264

== ENCOUNTER 2016-09-26 07:28 | Day surgery (SDC) | payer OTHER ==
[2016-09-26 09:11] LABS: MCHC 34.5 g/dl (32.0-35.9); MEAN CELL VOLUME 95.6 fl (80-96); MEAN PLT VOLUME 6.8 fl (7.5-11.1); PLATELET COUNT 139 K/MM3 (134-434); RDW 15.8 % (11.9-15.9); WHITE BLOOD COUNT 7.8 K/mm3 (4.0-10.0)
[2016-09-26 09:22] LABS: ANION GAP 9 (8-16); CALCIUM 9.3 mg/dL (8.5-10.1); CO2 31 mmol/L (21-32); MAGNESIUM 2.4 mg/dL (1.8-2.4)
[2016-09-26 09:27] LABS: BILIRUBIN,TOTAL 0.4 mg/dL (0.2-1.0); COCKROFT - GAULT 180; CREATININE 0.7 mg/dL (0.7-1.3); GLUCOSE,RANDOM 102 mg/dL (74-106); SGOT/AST 40 U/L (15-37); SGPT/ALT 206 U/L (12-78); TOT PROT 6.9 g/dl (6.4-8.2)
[2016-09-26 09:28] LABS: ALK PHOS 72 U/L (45-117)
[2016-09-26] MEDS ORDERED: PORTA CATH FLUSH 10 ML IVPUSH ONE (10:00)
[2016-09-26] MEDS ORDERED: PALONOSETRON HCL 0.25 MG in SODIUM CHLORIDE 50 ML IVPB ONE (10:00)
[2016-09-26] MEDS ORDERED: SODIUM CHLORIDE 250 ML IV ONE (10:00)
[2016-09-26] MEDS ORDERED: DEXAMETHASONE INJECTION 10 MG in SODIUM CHLORIDE 50 ML IVPB ONE (10:00)
[2016-09-26] MEDS ORDERED: SODIUM CHLORIDE IVPB ONE (10:30)
[2016-09-26] MEDS ORDERED: PACLITAXEL PROTEIN BOUND IVPB ONE (10:30)
[2016-09-26 11:14] LABS: METAMYELOCYTE 2 % (0-2); PLATELET ESTIMATE SLT DECREASED (NORMAL)
--- NOTE | 2016-09-26 11:55 | PN ---
Progress Note (short form) - Note Progress Note: ID Consult dictated Chart reviewed, pt examined. Discussed with Dr. Conde Advise dermatology follow up for skin bx No objection to chemo administration
[2016-09-26 12:34] VITALS: BP 138/91; PULSE 76; TEMP 98.1
== END 2016-09-26 13:36 | disposition home or self-care (01) ==
LOC: JONCCHEMO 07:28 → J7W 09:38 → JONCCHEMO 13:36
PROVIDERS: ATTEND Internal Medicine Hematology & Oncology
DX: Z51.11 Encounter for antineoplastic chemotherapy (principal); C34.92 Malignant neoplasm of unspecified part of left bronchus or lung; C79.31 Secondary malignant neoplasm of brain; C79.49 Secondary malignant neoplasm of other parts of nervous system
CPT/HCPCS: 36415; 80053; 83735; 85025; 96360; 96361; 96367; 96375; 96413; J2469; J9264

== ENCOUNTER 2016-09-30 13:18 | Inpatient (IN) | payer OTHER ==
[2016-09-30] MEDS ORDERED: LORazepam 2 MG/ML SDV VIAL ONE ×2 (13:25→16:45)
[2016-09-30] MEDS ORDERED: DEXAMETHASONE SOD PHOSPHATE 10 MG/1 ML VIAL ONE ×2 (13:28→22:22)
[2016-09-30] MEDS ORDERED: SODIUM CHLORIDE 0.9% 1000 ML INFUS.BAG IV ONE (13:43)
[2016-09-30] MEDS ORDERED: LORAZEPAM CARPU-JECT 2 MG/ML DISP.SYRIN IVPUSH ONE ×2 (13:43→16:45)
[2016-09-30] MEDS ORDERED: ADENOSINE 6 MG/2 ML VIAL IVPUSH ONE (13:43)
[2016-09-30] MEDS ORDERED: DEXAMETHASONE SOD PHOSPHATE 10 MG/1 ML VIAL IVPUSH ONE (13:44)
--- NOTE | 2016-09-30 13:57 | PDOC ---
History of Present Illness - General History Source: EMS, Family Exam Limitations: No Limitations - History of Present Illness Initial Comments: 09/30/16 14:49 The patient is a 36 year old male, accompanied by mother, with a significant past medical history of asthma, hypertension, lung cancer with metastases to the brain(on radiation and chemo; last session on Sunday) and subsequent seizures, who presents to the emergency department with seizure episodes since approximately 12:35. As per mother the patient experienced a seizure earlier this morning that lasted approximately 45 minutes. She reports the patient was going to shower, when he told her to call EMS. When EMS arrived on scene the patient had stopped seizing, was awake, talking, and answering questions appropriately. At the time patient reported he took his Keppra(1500 mg daily) and had no trauma.. However, during transport the patient began to seize again , and EMS gave 2.5 mg Versed. Per mother, the patient was admitted about 1 month ago for seizure episodes. During that admission, his seizures lasted approximately 4 hours. Patient was not complaining of any headache or dizziness earlier today. Patient is currently symptomatic for seizures with his eyes drifting to the left. Allergies: None reported Social History: Former smoker(Quit 7 months ago) Past Surgical History: Tumor removed GENNY Lung Oncologist: Dr. Amaya León Neurologist: Dr. Sanchez ([phone]) <Thien Trejo - Last Filed: 09/30/16 17:07> <Lary Mendieta - Last Filed: 09/30/16 17:30> - General Chief Complaint: Seizure Stated Complaint: SEIZURE Past History <Thien Trejo - Last Filed: 09/30/16 17:07> - Past Medical History Anemia: No Asthma: Yes ( A CHILD - RESOLVED) 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,RADIATION,BRAIN,ADRENAL GLAND) Cardiac Disorders: No CVA: No COPD: No CHF: No Dementia: No Diabetes: No GI Disorders: No Disorders: No HTN: Yes Hypercholesterolemia: No Liver Disease: No Seizures: Yes Thyroid Disease: No - Surgical History Lung Surgery: Yes (TUMOR REMOVED GENNY LUNG) - Immunization History Immunization Up to Date: Yes - Psycho/Social/Smoking Cessation Hx Anxiety: No Suicidal Ideation: No Smoking History: Never smoked Have you smoked in the past 12 months: No Number of Cigarettes Smoked Daily: 4 If you are a former smoker, when did you quit?: 7 MO AGO Information on smoking cessation initiated: No 'Breaking Loose' booklet given: 08/19/16 Hx Alcohol Use: No Drug/Substance Use Hx: No Substance Use Type: None Hx Substance Use Treatment: No <Lary Mendieta - Last Filed: 09/30/16 17:30> - Past Medical History Allergies/Adverse Reactions: Allergies Allergy/AdvReac Type Severity Reaction Status Date / Time No Known Drug Allergies Allergy Verified 09/30/16 13:32 Home Medications: Ambulatory Orders Oxycodone HCl 10 mg PO Q6H PRN 02/21/16 Pantoprazole Sodium [Protonix -] 40 mg PO DAILY #30 tablet.ec 03/08/16 Folic Acid 800 mcg PO DAILY 07/10/16 Atovaquone [Mepron Oral Solution -] 1,500 mg PO DAILY@1800 #300 ml 08/21/16 Clonazepam [Klonopin -] 0.5 mg PO BID MDD 2 08/26/16 Levetiracetam [Keppra -] 1,500 mg PO BID 08/26/16 Dexamethasone 4 mg PO DAILY 09/30/16 Lamotrigine [Lamictal] 50 mg PO DAILY 09/30/16 Review of Systems - Review of Systems Able to Perform ROS?: Yes Comments:: 09/30/16 14:50 GENERAL/CONSTITUTIONAL: Yes: +Actively seizing. No fever or chills. HEAD, EYES, EARS, NOSE AND THROAT: Yes: +eyes drifting to the left.. No ear pain or discharge. No sore throat. CARDIOVASCULAR: No chest pain or shortness of breath. RESPIRATORY: No cough, wheezing, or hemoptysis. GASTROINTESTINAL: No nausea, vomiting, diarrhea or constipation. GENITOURINARY: No dysuria, frequency, or change in urination. MUSCULOSKELETAL: No joint or muscle swelling or pain. No neck or back pain. SKIN: No rash NEUROLOGIC: Yes: +Actively seizing. No headache, vertigo, or change in sensation. ENDOCRINE: No increased thirst. No abnormal weight change. HEMATOLOGIC/LYMPHATIC: No anemia, easy bleeding, or history of blood clots. ALLERGIC/IMMUNOLOGIC: No hives or skin allergy. <TrejoThien vale - Last Filed: 09/30/16 17:07> *Physical Exam - Vital Signs Last Vital Signs Temp Pulse Resp BP Pulse Ox 109 H 22 128/83 99 09/30/16 13:37 09/30/16 13:37 09/30/16 13:37 09/30/16 14:23 - Physical Exam Comments: 09/30/16 14:51 GENERAL: + Patient actively seizing. Awake. HEAD: No signs of trauma EYES:+ Eyes deviated to the left. Sclera anicteric, conjunctiva clear ENT: Auricles normal inspection, hearing grossly normal, nares patent. Moist mucosa NECK: Normal ROM, supple, no lymphadenopathy, JVD, or masses LUNGS: Breath sounds equal, clear to auscultation bilaterally. No wheezes, and no crackles HEART: +Tachycardic. Regular rhythm, normal S1 and S2, no murmurs, rubs or gallops ABDOMEN: +Abdominal fasciculations. Soft, normoactive bowel sounds. No guarding , no rebound. EXTREMITIES: Normal range of motion, no edema. No clubbing or cyanosis. No cords, erythema, or tenderness. DP/PT pulses 2+ and symmetric. Warm and well perfused. NEUROLOGICAL: +Actively seizing, does not follow commands. Nonverbal. SKIN: Warm, Dry, normal turgor, no rashes or lesions noted. <Thien Trejo - Last Filed: 09/30/16 17:07> - Vital Signs Last Vital Signs Temp Pulse Resp BP Pulse Ox 109 H 20 111/91 99 09/30/16 13:33 09/30/16 13:33 09/30/16 13:33 09/30/16 13:33 <Lary Mendieta - Last Filed: 09/30/16 17:30> Heart Score/ECG Review #1 General ECG Interpretation: Sinus Rhythm, Normal Rate (119 sinus tachycardia), Normal Intervals, No acute ischemic changes Compared to previous ECG there are: No significant change - ECG Intrepretation Rhythm: Regular Rhythm Comment:: 09/30/16 13:58 TWI III, AVF <Lary Mendieta - Last Filed: 09/30/16 17:30> ED Treatment Course - LABORATORY CBC & Chemistry Diagram: 09/30/16 13:52 09/30/16 13:52 - ADDITIONAL ORDERS Additional order review: Laboratory Results 09/30/16 09/30/16 13:52 13:52 Sodium 138 Potassium 4.0 Chloride 102 Carbon Dioxide 27 Anion Gap 9 BUN 11 Creatinine 0.8 Creat Clearance w eGFR > 60 Random Glucose 163 H D Lactic Acid 2.5 H* Calcium 7.8 L Total Bilirubin 0.4 AST 33 ALT 170 H Alkaline Phosphatase 69 Creatine Kinase 52 Total Protein 5.8 L Albumin 3.4 09/30/16 13:52 RBC 3.88 L MCV 98.0 H MCHC 33.9 RDW 15.7 MPV 6.6 L Neutrophils % 89.8 H Lymphocytes % 7.5 L Monocytes % 2.5 L D Eosinophils % 0.1 Basophils % 0.1 - RADIOLOGY Radiograph Interpretation: 09/30/16 17:08 EXAM: Head CT INTERPRETED BY: Dr. Cochran REVIEWED BY: Dr. Mendieta IMPRESSION: No interval hemorrhage is identified in comparison to a prior CT exam of 08/19/2016. There is mild to moderate focal right parietal vasogenic edema which appears improved. A small amount of blood is seen in that same region which also appears improved. Minimal focal right temporal lobe edema is seen ventrally which has also improved. - Medications Given in the ED: ED Medications Discontinued Medications Generic Name Dose Route Start Last Admin Trade Name Shayna PRN Reason Stop Dose Admin Dexamethasone Sodium Phosphate 10 mg 09/30/16 13:44 09/30/16 13:28 Decadron Injection - IVPUSH 09/30/16 13:45 10 mg ONCE ONE Administration Fosphenytoin Sodium 1,000 mg/ 120 mls @ 1,000 mls/hr 09/30/16 14:06 09/30/16 14 :42 Sodium Chloride IVPB 09/30/16 14:13 1,000 mls/hr ONCE ONE Administration Lorazepam 2 mg 09/30/16 13:43 09/30/16 13:25 Ativan Injection - IVPUSH 09/30/16 13:44 2 mg ONCE ONE Administration Sodium Chloride 1,000 ml 09/30/16 13:43 09/30/16 13:44 Normal Saline - IV 09/30/16 13:44 1,000 ml ONCE ONE Administration <Thien Trejo - Last Filed: 09/30/16 17:07> - LABORATORY CBC & Chemistry Diagram: 09/30/16 13:52 09/30/16 13:52 - RADIOLOGY Radiology Studies Ordered: Category Date Time Status HEAD CT WITHOUT CONTRAST [CT] Stat CT Scan 09/30/16 13:42 Ordered - Medications Given in the ED: ED Medications Discontinued Medications Generic Name Dose Route Start Last Admin Trade Name Shayna PRN Reason Stop Dose Admin Dexamethasone Sodium Phosphate 10 mg 09/30/16 13:44 09/30/16 13:28 Decadron Injection - IVPUSH 09/30/16 13:45 10 mg ONCE ONE Administration Lorazepam 2 mg 09/30/16 13:43 09/30/16 13:25 Ativan Injection - IVPUSH 09/30/16 13:44 2 mg ONCE ONE Administration Sodium Chloride 1,000 ml 09/30/16 13:43 09/30/16 13:44 Normal Saline - IV 09/30/16 13:44 1,000 ml ONCE ONE Administration <Lary Mendieta - Last Filed: 09/30/16 17:30> Medical Decision Making - Medical Decision Making 09/30/16 14:52 First call placed to Dr. Sanchez at 14:34. Awaiting call back. First call placed to Dr. Conde at 14:40. Case discussed with Dr. Vitale at this time. First call placed to Dr. Garzon 14:48. Awaiting call back. Second call placed to Dr. Garzon at 15:12. Awaiting call back. <Thien Trejo - Last Filed: 09/30/16 17:07> - Medical Decision Making 09/30/16 13:52 36 yo M with h/o lung ca metastatic to brain, ( dgx 02/2016), on radiation and chemo, no surgery , here wtih seizure. pt last seizure was a month ago. today had seizure this am. lasted about 45 min, EMS was called. on arrival. pt was not seizing, awake and talking answering questions appropriately. no f/c . no trauma. took keppra 1500mg daily. was admitted 1 mo ago wtih status epilepiticus one month ago took 4 hours to get seizures to stop. no advanced directives. EMS gave 2/5mg of versed. on exam pt actively seizin eyes deviated to left, abd fasiculations, at bedside who provides history. lungs clear, heart reg tachycardic. abd soft . ext wwp. no rash. nuero. pt actively seizing, does not follow commands nonverbal. differential: ich, worsenin brain edema, status, electrolyt abnormality , rhabdo from seizure, dehydration, plan labs ck ekg ativan [address] head decadron given. consider dilantin load. will d/w on cll nuerology. 09/30/16 14:23 09/30/16 14:37 pt was given 2 mg ativan with some resolution of seizure. still had partial activity with eye deviation. dilantin loaded. iv fluids given. decadron given. 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 pt oncologist paged. repeat imaging due to h/o prior intratumor bleed. will likley require icu admission. 09/30/16 14:45 d/w DR. Winifred oden for oncologist DR Conde. 09/30/16 17:28 dw/ dr muñiz regarding need for ICU, will admit to ICU d/w dr norwood for admission reviewed medication with pt mother, pt taking keppra 1500mg twice daily. lamictal 50 mg clonazepem 0.5mg twice daily, and was now down to decadron 4 mg only once daily over last week. <Lary Mendieta - Last Filed: 09/30/16 17:30> *DC/Admit/Observation/Transfer - Attestations Scribe Attestion: 09/30/16 14:51 Documentation prepared by Thien Trejo, acting as medical records administrator for Lary Mendieta MD. 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
[2016-09-30] MEDS ORDERED: FOSPHENYTOIN SODIUM 1,000 MG in SODIUM CHLORIDE 100 ML IVPB ONE (14:06)
[2016-09-30 14:08] LABS: BASOPHIL 0.1 % (0-2.0); EOSINOPHIL 0.1 % (0-4.5); MCH 33.2 pg (25.7-33.7); MCHC 33.9 g/dl (32.0-35.9); MEAN PLT VOLUME 6.6 fl (7.5-11.1); NEUTROPHILS 89.8 % (42.8-82.8); PLATELET COUNT 121 K/MM3 (134-434); RDW 15.7 % (11.9-15.9)
[2016-09-30 14:31] LABS: ALBUMIN 3.4 g/dl (3.4-5.0); ANION GAP 9 (8-16); BILIRUBIN,TOTAL 0.4 mg/dL (0.2-1.0); CALCIUM 7.8 mg/dL (8.5-10.1); CO2 27 mmol/L (21-32); COCKROFT - GAULT 154.42; CREATININE 0.8 mg/dL (0.7-1.3); GLUCOSE,RANDOM 163 mg/dL (74-106); SGOT/AST 33 U/L (15-37); SGPT/ALT 170 U/L (12-78); TOT PROT 5.8 g/dl (6.4-8.2)
[2016-09-30 14:32] LABS: ALK PHOS 69 U/L (45-117)
[2016-09-30] MEDS ORDERED: oxyCODONE HCL 5 MG TABLET PO PRN (17:36)
--- NOTE | 2016-09-30 17:45 | HP ---
Admitting History and Physical - Admission Chief Complaint: Witnessed seizures History of Present Illness: 36 yrs old man H/O HTN, anxiety, Ca lung with Brain mets, seizures disorders, multiple breakthrough seizure last was 1 month ago, patient is sedated cant provide much information , as per mother , patient was in his usual stae of health around 12.45 PM developed shaking of Left UE that lasted > 45 minutes they called 911 , patient recived larazepalm 2 mg IVSS in the Ed became seizure free at the time of examination, sedated unable to provide much information denies as per mother no c/o head ache, fever, nausea or vomiting, no bowel bladder incontinence. 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, Other (brain mets, s/p SRS x 2 ; progression of [employer]IL[employer] SH[employer] SUPERVISOR met) Cardiovascular: Yes: Deep Vein Thrombosis, HTN, Other Pulmonary: Yes: Cancer, Other (adenoca of lung undergoing chemotherapy) Gastrointestinal: Yes: Other (adrenal gland metastasis ) Endocrine: Yes: Other (rt adrenal mass) - Smoking History Smoking history: Never smoked Have you smoked in the past 12 months: No Aproximately how many cigarettes per day: 4 If you are a former smoker, when did you quit?: 7 MO AGO - Alcohol/Substance Use Hx Alcohol Use: No History of Substance Use: reports: Marijuana Date of Last Use: 03/06/16 (2-3 joints/day) - Social History ADL: Independent Occupation: works at [employer] History of Recent Travel: No Home Medications - Allergies Allergies/Adverse Reactions: Allergies Allergy/AdvReac Type Severity Reaction Status Date / Time No Known Drug Allergies Allergy Verified 09/30/16 13:32 - Home Medications Home Medications: Ambulatory Orders Oxycodone HCl 10 mg PO Q6H PRN 02/21/16 Pantoprazole Sodium [Protonix -] 40 mg PO DAILY #30 tablet.ec 03/08/16 Folic Acid 800 mcg PO DAILY 07/10/16 Atovaquone [Mepron Oral Solution -] 1,500 mg PO DAILY@1800 #300 ml 08/21/16 Clonazepam [Klonopin -] 0.5 mg PO BID MDD 2 08/26/16 Levetiracetam [Keppra -] 1,500 mg PO BID 08/26/16 Dexamethasone 4 mg PO DAILY 09/30/16 Lamotrigine [Lamictal] 50 mg PO DAILY 09/30/16 Family Disease History - Family Disease History Family Disease History: CA: Mother (HTN, ovarian cancer), Other: Father (, had HIV) Review of Systems Unable to obtain ROS, reason: Pt is sedated Findings/Remarks: Vital Signs Period Temp Pulse Resp BP Sys/Lindo Pulse Ox Last 24 Hr 102-119 20-24 95-128/53-91 98-100 young man not in distress sedated breathing comfortably , arousable moving all extermities HEENT: Facial swelling, PERRLA, EOMI NECK; No JVD No Bruit CHEST: CTA B/L CVS; S1S2 R no m/g/r ABD: Obese non tender Bs + EXT: No maria luisa afeet, no calf tenderness, Pulses +2 [employer] SU[employer]: Patient received loarzepalm at present drowsy and sedated , limited exam moving all extremities. Physical Examination Vital Signs: Vital Signs Temperature Pulse Rate 102 H 09/30/16 17:00 Respiratory Rate 20 09/30/16 17:00 Blood Pressure 105/76 09/30/16 17:00 O2 Sat by Pulse Oximetry (%) 99 09/30/16 17:00 Labs: CBC, BMP 09/30/16 13:52 09/30/16 13:52 Imaging - Results Cat Scan: Report Reviewed (CT Head shows mild to moderate vasogenic edema Rt Parietal lobe improving since previous scan, mild hemmorhage also resolving.) EKG: Pending Problem List - Problems (1) Seizure disorder, complex partial Assessment/Plan: Present with breakthrough seizures, Pt has focal seizures due to Brain mets, compliant with meds will cont all home, meds, admit in ICU for close observation , Neurology consult vcaled from the ED, NPO except meds till latered. Code(s): G40.209 - LOCAL-REL SYMPTC EPI W CMPLX PRT SEIZ,NOT NTRCT,W/O STAT EPI Qualifiers: Epilepsy type: partial symptomatic (2) Metastatic lung carcinoma Assessment/Plan: S/P Chemotherap no active issue Code(s): C78.00 - SECONDARY MALIGNANT NEOPLASM OF UNSPECIFIED LUNG (3) Brain metastases Assessment/Plan: H/o Brain mets completed Rt now on chemothery. Code(s): C79.31 - SECONDARY MALIGNANT NEOPLASM OF BRAIN (4) Anxiety Assessment/Plan: Cont Clonazepam Code(s): F41.9 - ANXIETY DISORDER, UNSPECIFIED
[2016-09-30] MEDS ORDERED: ATOVAQUONE 750 MG/5 ML (UNIT-DOSE PACKAGING) PO SCH (18:00)
[2016-09-30] MEDS ORDERED: SODIUM CHLORIDE 1,000 ML IV SCH (19:15)
--- NOTE | 2016-09-30 19:30 | HOSP ---
Subjective - Review of Symptoms Events since last encounter: Spoke with Dr. Soto, neurologist. Reviewed medications. He changed Lamictal from daily to BID. Order entered. No other changes at this time. He will see patient tomorrow. Physical Examination Vital Signs: Vital Signs Temperature 98 F 09/30/16 18:57 Pulse Rate 112 H 09/30/16 18:57 Respiratory Rate 19 09/30/16 18:57 Blood Pressure 121/75 09/30/16 18:57 O2 Sat by Pulse Oximetry (%) 97 09/30/16 19:00
--- NOTE | 2016-09-30 20:29 | CONSULT ---
Consult Consult Specialty:: PULMONARY / CRITICAL CARE Referred by:: Dr Armas Reason for Consultation:: brain mass, seizure - History of Present Illness Chief Complaint: seizure, altered mental status History of Present Illness: In brief, 36 y/o man with lung CA, brain mets, subsequent seizure disorder, he is on AEDs, last seizure was a month ago. He was brought to the ED following a 45min focal seizure involving his LUE. He received Lorazepam in the ED with resolution. CT of the head was done which was unchanged from prior. Neurology was consulted, AEDs were adjusted. He was admitted to the ICU. 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, Other (brain mets, s/p SRS x 2 ; progression of SHEET METAL ROOFER met) Cardio/Vascular: Yes: Deep Vein Thrombosis, HTN, Other Pulmonary: Yes: Cancer, Other (adenoca of lung undergoing chemotherapy) Gastrointestinal: Yes: Other (adrenal gland metastasis ) Endocrine: Yes: Other (rt adrenal mass) - Alcohol/Substance Use Hx Alcohol Use: No History of Substance Use: reports: Marijuana Date of Last Use: 03/06/16 (2-3 joints/day) - Smoking History Smoking history: Never smoked Have you smoked in the past 12 months: No Aproximately how many cigarettes per day: 4 If you are a former smoker, when did you quit?: 7 MO AGO - Social History Usual Living Arrangement: Other ADL: Independent Occupation: works at [employer] History of Recent Travel: No Home Medications - Allergies Allergies/Adverse Reactions: Allergies Allergy/AdvReac Type Severity Reaction Status Date / Time No Known Drug Allergies Allergy Verified 09/30/16 13:32 - Home Medications Home Medications: Ambulatory Orders Oxycodone HCl 10 mg PO Q6H PRN 02/21/16 Pantoprazole Sodium [Protonix -] 40 mg PO DAILY #30 tablet.ec 03/08/16 Folic Acid 800 mcg PO DAILY 07/10/16 Atovaquone [Mepron Oral Solution -] 1,500 mg PO DAILY@1800 #300 ml 08/21/16 Clonazepam [Klonopin -] 0.5 mg PO BID MDD 2 08/26/16 Levetiracetam [Keppra -] 1,500 mg PO BID 08/26/16 Dexamethasone 4 mg PO DAILY 06/10/17 Lamotrigine [Lamictal] 50 mg PO DAILY 09/30/16 Family Disease History - Family Disease History Family Disease History: CA: Mother (HTN, ovarian cancer), Other: Father (, had HIV) Review of Systems Unable to obtain ROS, reason: Pt is unable to answer Physical Exam Vital Signs: Vital Signs Temperature 98 F 09/30/16 18:57 Pulse Rate 112 H 09/30/16 18:57 Respiratory Rate 19 09/30/16 18:57 Blood Pressure 121/75 09/30/16 18:57 O2 Sat by Pulse Oximetry (%) 97 09/30/16 19:00 Constitutional: Yes: Well Nourished Eyes: Yes: WNL HENT: Yes: Atraumatic, Normocephalic Neck: Yes: WNL Cardiovascular: Yes: Tachycardia Respiratory: Yes: CTA Bilaterally Gastrointestinal: Yes: Soft. No: Tenderness Extremities: Yes: WNL Edema: No Peripheral Pulses WNL: Yes Neurological: Yes: Other (lethargic, unable to answer questions or follow commands. moving all extremities) ...Motor Strength: WNL Labs: CBC, BMP 09/30/16 13:52 09/30/16 13:52 Imaging - Results Chest X-ray: Image Reviewed Cat Scan: Report Reviewed EKG: Pending Problem List - Problems (1) Seizure disorder, complex partial Code(s): G40.209 - LOCAL-REL SYMPTC EPI W CMPLX PRT SEIZ,NOT NTRCT,W/O STAT EPI Qualifiers: Epilepsy type: partial symptomatic (2) Metastatic lung carcinoma Code(s): C78.00 - SECONDARY MALIGNANT NEOPLASM OF UNSPECIFIED LUNG Assessment/Plan Metastatic lung CA - brain mets Seizure dissorder Altered mental status likely post-ictal -Neurology following -AEDs -Steroids -PRN Lorazepam for seizure -?EEG -Neuro checks -Normoglycemia -No heparin - will use SCDs Transfer to the floor romorrow if remains stable Thank you for this interesting consult [facility]/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
[2016-09-30 20:56] VITALS: BMI 30.3
[2016-09-30] MEDS ORDERED: lamoTRIgine 25 MG TABLET PO SCH (22:00)
[2016-09-30] MEDS ORDERED: levETIRAcetam 500 MG TABLET (FP) PO SCH (22:00)
[2016-09-30] MEDS ORDERED: clonazePAM 0.5 MG TABLET PO SCH (22:00)
[2016-10-01] MEDS ORDERED: DEXAMETHASONE SOD PHOSPHATE 4 MG/1 ML VIAL IVPB SCH (02:00)
[2016-10-01 06:26] LABS: MCH 32.6 pg (25.7-33.7); MCHC 33.8 g/dl (32.0-35.9); MEAN CELL VOLUME 96.5 fl (80-96); MEAN PLT VOLUME 7.4 fl (7.5-11.1); NEUTROPHILS 87.9 % (42.8-82.8); PLATELET COUNT 150 K/MM3 (134-434); RDW 15.7 % (11.9-15.9); WHITE BLOOD COUNT 5.3 K/mm3 (4.0-10.0)
[2016-10-01 06:51] LABS: ALBUMIN 3.8 g/dl (3.4-5.0); ANION GAP 11 (8-16); BILIRUBIN,TOTAL 0.8 mg/dL (0.2-1.0); CALCIUM 9.5 mg/dL (8.5-10.1); CO2 28 mmol/L (21-32); COCKROFT - GAULT 209.23; CREATININE 0.6 mg/dL (0.7-1.3); GLUCOSE,RANDOM 102 mg/dL (74-106); SGOT/AST 36 U/L (15-37); SGPT/ALT 188 U/L (12-78)
[2016-10-01 06:52] LABS: ALK PHOS 69 U/L (45-117); TOT PROT 6.5 g/dl (6.4-8.2)
[2016-10-01] MEDS ORDERED: PT OWN MED DRAWER 7, Y5N ONE (09:12)
--- NOTE | 2016-10-01 09:51 | PN ---
Progress Note (short form) - Note Progress Note: PULMONARY/CCM Pt seen and examined in the ICU. No further seizures noted overnight. Sister at bedside states that every time the decadron is tapered to daily dosing, the seizures recur. Pt denies headache, sister states mental status is at baseline. Last Vital Signs Temp Pulse Resp BP Pulse Ox 98 F 81 18 90/62 96 10/01/16 06:00 10/01/16 06:00 10/01/16 06:00 10/01/16 06:00 09/30/16 20:32 Intake & Output 09/28/16 09/29/16 09/30/16 10/01/16 23:59 23:59 23:59 23:59 Intake Total 600 Output Total 450 500 Balance -450 100 Weight 188 lb 188 lb Gen: NAD at rest Heart: RRR Lung: decreased breath sounds at the bases Abd: soft, nontender Ext: no edema CBC, BMP 10/01/16 05:20 10/01/16 05:20 Active Medications Atovaquone (Mepron -) 1,500 mg PO DAILY@1800 RISHI Clonazepam (Klonopin -) 0.5 mg PO BID RISHI Dexamethasone Sodium Phosphate (Decadron Injection -) 4 mg IVPB Q8H-IV RISHI Folic Acid (Folic Acid -) 1 mg PO DAILY RISHI Lamotrigine (Lamictal -) 50 mg PO BID RISHI Levetiracetam (Keppra -) 1,500 mg PO BID RISHI Oxycodone HCl (Roxicodone -) 10 mg PO Q6H PRN PRN Reason: PAIN Pantoprazole Sodium (Protonix -) 40 mg PO DAILY RISHI A/P Metastatic Lung Ca with Brain Metastases Seizure Disorder Altered Mental Status improving - continue antiepileptics - monitor levels - continue decadron, may need BID dosing as his maintenance dose - seizure precautions - PO as tolerated - DVT prophylaxis - can monitor on floor
[2016-10-01] MEDS ORDERED: lamoTRIgine 25 MG TABLET PO SCH (10:00)
[2016-10-01] MEDS ORDERED: DEXAMETHASONE 4 MG TABLET (FP) PO SCH (10:00)
[2016-10-01] MEDS ORDERED: clonazePAM 0.5 MG TABLET PO SCH (10:00)
[2016-10-01] MEDS ORDERED: FOLIC ACID 1 MG TABLET (FP) PO SCH ×2 (10:00)
[2016-10-01] MEDS ORDERED: PANTOPRAZOLE 40 MG TABLET (FP) PO SCH (10:00)
[2016-10-01] MEDS: levETIRAcetam 500 MG TABLET (FP) PO SCH ×2 (10:12→21:09)
[2016-10-01] MEDS: FOLIC ACID 1 MG TABLET (FP) PO SCH (10:12)
[2016-10-01] MEDS: PANTOPRAZOLE 40 MG TABLET (FP) PO SCH (10:13)
[2016-10-01] MEDS: DEXAMETHASONE SOD PHOSPHATE 4 MG/1 ML VIAL IVPB SCH ×2 (10:13→17:15)
[2016-10-01] MEDS: lamoTRIgine 25 MG TABLET PO SCH ×2 (10:14→21:09)
--- NOTE | 2016-10-01 10:34 | CON.NEURO ---
Consult - History of Present Illness Chief Complaint: seizure History of Present Illness: 36 yrs old man H/O HTN, anxiety, Ca lung with Brain mets, seizures disorders, multiple breakthrough seizure last was 1 week ago for which was admitted to [facility] ; and has had w/u over there; , as per mother , patient was in his usual stae of health around 12.45 PM developed shaking of Left UE that lasted > 45 minutes they called 911 , patient recived larazepalm 2 mg IVSS in the Ed became seizure free. He states that his dexamethazone was decreased to qd from bid by his oncologist last Sunday and then he developed breakthrough seizure; he reports B. through sz whenever he decreased his dexa; his oncologist is aware of this admission and his dexa is increased to tid . 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 (brain mets, s/p SRS x 2 ; progression of BILLET CUTTER met) Cardio/Vascular: Yes: Deep Vein Thrombosis, HTN, Other Pulmonary: Yes: Cancer, Other (adenoca of lung undergoing chemotherapy) Gastrointestinal: Yes: Other (adrenal gland metastasis ) Endocrine: Yes: Other (rt adrenal mass) - Alcohol/Substance Use Hx Alcohol Use: No History of Substance Use: reports: Marijuana Date of Last Use: 03/06/16 (2-3 joints/day) - Smoking History Smoking history: Never smoked Have you smoked in the past 12 months: No Aproximately how many cigarettes per day: 4 If you are a former smoker, when did you quit?: 7 MO AGO - Social History Usual Living Arrangement: Other ADL: Independent Occupation: works at [employer] History of Recent Travel: No Home Medications - Allergies Allergies/Adverse Reactions: Allergies Allergy/AdvReac Type Severity Reaction Status Date / Time No Known Drug Allergies Allergy Verified 09/30/16 13:32 - Home Medications Home Medications: Ambulatory Orders Oxycodone HCl 10 mg PO Q6H PRN 02/21/16 Pantoprazole Sodium [Protonix -] 40 mg PO DAILY #30 tablet.ec 03/08/16 Folic Acid 800 mcg PO DAILY 07/10/16 Atovaquone [Mepron Oral Solution -] 1,500 mg PO DAILY@1800 #300 ml 08/21/16 Clonazepam [Klonopin -] 0.5 mg PO BID MDD 2 08/26/16 Levetiracetam [Keppra -] 1,500 mg PO BID 08/26/16 Dexamethasone 4 mg PO DAILY 09/30/16 Lamotrigine [Lamictal] 50 mg PO DAILY 09/30/16 Family Disease History - Family Disease History Family Disease History: CA: Mother (HTN, ovarian cancer), Other: Father (, had HIV) Physical Exam-Neuro Vital Signs: Vital Signs Temperature 98 F 10/01/16 06:00 Pulse Rate 81 10/01/16 06:00 Respiratory Rate 18 10/01/16 06:00 Blood Pressure 90/62 10/01/16 06:00 O2 Sat by Pulse Oximetry (%) 96 09/30/16 20:32 Constitutional: Yes: Well Nourished Neck: Yes: WNL Cardiovascular: Yes: WNL, Regular Rate and Rhythm Respiratory: Yes: WNL Musculoskeletal: Yes: WNL Edema: No Labs: CBC, BMP 10/01/16 05:20 10/01/16 05:20 - Neuro Exam Level Of Consciousness: Yes: Alert, Oriented to Person, Oriented to Place Eyes: Yes: PERRLA Speech: WNL Cranial Nerves II-XII Intact: Yes DTR's: 1+ Left Bicep, 1+ Right Bicep, 1+ Left Tricep, 1+ Right Tricep, 1+ Left Brachioradialis, 1+ Right Brachioradialis, 1+ Left Achilles, 1+ Right Achilles Response to light touch: Normal Response to pain prick: Normal Motor Strength: 5/5: Left Arm, Right Arm, Left Leg, Right Leg (no drift in U and L exts) NIH Stroke Scale - Total Score NIH Stroke Scale Score: 0 Imaging - Results Cat Scan: Report Reviewed (Mild to moderate R parietal vasogenic edema ; focal R temporal edema has improved.), Image Reviewed Problem List - Problems (1) Anxiety Code(s): F41.9 - ANXIETY DISORDER, UNSPECIFIED (2) Brain metastases Code(s): C79.31 - SECONDARY MALIGNANT NEOPLASM OF BRAIN (3) Seizure disorder, complex partial Code(s): G40.209 - LOCAL-REL SYMPTC EPI W CMPLX PRT SEIZ,NOT NTRCT,W/O STAT EPI Qualifiers: Epilepsy type: partial symptomatic (4) Metastatic lung carcinoma Code(s): C78.00 - SECONDARY MALIGNANT NEOPLASM OF UNSPECIFIED LUNG Assessment/Plan 36 y/o M w h/o lung cancer w metastases to brain ; R parietal vasogenic edema p/w partial complex breakthrough seizure ; pt on keppra 1500 mg bid and lamictal 50 mg qd; was admitted to [facility] last week for the same reason ; dexamethazone was decreased to qd per oncologist last Sunday ; pt reports B. through seizure whenever his dexa dose is reduced ; on CTH wo mild to mod R parietal vasogenic edema , R focal temporal edema is diminished compare to previous image; his oncologist on board and has increased his dexa to tid . - C/W keppra 1500 mg bid -lamictal increased to 50 mg bid -Dexamethazone 4 mg tid - EEG routine -Obtain med rec from [facility] -c/w CLONAZEPAM -NEUROCHECK Q 4 HOURS -Onco official consult -seizure/ fall precautions Health maintenance per primary team. THX E [phone]
[2016-10-01] MEDS: oxyCODONE HCL 5 MG TABLET PO PRN ×2 (13:27→19:57)
--- NOTE | 2016-10-01 13:29 | PN ---
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 Patient with past history of seizures. Sister relates seizure re-occurrence associated with decadron tapering. Has been on keppra and decadron. Presented with uncontrolled left sided seizures and was admitted to ICU. No seizures overnight. Has been "loaded up" with dilantin, has had keppra dosing increased and decadron increased to 16 mg /day. Will likely need higher dose of steroids as outpatient in addition to second anti-epileptic. Systemically has been relatively stable on Alimta.
[2016-10-01] MEDS ORDERED: LORazepam 2 MG/ML SDV VIAL ONE ×2 (15:23→18:06)
[2016-10-01] MEDS ORDERED: LORAZEPAM CARPU-JECT 2 MG/ML DISP.SYRIN IVPUSH ONE (15:26)
--- NOTE | 2016-10-01 15:36 | CONS ---
DATE OF CONSULTATION: DATE OF DICTATION: 10/01/2016 Patient admitted via the ER 09/30/2016. He is a 36-year-old male with a history of adenocarcinoma of the lung, status post surgery, status post multiple lines of chemotherapy, status post immunotherapy, currently on Alimta therapy. The patient has a history of brain metastasis, has been treated with Gamma Knife in the past. He has a history of seizures, which have recurred. These typically involve the left side of the body. The patient presented to the emergency room on September 30 with uncontrolled seizures involving the left upper extremity and left side. Past medical history includes TRANSFORMATION LEAD metastasis, status post stereotactic radiosurgery x2, with progression. There is a history of deep vein thrombosis, history of hypertension. He has a history of adrenal metastasis. No history of alcohol. History of marijuana in the past. Patient continues to smoke several cigarettes per day. Current medicines have included aspirin, Xanax, oxycodone, Protonix, Keppra, Decadron, and folate. Family history includes a mother with hypertension and ovarian cancer. Father of HIV disease. REVIEW OF SYSTEMS: Currently patient is somewhat lethargic. He has had weakness, loss of appetite. He has had no double vision or blurry vision. He has had no sore throat. He has had some shortness of breath. No chest pain. He has no GI symptoms of diarrhea or constipation. He has had left-sided seizures. PHYSICAL EXAMINATION: Vital Signs: BP 92/69, pulse 95, respiratory rate 20, afebrile. HEENT: Patient is cushingoid, JEMAL, EOM intact. There is no thrush. Lymph Nodes: No cervical or supraclavicular nodes. Lungs: Relatively clear. Cardiac: RSR. Abdomen: Soft. Extremities: No significant edema. LABORATORY: WBC 5.3, hematocrit 40%, platelets 150, 88 polys. INR 1.1. Chemistries: Sodium 134, K 4.2, chloride 95, CO2 28, BUN 12, creatinine 0.6, lactate 2.9, OT 36, ALT 188. Head CT: A 2.7 right parietal lesion, which is partially hemorrhagic, more confluent hemorrhage than what was noted on previous CT scan. On the current exam, some edema, right temporal edema as well. IMPRESSION: A 36-year-old, unfortunate, with adenocarcinoma of the lung, status post surgery, status post radiation, status post multiple lines of chemotherapy, status post immunotherapy, status post central nervous system metastasis with stereotactic radiosurgery x2, with seizures. Seizures have been exacerbated by taking Decadron. Currently patient admitted with left-sided seizures once again. Management and recommendations per Neurology. Dilantin loaded, Keppra increased dosing, and increased dosing of steroids. MERLYN WALSH M.D. [place]/[id number]
[2016-10-01] MEDS: ATOVAQUONE 750 MG/5 ML (UNIT-DOSE PACKAGING) PO SCH (17:16)
[2016-10-01] MEDS ORDERED: LORazepam 0.5 MG TABLET PO PRN (18:04)
--- NOTE | 2016-10-01 18:43 | PN ---
Physical Exam: SUBJECTIVE: Patient seen and examined at bedside in ICU. Voices no complaints. Denies any type of pain. Last seizure was overnight. Staff reports alternating periods of agitation (ripping off monitoring leads and devices) alternating with periods of being withdrawn and uncommunicative. OBJECTIVE: Vital Signs Period Temp Pulse Resp BP Sys/Lindo Pulse Ox Last 24 Hr 98 F-98.9 F 81-112 16-19 90-127/55-93 96-97 GENERAL/NEURO: The patient is awake, alert, and fully oriented, in no acute distress. HEAD: Normal with no signs of trauma. EYES: PERRL, extraocular movements intact, sclera anicteric, conjunctiva clear. No ptosis. LUNGS: Breath sounds equal, clear to auscultation bilaterally, no wheezes, no crackles, no accessory muscle use. HEART: Regular rate and rhythm, S1, S2 without murmur, rub or gallop. ABDOMEN: Soft, nontender, nondistended, normoactive bowel sounds, no guarding, no rebound, no hepatosplenomegaly, no masses. EXTREMITIES: 2+ pulses, warm, well-perfused, no edema. NEUROLOGICAL: Cranial nerves II through XII grossly intact. Normal speech, gait not observed. PSYCH: Flat, depressed affect. One word answers. SKIN: Warm, dry, normal turgor, no rashes or lesions noted Laboratory Results - last 24 hr 09/30/16 09/30/16 09/30/16 18:05 18:18 19:24 WBC RBC Hgb Hct MCV MCHC RDW Plt Count MPV Neutrophils % Lymphocytes % Monocytes % Eosinophils % Basophils % Sodium Potassium Chloride Carbon Dioxide Anion Gap BUN Creatinine Creat Clearance w eGFR Random Glucose Lactic Acid 3.1 H* Calcium Magnesium 2.0 Total Bilirubin AST ALT Alkaline Phosphatase Total Protein Albumin Phenytoin 12.9 D 10/01/16 10/01/16 10/01/16 05:20 05:20 05:20 WBC 5.3 D RBC 4.14 Hgb 13.5 Hct 40.0 MCV 96.5 H MCHC 33.8 RDW 15.7 Plt Count 150 D MPV 7.4 L D Neutrophils % 87.9 H Lymphocytes % 8.4 Monocytes % 3.7 L Eosinophils % 0.0 D Basophils % 0.0 Sodium 134 L Potassium 4.2 Chloride 95 L Carbon Dioxide 28 Anion Gap 11 BUN 12 Creatinine 0.6 L D Creat Clearance w eGFR > 60 Random Glucose 102 D Lactic Acid 2.9 H* Calcium 9.5 D Magnesium Total Bilirubin 0.8 D AST 36 ALT 188 H Alkaline Phosphatase 69 Total Protein 6.5 Albumin 3.8 Phenytoin Current Medications Generic Name Dose Route Start Last Admin Trade Name Freq PRN Reason Stop Dose Admin Atovaquone 1,500 mg 10/01/16 18:00 10/01/16 17:16 Mepron - PO 1,500 mg DAILY@1800 RISHI Administration Dexamethasone Sodium Phosphate 4 mg 10/01/16 10:00 10/01/16 17:15 Decadron Injection - IVPB 4 mg Q8H-IV RISHI Administration Folic Acid 1 mg 10/01/16 10:00 10/01/16 10:12 Folic Acid - PO 1 mg DAILY RISHI Administration Lamotrigine 50 mg 10/01/16 10:00 10/01/16 10:14 Lamictal - PO 50 mg BID RISHI Administration Levetiracetam 1,500 mg 10/01/16 10:00 10/01/16 10:12 Keppra - PO 1,500 mg BID RISHI Administration Lorazepam 0.5 mg 10/01/16 18:04 10/01/16 18:11 Ativan - PO 0.5 mg Q6H PRN Administration ANXIETY Oxycodone HCl 10 mg 10/01/16 06:48 10/01/16 13:27 Roxicodone - PO 10 mg Q6H PRN Administration PAIN Pantoprazole Sodium 40 mg 10/01/16 10:00 10/01/16 10:13 Protonix - PO 40 mg DAILY RISHI Administration Imaging 09/30 CT head: no interval hemorrhage since 08/19/16; mild to moderate focal right parietal vasogenic edema improved and small amount of blood in same region also improved; minimal focal right temporal lobe edema seen ventrally improved ASSESSMENT/PLAN 36 year-old male with a significant PMH of HTN, 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 Seizures secondary to lung cancer with metastatic disease including the brain --continues to have focal seizures --continue Keppra 1500mg BID, Lamictal increased to 50mg BID, dexamethasone 4mg TID --lorazepam 0.5mg q6h PRN --EEG pending --neuro and oncology following Hypertension --presently normotensive F/E/N Fluids: PO intake adequate Electrolytes: replete as indicated Nutrition: regular diet DVT prophylaxis: review of EMR of previous visits, patient has not been on DVT prophylaxis; will hold for now pending recommendation from heme/onc Physical therapy evaluation Daily PT Dispo: continues to require ICU care. Full Code. Visit type - Emergency Visit Emergency Visit: Yes ED Registration Date: 09/30/16 Care time: The patient presented to the Emergency Department on the above date and was hospitalized for further evaluation of their emergent condition. - New Patient This patient is new to me today: Yes Date on this admission: 10/01/16 - Critical Care Critical Care patient: Yes Total Critical Care Time (in minutes): 35 Critical Care Statement: The care of this patient involved high complexity decision making to prevent further life threatening deterioration of the patient 's condition and/or to evalute & treat vital organ system(s) failure or risk of failure.
[2016-10-01] MEDS ORDERED: LORazepam 0.5 MG TABLET ONE (22:01)
[2016-10-01] MEDS ORDERED: LORazepam 0.5 MG TABLET PO ONE (22:05)
[2016-10-02] MEDS: DEXAMETHASONE SOD PHOSPHATE 4 MG/1 ML VIAL IVPB SCH ×3 (01:36→17:15)
[2016-10-02 06:09] LABS: MCH 32.7 pg (25.7-33.7); MCHC 34.2 g/dl (32.0-35.9); MEAN CELL VOLUME 95.7 fl (80-96); MEAN PLT VOLUME 7.2 fl (7.5-11.1); PLATELET COUNT 172 K/MM3 (134-434); RDW 15.5 % (11.9-15.9); WHITE BLOOD COUNT 4.8 K/mm3 (4.0-10.0)
[2016-10-02 07:13] LABS: ALBUMIN 3.8 g/dl (3.4-5.0); ANION GAP 10 (8-16); CALCIUM 9.2 mg/dL (8.5-10.1); CO2 29 mmol/L (21-32); GLUCOSE,RANDOM 104 mg/dL (74-106); MAGNESIUM 2.4 mg/dL (1.8-2.4); SGOT/AST 37 U/L (15-37); SGPT/ALT 183 U/L (12-78)
[2016-10-02 07:15] LABS: ALK PHOS 72 U/L (45-117); BILIRUBIN,TOTAL 0.8 mg/dL (0.2-1.0); COCKROFT - GAULT 169; CREATININE 0.7 mg/dL (0.7-1.3); TOT PROT 6.4 g/dl (6.4-8.2)
--- NOTE | 2016-10-02 07:50 | PN ---
Progress Note, Physician Chief Complaint: seizures in patient with brain metasteses History of Present Illness: patient admitted with seizure after drop in his dexamethasone dose. He has brain mets and this is reportedly a problem that has recurred when his steroids have been reduced in the past. He has also been more irritable lately and upon speaking with the nurse, he has displayed bouts of rage, unprovoked, and seemingly out of the blue, at times tearing at his iv's and gown. - Current Medication List Current Medications: Active Medications Atovaquone (Mepron -) 1,500 mg PO DAILY@1800 [facility] Last Admin: 10/01/16 17:16 Dose: 1,500 mg Dexamethasone Sodium Phosphate (Decadron Injection -) 4 mg IVPB Q8H-IV [facility] Last Admin: 10/02/16 01:36 Dose: 4 mg Folic Acid (Folic Acid -) 1 mg PO DAILY [facility] Last Admin: 10/01/16 10:12 Dose: 1 mg Lamotrigine (Lamictal -) 50 mg PO BID [facility] Last Admin: 10/01/16 21:09 Dose: 50 mg Levetiracetam (Keppra -) 1,500 mg PO BID [facility] Last Admin: 10/01/16 21:09 Dose: 1,500 mg Lorazepam (Ativan -) 0.5 mg PO Q6H PRN PRN Reason: ANXIETY Last Admin: 10/01/16 18:11 Dose: 0.5 mg Oxycodone HCl (Roxicodone -) 10 mg PO Q6H PRN PRN Reason: PAIN Last Admin: 10/01/16 19:57 Dose: 10 mg Pantoprazole Sodium (Protonix -) 40 mg PO DAILY [facility] Last Admin: 10/01/16 10:13 Dose: 40 mg - Objective Vital Signs: Vital Signs Temperature 98 F 10/02/16 06:00 Pulse Rate 90 10/02/16 06:00 Respiratory Rate 18 10/02/16 06:00 Blood Pressure 139/88 10/02/16 06:00 O2 Sat by Pulse Oximetry (%) 96 10/01/16 20:36 Neurological: Yes: Cran Nerves II-XII Intact Psychiatric: Yes: Other (irritable, seems annoyed with examiner, asks examiner to silence the noise in the room.) Labs: CBC, BMP 10/02/16 05:10 10/02/16 05:10 - ....Imaging Cat Scan: Report Reviewed, Image Reviewed (large met in right parietal lobe with edema) Problem List - Problems (1) Brain metastases Assessment/Plan: continue lamictal and keppra, lorazepam for breakthrough seizures. Probably don 't want to drop the dose of steroids now. Code(s): C79.31 - SECONDARY MALIGNANT NEOPLASM OF BRAIN (2) Anxiety Code(s): F41.9 - ANXIETY DISORDER, UNSPECIFIED (3) Agitation Assessment/Plan: I suspect that this is secondary to the steroids. I would recommend consulting psychiatry, and in the mean time consider standing dose of clonazepam 0.5 mg BID. If this aggravates his agitation, we may have to switch to a neuroleptic, but must be careful to avoid dystonia and lowering the seizure threshold. Thanks. Code(s): R45.1 - RESTLESSNESS AND AGITATION
[2016-10-02] MEDS ORDERED: clonazePAM 0.5 MG TABLET PO PRN (08:36)
[2016-10-02 08:46] LABS: PLATELET ESTIMATE ADEQUATE (NORMAL)
[2016-10-02] MEDS ORDERED: LORazepam 1 MG TABLET PO PRN ×2 (09:11→16:40)
[2016-10-02] MEDS: levETIRAcetam 500 MG TABLET (FP) PO SCH ×2 (09:43→21:54)
[2016-10-02] MEDS: PANTOPRAZOLE 40 MG TABLET (FP) PO SCH (09:43)
[2016-10-02] MEDS: FOLIC ACID 1 MG TABLET (FP) PO SCH (09:44)
[2016-10-02] MEDS: clonazePAM 0.5 MG TABLET PO SCH ×2 (09:45→15:36)
[2016-10-02] MEDS ORDERED: clonazePAM 0.5 MG TABLET PO SCH (10:00)
[2016-10-02] MEDS ORDERED: PT OWN MED DRAWER 7, Y5N ONE ×2 (10:03→21:27)
[2016-10-02] MEDS: lamoTRIgine 25 MG TABLET PO SCH ×2 (10:04→21:54)
--- NOTE | 2016-10-02 11:35 | PN ---
Teaching Attending Note Name of Resident: Orin Potts ATTENDING PHYSICIAN STATEMENT I saw and evaluated the patient. I reviewed the resident's note and discussed the case with the resident. I agree with the resident's findings and plan as documented. SUBJECTIVE: Pt seen and examined in the ICU. Focal seizure episode yesterday afternoon. Denies headache. Episodes of agitation/confusion overnight. OBJECTIVE: Last Vital Signs Temp Pulse Resp BP Pulse Ox 98 F 90 18 139/88 96 10/02/16 06:00 10/02/16 06:00 10/02/16 09:00 10/02/16 06:00 10/02/16 09:00 Intake & Output 09/29/16 09/30/16 10/01/16 10/02/16 23:59 23:59 23:59 23:59 Intake Total 1800 Output Total 450 500 Balance -450 1300 Weight 188 lb 188 lb 177 lb 4.026 oz Gen: NAD at rest Heart: RRR Lung: decreased breath sounds at the bases Abd: soft, nontender Ext: no edema CBC, BMP 10/02/16 05:10 10/02/16 05:10 Active Medications Atovaquone (Mepron -) 1,500 mg PO DAILY@1800 [facility] Last Admin: 10/01/16 17:16 Dose: 1,500 mg Clonazepam (Klonopin -) 0.5 mg PO Q6H [facility] Last Admin: 10/02/16 09:45 Dose: 0.5 mg Dexamethasone Sodium Phosphate (Decadron Injection -) 4 mg IVPB Q8H-IV RISHI Last Admin: 10/02/16 09:44 Dose: 4 mg Folic Acid (Folic Acid -) 1 mg PO DAILY [facility] Last Admin: 10/02/16 09:44 Dose: 1 mg Lamotrigine (Lamictal -) 50 mg PO BID [facility] Last Admin: 10/02/16 10:04 Dose: 50 mg Levetiracetam (Keppra -) 1,500 mg PO BID [facility] Last Admin: 10/02/16 09:43 Dose: 1,500 mg Lorazepam (Ativan -) 2 mg PO ONCE PRN PRN Reason: AGITATION Stop: 10/02/16 23:59 Last Admin: 10/02/16 09:39 Dose: 2 mg Oxycodone HCl (Roxicodone -) 10 mg PO Q6H PRN PRN Reason: PAIN Last Admin: 10/01/16 19:57 Dose: 10 mg Pantoprazole Sodium (Protonix -) 40 mg PO DAILY RISHI Last Admin: 10/02/16 09:43 Dose: 40 mg ASSESSMENT AND PLAN: Metastatic Lung Ca with Brain Metastases Seizure Disorder Altered Mental Status improving - continue antiepileptics - monitor levels - continue decadron, may need BID dosing as his maintenance dose - seizure precautions - PO as tolerated - DVT prophylaxis - can monitor on floor
--- NOTE | 2016-10-02 13:36 | PN ---
Physical Exam: SUBJECTIVE: Patient seen and examined at bedside in ICU. Denies any seizures overnight. Voices no complaints. Very quiet, reserved. One word answers or points to body part and shakes head in response to questions. OBJECTIVE: Vital Signs Period Temp Pulse Resp BP Sys/Lindo Pulse Ox Last 24 Hr 98 F-98.2 F 90-94 16-20 109-139/77-93 96-96 GENERAL/NEURO: The patient is awake, alert, and fully oriented, in no acute distress. HEAD: Normal with no signs of trauma. EYES: PERRL, extraocular movements intact, sclera anicteric, conjunctiva clear. No ptosis. LUNGS: Breath sounds equal, clear to auscultation bilaterally, no wheezes, no crackles, no accessory muscle use. HEART: Regular rate and rhythm, S1, S2 without murmur, rub or gallop. ABDOMEN: Soft, nontender, nondistended, normoactive bowel sounds, no guarding, no rebound, no hepatosplenomegaly, no masses. EXTREMITIES: 2+ pulses, warm, well-perfused, no edema. NEUROLOGICAL: Cranial nerves II through XII grossly intact. Normal speech, gait not observed. PSYCH: Flat, depressed affect. One word answers. SKIN: Warm, dry, normal turgor, no rashes or lesions noted Laboratory Results - last 24 hr 10/02/16 10/02/16 05:10 05:10 WBC 4.8 RBC 4.15 Hgb 13.6 Hct 39.7 MCV 95.7 MCHC 34.2 RDW 15.5 Plt Count 172 MPV 7.2 L Neutrophils % 73.0 Lymphocytes % 15.0 D Monocytes % 2.0 L Eosinophils % 0.0 Basophils % 0.0 Band Neutrophils 8.0 D Nucleated RBCs 1 H Differential Comment Manual diff done Reactive Lymphocytes 2 Platelet Estimate Adequate Sodium 136 Potassium 4.1 Chloride 97 L Carbon Dioxide 29 Anion Gap 10 BUN 15 D Creatinine 0.7 Creat Clearance w eGFR > 60 Random Glucose 104 Calcium 9.2 Magnesium 2.4 Total Bilirubin 0.8 AST 37 ALT 183 H Alkaline Phosphatase 72 Total Protein 6.4 Albumin 3.8 Active Medications Generic Name Dose Route Start Last Admin Trade Name Freq PRN Reason Stop Dose Admin Atovaquone 1,500 mg 10/01/16 18:00 10/01/16 17:16 Mepron - PO 1,500 mg DAILY@1800 RISIH Administration Clonazepam 0.5 mg 10/02/16 09:15 10/02/16 09:45 Klonopin - PO 0.5 mg Q6H RISHI Administration Dexamethasone Sodium Phosphate 4 mg 10/01/16 10:00 10/02/16 09:44 Decadron Injection - IVPB 4 mg Q8H-IV RISHI Administration Folic Acid 1 mg 10/01/16 10:00 10/02/16 09:44 Folic Acid - PO 1 mg DAILY RISHI Administration Lamotrigine 50 mg 10/01/16 10:00 10/02/16 10:04 Lamictal - PO 50 mg BID RISHI Administration Levetiracetam 1,500 mg 10/01/16 10:00 10/02/16 09:43 Keppra - PO 1,500 mg BID RISHI Administration Lorazepam 2 mg 10/02/16 09:11 10/02/16 09:39 Ativan - PO 10/02/16 23:59 2 mg ONCE PRN Administration AGITATION Oxycodone HCl 10 mg 10/01/16 06:48 10/01/16 19:57 Roxicodone - PO 10 mg Q6H PRN Administration PAIN Pantoprazole Sodium 40 mg 10/01/16 10:00 10/02/16 09:43 Protonix - PO 40 mg DAILY RISHI Administration Imaging 09/30 CT head: no interval hemorrhage since 08/19/16; mild to moderate focal right parietal vasogenic edema improved and small amount of blood in same region also improved; minimal focal right temporal lobe edema seen ventrally improved ASSESSMENT/PLAN 36 year-old male with a significant PMH of HTN, 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 Seizures secondary to lung cancer with metastatic disease including the brain --continue Keppra 1500mg BID, Lamictal 50mg BID, dexamethasone 4mg q8h --clonazepam 0.5mg q6h scheduled to manage episodes of extreme agitation; ativan IVP PRN --EEG pending --neuro and oncology following --psych consult requested for input on neuroleptics Hypertension --presently normotensive F/E/N Fluids: PO intake adequate Electrolytes: replete as indicated Nutrition: regular diet DVT prophylaxis: review of EMR of previous visits, patient has not been on DVT prophylaxis; will hold for now pending recommendation from heme/onc Physical therapy evaluation Daily PT Dispo: continues to require ICU care. Full Code. Visit type - Emergency Visit Emergency Visit: Yes ED Registration Date: 09/30/16 Care time: The patient presented to the Emergency Department on the above date and was hospitalized for further evaluation of their emergent condition. - New Patient This patient is new to me today: No - Critical Care Critical Care patient: Yes Total Critical Care Time (in minutes): 35 Critical Care Statement: The care of this patient involved high complexity decision making to prevent further life threatening deterioration of the patient 's condition and/or to evalute & treat vital organ system(s) failure or risk of failure.
[2016-10-02] MEDS ORDERED: LORAZEPAM CARPU-JECT 2 MG/ML DISP.SYRIN IM PRN (16:33)
--- NOTE | 2016-10-02 16:39 | CON.PSY ---
Psychiatry Consult Chief Complaint: Patient hearing sounds, increased agitation and confusion. Walking around looking for his and kids. Symptoms: reports: Irritability, Disorganized/Disruptive Thoughts, Hallucinations - Previous Psychiatric Treatment Outpatient: None Inpatient: None - Previous Substance Abuse Treatment Outpatient: None Inpatient: None - Current Medications Current Medications: Active Medications Atovaquone (Mepron -) 1,500 mg PO DAILY@1800 [facility] Last Admin: 10/01/16 17:16 Dose: 1,500 mg Dexamethasone Sodium Phosphate (Decadron Injection -) 4 mg IVPB Q8H-IV [facility] Last Admin: 10/02/16 09:44 Dose: 4 mg Folic Acid (Folic Acid -) 1 mg PO DAILY [facility] Last Admin: 10/02/16 09:44 Dose: 1 mg Lamotrigine (Lamictal -) 50 mg PO BID [facility] Last Admin: 10/02/16 10:04 Dose: 50 mg Levetiracetam (Keppra -) 1,500 mg PO BID [facility] Last Admin: 10/02/16 09:43 Dose: 1,500 mg Lorazepam (Ativan -) 2 mg PO ONCE PRN PRN Reason: AGITATION Stop: 10/02/16 23:59 Last Admin: 10/02/16 09:39 Dose: 2 mg Oxycodone HCl (Roxicodone -) 10 mg PO Q6H PRN PRN Reason: PAIN Last Admin: 10/01/16 19:57 Dose: 10 mg Pantoprazole Sodium (Protonix -) 40 mg PO DAILY [facility] Last Admin: 10/02/16 09:43 Dose: 40 mg Quetiapine Fumarate (Seroquel -) 100 mg PO BID [facility] - Allergies Allergies: Allergies Allergy/AdvReac Type Severity Reaction Status Date / Time No Known Drug Allergies Allergy Verified 09/30/16 13:32 - Current Living Status Usual Living Arrangement: Alone - Current Mental Status Evaluation Appearance: Well Groomed Attitude: Guarded - Affect Affect: Constrictive Appropriateness: Appropriate to Content - Mood Mood: Euthymic - Speech/Language Expressive: Coherent - Psychomotor Activity Psychomotor Activity: Slowed - Thought Process Thought Process: Circumstantial - Thought Content Hallucinations: Present Type: Auditory Delusions: Absent - Self Perception Self Perception: Depersonalization - Cognition Attention: Alert Orientation: Time Memory, Immediate Recall: Intact Memory, Short Term: 2/3 Memory, Remote with Promptin/3 - Concentration Serial Sevens Intact: No Simple Calculations Intact: No - Abstraction Proverb Interpretation: Intact Judgement: Minimally Impaired - Insight Insight: Impaired - Impulse Control Impulse Control: Minimally Impaired - Suicidal Ideation Suicidal Ideation: No - Homicidal Ideation Homicidal Ideation: No Assessment/Plan Seroquel 100mg po bid
[2016-10-02] MEDS: ATOVAQUONE 750 MG/5 ML (UNIT-DOSE PACKAGING) PO SCH (17:16)
--- NOTE | 2016-10-02 18:02 | PN ---
Physical Exam: SUBJECTIVE: Patient seen and examined. He is complaining of hearing ear ringing/ machine like sound. No seizures reported overnight. He denies headache, dizziness, hearing voices, having hallucinations, hurting himself or others. OBJECTIVE: Vital Signs Period Temp Pulse Resp BP Sys/Lindo Pulse Ox Last 24 Hr 98 F 90-94 18-20 116-139/77-88 96-96 GENERAL: The patient is awake, alert, and fully oriented, in no acute distress, agitated in AM. HEAD: Normal with no signs of trauma. EYES: extraocular movements intact, sclera anicteric, conjunctiva clear. ENT: oropharynx clear without exudates, moist mucous membrane, TMs clear, no ear discharge, tenderness. NECK: Trachea midline, full range of motion, supple. LUNGS: clear to auscultation bilaterally, no wheezes, no crackles, no accessory muscle use. HEART: Regular rate and rhythm, S1, S2 without murmur, rub or gallop. ABDOMEN: Soft, nontender, nondistended, normoactive bowel sounds, no guarding, no rebound, no hepatosplenomegaly, no masses. EXTREMITIES: 2+ pulses, warm, well-perfused, no edema. NEUROLOGICAL: Normal speech, no facial asymmetry, gait not observed. PSYCH: Confused and agitates at times. SKIN: Warm, dry, normal turgor, small area of mild redness behind the left ear, no tenderness to palpation, no discharge. Laboratory Results - last 24 hr 10/02/16 10/02/16 05:10 05:10 WBC 4.8 RBC 4.15 Hgb 13.6 Hct 39.7 MCV 95.7 MCHC 34.2 RDW 15.5 Plt Count 172 MPV 7.2 L Neutrophils % 73.0 Lymphocytes % 15.0 D Monocytes % 2.0 L Eosinophils % 0.0 Basophils % 0.0 Band Neutrophils 8.0 D Nucleated RBCs 1 H Differential Comment Manual diff done Reactive Lymphocytes 2 Platelet Estimate Adequate Sodium 136 Potassium 4.1 Chloride 97 L Carbon Dioxide 29 Anion Gap 10 BUN 15 D Creatinine 0.7 Creat Clearance w eGFR > 60 Random Glucose 104 Calcium 9.2 Magnesium 2.4 Total Bilirubin 0.8 AST 37 ALT 183 H Alkaline Phosphatase 72 Total Protein 6.4 Albumin 3.8 Active Medications Generic Name Dose Route Start Last Admin Trade Name Freq PRN Reason Stop Dose Admin Atovaquone 1,500 mg 10/01/16 18:00 10/02/16 17:16 Mepron - PO 1,500 mg DAILY@1800 RISHI Administration Dexamethasone Sodium Phosphate 4 mg 10/01/16 10:00 10/02/16 17:15 Decadron Injection - IVPB 4 mg Q8H-IV RISHI Administration Folic Acid 1 mg 10/01/16 10:00 10/02/16 09:44 Folic Acid - PO 1 mg DAILY RISHI Administration Lamotrigine 50 mg 10/01/16 10:00 10/02/16 10:04 Lamictal - PO 50 mg BID RISHI Administration Levetiracetam 1,500 mg 10/01/16 10:00 10/02/16 09:43 Keppra - PO 1,500 mg BID RISHI Administration Lorazepam 2 mg 10/02/16 09:11 10/02/16 09:39 Ativan - PO 10/02/16 23:59 2 mg ONCE PRN Administration AGITATION Lorazepam 2 mg 10/02/16 16:40 Ativan - PO TID PRN ANXIETY Oxycodone HCl 10 mg 10/01/16 06:48 10/01/16 19:57 Roxicodone - PO 10 mg Q6H PRN Administration PAIN Pantoprazole Sodium 40 mg 10/01/16 10:00 10/02/16 09:43 Protonix - PO 40 mg DAILY RISHI Administration Quetiapine Fumarate 100 mg 10/02/16 22:00 Seroquel - PO BID [facility] ASSESSMENT/PLAN: This is 36 year old male with a significant PMH of HTN, lung cancer with mets to the brain, seizures, admitted for seizure activity. Seizures -secondary to lung cancer with metastasis to brain -continue Keppra 1500mg BID, Lamictal 50mg BID, dexamethasone 4mg q8h -clonazepam 0.5mg q6h scheduled to manage episodes of extreme agitation; ativan IV PRN -Psychiatry consulted, added Seroquel 100 mg BID -neuro checks -f/u EEG pending -f/u neuro and oncology consultation lung cancer with mets to brain -the pt had radiation therapy, chemiotherapy, immunotherapy -brain to mets confirmed with MRi and CT head -f/u Oncology recommendations F/E/N no/no changes/regular diet DVT prophylaxis -ambulating Dispo: transfer to med surg Full Code. Problem List - Problems (1) Agitation Code(s): R45.1 - RESTLESSNESS AND AGITATION (2) Brain metastases Code(s): C79.31 - SECONDARY MALIGNANT NEOPLASM OF BRAIN (3) Seizure disorder, complex partial Code(s): G40.209 - LOCAL-REL SYMPTC EPI W CMPLX PRT SEIZ,NOT NTRCT,W/O STAT EPI Qualifiers: Epilepsy type: partial symptomatic (4) Metastatic lung carcinoma Code(s): C78.00 - SECONDARY MALIGNANT NEOPLASM OF UNSPECIFIED LUNG (5) Seizure Code(s): R56.9 - UNSPECIFIED CONVULSIONS Visit type - Emergency Visit Emergency Visit: Yes ED Registration Date: 09/30/16 Care time: The patient presented to the Emergency Department on the above date and was hospitalized for further evaluation of their emergent condition. - New Patient This patient is new to me today: Yes Date on this admission: 10/02/16 - Critical Care Critical Care patient: Yes Total Critical Care Time (in minutes): 45 Critical Care Statement: The care of this patient involved high complexity decision making to prevent further life threatening deterioration of the patient 's condition and/or to evalute & treat vital organ system(s) failure or risk of failure.
[2016-10-02] MEDS: QUEtiapine FUMARATE 100 MG TABLET (FP) PO SCH (21:55)
--- NOTE | 2016-10-02 22:42 | PN ---
Progress Note (short form) - Note Progress Note: Patient seen and examined Oriented c/o some erythema at rt. iv site Last Vital Signs Temp Pulse Resp BP Pulse Ox 100.2 F H 98 H 20 89/66 96 10/03/16 05:37 10/03/16 05:37 10/03/16 05:37 10/03/16 05:37 10/02/16 22:00 CUSHINGOID FACIES Cor: RSR, No murmurs, No gallops Lungs: Clear to P&A Abd: Soft, Normal bowel sounds, No organomegaly Ext: erythema at rt. fore arm IV site Labs/meds reviewed A/P 36 y/o with metastatic lung cancer , with brain mets, s/p SRS, s/p WBRT. on steroids , residential, on mepron, comes in with seizure when steroid was tapered to once daily. Seizure meds being adjusted Would taper steroid to 4mg Q12h and maintain at that dose Neurology f/u Check cultures. Rt. arm phlebitis/cellulitis. Patient immunosuppressed on ling term steroids
[2016-10-03] MEDS: DEXAMETHASONE SOD PHOSPHATE 4 MG/1 ML VIAL IVPB SCH ×3 (02:42→18:59)
[2016-10-03 06:30] LABS: MCH 33.1 pg (25.7-33.7); MEAN CELL VOLUME 94.7 fl (80-96); MEAN PLT VOLUME 6.9 fl (7.5-11.1); PLATELET COUNT 158 K/MM3 (134-434); RDW 15.4 % (11.9-15.9); WHITE BLOOD COUNT 5.2 K/mm3 (4.0-10.0)
[2016-10-03 06:52] LABS: ALBUMIN 3.5 g/dl (3.4-5.0); ANION GAP 13 (8-16); BILIRUBIN,TOTAL 0.6 mg/dL (0.2-1.0); CALCIUM 8.7 mg/dL (8.5-10.1); CO2 26 mmol/L (21-32); COCKROFT - GAULT 198; CREATININE 0.6 mg/dL (0.7-1.3); GLUCOSE,RANDOM 123 mg/dL (74-106); SGOT/AST 31 U/L (15-37); SGPT/ALT 163 U/L (12-78); TOT PROT 6.1 g/dl (6.4-8.2)
[2016-10-03 06:53] LABS: ALK PHOS 72 U/L (45-117)
[2016-10-03] MEDS: levETIRAcetam 500 MG TABLET (FP) PO SCH ×3 (09:06→22:21)
[2016-10-03] MEDS: FOLIC ACID 1 MG TABLET (FP) PO SCH (09:07)
[2016-10-03] MEDS: PANTOPRAZOLE 40 MG TABLET (FP) PO SCH (09:07)
[2016-10-03] MEDS ORDERED: LORAZEPAM CARPU-JECT 2 MG/ML DISP.SYRIN IVPUSH ONE (09:15)
--- NOTE | 2016-10-03 09:16 | PN ---
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 admitted for seizures cellulitis right antecubital fossa-indurated no drainage or fluctuance no fevers but on steroids half-way blood cultures, empiric vancomycin warm compresses to arm dry pigmented pustular rash on chest and back-try topical antifungal has had for three weeks has appt with derm management of seizures per neurology Problem List - Problems (1) Metastatic lung carcinoma Code(s): C78.00 - SECONDARY MALIGNANT NEOPLASM OF UNSPECIFIED LUNG (2) Seizure disorder, complex partial Code(s): G40.209 - LOCAL-REL SYMPTC EPI W CMPLX PRT SEIZ,NOT NTRCT,W/O STAT EPI Qualifiers: Epilepsy type: partial symptomatic (3) Cellulitis Code(s): L03.90 - CELLULITIS, UNSPECIFIED (4) Rash Code(s): R21 - RASH AND OTHER NONSPECIFIC SKIN ERUPTION
--- NOTE | 2016-10-03 10:55 | EKG ---
Test Reason : Blood Pressure : / mmHG Vent. Rate : 119 BPM Atrial Rate : 119 BPM P-R Int : 118 ms QRS Dur : 074 ms QT Int : 302 ms P-R-T Axes : 073 080 010 degrees QTc Int : 424 ms SINUS TACHYCARDIA POSSIBLE LEFT ATRIAL ENLARGEMENT BORDERLINE ECG WHEN COMPARED WITH ECG OF 19-AUG-2016 17:06, NO SIGNIFICANT CHANGE WAS FOUND Confirmed by JOANN KOCH MD ([id number]) on 10/03/2016 10:55:15 AM Referred By: Confirmed By:JOANN KOCH MD
[2016-10-03] MEDS: VANCOMYCIN 1,250 MG in DEXTROSE 5%-WATER - 250 ML IVPB SCH ×2 (11:00→21:10)
[2016-10-03] MEDS ORDERED: BACITRACIN 30 GM TUBE TOPICAL OINTMENT TP SCH (11:00)
[2016-10-03] MEDS: lamoTRIgine 25 MG TABLET PO SCH ×2 (11:00→21:11)
[2016-10-03] MEDS: QUEtiapine FUMARATE 100 MG TABLET (FP) PO SCH ×2 (11:10→21:10)
--- NOTE | 2016-10-03 12:00 | PN ---
Teaching Attending Note Name of Resident: Orin Potts ATTENDING PHYSICIAN STATEMENT I saw and evaluated the patient. I reviewed the resident's note and discussed the case with the resident. I agree with the resident's findings and plan as documented. SUBJECTIVE: Pt seen and examined in the ICU. Some left arm focal seizures this AM. No headache. Low grade temp noted. OBJECTIVE: Last Vital Signs Temp Pulse Resp BP Pulse Ox 99.6 F 89 18 142/89 96 10/03/16 10:00 10/03/16 10:00 10/03/16 10:00 10/03/16 10:00 10/02/16 22:00 Intake & Output 09/30/16 10/01/16 10/02/16 10/03/16 23:59 23:59 23:59 23:59 Intake Total 1800 1300 0 Output Total 450 500 Balance -450 1300 1300 0 Weight 188 lb 188 lb 177 lb 4.026 oz 178 lb 9.191 oz Gen: NAD at rest Heart: RRR Lung: decreased breath sounds at the bases Abd: soft, nontender Ext: no edema, right antecubitus erythema, induration CBC, BMP 10/03/16 05:15 10/03/16 05:15 Active Medications Atovaquone (Mepron -) 1,500 mg PO DAILY@1800 [facility] Last Admin: 10/02/16 17:16 Dose: 1,500 mg Bacitracin (Bacitracin -) 1 applic TP DAILY [facility] Clotrimazole (Lotrimin 1% Solution -) 1 applic TP BID [facility] Dexamethasone Sodium Phosphate (Decadron Injection -) 4 mg IVPB Q8H-IV [facility] Last Admin: 10/03/16 09:05 Dose: 4 mg Folic Acid (Folic Acid -) 1 mg PO DAILY [facility] Last Admin: 10/03/16 09:07 Dose: 1 mg Vancomycin HCl 1,250 mg/ (Dextrose) 250 mls @ 166.667 mls/hr IVPB BID [facility] PRN Reason: Protocol Last Admin: 10/03/16 11:00 Dose: 166.667 mls/hr Lamotrigine (Lamictal -) 50 mg PO BID [facility] Last Admin: 10/03/16 11:00 Dose: 50 mg Levetiracetam (Keppra -) 1,500 mg PO BID [facility] Last Admin: 10/03/16 09:06 Dose: 1,500 mg Lorazepam (Ativan -) 2 mg PO TID PRN PRN Reason: ANXIETY Last Admin: 10/02/16 19:45 Dose: 2 mg Oxycodone HCl (Roxicodone -) 10 mg PO Q6H PRN PRN Reason: PAIN Last Admin: 10/01/16 19:57 Dose: 10 mg Pantoprazole Sodium (Protonix -) 40 mg PO DAILY [facility] Last Admin: 10/03/16 09:07 Dose: 40 mg Quetiapine Fumarate (Seroquel -) 100 mg PO BID [facility] Last Admin: 10/02/16 21:55 Dose: 100 mg ASSESSMENT AND PLAN: Metastatic Lung Ca with Brain Metastases Seizure Disorder Altered Mental Status improving ?Phlebitis - continue antiepileptics - monitor levels - continue decadron, can decrease to BID - seizure precautions - warm compresses to right antecubitus - antibiotics per ID - f/u cultures - PO as tolerated - DVT prophylaxis - can monitor on floor
[2016-10-03] MEDS: CLOTRIMAZOLE 1%TOPICAL SOLUTION 30 ML BOTTLE TP SCH ×2 (13:00→23:55)
--- NOTE | 2016-10-03 13:01 | CONS ---
DATE OF CONSULTATION: 10/03/2016 INFECTIOUS DISEASE CONSULTATION REQUESTING PHYSICIAN: Hospitalist Service. 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 Since that time, he has undergone lung surgery. He has had multiple courses of chemotherapy and immunotherapy currently on Alimta. He has a history of brain metastasis and has been treated with gamma knife in the past as well as whole brain RT. The seizures are primarily left-sided and he presented on the with uncontrolled seizures. He is currently in the ICU. I am asked to see him because he now has erythema and pain and induration of the right antecubital fossa. PAST MEDICAL HISTORY: Is notable for metastatic adenocarcinoma with gamma knife, whole brain RT. He has had a history of deep vein thrombosis, hypertension, and adrenal metastases. As well he has had extensive surgery with removal of lung mass and he has a left subclavian stent. ALLERGIES: No known drug allergies. MEDICATIONS AN OUTPATIENT: Include oxycodone, Protonix, folic acid, , Klonopin, Keppra, dexamethasone and Lamictal. FAMILY HISTORY: Notable for hypertension, ovarian cancer in his mother, his father of HIV. SOCIAL HISTORY: He is independent and lives in the community. He still smokes several cigarettes a day. REVIEW OF SYSTEMS: He denies any cough, any shortness of breath, any nausea, vomiting, or diarrhea. He states his appetite is good. He is alert. He notes that he has pain in his right antecubital fossa. He denies any fever or chills. He denies any diarrhea. PHYSICAL EXAMINATION; GENERAL: He is awake and alert. He is resting comfortably. VITAL SIGNS: Temperature 100.2 which is his T-max, pulse 98, blood pressure 89/66, respiratory rate 20. He weights 178 pounds. HEENT: Normocephalic. Eyes are anicteric. There are no conjunctival hemorrhages. He has no thrush. He has cushingoid facies. NECK: Supple. LUNGS: Clear to auscultation. HEART: Regular rate and rhythm. ABDOMEN: Soft, nontender. EXTREMITIES: Without edema. His right antecubital fossa he has evidence of erythema and induration. It is painful. Looks like the site of a prior IV. There is a small pustule. There is no drainage or fluctuance. CHEST WALL: He has evidence of a prior sternotomy. He has a well-healed sternal wound. There is no associated erythema. SKIN: His examination is notable for a drying pustular rash that is scattered throughout his entire back and his his anterior chest above his umbilicus and his entire back. There are still a few pustular lesions on the anterior chest. The rest are all dry. The patient reports having had the rash for at least 3 weeks and being referred to dermatology. LABORATORY DATA: Notable for a white count of 5.2 , hemoglobin 13.2, platelets 158. INR is 1, BUN 14, creatinine 0.6. LFTs are notable for ALT of 163, alkaline phosphatase 72. Urine and blood cultures have been ordered and sent this morning. Chest x-ray revealed no evidence of any infiltrate. He has sternal sutures. He has left apical clips, left subclavian vascular stent and a right-sided port. IMPRESSION AND RECOMMENDATIONS: In summary this is a 36-year-old man with metastatic adenocarcinoma of the lung, status post whole brain radiation therapy admitted for seizures who now has cellulitis of the right antecubital fossa, indurated. There is no drainage or fluctuance. No fever. He has been on steroids long-term. Would obtain blood cultures which have been sent. We will treated him empirically with vancomycin and do warm compresses to the arm. This rash appears to be drying, but as he is on steroids would consider a topical antifungal at this time. He has had this for 3 weeks and has an appointment for dermatology. Management of seizures per neurology. TIM PEREZ M.D. [id number]
--- NOTE | 2016-10-03 13:40 | PN ---
Physical Exam: SUBJECTIVE: Patient seen and examined. He denies headache, seizures, weakness, fever, chills. He has moments of disorientation to place. OBJECTIVE: Vital Signs Period Temp Pulse Resp BP Sys/Lindo Pulse Ox Last 24 Hr 97.9 F-100.2 F 88-98 18-20 87-142/57-89 96 GENERAL: The patient is awake, alert, and fully oriented, in no acute distress. HEAD: Normal with no signs of trauma. EYES: extraocular movements intact, sclera anicteric, conjunctiva clear. ENT: oropharynx clear without exudates, moist mucous membrane, TMs clear, no ear discharge, tenderness. NECK: Trachea midline, full range of motion, supple. LUNGS: clear to auscultation bilaterally, no wheezes, no crackles, no accessory muscle use. HEART: Regular rate and rhythm, S1, S2 without murmur, rub or gallop. ABDOMEN: Soft, nontender, nondistended, normoactive bowel sounds, no guarding, no rebound, no hepatosplenomegaly, no masses. EXTREMITIES: 2+ pulses, warm, well-perfused, no edema, redness on right antecubital area, no flactuation, no drainage, warm to touch. NEUROLOGICAL: Normal speech, no facial asymmetry, gait not observed. PSYCH: Confused and agitates at times. SKIN: Warm, dry, normal turgor, small area of mild redness behind the left ear, no tenderness to palpation, no discharge. Laboratory Results - last 24 hr 10/03/16 10/03/16 05:15 05:15 WBC 5.2 RBC 3.98 L Hgb 13.2 Hct 37.7 MCV 94.7 MCHC 35.0 RDW 15.4 Plt Count 158 MPV 6.9 L Neutrophils % 71.0 Lymphocytes % 8.0 D Monocytes % 9.0 D Band Neutrophils 12.0 H D Sodium 134 L Potassium 3.8 Chloride 95 L Carbon Dioxide 26 Anion Gap 13 BUN 14 Creatinine 0.6 L Creat Clearance w eGFR > 60 Random Glucose 123 H Calcium 8.7 Magnesium 2.0 Total Bilirubin 0.6 D AST 31 ALT 163 H Alkaline Phosphatase 72 Total Protein 6.1 L Albumin 3.5 Active Medications Generic Name Dose Route Start Last Admin Trade Name Freq PRN Reason Stop Dose Admin Atovaquone 1,500 mg 10/01/16 18:00 10/02/16 17:16 Mepron - PO 1,500 mg DAILY@1800 RISHI Administration Bacitracin 1 applic 10/03/16 11:00 Bacitracin - TP DAILY RISHI Clotrimazole 1 applic 10/03/16 10:00 Lotrimin 1% Solution - TP BID RISHI Dexamethasone Sodium Phosphate 4 mg 10/01/16 10:00 10/03/16 09:05 Decadron Injection - IVPB 4 mg Q8H-IV RISHI Administration Folic Acid 1 mg 10/01/16 10:00 10/03/16 09:07 Folic Acid - PO 1 mg DAILY RISHI Administration Vancomycin HCl 1,250 mg/ 250 mls @ 166.667 mls/hr 10/03/16 10:00 10/03/16 11:00 Dextrose IVPB 166.667 mls/hr BID RISHI Administration Protocol Lamotrigine 50 mg 10/01/16 10:00 10/03/16 11:00 Lamictal - PO 50 mg BID RISHI Administration Levetiracetam 1,500 mg 10/01/16 10:00 10/03/16 09:06 Keppra - PO 1,500 mg BID RISHI Administration Lorazepam 2 mg 10/02/16 16:40 10/02/16 19:45 Ativan - PO 2 mg TID PRN Administration ANXIETY Oxycodone HCl 10 mg 10/01/16 06:48 10/01/16 19:57 Roxicodone - PO 10 mg Q6H PRN Administration PAIN Pantoprazole Sodium 40 mg 10/01/16 10:00 10/03/16 09:07 Protonix - PO 40 mg DAILY RISHI Administration Quetiapine Fumarate 100 mg 10/02/16 22:00 10/03/16 11:10 Seroquel - PO 100 mg BID RISHI Administration ASSESSMENT/PLAN: This is 36 year old male with a significant PMH of HTN, lung cancer with mets to the brain, seizures, admitted for seizure activity. Seizures: -secondary to lung cancer with metastasis to brain -continue Keppra 1500mg BID, Lamictal 50mg BID, -dexamethasone 4mg q8h changed to Q12- -oncologist recommendation -clonazepam 0.5mg q6h scheduled to manage episodes of extreme agitation; ativan IV PRN -Psychiatry consulted, added Seroquel 100 mg BID -neuro checks -f/u EEG pending -f/u neuro and oncology consultation lung cancer with mets to brain -the pt had radiation therapy, chemiotherapy, immunotherapy -brain to mets confirmed with MRi and CT head -f/u Oncology recommendations Right antecubital cellulitis: -consulted -ID, started Vancomycin, warm compresses, blood cultures -addded Bacitracin TP F/E/N no/no changes/regular diet DVT prophylaxis -ambulating Dispo: transfer to [facility] Full Code. Problem List - Problems (1) Agitation Code(s): R45.1 - RESTLESSNESS AND AGITATION (2) Brain metastases Code(s): C79.31 - SECONDARY MALIGNANT NEOPLASM OF BRAIN (3) Seizure disorder, complex partial Code(s): G40.209 - LOCAL-REL SYMPTC EPI W CMPLX PRT SEIZ,NOT NTRCT,W/O STAT EPI Qualifiers: Epilepsy type: partial symptomatic (4) Metastatic lung carcinoma Code(s): C78.00 - SECONDARY MALIGNANT NEOPLASM OF UNSPECIFIED LUNG (5) Seizure Code(s): R56.9 - UNSPECIFIED CONVULSIONS Visit type - Emergency Visit Emergency Visit: Yes ED Registration Date: 09/30/16 Care time: The patient presented to the Emergency Department on the above date and was hospitalized for further evaluation of their emergent condition. - New Patient This patient is new to me today: No - Critical Care Critical Care patient: Yes Total Critical Care Time (in minutes): 30 Critical Care Statement: The care of this patient involved high complexity decision making to prevent further life threatening deterioration of the patient 's condition and/or to evalute & treat vital organ system(s) failure or risk of failure.
--- NOTE | 2016-10-03 15:14 | PN ---
Physical Exam: SUBJECTIVE: Patient seen and examined in ICU. He felt some LUE tingling overnight however no seizure as what normally happens. Shortly after AM assessment he had a focal seizure to his LUE with 4th digit sabas, then stopped. x1 dose ativan 1mg given Events: - Bands 12% - Tmax 100.2 OBJECTIVE: Vital Signs Period Temp Pulse Resp BP Sys/Lindo Pulse Ox Last 24 Hr 97.9 F-100.2 F 88-98 18-20 87-142/57-89 96 PE Neuro: alert, awake, cn 2-12intact, intermittent confusion Pulm: CTAB CV: s1 s2 rrr no mrg Abd: stretch michel, diffuse papular rash, no itching, soft nd nt + bs Ext: no le edema, warm, Stable gait Skin: Right anticubital with induration, erythema + tenderness, black center pustular, no drainage Laboratory Results - last 24 hr 10/03/16 10/03/16 05:15 05:15 WBC 5.2 RBC 3.98 L Hgb 13.2 Hct 37.7 MCV 94.7 MCHC 35.0 RDW 15.4 Plt Count 158 MPV 6.9 L Neutrophils % 71.0 Lymphocytes % 8.0 D Monocytes % 9.0 D Band Neutrophils 12.0 H D Sodium 134 L Potassium 3.8 Chloride 95 L Carbon Dioxide 26 Anion Gap 13 BUN 14 Creatinine 0.6 L Creat Clearance w eGFR > 60 Random Glucose 123 H Calcium 8.7 Magnesium 2.0 Total Bilirubin 0.6 D AST 31 ALT 163 H Alkaline Phosphatase 72 Total Protein 6.1 L Albumin 3.5 Active Medications Generic Name Dose Route Start Last Admin Trade Name Shayna PRN Reason Stop Dose Admin Atovaquone 1,500 mg 10/01/16 18:00 10/02/16 17:16 Mepron - PO 1,500 mg DAILY@1800 RISHI Administration Bacitracin 1 applic 10/03/16 11:00 Bacitracin - TP DAILY RISHI Clotrimazole 1 applic 10/03/16 10:00 Lotrimin 1% Solution - TP BID RISHI Dexamethasone Sodium Phosphate 4 mg 10/01/16 10:00 10/03/16 09:05 Decadron Injection - IVPB 4 mg Q8H-IV RISHI Administration Folic Acid 1 mg 10/01/16 10:00 10/03/16 09:07 Folic Acid - PO 1 mg DAILY RISHI Administration Vancomycin HCl 1,250 mg/ 250 mls @ 166.667 mls/hr 10/03/16 10:00 10/03/16 11:00 Dextrose IVPB 166.667 mls/hr BID RISHI Administration Protocol Lamotrigine 50 mg 10/01/16 10:00 10/03/16 11:00 Lamictal - PO 50 mg BID RISHI Administration Levetiracetam 1,500 mg 10/01/16 10:00 10/03/16 09:06 Keppra - PO 1,500 mg BID RISHI Administration Lorazepam 2 mg 10/02/16 16:40 10/02/16 19:45 Ativan - PO 2 mg TID PRN Administration ANXIETY Oxycodone HCl 10 mg 10/01/16 06:48 10/01/16 19:57 Roxicodone - PO 10 mg Q6H PRN Administration PAIN Pantoprazole Sodium 40 mg 10/01/16 10:00 10/03/16 09:07 Protonix - PO 40 mg DAILY RISHI Administration Quetiapine Fumarate 100 mg 10/02/16 22:00 10/03/16 11:10 Seroquel - PO 100 mg BID RISHI Administration Imagin/10 CT head: no interval hemorrhage since 08/19/16; mild to moderate focal right parietal vasogenic edema improved and small amount of blood in same region also improved; minimal focal right temporal lobe edema seen ventrally improved Assessment: 36 year old male with a significant PMH of HTN, 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 Plan: 1. Seizures secondary to lung cancer with metastatic disease including the brain - Taper decadron 4mg q12 - Keppra 1500mg BID - Lamictal 50mg BID - Start seroquel 100mg BID - EEG pending 2. Diffuse pustular rash trunk and back/ RUE phlebitis - Started Vanco BID - Lotrimin BID to trunk and back - Bacitracin - Empiric Mepron - Warm compresses to R AC - D/w ID, pt has derm appt next week, per pt rash appears following most recent brain radiation ~ 3weeks 3. HTN - Controlled 4 hx of LUE DVT - Defer to heme/onc for DVT ppx - Consider Lovenox sq Visit type - Emergency Visit Emergency Visit: Yes ED Registration Date: 09/30/16 Care time: The patient presented to the Emergency Department on the above date and was hospitalized for further evaluation of their emergent condition. - New Patient This patient is new to me today: Yes Date on this admission: 10/03/16 - Critical Care Critical Care patient: Yes Total Critical Care Time (in minutes): 35 Critical Care Statement: The care of this patient involved high complexity decision making to prevent further life threatening deterioration of the patient 's condition and/or to evalute & treat vital organ system(s) failure or risk of failure.
[2016-10-03] MEDS ORDERED: DEXAMETHASONE SOD PHOSPHATE 4 MG/1 ML VIAL IVPB SCH (15:30)
--- NOTE | 2016-10-03 16:08 | PN ---
Progress Note (short form) - Note Progress Note: Patient seen and examined Temp t0 103.9 Has phlebitis/ cellulitis right antecubital fossa. Begun on vancomycin. Some tingling left upper extremity digits Last Vital Signs Temp Pulse Resp BP Pulse Ox 99.6 F 88 18 130/73 96 10/03/16 10:00 10/03/16 15:47 10/03/16 15:47 10/03/16 15:47 10/02/16 22:00 HEENT: JEMAL, EOM Intact, cushingoid Oropharynx: No thrush, No mucositis Neck: Supple Nodes: Without adenopathy Cor: RSR, No murmurs, No gallops Lungs:rhonchi Abd: Soft, Normal bowel sounds, No organomegaly Ext:No significant LE edema, right upper extremity swelling Skin: No rashes, Integument intact Phlebitis/ cellulitis- right antecubital fossa CBC, BMP 10/03/16 05:15 10/03/16 05:15 Current Medications Generic Name Dose Route Start Last Admin Trade Name Sergeq PRN Reason Stop Dose Admin Acetaminophen 1,000 mg 10/03/16 15:58 Ofirmev Injection - IVPB 10/04/16 09:59 Q6H PRN FEVER OR PAIN Atovaquone 1,500 mg 10/01/16 18:00 10/02/16 17:16 Mepron - PO 1,500 mg DAILY@1800 RISHI Administration Bacitracin 1 applic 10/03/16 11:00 Bacitracin - TP DAILY RISHI Clotrimazole 1 applic 10/03/16 10:00 Lotrimin 1% Solution - TP BID [facility] Dexamethasone Sodium Phosphate 4 mg 10/03/16 15:30 Decadron Injection - IVPB BID RISHI Folic Acid 1 mg 10/01/16 10:00 10/03/16 09:07 Folic Acid - PO 1 mg DAILY RISHI Administration Vancomycin HCl 1,250 mg/ 250 mls @ 166.667 mls/hr 10/03/16 10:00 10/03/16 11:00 Dextrose IVPB 166.667 mls/hr BID RISHI Administration Protocol Lamotrigine 50 mg 10/01/16 10:00 10/03/16 11:00 Lamictal - PO 50 mg BID RISHI Administration Levetiracetam 1,500 mg 10/01/16 10:00 10/03/16 09:06 Keppra - PO 1,500 mg BID RISHI Administration Lorazepam 2 mg 10/02/16 16:40 10/02/16 19:45 Ativan - PO 2 mg TID PRN Administration ANXIETY Oxycodone HCl 10 mg 10/01/16 06:48 10/01/16 19:57 Roxicodone - PO 10 mg Q6H PRN Administration PAIN Pantoprazole Sodium 40 mg 10/01/16 10:00 10/03/16 09:07 Protonix - PO 40 mg DAILY RISHI Administration Quetiapine Fumarate 100 mg 10/02/16 22:00 10/03/16 11:10 Seroquel - PO 100 mg BID RISHI Administration Impression: Fevers Phlebitis/cellulitis antibiotics per I.D. Seizures Adenoca of lung- mets S/p RT/Chemo/immunotherapy PLAN: VANCOMYCIN WARM SOAKS-ANTECUBITAL FOSSA PANCULTURE INCLUDING PORT SEIZURE MEDS AND STEROID TAPER PER NEURO NO A/C FOR DVT PROPHYLAXIS -PREVIOUSLY WITH HEMORRHAGIC FUSION JUNCTURE GRINDER METS.
[2016-10-03] MEDS ORDERED: FLUCONAZOLE 100 MG TABLET (UD) PO ONE ×2 (16:47→19:00)
[2016-10-03] MEDS: ACETAMINOPHEN 1000 MG/100 ML VIAL (NON FORMULARY) IVPB PRN (16:47)
[2016-10-03] MEDS: PIPERACILLIN/TAZOB 4.5 GM/100 ML PRE-DOCKED IVPB SCH ×2 (19:04)
[2016-10-03] MEDS: ATOVAQUONE 750 MG/5 ML (UNIT-DOSE PACKAGING) PO SCH (20:55)
--- NOTE | 2016-10-03 22:08 | PN ---
Progress Note (short form) - Note Progress Note: patient admitted with seizure after drop in his dexamethasone dose. He has brain mets and this is reportedly a problem that has recurred when his steroids have been reduced in the past. last seizure this admission and prior a few weeks ago, lamictal was being titrated by outpt neuro. feels intemittent involuntary twitching left arm today seen y psych and started on seroquel--looks comfortable and cooperative studies : 09/30/16 CT/HEAD CT WITHOUT CONTRAST Cranial CT without contrast Clinical information: brain cancer, evaluate for intracranial hemorrhage No interval hemorrhage is seen in comparison to a prior CT study of 08/19/2016. There is no midline displacement. Within the right parietal lobe there is diminished focal hemorrhage and vasogenic edema. The degree of edema appears mild to moderate. There is no midline displacement. Subtle focal edema is noted within the right temporal lobe ventrally which is also improved. A rim- enhancing lesion was noted that site on an MRI study of 08/17/2016. There is no extra-axial fluid collection. No discrete infarct is seen within the limitations of CT. The ventricles and cisterns appear unremarkable. No calvarial defect is noted. Impression: No interval hemorrhage is identified in comparison to a prior CT exam of 08/19/2016. There is mild to moderate focal right parietal vasogenic edema which appears improved. A small amount of blood is seen in that same region which also appears improved. Minimal focal right temporal lobe edema is seen ventrally which has also improved. - Current Medication List Current Medications: Active Medications Atovaquone (Mepron -) 1,500 mg PO DAILY@1800 [facility] Last Admin: 10/01/16 17:16 Dose: 1,500 mg Dexamethasone Sodium Phosphate (Decadron Injection -) 4 mg IVPB Q8H-IV [facility] Last Admin: 10/02/16 01:36 Dose: 4 mg Folic Acid (Folic Acid -) 1 mg PO DAILY [facility] Last Admin: 10/01/16 10:12 Dose: 1 mg Lamotrigine (Lamictal -) 50 mg PO BID [facility] Last Admin: 10/01/16 21:09 Dose: 50 mg Levetiracetam (Keppra -) 1,500 mg PO BID [facility] Last Admin: 10/01/16 21:09 Dose: 1,500 mg Lorazepam (Ativan -) 0.5 mg PO Q6H PRN PRN Reason: ANXIETY Last Admin: 10/01/16 18:11 Dose: 0.5 mg Oxycodone HCl (Roxicodone -) 10 mg PO Q6H PRN PRN Reason: PAIN Last Admin: 10/01/16 19:57 Dose: 10 mg Pantoprazole Sodium (Protonix -) 40 mg PO DAILY RISHI Last Admin: 10/01/16 10:13 Dose: 40 mg - Objective Vital Signs: Vital Signs Temperature 98.4 F 10/03/16 18:00 Pulse Rate 84 10/03/16 18:00 Respiratory Rate 17 10/03/16 18:00 Blood Pressure 128/80 10/03/16 18:00 O2 Sat by Pulse Oximetry (%) 96 10/03/16 10:00 Neurological: Yes: Cran Nerves II-XII Intact Psychiatric: Yes: Other (irritable, seems annoyed with examiner, asks examiner to silence the noise in the room.) Labs: CBCD WBC 5.2 K/mm3 (4.0-10.0) 10/03/16 05:15 RBC 3.98 M/mm3 (4.00-5.60) L 10/03/16 05:15 Hgb 13.2 GM/dL (11.7-16.9) 10/03/16 05:15 Hct 37.7 % (35.4-49) 10/03/16 05:15 MCV 94.7 fl (80-96) 10/03/16 05:15 MCHC 35.0 g/dl (32.0-35.9) 10/03/16 05:15 RDW 15.4 % (11.9-15.9) 10/03/16 05:15 Plt Count 158 K/MM3 (134-434) 10/03/16 05:15 MPV 6.9 fl (7.5-11.1) L 10/03/16 05:15 CMP Sodium 134 mmol/L (136-145) L 10/03/16 05:15 Potassium 3.8 mmol/L (3.5-5.1) 10/03/16 05:15 Chloride 95 mmol/L (98-107) L 10/03/16 05:15 Carbon Dioxide 26 mmol/L (21-32) 10/03/16 05:15 Anion Gap 13 (8-16) 10/03/16 05:15 BUN 14 mg/dL (7-18) 10/03/16 05:15 Creatinine 0.6 mg/dL (0.7-1.3) L 10/03/16 05:15 Creat Clearance w eGFR > 60 (>60) 10/03/16 05:15 Calcium 8.7 mg/dL (8.5-10.1) 10/03/16 05:15 Total Bilirubin 0.6 mg/dL (0.2-1.0) D 10/03/16 05:15 AST 31 U/L (15-37) 10/03/16 05:15 ALT 163 U/L (12-78) H 10/03/16 05:15 Alkaline Phosphatase 72 U/L (45-117) 10/03/16 05:15 Total Protein 6.1 g/dl (6.4-8.2) L 10/03/16 05:15 Albumin 3.5 g/dl (3.4-5.0) 10/03/16 05:15 - ....Imaging Cat Scan: Report Reviewed, Image Reviewed (large met in right parietal lobe with edema) Problem List - Problems (1) Brain metastases Assessment/Plan: Code(s): C79.31 - SECONDARY MALIGNANT NEOPLASM OF BRAIN (2) Anxiety Code(s): F41.9 - ANXIETY DISORDER, UNSPECIFIED (3) Agitation Assessment/Plan: breakthrough seizures with known brain mets R , + cellulitis on ABX /fever and decadron taper-may be exacerbating focal seizures cont KEPPRA 1500BID lamictal good AED though difficult to titrate, so would start VIMPAT 100BID and the will taper off LAMICTAL off (starting in AM, 25 bID then off following day ) thanks Dr Badillo [phone]
[2016-10-03] MEDS: Lacosamide 200 MG/20 ML VIAL IVPB SCH (23:02)
[2016-10-04] MEDS: PIPERACILLIN/TAZOB 4.5 GM/100 ML PRE-DOCKED IVPB SCH (02:20)
[2016-10-04] MEDS: DEXAMETHASONE SOD PHOSPHATE 4 MG/1 ML VIAL IVPB SCH ×2 (02:20→09:18)
[2016-10-04 06:29] LABS: MCH 32.7 pg (25.7-33.7); MCHC 34.6 g/dl (32.0-35.9); MEAN CELL VOLUME 94.6 fl (80-96); MEAN PLT VOLUME 6.8 fl (7.5-11.1); PLATELET COUNT 140 K/MM3 (134-434); RDW 15.6 % (11.9-15.9); WHITE BLOOD COUNT 6.7 K/mm3 (4.0-10.0)
[2016-10-04 07:01] LABS: ALBUMIN 3.2 g/dl (3.4-5.0); ALK PHOS 73 U/L (45-117); ANION GAP 13 (8-16); BILIRUBIN,TOTAL 0.7 mg/dL (0.2-1.0); CALCIUM 8.7 mg/dL (8.5-10.1); CO2 23 mmol/L (21-32); COCKROFT - GAULT 197; CREATININE 0.6 mg/dL (0.7-1.3); GLUCOSE,RANDOM 165 mg/dL (74-106); SGOT/AST 35 U/L (15-37); SGPT/ALT 153 U/L (12-78); TOT PROT 6.2 g/dl (6.4-8.2)
[2016-10-04] MEDS: ACETAMINOPHEN 1000 MG/100 ML VIAL (NON FORMULARY) IVPB PRN (07:26)
[2016-10-04] MEDS ORDERED: lamoTRIgine 25 MG TABLET PO SCH (07:57)
[2016-10-04] MEDS ORDERED: DEXAMETHASONE SOD PHOSPHATE 4 MG/1 ML VIAL IVPUSH ONE ×2 (07:59→08:04)
--- NOTE | 2016-10-04 08:52 | PN ---
Progress Note, Physician Chief Complaint: ID Alert no distress chills SOB Vancomycin and Zosyn Report of positive blood culture GPC clusters - Current Medication List Current Medications: Active Medications Acetaminophen (Ofirmev Injection -) 1,000 mg IVPB Q6H PRN PRN Reason: FEVER OR PAIN Stop: 10/04/16 09:59 Last Admin: 10/04/16 07:26 Dose: 1,000 mg Atovaquone (Mepron -) 1,500 mg PO DAILY@1800 [facility] Last Admin: 10/03/16 20:55 Dose: 1,500 mg Bacitracin (Bacitracin -) 1 applic TP DAILY [facility] Last Admin: 10/03/16 13:00 Dose: 1 applic Clotrimazole (Lotrimin 1% Solution -) 1 applic TP BID [facility] Last Admin: 10/03/16 23:55 Dose: 1 applic Dexamethasone Sodium Phosphate (Decadron Injection -) 4 mg IVPB Q8H-IV RISHI Last Admin: 10/04/16 02:20 Dose: 4 mg Dexamethasone Sodium Phosphate (Decadron Injection -) 4 mg IVPUSH ONCE ONE Stop: 10/04/16 08:05 Folic Acid (Folic Acid -) 1 mg PO DAILY [facility] Last Admin: 10/03/16 09:07 Dose: 1 mg Vancomycin HCl 1,250 mg/ (Dextrose) 250 mls @ 166.667 mls/hr IVPB BID RISHI PRN Reason: Protocol Last Admin: 10/03/16 21:10 Dose: 166.667 mls/hr Lacosamide (Vimpat Injection -) 100 mg IVPB BID [facility] Last Admin: 10/03/16 23:02 Dose: 100 mg Lamotrigine (Lamictal -) 25 mg PO BID [facility] Levetiracetam (Keppra -) 1,500 mg PO BID [facility] Last Admin: 10/03/16 22:21 Dose: Not Given Lorazepam (Ativan -) 2 mg PO TID PRN PRN Reason: ANXIETY Last Admin: 10/02/16 19:45 Dose: 2 mg Oxycodone HCl (Roxicodone -) 10 mg PO Q6H PRN PRN Reason: PAIN Last Admin: 10/01/16 19:57 Dose: 10 mg Pantoprazole Sodium (Protonix -) 40 mg PO DAILY [facility] Last Admin: 10/03/16 09:07 Dose: 40 mg Piperacillin Sod/Tazobactam Sod (Zosyn 4.5gm Ivpb (Pre-Docked)) 4.5 gm IVPB Q8H -IV RISHI Last Admin: 10/04/16 02:20 Dose: 4.5 gm Quetiapine Fumarate (Seroquel -) 100 mg PO BID RISHI Last Admin: 10/03/16 21:10 Dose: 100 mg - Objective Vital Signs: Vital Signs Temperature 100.9 F H 10/04/16 05:00 Pulse Rate 108 H 10/04/16 05:00 Respiratory Rate 18 10/04/16 05:00 Blood Pressure 85/55 10/04/16 05:00 O2 Sat by Pulse Oximetry (%) 96 10/03/16 22:00 Constitutional: Yes: Well Nourished, No Distress HENT: Yes: WNL, Atraumatic Neck: Yes: WNL, Supple Cardiovascular: Yes: Regular Rate and Rhythm, S1, S2 Respiratory: Yes: WNL, Regular, CTA Bilaterally Gastrointestinal: Yes: WNL, Normal Bowel Sounds, Soft. No: Tenderness Extremities: Yes: Other (Phlebititis right antecub fossa/dressing) Edema: Yes Labs: CBC, BMP 10/04/16 05:15 10/04/16 05:15 Problem List - Problems (1) Brain metastases Code(s): C79.31 - SECONDARY MALIGNANT NEOPLASM OF BRAIN (2) Cellulitis Code(s): L03.90 - CELLULITIS, UNSPECIFIED (3) Seizure disorder, complex partial Code(s): G40.209 - LOCAL-REL SYMPTC EPI W CMPLX PRT SEIZ,NOT NTRCT,W/O STAT EPI Qualifiers: Epilepsy type: partial symptomatic (4) Phlebitis and thrombophlebitis of deep veins of the upper extremities Code(s): I80.8 - PHLEBITIS AND THROMBOPHLEBITIS OF OTHER SITES (5) Bacteremia Code(s): R78.81 - BACTEREMIA Assessment/Plan Microbiology 10/03/16 08:00 Blood - Peripheral Venous Blood Culture - Preliminary NO GROWTH OBTAINED AFTER 24 HOURS, INCUBATION TO CONTINUE FOR 4 DAYS. 10/03/16 08:00 Blood - Peripheral Venous Blood Culture - Preliminary NO GROWTH OBTAINED AFTER 24 HOURS, INCUBATION TO CONTINUE FOR 4 DAYS. Laboratory Tests 10/03/16 10/04/1617 05:15 05:15 05:15 WBC 6.7 RBC 3.95 L Plt Count 140 Neutrophils % 71.0 Monocytes % 9.0 D Band Neutrophils 12.0 H D BUN 9 D Creatinine 0.6 L Creat Clearance w eGFR > 60 Assessment Fever secondary phlebitis right arm Metastatic lung cancer on steroids Positive blood culture 1 bottle at this point Seizure disorder secondary brain mets Plan Stop Zosyn Continue Vancomycin Check trough level Vancomycin Await blood cultures final ? contaminant as had 8 bottles drawn now only 1 positive Discussed ICU staff Critical care time spent today with patient [facility]
--- NOTE | 2016-10-04 08:55 | DS ---
Physical Exam: SUBJECTIVE: Patient seen and examined in ICU. He had some focal LUE seizures overnight per mother, + tingling to finger tips He has chosen to leave AMA for personal reasons. He is aware of the infection he has in his blood. He was made aware of the increased risk of seizures, worsening infection, altered mental status, fevers, respiratory distress and . He understands this risk and has decided to sign out. He was advised to return to the ED immediately after completion of personal matter. Events: - x1BC gram + clusters - Tmax 100.9 this AM OBJECTIVE: Vital Signs Period Temp Pulse Resp BP Sys/Lindo Pulse Ox Last 24 Hr 98.4 F-102.3 F 84-112 16-18 73-142/54-89 96-96 PE Neuro: alert, awake, cn 2-12intact, intermittent confusion Pulm: CTAB CV: s1 s2 rrr no mrg Abd: stretch michel, diffuse papular rash- unchanged, no itching, soft nd nt + bs Ext: no le edema, warm, Stable gait Skin: Right anticubital with induration, erythema + tenderness, black center pustular, no drainage, papular rash to back Laboratory Results - last 24 hr 10/04/16 10/04/16 05:15 05:15 WBC 6.7 RBC 3.95 L Hgb 12.9 Hct 37.4 MCV 94.6 MCHC 34.6 RDW 15.6 Plt Count 140 MPV 6.8 L Sodium 132 L Potassium 3.9 Chloride 96 L Carbon Dioxide 23 Anion Gap 13 BUN 9 D Creatinine 0.6 L Creat Clearance w eGFR > 60 Random Glucose 165 H D Calcium 8.7 Total Bilirubin 0.7 AST 35 ALT 153 H Alkaline Phosphatase 73 Total Protein 6.2 L Albumin 3.2 L HOSPITAL COURSE: Date of Admission:09/30/16 Date of Discharge: 10/04/16 Minutes to complete discharge: 37 Discharge Summary Reason For Visit: SEIZURE Current Active Problems Agitation (Acute) Anxiety (Acute) Bacteremia (Acute) Brain metastases (Acute) Cellulitis (Acute) Phlebitis and thrombophlebitis of deep veins of the upper extremities (Acute) Rash (Acute) Seizure disorder, complex partial (Acute) Hospital Course: Initial Hospital Course: Briefly, this 36 yrs old male with HTN, anxiety, Ca lung with Brain mets, hx of hemorrhagic SAMPLE TAILOR mets, seizures disorders, multiple breakthrough seizure last was 1 month ago, presented sedated with mother at bedside reporting pt was in usual states of health. Around 1pm developed shaking of Left UE that lasted > 45 minutes they called 911, patient received lorazepam 2 mg IVSS in the ED became seizure free at the time of examination, he was post ictal. Imagin/10 CT head: no interval hemorrhage since 08/19/16; mild to moderate focal right parietal vasogenic edema improved and small amount of blood in same region also improved; minimal focal right temporal lobe edema seen ventrally improved Subsequent Hospital Course/Progress Note/Discharge Summary Assessment: 36 year old male with a significant PMH of HTN, 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 Plan: 1. Seizures secondary to lung cancer with metastatic disease including the brain - Decadron increased to 4 q8 for fevers - Start vimpat 100 BID - Taper lamictal 25 BID today then stop - Keppra 1500mg BID - Received seroquel 100mg today, now discontinue, d/w neuro, pt no longer psychotic - Given 8mg decadron before left AMA for low grade fever this AM 2. Bacteremia d/t RUE phlebitis - x1 bottle + GPC - Discontinue zosyn - Vanco BID - Bacitracin to aC - Empiric Mepron 1500 daily - Warm compresses to R AC 3. Diffuse pustular rash trunk and back - Lotrimin BID to trunk and back - Pt has derm appt next week, per pt rash appears following most recent brain radiation ~ 3weeks 4. HTN - Controlled 5. hx of LUE DVT - No chemical AC, hx of hemorrhagic SAMPLE TAILOR mets Dispo: - AMA - Instructions Referrals: Harlan Brown MD [Primary Care Provider] - Toni Vitale MD [Staff Physician] - Disposition: AGAINST MEDICAL ADVICE - Home Medications Comprehensive Discharge Medication List: Ambulatory Orders Oxycodone HCl 10 mg PO Q6H PRN 02/21/16 Pantoprazole Sodium [Protonix -] 40 mg PO DAILY #30 tablet.ec 03/08/16 Folic Acid 800 mcg PO DAILY 07/10/16 Atovaquone [Mepron Oral Solution -] 1,500 mg PO DAILY@1800 #300 ml 08/21/16 Clonazepam [Klonopin -] 0.5 mg PO BID MDD 2 05/06/17 Levetiracetam [Keppra -] 1,500 mg PO BID 08/26/16 Lamotrigine [Lamictal] 50 mg PO DAILY 09/30/16 Dexamethasone 4 mg PO Q8H #30 tab 10/04/16 This patient is new to me today: No Emergency Visit: Yes ED Registration Date: 09/30/16 Care time: The patient presented to the Emergency Department on the above date and was hospitalized for further evaluation of their emergent condition. Critical Care patient: Yes Total Critical Care Time (in minutes): 35 Critical Care Statement: The care of this patient involved high complexity decision making to prevent further life threatening deterioration of the patient 's condition and/or to evalute & treat vital organ system(s) failure or risk of failure. - Discharge Referral Referred to [facility] No
[2016-10-04] MEDS: Lacosamide 200 MG/20 ML VIAL IVPB SCH (09:17)
[2016-10-04] MEDS: QUEtiapine FUMARATE 100 MG TABLET (FP) PO SCH (09:19)
[2016-10-04] MEDS: levETIRAcetam 500 MG TABLET (FP) PO SCH (09:19)
[2016-10-04] MEDS: FOLIC ACID 1 MG TABLET (FP) PO SCH (09:20)
[2016-10-04] MEDS: PANTOPRAZOLE 40 MG TABLET (FP) PO SCH (09:20)
[2016-10-04] MEDS: VANCOMYCIN 1,250 MG in DEXTROSE 5%-WATER - 250 ML IVPB SCH (09:40)
[2016-10-04] MEDS: CLOTRIMAZOLE 1%TOPICAL SOLUTION 30 ML BOTTLE TP SCH (09:42)
[2016-10-04 09:46] VITALS: BP 137/70; PULSE 102; TEMP 98.8
== END 2016-10-04 10:00 | disposition left against medical advice (07) | DRG 41 ==
LOC: JER 13:18 → JERBED 17:30 → JICU 18:56
PROVIDERS: ADMIT Internal Medicine; ATTEND Nurse Practitioner Acute Care
DX: C79.31 Secondary malignant neoplasm of brain (principal); G93.6 Cerebral edema; R78.81 Bacteremia; C79.70 Secondary malignant neoplasm of unspecified adrenal gland; G40.209 Localization-related (focal) (partial) symptomatic epilepsy and epileptic syndromes with complex partial seizures, not intractable, without status epilepticus; I80.8 Phlebitis and thrombophlebitis of other sites; C34.90 Malignant neoplasm of unspecified part of unspecified bronchus or lung; L03.113 Cellulitis of right upper limb; I10 Essential (primary) hypertension; F41.9 Anxiety disorder, unspecified; R45.1 Restlessness and agitation; R21 Rash and other nonspecific skin eruption
CPT/HCPCS: 36415; 70450-TC; 71010-TC; 80053; 80185; 82550; 83605; 83735; 85025; 85027; 87040; 87186; 93005; 93010; 95816; 99285-25

== ENCOUNTER 2016-10-04 14:31 | Inpatient (IN) | payer OTHER ==
--- NOTE | 2016-10-04 15:24 | HP ---
CHIEF COMPLAINT: left hospital AMA to attend son's graduation. here for readmission of bacteremia, seizures in setting of brain mets PCP: HISTORY OF PRESENT ILLNESS: This is a 36 yo man with PMH of asthma, HTN lung CA (mets to the brain), who presents to the emergency department for re-admission. The patient reports leaving AMA secondary to wanting to attend his sons graduation. He is here to be readmitted under hospitalist service. The patient was admitted to the hospital for bacteremia and seizures. He denies recent fevers, chills, headache or dizziness. He denies recent nausea, vomit, diarrhea or constipation. He denies recent chest pain or shortness of breath. ER course was notable for: (1) readmission Recent Travel: denies PAST MEDICAL HISTORY: see HPI PAST SURGICAL HISTORY: see HPI Social History: Smoking: denies Alcohol: denies Drugs: denies Family History: Allergies No Known Drug Allergies Allergy (Verified 10/04/16 14:41) HOME MEDICATIONS: Home Medications 3 Medication Instructions Recorded Oxycodone HCl 10 mg PO Q6H PRN 02/21/16 Pantoprazole Sodium [Protonix -] 40 mg PO DAILY #30 tablet.ec 03/08/16 Folic Acid 800 mcg PO DAILY 07/10/16 Atovaquone [Mepron Oral Solution -] 1,500 mg PO DAILY@1800 #300 ml 08/21/16 Clonazepam [Klonopin -] 0.5 mg PO BID MDD 2 08/26/16 Levetiracetam [Keppra -] 1,500 mg PO BID 08/26/16 Lamotrigine [Lamictal] 50 mg PO DAILY 09/30/16 Dexamethasone 4 mg PO Q8H #30 tab 10/04/16 REVIEW OF SYSTEMS CONSTITUTIONAL: Absent: fever, chills, diaphoresis, generalized weakness, malaise, loss of appetite, weight change HEENT: Absent: rhinorrhea, nasal congestion, throat pain, throat swelling, difficulty swallowing, mouth swelling, ear pain, eye pain, visual changes CARDIOVASCULAR: Absent: chest pain, syncope, palpitations, irregular heart rate, lightheadedness , peripheral edema RESPIRATORY: Absent: cough, shortness of breath, dyspnea with exertion, orthopnea, wheezing, stridor, hemoptysis GASTROINTESTINAL: Absent: abdominal pain, abdominal distension, nausea, vomiting, diarrhea, constipation, melena, hematochezia GENITOURINARY: Absent: dysuria, frequency, urgency, hesitancy, hematuria, flank pain, genital pain MUSCULOSKELETAL: Absent: myalgia, arthralgia, joint swelling, back pain, neck pain SKIN: Present: rash to chest and back Absent: itching, pallor HEMATOLOGIC/IMMUNOLOGIC: Absent: easy bleeding, easy bruising, lymphadenopathy, frequent infections ENDOCRINE: Absent: unexplained weight gain, unexplained weight loss, heat intolerance, cold intolerance NEUROLOGIC: Present: tremors Absent: headache, focal weakness or paresthesias, dizziness, unsteady gait, seizure, mental status changes, bladder or bowel incontinence PSYCHIATRIC: Absent: anxiety, depression, suicidal or homicidal ideation, hallucinations. PHYSICAL EXAMINATION Vital Signs - 24 hr 3 10/04/16 14:36 Temperature 98.0 F Pulse Rate 131 H Respiratory 20 Rate Blood Pressure 132/77 O2 Sat by Pulse 99 Oximetry (%) GENERAL: Awake, alert, and fully oriented, in no acute distress. HEAD: Normal with no signs of trauma. EYES: Pupils equal, round and reactive to light, extraocular movements intact, sclera anicteric, conjunctiva clear. No lid lag. EARS, NOSE, THROAT: Ears normal, nares patent, oropharynx clear without exudates. Moist mucous membranes. NECK: Normal range of motion, supple without lymphadenopathy, JVD, or masses. LUNGS: Breath sounds equal, clear to auscultation bilaterally. No wheezes, and no crackles. No accessory muscle use. HEART: Regular rate and rhythm, normal S1 and S2 without murmur, rub or gallop. ABDOMEN: Soft, nontender, not distended, normoactive bowel sounds, no guarding, no rebound, no masses. No hepatomegaly or splenomegaly. Striae present. MUSCULOSKELETAL: Normal range of motion at all joints. No bony deformities or tenderness. No CVA tenderness. UPPER EXTREMITIES: 2+ pulses, warm, well-perfused. No cyanosis. No clubbing. No peripheral edema. LOWER EXTREMITIES: 2+ pulses, warm, well-perfused. No calf tenderness. No peripheral edema. NEUROLOGICAL: Cranial nerves II-XII intact. Normal speech. Normal gait. Fine motor tremors noted to hands. PSYCHIATRIC: Cooperative. Good eye contact. Appropriate mood and affect. SKIN: Warm, dry, normal turgor, no lesions noted, normal capillary refill. Papular rash to chest and back. Erythema and induration to right antecubital. Striae present on abdomen. Imagin/10 CT head: no interval hemorrhage since 08/19/16; mild to moderate focal right parietal vasogenic edema improved and small amount of blood in same region also improved; minimal focal right temporal lobe edema seen ventrally improved 10/[address] Pickard: No focal, diffuse or generalized abnormalities were noted. ASSESSMENT/PLAN: A: 36 year old male with a significant PMH of HTN, lung cancer with mets to the brain, and frequent seizures, admitted for bacteremia. P: 1. Seizures secondary to lung cancer with metastatic disease including the brain - Decadron 4mg q8h - Keppra 1500mg BID - Lamictal 25mg once to complete taper - lacosamide 100mg bid - neuro consult 2. Diffuse pustular rash trunk and back/ RUE phlebitis - Started Vanco BID - Blood cx- gram positive cocci in clusters - Lotrimin BID to trunk and back - Bacitracin - Empiric Mepron - Warm compresses to R AC - per pt rash appears following most recent brain radiation ~ 3weeks - heme/onc consult - ID consult 3. HTN - Controlled 4. hx of LUE DVT - Defer to heme/onc for DVT ppx - Consider Lovenox sq 5. F/E/N - regular diet - replete prn dispo- requires inpatient treatment of acute medical conditions Visit type - Emergency Visit Emergency Visit: Yes ED Registration Date: 10/04/16 Care time: The patient presented to the Emergency Department on the above date and was hospitalized for further evaluation of their emergent condition. - New Patient This patient is new to me today: Yes Date on this admission: 10/04/16 - Critical Care Critical Care patient: No
[2016-10-04] MEDS ORDERED: PATIENT'S OWN MEDICATION (NON-FORMULARY) (Oxycodone Hcl [Oxycodone Hcl] 10 MG) PO PRN (15:27)
[2016-10-04] MEDS ORDERED: VANCOMYCIN 1,250 MG in DEXTROSE 5%-WATER - 250 ML IVPB ONE ×2 (15:34→22:00)
[2016-10-04] MEDS ORDERED: DEXAMETHASONE SOD PHOSPHATE 4 MG/1 ML VIAL ONE (15:42)
[2016-10-04] MEDS: DEXAMETHASONE 4 MG TABLET (FP) PO SCH ×2 (15:45→22:22)
--- NOTE | 2016-10-04 16:26 | PDOC ---
History of Present Illness - General History Source: Patient, Old Records Exam Limitations: No Limitations <Curtis Marte - Last Filed: 10/04/16 16:23> - General History Source: Patient Exam Limitations: No Limitations - History of Present Illness Initial Comments: 10/04/16 16:28 The patient is a 36 year old male , with a significant past medical history of asthma, HTN lung CA (mets to the brain), who presents to the emergency department with re-admission. The patient reports originally leaving [place] secondary to wanting to attend his sons graduation. He is here to be readmitted under hospitalist service. The patient was made to the hospital for bacteremia and seizures. He denies recent fevers, chills, headache or dizziness. He denies recent nausea, vomit, diarrhea or constipation. He denies recent chest pain or shortness of breath. Allergies: NKA Past surgical history: None reported. Social history: Nonsmoker. Denies EtOH use and recreational drug use. <Roberto Vines - Last Filed: 10/04/16 16:29> - General Chief Complaint: Seizure Stated Complaint: SEIZURE Past History - Past Medical History Anemia: No Asthma: Yes ( A CHILD - RESOLVED) 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,RADIATION,BRAIN,ADRENAL GLAND) Cardiac Disorders: No CVA: No COPD: No CHF: No Dementia: No Diabetes: No GI Disorders: No Disorders: No HTN: Yes Hypercholesterolemia: No Liver Disease: No Seizures: Yes Thyroid Disease: No - Surgical History Abdominal Surgery: No Appendectomy: No Cardiac Surgery: No Cholecystectomy: No Lung Surgery: Yes (TUMOR REMOVED GENNY LUNG) Neurologic Surgery: No Orthopedic Surgery: No - Immunization History Immunization Up to Date: Yes - Psycho/Social/Smoking Cessation Hx Anxiety: No Suicidal Ideation: No Smoking History: Never smoked Have you smoked in the past 12 months: No Number of Cigarettes Smoked Daily: 4 If you are a former smoker, when did you quit?: 7 MO AGO 'Breaking Loose' booklet given: 08/19/16 Hx Alcohol Use: No Drug/Substance Use Hx: No Substance Use Type: Marijuana Hx Substance Use Treatment: No <Curtis Marte - Last Filed: 10/04/16 16:23> <Roberto Vines - Last Filed: 10/04/16 16:29> - Past Medical History Allergies/Adverse Reactions: Allergies Allergy/AdvReac Type Severity Reaction Status Date / Time No Known Drug Allergies Allergy Verified 10/04/16 14:41 Home Medications: Ambulatory Orders Oxycodone HCl 10 mg PO Q6H PRN 02/21/16 Pantoprazole Sodium [Protonix -] 40 mg PO DAILY #30 tablet.ec 03/08/16 Folic Acid 800 mcg PO DAILY 07/10/16 Atovaquone [Mepron Oral Solution -] 1,500 mg PO DAILY@1800 #300 ml 08/21/16 Clonazepam [Klonopin -] 0.5 mg PO BID MDD 2 08/26/16 Levetiracetam [Keppra -] 1,500 mg PO BID 08/26/16 Lamotrigine [Lamictal] 50 mg PO DAILY 09/30/16 Dexamethasone 4 mg PO Q8H #30 tab 10/04/16 Review of Systems - Review of Systems Able to Perform ROS?: Yes Comments:: 10/04/16 16:28 GENERAL/CONSTITUTIONAL: No fever or chills. No weakness. HEAD, EYES, EARS, NOSE AND THROAT: No change in vision. No ear pain or discharge. No sore throat. CARDIOVASCULAR: No chest pain or shortness of breath. RESPIRATORY: No cough, wheezing, or hemoptysis. GASTROINTESTINAL: No nausea, vomiting, diarrhea or constipation. GENITOURINARY: No dysuria, frequency, or change in urination. MUSCULOSKELETAL: No joint or muscle swelling or pain. No neck or back pain. SKIN: No rash NEUROLOGIC: No headache, vertigo, loss of consciousness, or change in strength/ sensation. ENDOCRINE: No increased thirst. No abnormal weight change. HEMATOLOGIC/LYMPHATIC: No anemia, easy bleeding, or history of blood clots. ALLERGIC/IMMUNOLOGIC: No hives or skin allergy. <Roberto Vines - Last Filed: 10/04/16 16:29> *Physical Exam - Vital Signs Last Vital Signs Temp Pulse Resp BP Pulse Ox 98.0 F 131 H 20 132/77 99 10/04/16 14:36 10/04/16 14:36 10/04/16 14:36 10/04/16 14:36 10/04/16 14:36 <Curtis Marte - Last Filed: 10/04/16 16:23> - Vital Signs Last Vital Signs Temp Pulse Resp BP Pulse Ox 98.0 F 131 H 20 132/77 99 10/04/16 14:36 10/04/16 14:36 10/04/16 14:36 10/04/16 14:36 10/04/16 14:36 - Physical Exam Comments: 10/04/16 16:28 GENERAL: Awake, alert, and fully oriented, in no acute distress HEAD: No signs of trauma EYES: PERRLA, EOMI, sclera anicteric, conjunctiva clear ENT: Auricles normal inspection, hearing grossly normal, nares patent, oropharynx clear without exudates. Moist mucosa NECK: Normal ROM, supple, no lymphadenopathy, JVD, or masses LUNGS: Breath sounds equal, clear to auscultation bilaterally. No wheezes, and no crackles HEART: Regular rate and rhythm, normal S1 and S2, no murmurs, rubs or gallops ABDOMEN: Soft, nontender, normoactive bowel sounds. No guarding, no rebound. No masses EXTREMITIES: Normal range of motion, no edema. No clubbing or cyanosis. No cords, erythema, or tenderness NEUROLOGICAL: Cranial nerves II through XII grossly intact. Normal speech, normal gait SKIN: Mild erythema right anti cuticle. Mild edema of the right hand. <Roberto Vines - Last Filed: 10/04/16 16:29> ED Treatment Course - Medications Given in the ED: ED Medications Discontinued Medications Generic Name Dose Route Start Last Admin Trade Name Freq PRN Reason Stop Dose Admin Vancomycin HCl 1,250 mg/ 250 mls @ 250 mls/hr 10/04/16 15:34 10/04/16 15:58 Dextrose IVPB 10/04/16 16:33 Not Given ONCE ONE Protocol <Curtis Marte - Last Filed: 10/04/16 16:23> - Medications Given in the ED: ED Medications Discontinued Medications Generic Name Dose Route Start Last Admin Trade Name Freq PRN Reason Stop Dose Admin Vancomycin HCl 1,250 mg/ 250 mls @ 250 mls/hr 10/04/16 15:34 10/04/16 15:58 Dextrose IVPB 10/04/16 16:33 Not Given ONCE ONE Protocol <Roberto Vines - Last Filed: 10/04/16 16:29> Medical Decision Making - Medical Decision Making 10/04/16 16:25 A portion of this note was documented by scribe services under my direction. I have reviewed the details of the note, within reason, and agree with the documentation with the following case summary and management plan written by me. Patient treated in the ED. Nursing notes are reviewed and incorporated into the medical decision-making. Vital signs reviewed. Peripheral IV access obtained by the nurse, laboratory studies are drawn and sent, reviewed and interpreted by myself. Vital Signs Temp Pulse Resp BP Pulse Ox 98.0 F 131 H 20 132/77 99 10/04/16 14:36 10/04/16 14:36 10/04/16 14:36 10/04/16 14:36 10/04/16 14:36 36-year-old male with history of hypertension, lung cancer with metastases to brain, frequent seizures returns to the ED for readmission to the hospital. The patient was made to the hospital for bacteremia and seizures. However, the patient had left AGAINST MEDICAL ADVICE as his son was graduating from school. He promised to return. Patient returned back to the ED. Patient has no other complaints at this time. Case was discussed with [facility] who accepts the patient to medical surgical admission. Case discussed in detail with admitting physician including history, physical exam and ancillary studies. Admitting physician has assumed care for the patient, will follow all pending diagnostics and will complete the evaluation and treatment. <Curtis Marte - Last Filed: 10/04/16 16:23> *DC/Admit/Observation/Transfer - Discharge Dispostion Admit: Yes <Curtis Marte - Last Filed: 10/04/16 16:23> - Attestations Scribe Attestion: 10/04/16 16:29 Documentation prepared by Roberto Vines, acting as medical billing and coding instructor for Curtis Marte MD. <Roberto Vines - Last Filed: 10/04/16 16:29> Diagnosis at time of Disposition: Bacteremia Metastatic lung carcinoma Qualifiers: Laterality: unspecified laterality Qualified Code(s): C78.00 - Secondary malignant neoplasm of unspecified lung - Referrals Referrals: Harlan Brown MD [Primary Care Provider] -
[2016-10-04] MEDS ORDERED: ACETAMINOPHEN 325 MG TABLET (FP) PO PRN (17:22)
--- NOTE | 2016-10-04 21:32 | CONSULT ---
Consult - text type - Consultation Consultation Note: Patient seen and examined This is a 36 yo man with PMH of asthma, HTN lung CA (mets to the brain), who presents to the emergency department for re-admission. The patient reports leaving AMA secondary to wanting to attend his sons graduation.The patient was admitted to the hospital for bacteremia and seizures. He denies recent fevers, chills, headache or dizziness. He denies recent nausea, vomit, diarrhea or constipation. He denies recent chest pain or shortness of breath. He has severe rt. arm phlebitis Social History: Smoking: denies Alcohol: denies Drugs: denies Family History: Allergies No Known Drug Allergies Allergy (Verified 10/04/16 14:41) HOME MEDICATIONS: Home Medications 3 Medication Instructions Recorded Oxycodone HCl 10 mg PO Q6H PRN 02/21/16 Pantoprazole Sodium [Protonix -] 40 mg PO DAILY #30 tablet.ec 03/08/16 Folic Acid 800 mcg PO DAILY 07/10/16 Atovaquone [Mepron Oral Solution -] 1,500 mg PO DAILY@1800 #300 ml 08/21/16 Clonazepam [Klonopin -] 0.5 mg PO BID MDD 2 08/26/16 Levetiracetam [Keppra -] 1,500 mg PO BID 08/26/16 Lamotrigine [Lamictal] 50 mg PO DAILY 09/30/16 Dexamethasone 4 mg PO Q8H #30 tab 10/04/16 PHYSICAL EXAMINATION Vital Signs - 24 hr 3 10/04/16 14:36 Temperature 98.0 F Pulse Rate 131 H Respiratory 20 Rate Blood Pressure 132/77 O2 Sat by Pulse 99 Oximetry (%) GENERAL: Awake, alert, and fully oriented, in no acute distress. HEAD: Normal with no signs of trauma. LUNGS: Breath sounds equal, clear to auscultation bilaterally. No wheezes, and no crackles. No accessory muscle use. HEART: Regular rate and rhythm, normal S1 and S2 without murmur, rub or gallop. ABDOMEN: Soft, nontender, not distended, normoactive bowel sounds, no guarding, no rebound, no masses. RUE erythema, swelling NEUROLOGICAL: Cranial nerves II-XII intact. Normal speech. Normal gait. Fine motor tremors noted to hands. SKIN: Warm, dry, normal turgor, no lesions noted, normal capillary refill. Papular rash to chest and back. Erythema and induration to right antecubital. Imagin/10 CT head: no interval hemorrhage since 08/19/16; mild to moderate focal right parietal vasogenic edema improved and small amount of blood in same region also improved; minimal focal right temporal lobe edema seen ventrally improved 10/[address] Pickard: No focal, diffuse or generalized abnormalities were noted. ASSESSMENT/PLAN: 36 year old male with a significant PMH of HTN, lung cancer--metastatic Pancosts tumor, with mets to the brain, and frequent seizures, admitted for bacteremia. 1. Seizures secondary to lung cancer with metastatic disease including the brain - Decadron 4mg l3a---hvopq to 4mg bid and hold - Keppra 1500mg BID - Lamictal 25mg once to complete taper - lacosamide 100mg bid - neuro consult 2. Diffuse pustular rash trunk and back/ RUE phlebitis GPC in clusters On Vancomycin 3. Brain mets: s/p SRS, s/p WBRT taper steroids to 4mg bid and stop 4.Lung cancer --brain mets as thang systemic disease relatively well controlled on abraxane AVOID DVT prophylaxis given h/o hemorrhagic brain mets within last 6 months Discussed with patients family
[2016-10-04] MEDS ORDERED: LACOSAMIDE 50 MG TABLET PO ONE (21:44)
[2016-10-04] MEDS ORDERED: lamoTRIgine 25 MG TABLET PO ONE (22:00)
[2016-10-04] MEDS: CLOTRIMAZOLE 1% CREAM 15 GM TUBE TP SCH (22:00)
[2016-10-04] MEDS: levETIRAcetam 500 MG TABLET (FP) PO SCH (22:20)
[2016-10-04] MEDS: ATOVAQUONE 750 MG/5 ML (UNIT-DOSE PACKAGING) PO SCH (22:20)
[2016-10-04] MEDS: LACOSAMIDE 50 MG TABLET PO SCH (22:22)
[2016-10-05] MEDS ORDERED: oxyCODONE HCL 5 MG TABLET ONE (05:58)
[2016-10-05] MEDS: DEXAMETHASONE 4 MG TABLET (FP) PO SCH ×3 (06:00→21:42)
[2016-10-05] MEDS: oxyCODONE HCL 5 MG TABLET PO PRN ×3 (06:01→23:25)
[2016-10-05 07:27] LABS: BASOPHIL 0.1 % (0-2.0); MCH 33.4 pg (25.7-33.7); MCHC 35.3 g/dl (32.0-35.9); MEAN CELL VOLUME 94.5 fl (80-96); NEUTROPHILS 90.1 % (42.8-82.8); PLATELET COUNT 158 K/MM3 (134-434); RDW 15.5 % (11.9-15.9); WHITE BLOOD COUNT 8.6 K/mm3 (4.0-10.0)
[2016-10-05 07:54] LABS: CALCIUM 8.7 mg/dL (8.5-10.1); COCKROFT - GAULT 211.46; CREATININE 0.6 mg/dL (0.7-1.3)
[2016-10-05] MEDS: PANTOPRAZOLE 40 MG TABLET (FP) PO SCH (09:03)
[2016-10-05] MEDS: FOLIC ACID 1 MG TABLET (FP) PO SCH (09:03)
[2016-10-05] MEDS: CLOTRIMAZOLE 1% CREAM 15 GM TUBE TP SCH ×2 (09:04→21:45)
[2016-10-05] MEDS: BACITRACIN 30 GM TUBE TOPICAL OINTMENT TP SCH (09:04)
[2016-10-05] MEDS: levETIRAcetam 500 MG TABLET (FP) PO SCH ×2 (09:05→21:42)
[2016-10-05] MEDS ORDERED: LACOSAMIDE 50 MG TABLET PO ONE (09:06)
[2016-10-05] MEDS: LACOSAMIDE 50 MG TABLET PO SCH ×2 (09:06→21:42)
[2016-10-05] MEDS ORDERED: FOLIC ACID 1 MG TABLET (FP) PO SCH (10:00)
[2016-10-05] MEDS ORDERED: lamoTRIgine 25 MG TABLET PO SCH (10:00)
--- NOTE | 2016-10-05 10:45 | PN ---
Progress Note (short form) - Note Progress Note: Subjective: The patient was seen and examined at the bedside, he has complaints of right arm antecubital pain. Erythema noted Current Medications Generic Name Dose Route Start Last Admin Trade Name Freq PRN Reason Stop Dose Admin Acetaminophen 650 mg 10/04/16 17:22 Tylenol - PO Q6H PRN FEVER OR PAIN Atovaquone 1,500 mg 10/04/16 18:00 10/04/16 22:20 Mepron - PO 1,500 mg DAILY@1800 RISHI Administration Bacitracin 1 applic 10/05/16 10:00 10/05/16 09:04 Bacitracin - TP 1 applic DAILY RISHI Administration Clotrimazole 1 applic 10/04/16 22:00 10/05/16 09:04 Lotrimin 1% Cream - TP 1 tube BID RISHI Administration Dexamethasone 4 mg 10/04/16 15:30 10/05/16 06:00 Decadron - PO 4 mg TID RISHI Administration Folic Acid 1 mg 10/05/16 10:00 10/05/16 09:03 Folic Acid - PO 1 mg DAILY RISHI Administration Vancomycin HCl 1,500 mg/ 500 mls @ 125 mls/hr 10/05/16 11:00 Dextrose IVPB BID@1100,2300 RISHI Protocol Lacosamide 100 mg 10/04/16 22:00 10/05/16 09:06 Vimpat - PO 100 mg BID RISHI Administration Levetiracetam 1,500 mg 10/04/16 22:00 10/05/16 09:05 Keppra - PO 1,500 mg BID RISHI Administration Oxycodone HCl 10 mg 10/04/16 15:40 10/05/16 06:01 Roxicodone - PO 10 mg Q6H PRN Administration Pantoprazole Sodium 40 mg 10/05/16 10:00 10/05/16 09:03 Protonix - PO 40 mg DAILY RISHI Administration Objective: Vital Signs Period Temp Pulse Resp BP Sys/Lindo Pulse Ox Last 24 Hr 97.8 F-99.5 F 85-131 18-22 100-152/60-83 95-100 Physical Exam: General: NAD, A&Ox3 Lungs: CTA bilaterally Heart: RRR, S1S2 Abd: Soft, mildly distended. Normoactive bowel sounds. Hepatomegaly Ext: RUE with erythema, induration and tracking. Warm, well-perfused. 2+ DP/PT bilaterally Neuro: CN 2-12 intact CBCD WBC 8.6 K/mm3 (4.0-10.0) 10/05/16 06:30 RBC 3.73 M/mm3 (4.00-5.60) L 10/05/16 06:30 Hgb 12.5 GM/dL (11.7-16.9) 10/05/16 06:30 Hct 35.2 % (35.4-49) L 10/05/16 06:30 MCV 94.5 fl (80-96) 10/05/16 06:30 MCHC 35.3 g/dl (32.0-35.9) 10/05/16 06:30 RDW 15.5 % (11.9-15.9) 10/05/16 06:30 Plt Count 158 K/MM3 (134-434) 10/05/16 06:30 MPV 7.0 fl (7.5-11.1) L 10/05/16 06:30 CMP Sodium 134 mmol/L (136-145) L 10/05/16 06:30 Potassium 3.9 mmol/L (3.5-5.1) 10/05/16 06:30 Chloride 98 mmol/L (98-107) 10/05/16 06:30 Carbon Dioxide 23 mmol/L (21-32) 10/05/16 06:30 Anion Gap 13 (8-16) 10/05/16 06:30 BUN 10 mg/dL (7-18) 10/05/16 06:30 Creatinine 0.6 mg/dL (0.7-1.3) L 10/05/16 06:30 Random Glucose 208 mg/dL (74-106) H D 10/05/16 06:30 Calcium 8.7 mg/dL (8.5-10.1) 10/05/16 06:30 Microbiology 10/03/16 19:00 Blood - Peripheral Venous Blood Culture - Preliminary Pending Organism 10/03/16 19:00 Blood - Peripheral Venous Blood Culture - Preliminary Pending Organism 10/03/16 08:00 Blood - Peripheral Venous Blood Culture - Preliminary Pending Organism 10/03/16 08:00 Blood - Peripheral Venous Blood Culture - Preliminary NO GROWTH OBTAINED AFTER 48 HOURS, INCUBATION TO CONTINUE FOR 3 DAYS. 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, and frequent seizures, admitted for seizure activity and was found to have bacteremia Plan: 1) ID: Gram positive bacteremia - Afebrile - WBC WNL - Continue Vancomycin bid - Empiric mepron daily - Warm compresses to RUE anticubtal area - Appreciate ID consult RUE phlebitis with possible abscess formation - Continue abx as above - F/u surgery consult Diffuse pustular rash on trunk and back - Lotrimin cream bid - Per patient rash began about 3 weeks ago with recent radiation appointment 2) Neuro: Seizure activity 2/2 metastatic lung cancer - Continue Decadron 4mg tid - Continue Keppra 1500mg po bid - Continue Vimpat 100mg po bid - F/u neuro consult 3) Cardiology: HTN - Controlled 4) Heme: Hx of LUE DVT - Not on chemical anticoagulation 2/2 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 - New Patient This patient is new to me today: Yes Date on this admission: 10/05/16 - Critical Care Critical Care patient: No
[2016-10-05] MEDS ORDERED: VANCOMYCIN 1,500 MG in DEXTROSE 5%-WATER - 250 ML IVPB SCH (11:00)
[2016-10-05] MEDS: VANCOMYCIN 1,500 MG in DEXTROSE 5%-WATER - 500 ML IVPB SCH ×3 (11:02→23:08)
[2016-10-05 11:15] VITALS: BMI 29.0
[2016-10-05] MEDS ORDERED: VANCOMYCIN 1,250 MG in DEXTROSE 5%-WATER - 250 ML IVPB SCH (11:45)
--- NOTE | 2016-10-05 14:04 | CONSULT ---
- Consultation REQUESTING PROVIDER: DARNELL CONSULT REQUEST: We have been asked to surgically evaluate this patient for evaluation and management of an ABSSSI of the right antecubital fossa.. PCP:Saira Corbett HISTORY OF PRESENT ILLNESS: Patient developed pain and redness and swelling at site of previous IV access in the right antecubital fossa. He is on steroids for metastatic lung carcinoma to his brain. PMHx: reviewed PSHx: reviewed Home Medications Medication Instructions Recorded Oxycodone HCl 10 mg PO Q6H PRN 02/21/16 Pantoprazole Sodium [Protonix -] 40 mg PO DAILY #30 tablet.ec 03/08/16 Folic Acid 800 mcg PO DAILY 07/10/16 Atovaquone [Mepron Oral Solution -] 1,500 mg PO DAILY@1800 #300 ml 08/21/16 Clonazepam [Klonopin -] 0.5 mg PO BID MDD 2 08/26/16 Levetiracetam [Keppra -] 1,500 mg PO BID 08/26/16 Lamotrigine [Lamictal] 50 mg PO DAILY 09/30/16 Dexamethasone 4 mg PO Q8H #30 tab 10/04/16 Allergies Allergy/AdvReac Type Severity Reaction Status Date / Time No Known Drug Allergies Allergy Verified 10/04/16 14:41 PHYSICAL EXAM: erythema and sts swelling in the right antecubital fossa w/ ttp and induration ; no gross fluctunace; no mass/tenderness in the right axilla; no evidence of compartment syndrome in the RUE; o/e negative. Vital Signs Temperature 98 F 10/05/16 11:05 Pulse Rate 86 10/05/16 11:05 Respiratory Rate 16 10/05/16 11:05 Blood Pressure 114/60 10/05/16 11:05 O2 Sat by Pulse Oximetry (%) 99 10/05/16 11:05 Lab Results WBC 8.6 K/mm3 (4.0-10.0) 10/05/16 06:30 RBC 3.73 M/mm3 (4.00-5.60) L 10/05/16 06:30 Hgb 12.5 GM/dL (11.7-16.9) 10/05/16 06:30 Hct 35.2 % (35.4-49) L 10/05/16 06:30 MCV 94.5 fl (80-96) 10/05/16 06:30 MCHC 35.3 g/dl (32.0-35.9) 10/05/16 06:30 RDW 15.5 % (11.9-15.9) 10/05/16 06:30 Plt Count 158 K/MM3 (134-434) 10/05/16 06:30 Sodium 134 mmol/L (136-145) L 10/05/16 06:30 Potassium 3.9 mmol/L (3.5-5.1) 10/05/16 06:30 Chloride 98 mmol/L (98-107) 10/05/16 06:30 Carbon Dioxide 23 mmol/L (21-32) 10/05/16 06:30 Anion Gap 13 (8-16) 10/05/16 06:30 BUN 10 mg/dL (7-18) 10/05/16 06:30 Creatinine 0.6 mg/dL (0.7-1.3) L 10/05/16 06:30 Random Glucose 208 mg/dL (74-106) H D 10/05/16 06:30 Calcium 8.7 mg/dL (8.5-10.1) 10/05/16 06:30 IMP: cellulitis right antecubital fossa secondary to previous IV access; r/o UE DVT; r/o collection. PLAN: Concur w/ w/u and tx. to date; will need I and D if collection is found; continue present tx. Johny Ordaz MD FACS Visit type - Case Type Case Type: ED Admission - Emergency Emergency Visit: Yes ED Registration Date: 10/04/16 Care time: The patient presented to the Emergency Department on the above date and was hospitalized for further evaluation of their emergent condition. - New patient This patient is new to me today: Yes Date on this admission: 10/05/16 - Critical Care Critical Care patient: No
--- NOTE | 2016-10-05 15:53 | PN ---
Progress Note, Physician Chief Complaint: ID Readmitted after brief discharge Has positive blood cultures x many GPC clusters Seen by Dr Ordaz - Current Medication List Current Medications: Active Medications Acetaminophen (Tylenol -) 650 mg PO Q6H PRN PRN Reason: FEVER OR PAIN Atovaquone (Mepron -) 1,500 mg PO DAILY@1800 [facility] Last Admin: 10/04/16 22:20 Dose: 1,500 mg Bacitracin (Bacitracin -) 1 applic TP DAILY [facility] Last Admin: 10/05/16 09:04 Dose: 1 applic Clotrimazole (Lotrimin 1% Cream -) 1 applic TP BID [facility] Last Admin: 10/05/16 09:04 Dose: 1 tube Dexamethasone (Decadron -) 4 mg PO TID [facility] Last Admin: 10/05/16 14:30 Dose: 4 mg Folic Acid (Folic Acid -) 1 mg PO DAILY [facility] Last Admin: 10/05/16 09:03 Dose: 1 mg Vancomycin HCl 1,500 mg/ (Dextrose) 500 mls @ 125 mls/hr IVPB BID@1100,2300 RISHI PRN Reason: Protocol Vancomycin HCl 1,500 mg/ (Dextrose) 500 mls @ 250 mls/hr IVPB 0000,1200 RISHI Lacosamide (Vimpat -) 100 mg PO BID [facility] Last Admin: 10/05/16 09:06 Dose: 100 mg Levetiracetam (Keppra -) 1,500 mg PO BID [facility] Last Admin: 10/05/16 09:05 Dose: 1,500 mg Oxycodone HCl (Roxicodone -) 10 mg PO Q6H PRN Last Admin: 10/05/16 06:01 Dose: 10 mg Pantoprazole Sodium (Protonix -) 40 mg PO DAILY [facility] Last Admin: 10/05/16 09:03 Dose: 40 mg - Objective Vital Signs: Vital Signs Temperature 98 F 10/05/16 11:05 Pulse Rate 86 10/05/16 11:05 Respiratory Rate 16 10/05/16 11:05 Blood Pressure 114/60 10/05/16 11:05 O2 Sat by Pulse Oximetry (%) 99 10/05/16 11:05 Cardiovascular: Yes: S1, S2 Respiratory: Yes: WNL, Regular, CTA Bilaterally Extremities: Yes: Other (Cellulitis of the right politeal fossa) Labs: CBC, BMP 10/05/16 06:30 10/05/16 06:30 Assessment/Plan Microbiology 10/03/16 19:00 Blood - Peripheral Venous Blood Culture - Preliminary Presumptive Mssa (Pbp2a Neg) 10/03/16 19:00 Blood - Peripheral Venous Blood Culture - Preliminary Pending Organism 10/03/16 08:00 Blood - Peripheral Venous Blood Culture - Preliminary Presumptive Mssa (Pbp2a Neg) Laboratory Tests 10/05/16 10/05/16 06:30 06:30 WBC 8.6 Plt Count 158 BUN 10 Creatinine 0.6 L Assessment Severe cellulitis phlebitis with MSSA bacteremia Metastatic CA Seizure disorder Plan Substitute Cefazolin ECHO Repeat blood cultures WIll need longterm antibiotics Umu BENJAMIN
--- NOTE | 2016-10-05 16:13 | PN ---
Progress Note (short form) - Note Progress Note: Patient seen and examined c/o RUE swelling/pain Last Vital Signs Temp Pulse Resp BP Pulse Ox 98 F 86 16 114/60 99 10/05/16 11:05 10/05/16 11:05 10/05/16 11:05 10/05/16 11:05 10/05/16 11:05 Cor: RSR, No murmurs, No gallops Lungs: Clear to P&A Abd: Soft, Normal bowel sounds, No organomegaly Ext:RUE erythema Abnormal Lab Results 10/05/16 10/05/16 06:30 06:30 RBC 3.73 L Hct 35.2 L MPV 7.0 L Neutrophils % 90.1 H D Lymphocytes % 3.7 L D Sodium 134 L Creatinine 0.6 L Random Glucose 208 H D Active Medications Generic Name Dose Route Start Last Admin Trade Name Freq PRN Reason Stop Dose Admin Acetaminophen 650 mg 10/04/16 17:22 Tylenol - PO Q6H PRN FEVER OR PAIN Atovaquone 1,500 mg 10/04/16 18:00 10/04/16 22:20 Mepron - PO 1,500 mg DAILY@1800 RISHI Administration Bacitracin 1 applic 10/05/16 10:00 10/05/16 09:04 Bacitracin - TP 1 applic DAILY RISHI Administration Clotrimazole 1 applic 10/04/16 22:00 10/05/16 09:04 Lotrimin 1% Cream - TP 1 tube BID RISHI Administration Dexamethasone 4 mg 10/05/16 22:00 Decadron - PO BID RISHI Folic Acid 1 mg 10/05/16 10:00 10/05/16 09:03 Folic Acid - PO 1 mg DAILY RISHI Administration Vancomycin HCl 1,500 mg/ 500 mls @ 250 mls/hr 10/06/16 00:00 Dextrose IVPB 0000,1200 RISHI Cefazolin Sodium 2 gm/ 50 mls @ 100 mls/hr 10/05/16 18:00 Dextrose IVPB Q8H-IV RISHI Lacosamide 100 mg 10/04/16 22:00 10/05/16 09:06 Vimpat - PO 100 mg BID RISHI Administration Levetiracetam 1,500 mg 10/04/16 22:00 10/05/16 09:05 Keppra - PO 1,500 mg BID RISHI Administration Oxycodone HCl 10 mg 10/04/16 15:40 10/05/16 06:01 Roxicodone - PO 10 mg Q6H PRN Administration Pantoprazole Sodium 40 mg 10/05/16 10:00 10/05/16 09:03 Protonix - PO 40 mg DAILY RISHI Administration A/P 36 year old male with a significant PMH of HTN, lung cancer--metastatic Pancosts tumor, with mets to the brain, and frequent seizures, admitted for bacteremia. 1. Seizures secondary to lung cancer with metastatic disease including the brain - Decadron 4mg x7c---tptua to 4mg bid and hold - Keppra 1500mg BID - Lamictal 25mg once to complete taper - lacosamide 100mg bid - neuro consult 2. Diffuse pustular rash trunk and back/ RUE phlebitis GPC in clusters On Vancomycin 3. Brain mets: s/p SRS, s/p WBRT taper steroids to 4mg bid and stop 4.Lung cancer --brain mets as thang systemic disease relatively well controlled on abraxane AVOID DVT prophylaxis given h/o hemorrhagic brain mets within last 6 months Discussed with patients family
[2016-10-05] MEDS: ATOVAQUONE 750 MG/5 ML (UNIT-DOSE PACKAGING) PO SCH (18:05)
[2016-10-05] MEDS: CEFAZOLIN 2 GM/D5W 50 ML IVPB SCH (18:30)
[2016-10-05] MEDS ORDERED: PT OWN MED DRAWER 7, Y5N ONE (21:46)
[2016-10-05] MEDS ORDERED: clonazePAM 0.5 MG TABLET PO ONE (23:18)
[2016-10-06] MEDS: CEFAZOLIN 2 GM/D5W 50 ML IVPB SCH ×3 (01:46→18:31)
[2016-10-06 08:17] LABS: MCH 33.1 pg (25.7-33.7); MCHC 34.9 g/dl (32.0-35.9); MEAN CELL VOLUME 94.9 fl (80-96); MEAN PLT VOLUME 6.8 fl (7.5-11.1); PLATELET COUNT 184 K/MM3 (134-434); RDW 15.5 % (11.9-15.9); WHITE BLOOD COUNT 7.8 K/mm3 (4.0-10.0)
[2016-10-06 08:43] LABS: ALBUMIN 3.1 g/dl (3.4-5.0); ANION GAP 9 (8-16); BILIRUBIN,TOTAL 0.3 mg/dL (0.2-1.0); CALCIUM 8.9 mg/dL (8.5-10.1); CO2 29 mmol/L (21-32); CREATININE 0.5 mg/dL (0.7-1.3); GLUCOSE,RANDOM 106 mg/dL (74-106); SGOT/AST 23 U/L (15-37); SGPT/ALT 121 U/L (12-78); TOT PROT 6.2 g/dl (6.4-8.2)
[2016-10-06 08:44] LABS: ALK PHOS 71 U/L (45-117)
--- NOTE | 2016-10-06 08:46 | PN ---
Progress Note, Physician Chief Complaint: ID Vancomycin gram positive bacteremia now on CEFAZOLIN (MSSA) - Current Medication List Current Medications: Active Medications Acetaminophen (Tylenol -) 650 mg PO Q6H PRN PRN Reason: FEVER OR PAIN Atovaquone (Mepron -) 1,500 mg PO DAILY@1800 [facility] Last Admin: 10/05/16 18:05 Dose: 1,500 mg Bacitracin (Bacitracin -) 1 applic TP DAILY [facility] Last Admin: 10/05/16 09:04 Dose: 1 applic Clotrimazole (Lotrimin 1% Cream -) 1 applic TP BID [facility] Last Admin: 10/05/16 21:45 Dose: 1 applic Dexamethasone (Decadron -) 4 mg PO BID [facility] Last Admin: 10/05/16 21:42 Dose: 4 mg Folic Acid (Folic Acid -) 1 mg PO DAILY [facility] Last Admin: 10/05/16 09:03 Dose: 1 mg Vancomycin HCl 1,500 mg/ (Dextrose) 500 mls @ 250 mls/hr IVPB 0000,1200 [facility] Last Admin: 10/05/16 23:08 Dose: 250 mls/hr Cefazolin Sodium/Dextrose (Ancef 2 Gm Premixed Ivpb -) 50 mls @ 100 mls/hr IVPB Q8H-IV [facility] Last Admin: 10/06/16 01:46 Dose: 100 mls/hr Lacosamide (Vimpat -) 100 mg PO BID [facility] Last Admin: 10/05/16 21:42 Dose: 100 mg Levetiracetam (Keppra -) 1,500 mg PO BID [facility] Last Admin: 10/05/16 21:42 Dose: 1,500 mg Oxycodone HCl (Roxicodone -) 10 mg PO Q6H PRN Last Admin: 10/05/16 23:25 Dose: 10 mg Pantoprazole Sodium (Protonix -) 40 mg PO DAILY [facility] Last Admin: 10/05/16 09:03 Dose: 40 mg - Objective Vital Signs: Vital Signs Temperature 98 F 10/06/16 05:26 Pulse Rate 74 10/06/16 05:26 Respiratory Rate 18 10/06/16 05:26 Blood Pressure 110/64 10/06/16 05:26 O2 Sat by Pulse Oximetry (%) 99 10/05/16 21:00 Constitutional: Yes: Well Nourished, No Distress HENT: Yes: WNL, Atraumatic Neck: Yes: WNL, Supple Cardiovascular: Yes: S1, S2 Respiratory: Yes: WNL, Regular, CTA Bilaterally Gastrointestinal: Yes: Soft Extremities: Yes: Erythema Labs: CBC, BMP 10/06/16 07:35 Assessment/Plan Microbiology Laboratory Tests 10/06/16 10/06/16 07:35 07:35 WBC 7.8 Hgb 11.7 Plt Count 184 Anion Gap Pending Creatinine Pending Assessment Cellulitis / phlebitis right arm antecubital fossa "superficial thrombophlebitis" MSSA bacteremia Lung CA Plan Repeat blood cultures pending ECHO for SBE Duration of therapy to be determined [facility] BENJAMIN
--- NOTE | 2016-10-06 08:48 | CONSULT ---
Consult - text type - Consultation Consultation Note: 36 yo man with PMH of asthma, HTN lung CA (mets to the brain), who presents to the emergency department for re-admission. The patient reports leaving AMA secondary to wanting to attend his sons graduation.The patient was admitted to the hospital for cellulitis and breakthrough. he states seziure have improved. On ABX for severe rt. arm phlebitis Social History: Smoking: denies Alcohol: denies Drugs: denies Family History: Allergies No Known Drug Allergies Allergy (Verified 10/04/16 14:41) HOME MEDICATIONS: Home Medications 3 Medication Instructions Recorded Oxycodone HCl 10 mg PO Q6H PRN 02/21/16 Pantoprazole Sodium [Protonix -] 40 mg PO DAILY #30 tablet.ec 03/08/16 Folic Acid 800 mcg PO DAILY 07/10/16 Atovaquone [Mepron Oral Solution -] 1,500 mg PO DAILY@1800 #300 ml 08/21/16 Clonazepam [Klonopin -] 0.5 mg PO BID MDD 2 08/26/16 Levetiracetam [Keppra -] 1,500 mg PO BID 08/26/16 Lamotrigine [Lamictal] 50 mg PO DAILY 09/30/16 Dexamethasone 4 mg PO Q8H #30 tab 10/04/16 PHYSICAL EXAMINATION Vital Signs Temperature 98 F 10/06/16 05:26 Pulse Rate 74 10/06/16 05:26 Respiratory Rate 18 10/06/16 05:26 Blood Pressure 110/64 10/06/16 05:26 O2 Sat by Pulse Oximetry (%) 99 10/05/16 21:00 GENERAL: Awake, alert, and fully oriented, in no acute distress. HEAD: Normal with no signs of trauma. LUNGS: Breath sounds equal, clear to auscultation bilaterally. No wheezes, and no crackles. No accessory muscle use. HEART: Regular rate and rhythm, normal S1 and S2 without murmur, rub or gallop. ABDOMEN: Soft, nontender, not distended, normoactive bowel sounds, no guarding, no rebound, no masses. RUE erythema, swelling NEUROLOGICAL: Cranial nerves II-XII intact. Normal speech. Normal gait. Fine motor tremors noted to hands. SKIN: Warm, dry, normal turgor, no lesions noted, normal capillary refill. Papular rash to chest and back. Erythema and induration to right antecubital. Imagin/10 CT head: no interval hemorrhage since 08/19/16; mild to moderate focal right parietal vasogenic edema improved and small amount of blood in same region also improved; minimal focal right temporal lobe edema seen ventrally improved 10/[address] Pickard: No focal, diffuse or generalized abnormalities were noted. ASSESSMENT/PLAN: 36 year old male with a significant PMH of HTN, lung cancer--metastatic Pancosts tumor, with mets to the brain, and frequent seizures, admitted for bacteremia and seizure control. 1. Seizures secondary to lung cancer with hem. metastatic disease including the brain - Decadron 4mg b0h---mxnnv to 4mg bid and hold - Keppra 1500mg BID - Lamictal DC'd - lacosamide 100mg bid 2. Diffuse pustular rash trunk and back/ RUE phlebitis GPC in clusters On Vancomycin 3. Brain mets: s/p SRS, s/p WBRT taper steroids to 4mg bid and stop Dr Badillo [phone]
[2016-10-06] MEDS: oxyCODONE HCL 5 MG TABLET PO PRN ×2 (08:59→22:02)
[2016-10-06] MEDS ORDERED: PT OWN MED DRAWER 7, Y5N ONE ×2 (09:50→18:28)
[2016-10-06] MEDS: LACOSAMIDE 50 MG TABLET PO SCH ×2 (11:18→21:55)
[2016-10-06] MEDS: FOLIC ACID 1 MG TABLET (FP) PO SCH (11:18)
[2016-10-06] MEDS: CLOTRIMAZOLE 1% CREAM 15 GM TUBE TP SCH ×2 (11:18→21:57)
[2016-10-06] MEDS: levETIRAcetam 500 MG TABLET (FP) PO SCH ×2 (11:18→21:55)
[2016-10-06] MEDS: PANTOPRAZOLE 40 MG TABLET (FP) PO SCH (11:18)
[2016-10-06] MEDS: DEXAMETHASONE 4 MG TABLET (FP) PO SCH ×2 (11:18→21:55)
[2016-10-06] MEDS: BACITRACIN 30 GM TUBE TOPICAL OINTMENT TP SCH (11:21)
[2016-10-06 12:36] LABS: PLATELET ESTIMATE ADEQUATE (NORMAL)
[2016-10-06] MEDS: VANCOMYCIN 1,500 MG in DEXTROSE 5%-WATER - 500 ML IVPB SCH (13:06)
--- NOTE | 2016-10-06 13:16 | PN ---
Progress Note (short form) - Note Progress Note: Subjective: The patient was seen and examined at the bedside, no complaints at this time Blood cultures with Staphylococcus Aureus Continue Vancomycin Continue Cefazolin Current Medications Generic Name Dose Route Start Last Admin Trade Name Freq PRN Reason Stop Dose Admin Acetaminophen 650 mg 10/04/16 17:22 Tylenol - PO Q6H PRN FEVER OR PAIN Atovaquone 1,500 mg 10/04/16 18:00 10/05/16 18:05 Mepron - PO 1,500 mg DAILY@1800 RISHI Administration Bacitracin 1 applic 10/05/16 10:00 10/06/16 11:21 Bacitracin - TP 1 applic DAILY RISHI Administration Clotrimazole 1 applic 10/04/16 22:00 10/06/16 11:18 Lotrimin 1% Cream - TP 1 applic BID RISHI Administration Dexamethasone 4 mg 10/05/16 22:00 10/06/16 11:18 Decadron - PO 4 mg BID RISHI Administration Folic Acid 1 mg 10/05/16 10:00 10/06/16 11:18 Folic Acid - PO 1 mg DAILY RISHI Administration Vancomycin HCl 1,500 mg/ 500 mls @ 250 mls/hr 10/06/16 00:00 10/06/16 13:06 Dextrose IVPB 250 mls/hr 0000,1200 RISHI Administration Cefazolin Sodium/Dextrose 50 mls @ 100 mls/hr 10/05/16 18:00 10/06/16 12:25 Ancef 2 Gm Premixed Ivpb - IVPB 100 mls/hr Q8H-IV RISHI Administration Lacosamide 100 mg 10/04/16 22:00 10/06/16 11:18 Vimpat - PO 100 mg BID RISHI Administration Levetiracetam 1,500 mg 10/04/16 22:00 10/06/16 11:18 Keppra - PO 1,500 mg BID RISHI Administration Oxycodone HCl 10 mg 10/04/16 15:40 10/06/16 08:59 Roxicodone - PO 10 mg Q6H PRN Administration Pantoprazole Sodium 40 mg 10/05/16 10:00 10/06/16 11:18 Protonix - PO 40 mg DAILY RISHI Administration Objective: Vital Signs Period Temp Pulse Resp BP Sys/Lindo Pulse Ox Last 24 Hr 98 F-98.4 F 74-88 18-18 90-110/64-67 99 Physical Exam: General: NAD, A&Ox3 Lungs: CTA bilaterally Heart: RRR, S1S2 Abd: Soft, mildly distended. Normoactive bowel sounds. Hepatomegaly Ext: RUE with erythema, induration and tracking. Warm, well-perfused. 2+ DP/PT bilaterally Neuro: CN 2-12 intact CBCD WBC 7.8 K/mm3 (4.0-10.0) 10/06/16 07:35 RBC 3.54 M/mm3 (4.00-5.60) L 10/06/16 07:35 Hgb 11.7 GM/dL (11.7-16.9) 10/06/16 07:35 Hct 33.6 % (35.4-49) L 10/06/16 07:35 MCV 94.9 fl (80-96) 10/06/16 07:35 MCHC 34.9 g/dl (32.0-35.9) 10/06/16 07:35 RDW 15.5 % (11.9-15.9) 10/06/16 07:35 Plt Count 184 K/MM3 (134-434) 10/06/16 07:35 MPV 6.8 fl (7.5-11.1) L 10/06/16 07:35 CMP Sodium 137 mmol/L (136-145) 10/06/16 07:35 Potassium 3.7 mmol/L (3.5-5.1) 10/06/16 07:35 Chloride 99 mmol/L (98-107) 10/06/16 07:35 Carbon Dioxide 29 mmol/L (21-32) D 10/06/16 07:35 Anion Gap 9 (8-16) 10/06/16 07:35 BUN 8 mg/dL (7-18) 10/06/16 07:35 Creatinine 0.5 mg/dL (0.7-1.3) L 10/06/16 07:35 Creat Clearance w eGFR > 60 (>60) 10/06/16 07:35 Random Glucose 106 mg/dL (74-106) D 10/06/16 07:35 Calcium 8.9 mg/dL (8.5-10.1) 10/06/16 07:35 Total Bilirubin 0.3 mg/dL (0.2-1.0) D 10/06/16 07:35 AST 23 U/L (15-37) D 10/06/16 07:35 ALT 121 U/L (12-78) H D 10/06/16 07:35 Alkaline Phosphatase 71 U/L (45-117) 10/06/16 07:35 Total Protein 6.2 g/dl (6.4-8.2) L 10/06/16 07:35 Albumin 3.1 g/dl (3.4-5.0) L 10/06/16 07:35 Microbiology 10/03/16 19:00 Blood - Peripheral Venous Blood Culture - Final Staphylococcus Aureus 10/03/16 19:00 Blood - Peripheral Venous Blood Culture - Final Staphylococcus Aureus 10/03/16 08:00 Blood - Peripheral Venous Blood Culture - Final Staphylococcus Aureus 10/03/16 08:00 Blood - Peripheral Venous Blood Culture - Preliminary NO GROWTH OBTAINED AFTER 72 HOURS, INCUBATION TO CONTINUE FOR 2 DAYS. 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, and frequent seizures, admitted for seizure activity and was found to have bacteremia Plan: 1) ID: Gram positive bacteremia - Afebrile - WBC WNL - Continue Vancomycin bid - Continue Cefazolin - Empiric mepron daily - Warm compresses to RUE anticubtal area - Appreciate ID consult RUE thrombophlebitis of the cephalic vein - Ultrasound with heterogenous tissue medial elbow joint - Continue abx as above - Appreciate surgery consult Diffuse pustular rash on trunk and back - Lotrimin cream bid - Per patient rash began about 3 weeks ago with recent radiation appointment 2) Neuro: Seizure activity 2/2 metastatic lung cancer - Decrease Decadron 4mg to bid - Continue Keppra 1500mg po bid - Continue Vimpat 100mg po bid - Appreciate neuro consult 3) Cardiology: HTN - Controlled 4) Heme: Hx of LUE DVT - Not on chemical anticoagulation 2/2 hx of hemorrhagic [employer]GER mets - LUE with no DVT, may use for IV site 5) F/E/N: - Diabetic diet (sugars high from Decadron) - Monitor electrolytes 6) Prophylaxis: - OOB ambulating 7) Dispo: - Requires continued inpatient care CODE STATUS: FULL CODE Visit type - Emergency Visit Emergency Visit: Yes ED Registration Date: 10/04/16 Care time: The patient presented to the Emergency Department on the above date and was hospitalized for further evaluation of their emergent condition. - New Patient This patient is new to me today: No - Critical Care Critical Care patient: No
[2016-10-06] MEDS: ATOVAQUONE 750 MG/5 ML (UNIT-DOSE PACKAGING) PO SCH (18:31)
--- NOTE | 2016-10-06 20:14 | PN ---
Progress Note (short form) - Note Progress Note: Patient seen and examined c/o RUE swelling/pain Last Vital Signs Temp Pulse Resp BP Pulse Ox 98.6 F 100 H 20 118/77 99 10/06/16 18:00 10/06/16 18:00 10/06/16 18:00 10/06/16 18:00 10/06/16 09:00 Cor: RSR, No murmurs, No gallops Lungs: Clear to P&A Abd: Soft, Normal bowel sounds, No organomegaly Ext:RUE erythema Abnormal Lab Results 10/06/16 10/06/16 07:35 07:35 RBC 3.54 L Hct 33.6 L MPV 6.8 L Creatinine 0.5 L ALT 121 H D Total Protein 6.2 L Albumin 3.1 L Home Medication List Medication Instructions Recorded Confirmed Type Oxycodone HCl 10 mg PO Q6H PRN 02/21/16 10/04/16 History Folic Acid 800 mcg PO DAILY 07/10/16 10/04/16 History Clonazepam [Klonopin -] 0.5 mg PO BID MDD 2 08/26/16 10/04/16 History Levetiracetam [Keppra -] 1,500 mg PO BID 08/26/16 10/04/16 History Lamotrigine [Lamictal] 50 mg PO DAILY 09/30/16 10/04/16 History Active Medications Generic Name Dose Route Start Last Admin Trade Name Freq PRN Reason Stop Dose Admin Acetaminophen 650 mg 10/04/16 17:22 Tylenol - PO Q6H PRN FEVER OR PAIN Atovaquone 1,500 mg 10/04/16 18:00 10/06/16 18:31 Mepron - PO 1,500 mg DAILY@1800 RISHI Administration Bacitracin 1 applic 10/05/16 10:00 10/06/16 11:21 Bacitracin - TP 1 applic DAILY RISHI Administration Clotrimazole 1 applic 10/04/16 22:00 10/06/16 11:18 Lotrimin 1% Cream - TP 1 applic BID RISHI Administration Dexamethasone 4 mg 10/05/16 22:00 10/06/16 11:18 Decadron - PO 4 mg BID RISHI Administration Folic Acid 1 mg 10/05/16 10:00 10/06/16 11:18 Folic Acid - PO 1 mg DAILY RISHI Administration Vancomycin HCl 1,500 mg/ 500 mls @ 250 mls/hr 10/06/16 00:00 10/06/16 13:06 Dextrose IVPB 250 mls/hr 0000,1200 RISHI Administration Cefazolin Sodium/Dextrose 50 mls @ 100 mls/hr 10/05/16 18:00 10/06/16 18:31 Ancef 2 Gm Premixed Ivpb - IVPB 100 mls/hr Q8H-IV RISHI Administration Lacosamide 100 mg 10/04/16 22:00 10/06/16 11:18 Vimpat - PO 100 mg BID RISHI Administration Levetiracetam 1,500 mg 10/04/16 22:00 10/06/16 11:18 Keppra - PO 1,500 mg BID RISHI Administration Oxycodone HCl 10 mg 10/04/16 15:40 10/06/16 08:59 Roxicodone - PO 10 mg Q6H PRN Administration Pantoprazole Sodium 40 mg 10/05/16 10:00 10/06/16 11:18 Protonix - PO 40 mg DAILY RISHI Administration A/P 36 year old male with a significant PMH of HTN, lung cancer--metastatic Pancosts tumor, with mets to the brain, and frequent seizures, admitted for bacteremia. 1. Seizures secondary to lung cancer with metastatic disease including the brain - Decadron 4mg e0v---bzhov to 4mg bid and hold - Keppra 1500mg BID - Lamictal 25mg once to complete taper - lacosamide 100mg bid - neuro consult 2. RUE phlebitis GPC in clusters On Vancomycin 3. Brain mets: s/p SRS, s/p WBRT taper steroids to 4mg bid and stop 4.Lung cancer --brain mets as thang systemic disease relatively well controlled on abraxane AVOID DVT prophylaxis given h/o hemorrhagic brain mets within last 6 months Discussed with patients family
[2016-10-07] MEDS: VANCOMYCIN 1,500 MG in DEXTROSE 5%-WATER - 500 ML IVPB SCH ×3 (00:19→23:04)
[2016-10-07] MEDS: CEFAZOLIN 2 GM/D5W 50 ML IVPB SCH ×3 (03:00→17:35)
--- NOTE | 2016-10-07 09:27 | PN ---
Progress Note, Physician Chief Complaint: ID Feels well Cefazolin - Current Medication List Current Medications: Active Medications Acetaminophen (Tylenol -) 650 mg PO Q6H PRN PRN Reason: FEVER OR PAIN Atovaquone (Mepron -) 1,500 mg PO DAILY@1800 [facility] Last Admin: 10/06/16 18:31 Dose: 1,500 mg Bacitracin (Bacitracin -) 1 applic TP DAILY [facility] Last Admin: 10/06/16 11:21 Dose: 1 applic Clotrimazole (Lotrimin 1% Cream -) 1 applic TP BID [facility] Last Admin: 10/06/16 21:57 Dose: 1 applic Dexamethasone (Decadron -) 4 mg PO BID [facility] Last Admin: 10/06/16 21:55 Dose: 4 mg Folic Acid (Folic Acid -) 1 mg PO DAILY [facility] Last Admin: 10/06/16 11:18 Dose: 1 mg Vancomycin HCl 1,500 mg/ (Dextrose) 500 mls @ 250 mls/hr IVPB 0000,1200 [facility] Last Admin: 10/07/16 00:19 Dose: 250 mls/hr Cefazolin Sodium/Dextrose (Ancef 2 Gm Premixed Ivpb -) 50 mls @ 100 mls/hr IVPB Q8H-IV [facility] Last Admin: 10/07/16 03:00 Dose: 100 mls/hr Lacosamide (Vimpat -) 100 mg PO BID [facility] Last Admin: 10/06/16 21:55 Dose: 100 mg Levetiracetam (Keppra -) 1,500 mg PO BID [facility] Last Admin: 10/06/16 21:55 Dose: 1,500 mg Oxycodone HCl (Roxicodone -) 10 mg PO Q6H PRN Last Admin: 10/06/16 22:02 Dose: 10 mg Pantoprazole Sodium (Protonix -) 40 mg PO DAILY [facility] Last Admin: 10/06/16 11:18 Dose: 40 mg - Objective Vital Signs: Vital Signs Temperature 98.3 F 10/07/16 06:00 Pulse Rate 79 10/07/16 06:00 Respiratory Rate 16 10/07/16 06:00 Blood Pressure 100/53 10/07/16 06:00 O2 Sat by Pulse Oximetry (%) 98 10/06/16 20:52 Constitutional: Yes: Well Nourished, No Distress Neck: Yes: WNL, Supple Cardiovascular: Yes: Regular Rate and Rhythm, S1, S2 Respiratory: Yes: WNL, Regular, CTA Bilaterally Gastrointestinal: Yes: Soft, Tenderness Extremities: Yes: Other (Erythema less Pustule antecubital area) Labs: CBC, BMP 10/06/16 07:35 10/06/16 07:35 Assessment/Plan Microbiology 10/06/16 08:05 Blood - Peripheral Venous Blood Culture - Preliminary NO GROWTH OBTAINED AFTER 24 HOURS, INCUBATION TO CONTINUE FOR 4 DAYS. 10/06/16 08:00 Blood - Peripheral Venous Blood Culture - Preliminary NO GROWTH OBTAINED AFTER 24 HOURS, INCUBATION TO CONTINUE FOR 4 DAYS. Laboratory Tests 10/06/16 10/06/16 07:35 07:35 WBC 7.8 RBC 3.54 L Hct 33.6 L Plt Count 184 BUN 8 Creatinine 0.5 L Assessment Phlebitis right arm cellultitis improving MSSA bacteremia Plan Continue antibiotics minimum 14 days ? Infusion 7th floor PICC Ceftriaxone [facility] BENJAMIN
[2016-10-07] MEDS: CLOTRIMAZOLE 1% CREAM 15 GM TUBE TP SCH ×2 (10:27→21:07)
[2016-10-07] MEDS: BACITRACIN 30 GM TUBE TOPICAL OINTMENT TP SCH (10:27)
[2016-10-07] MEDS: oxyCODONE HCL 5 MG TABLET PO PRN ×2 (10:32→21:54)
[2016-10-07] MEDS: levETIRAcetam 500 MG TABLET (FP) PO SCH ×2 (10:32→21:07)
[2016-10-07] MEDS: FOLIC ACID 1 MG TABLET (FP) PO SCH (10:33)
[2016-10-07] MEDS: PANTOPRAZOLE 40 MG TABLET (FP) PO SCH (10:33)
[2016-10-07] MEDS: DEXAMETHASONE 4 MG TABLET (FP) PO SCH ×2 (10:33→21:06)
[2016-10-07] MEDS: LACOSAMIDE 50 MG TABLET PO SCH ×2 (10:33→21:06)
--- NOTE | 2016-10-07 10:41 | PN ---
Progress Note (short form) - Note Progress Note: Attending Surgeon Seen in f/u; ID input reviewed No c/o VSS AF right antecubital fossa indurated; less tender; less erythema WBC WNL Blood cultures negative to date IMP:infected superficial thrombophlebitis PLAN: Continue as per ID Johny Ordaz MD FACS
--- NOTE | 2016-10-07 11:35 | PN ---
Progress Note (short form) - Note Progress Note: Subjective: The patient was seen and examined at the bedside, no complaints at this time Blood cultures with Staphylococcus Aureus Continue Vancomycin Continue Cefazolin Current Medications Generic Name Dose Route Start Last Admin Trade Name Freq PRN Reason Stop Dose Admin Acetaminophen 650 mg 10/04/16 17:22 Tylenol - PO Q6H PRN FEVER OR PAIN Atovaquone 1,500 mg 10/04/16 18:00 10/05/16 18:05 Mepron - PO 1,500 mg DAILY@1800 RISHI Administration Bacitracin 1 applic 10/05/16 10:00 10/06/16 11:21 Bacitracin - TP 1 applic DAILY RISHI Administration Clotrimazole 1 applic 10/04/16 22:00 10/06/16 11:18 Lotrimin 1% Cream - TP 1 applic BID RISHI Administration Dexamethasone 4 mg 10/05/16 22:00 10/06/16 11:18 Decadron - PO 4 mg BID RISHI Administration Folic Acid 1 mg 10/05/16 10:00 10/06/16 11:18 Folic Acid - PO 1 mg DAILY RISHI Administration Vancomycin HCl 1,500 mg/ 500 mls @ 250 mls/hr 10/06/16 00:00 10/06/16 13:06 Dextrose IVPB 250 mls/hr 0000,1200 RISHI Administration Cefazolin Sodium/Dextrose 50 mls @ 100 mls/hr 10/05/16 18:00 10/06/16 12:25 Ancef 2 Gm Premixed Ivpb - IVPB 100 mls/hr Q8H-IV RISHI Administration Lacosamide 100 mg 10/04/16 22:00 10/06/16 11:18 Vimpat - PO 100 mg BID RISHI Administration Levetiracetam 1,500 mg 10/04/16 22:00 10/06/16 11:18 Keppra - PO 1,500 mg BID RISHI Administration Oxycodone HCl 10 mg 10/04/16 15:40 10/06/16 08:59 Roxicodone - PO 10 mg Q6H PRN Administration Pantoprazole Sodium 40 mg 10/05/16 10:00 10/06/16 11:18 Protonix - PO 40 mg DAILY RISHI Administration Objective: Vital Signs Period Temp Pulse Resp BP Sys/Lindo Pulse Ox Last 24 Hr 98 F-98.4 F 74-88 18-18 90-110/64-67 99 Physical Exam: General: NAD, A&Ox3 Lungs: CTA bilaterally Heart: RRR, S1S2 Abd: Soft, mildly distended. Normoactive bowel sounds. Hepatomegaly Ext: RUE with erythema, induration and tracking. Warm, well-perfused. 2+ DP/PT bilaterally Neuro: CN 2-12 intact CBCD WBC 7.8 K/mm3 (4.0-10.0) 10/06/16 07:35 RBC 3.54 M/mm3 (4.00-5.60) L 10/06/16 07:35 Hgb 11.7 GM/dL (11.7-16.9) 10/06/16 07:35 Hct 33.6 % (35.4-49) L 10/06/16 07:35 MCV 94.9 fl (80-96) 10/06/16 07:35 MCHC 34.9 g/dl (32.0-35.9) 10/06/16 07:35 RDW 15.5 % (11.9-15.9) 10/06/16 07:35 Plt Count 184 K/MM3 (134-434) 10/06/16 07:35 MPV 6.8 fl (7.5-11.1) L 10/06/16 07:35 CMP Sodium 137 mmol/L (136-145) 10/06/16 07:35 Potassium 3.7 mmol/L (3.5-5.1) 10/06/16 07:35 Chloride 99 mmol/L (98-107) 10/06/16 07:35 Carbon Dioxide 29 mmol/L (21-32) D 10/06/16 07:35 Anion Gap 9 (8-16) 10/06/16 07:35 BUN 8 mg/dL (7-18) 10/06/16 07:35 Creatinine 0.5 mg/dL (0.7-1.3) L 10/06/16 07:35 Creat Clearance w eGFR > 60 (>60) 10/06/16 07:35 Random Glucose 106 mg/dL (74-106) D 10/06/16 07:35 Calcium 8.9 mg/dL (8.5-10.1) 10/06/16 07:35 Total Bilirubin 0.3 mg/dL (0.2-1.0) D 10/06/16 07:35 AST 23 U/L (15-37) D 10/06/16 07:35 ALT 121 U/L (12-78) H D 10/06/16 07:35 Alkaline Phosphatase 71 U/L (45-117) 10/06/16 07:35 Total Protein 6.2 g/dl (6.4-8.2) L 10/06/16 07:35 Albumin 3.1 g/dl (3.4-5.0) L 10/06/16 07:35 Microbiology 10/03/16 19:00 Blood - Peripheral Venous Blood Culture - Final Staphylococcus Aureus 10/03/16 19:00 Blood - Peripheral Venous Blood Culture - Final Staphylococcus Aureus 10/03/16 08:00 Blood - Peripheral Venous Blood Culture - Final Staphylococcus Aureus 10/03/16 08:00 Blood - Peripheral Venous Blood Culture - Preliminary NO GROWTH OBTAINED AFTER 72 HOURS, INCUBATION TO CONTINUE FOR 2 DAYS. 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, and frequent seizures, admitted for seizure activity and was found to have bacteremia Plan: 1) ID: Gram positive bacteremia - Afebrile - WBC WNL - Continue Vancomycin bid - Continue Cefazolin - Empiric mepron daily - Warm compresses to RUE anticubtal area - Appreciate ID consult RUE thrombophlebitis of the cephalic vein - Ultrasound with heterogenous tissue medial elbow joint - Continue abx as above - Appreciate surgery consult Diffuse pustular rash on trunk and back - Lotrimin cream bid - Per patient rash began about 3 weeks ago with recent radiation appointment 2) Neuro: Seizure activity 2/2 metastatic lung cancer - Decrease Decadron 4mg to bid - Continue Keppra 1500mg po bid - Continue Vimpat 100mg po bid - Appreciate neuro consult 3) Cardiology: HTN - Controlled 4) Heme: Hx of LUE DVT - Not on chemical anticoagulation 2/2 hx of hemorrhagic [employer] mets - LUE with no DVT, may use for IV site 5) F/E/N: - Diabetic diet (sugars high from Decadron) - Monitor electrolytes 6) Prophylaxis: - OOB ambulating 7) Dispo: - To be discharged with Ceftriaxone 2g daily and come to the infusion center daily x14 days - Discussed with Dr. Sanz, Dr. Conde, and Dr. Badillo CODE STATUS: FULL CODE
--- NOTE | 2016-10-07 12:32 | PN ---
Progress Note (short form) - Note Progress Note: Oncology follow-up note S- He is a little downcast today. Would like to be home for fathers day.He does not have much pain expcept for mild pain in right arm which is infected. Last Vital Signs Temp Pulse Resp BP Pulse Ox 98.6 F 107 H 20 110/75 98 10/07/16 10:00 10/07/16 10:00 10/07/16 10:00 10/07/16 10:00 10/06/16 20:52 Physical exam : AOx3, pleasant Cor: RSR, No murmurs, No gallops Lungs: Clear to P&A Abd: Soft, Normal bowel sounds, No organomegaly Ext:RUE erythema upto the level of the right elbow, small purulent follicle on arm also CBC, BMP 10/06/16 07:35 10/06/16 07:35 Current Medications Generic Name Dose Route Start Last Admin Trade Name Freq PRN Reason Stop Dose Admin Acetaminophen 650 mg 10/04/16 17:22 Tylenol - PO Q6H PRN FEVER OR PAIN Atovaquone 1,500 mg 10/04/16 18:00 10/06/16 18:31 Mepron - PO 1,500 mg DAILY@1800 RISHI Administration Bacitracin 1 applic 10/05/16 10:00 10/07/16 10:27 Bacitracin - TP 1 applic DAILY RISHI Administration Clotrimazole 1 applic 10/04/16 22:00 10/07/16 10:27 Lotrimin 1% Cream - TP 1 applic BID RISHI Administration Dexamethasone 4 mg 10/05/16 22:00 10/07/16 10:33 Decadron - PO 4 mg BID RISHI Administration Folic Acid 1 mg 10/05/16 10:00 10/07/16 10:33 Folic Acid - PO 1 mg DAILY RISHI Administration Vancomycin HCl 1,500 mg/ 500 mls @ 250 mls/hr 10/06/16 00:00 10/07/16 12:08 Dextrose IVPB 250 mls/hr 0000,1200 RISHI Administration Cefazolin Sodium/Dextrose 50 mls @ 100 mls/hr 10/05/16 18:00 10/07/16 10:23 Ancef 2 Gm Premixed Ivpb - IVPB 100 mls/hr Q8H-IV RISHI Administration Lacosamide 100 mg 10/04/16 22:00 06/17/17 10:33 Vimpat - PO 100 mg BID RISHI Administration Levetiracetam 1,500 mg 10/04/16 22:00 10/07/16 10:32 Keppra - PO 1,500 mg BID RISHI Administration Oxycodone HCl 10 mg 10/04/16 15:40 10/07/16 10:32 Roxicodone - PO 10 mg Q6H PRN Administration Pantoprazole Sodium 40 mg 10/05/16 10:00 10/07/16 10:33 Protonix - PO 40 mg DAILY RISHI Administration A/P 36 year old male with a significant PMH of HTN, lung cancer--metastatic Pancoasts tumor, with mets to the brain, and frequent seizures, admitted for bacteremia. 1. Seizures secondary to lung cancer with metastatic disease including the brain - Decadron now tapered down to 4 mg BID. Continue this current dose - Keppra 1500mg BID - lacosamide 100mg bid - neuro consult 2. RUE cellulitis -Blood cultures are positive for Staph aureus On Vancomycin + cefazolin , continue treatment per ID recs 3. Brain mets: s/p SRS, s/p WBRT taper steroids to 4mg bid , hold at this dose for the weekend 4.Lung cancer --brain mets as thang systemic disease relatively well controlled on abraxane AVOID DVT prophylaxis given h/o hemorrhagic brain mets within last 6 months. Please discuss with oncologist if the need arises to start AC Discussed plan with patient at bedside today.
[2016-10-07] MEDS ORDERED: PT OWN MED DRAWER 7, Y5N ONE (17:30)
[2016-10-07] MEDS: ATOVAQUONE 750 MG/5 ML (UNIT-DOSE PACKAGING) PO SCH (17:36)
[2016-10-07] MEDS: clonazePAM 0.5 MG TABLET PO SCH (21:07)
[2016-10-08] MEDS: CEFAZOLIN 2 GM/D5W 50 ML IVPB SCH ×3 (01:45→18:13)
[2016-10-08] MEDS: LACOSAMIDE 50 MG TABLET PO SCH ×2 (09:37→21:23)
[2016-10-08] MEDS: clonazePAM 0.5 MG TABLET PO SCH ×2 (09:38→21:23)
[2016-10-08] MEDS: DEXAMETHASONE 4 MG TABLET (FP) PO SCH ×2 (09:38→21:23)
[2016-10-08] MEDS: oxyCODONE HCL 5 MG TABLET PO PRN ×2 (09:39→18:23)
[2016-10-08] MEDS: levETIRAcetam 500 MG TABLET (FP) PO SCH ×2 (09:39→21:23)
[2016-10-08] MEDS: PANTOPRAZOLE 40 MG TABLET (FP) PO SCH (09:39)
[2016-10-08] MEDS: FOLIC ACID 1 MG TABLET (FP) PO SCH (09:39)
--- NOTE | 2016-10-08 10:50 | PN ---
Progress Note (short form) - Note Progress Note: Subjective: The patient was seen and examined at the bedside, no complaints at this time Continue Vancomycin Continue Cefazolin Current Medications Generic Name Dose Route Start Last Admin Trade Name Freq PRN Reason Stop Dose Admin Acetaminophen 650 mg 10/04/16 17:22 Tylenol - PO Q6H PRN FEVER OR PAIN Atovaquone 1,500 mg 10/04/16 18:00 10/07/16 17:36 Mepron - PO 1,500 mg DAILY@1800 RISHI Administration Bacitracin 1 applic 10/05/16 10:00 10/07/16 10:27 Bacitracin - TP 1 applic DAILY RISHI Administration Clonazepam 0.5 mg 10/07/16 22:00 10/08/16 09:38 Klonopin - PO 0.5 mg BID RISHI Administration Clotrimazole 1 applic 10/04/16 22:00 10/07/16 21:07 Lotrimin 1% Cream - TP 1 applic BID RISHI Administration Dexamethasone 4 mg 10/05/16 22:00 10/08/16 09:38 Decadron - PO 4 mg BID RISHI Administration Folic Acid 1 mg 10/05/16 10:00 10/08/16 09:39 Folic Acid - PO 1 mg DAILY RISHI Administration Vancomycin HCl 1,500 mg/ 500 mls @ 250 mls/hr 10/06/16 00:00 10/07/16 23:04 Dextrose IVPB 250 mls/hr 0000,1200 RISHI Administration Cefazolin Sodium/Dextrose 50 mls @ 100 mls/hr 10/05/16 18:00 10/08/16 01:45 Ancef 2 Gm Premixed Ivpb - IVPB 100 mls/hr Q8H-IV RISHI Administration Lacosamide 100 mg 10/04/16 22:00 10/08/16 09:37 Vimpat - PO 100 mg BID RISHI Administration Levetiracetam 1,500 mg 10/04/16 22:00 10/08/16 09:39 Keppra - PO 1,500 mg BID RISHI Administration Oxycodone HCl 10 mg 10/04/16 15:40 10/08/16 09:39 Roxicodone - PO 10 mg Q6H PRN Administration Pantoprazole Sodium 40 mg 10/05/16 10:00 10/08/16 09:39 Protonix - PO 40 mg DAILY RISHI Administration Objective: Vital Signs Period Temp Pulse Resp BP Sys/Lindo Pulse Ox Last 24 Hr 97.8 F-98.6 F 65-111 16-20 112-126/47-72 Physical Exam: General: NAD, A&Ox3 Lungs: CTA bilaterally Heart: RRR, S1S2 Abd: Soft, mildly distended. Normoactive bowel sounds. Hepatomegaly Ext: RUE with erythema improving Warm, well-perfused. 2+ DP/PT bilaterally Neuro: CN 2-12 intact CBCD WBC 7.8 K/mm3 (4.0-10.0) 10/06/16 07:35 RBC 3.54 M/mm3 (4.00-5.60) L 10/06/16 07:35 Hgb 11.7 GM/dL (11.7-16.9) 10/06/16 07:35 Hct 33.6 % (35.4-49) L 10/06/16 07:35 MCV 94.9 fl (80-96) 10/06/16 07:35 MCHC 34.9 g/dl (32.0-35.9) 10/06/16 07:35 RDW 15.5 % (11.9-15.9) 10/06/16 07:35 Plt Count 184 K/MM3 (134-434) 10/06/16 07:35 MPV 6.8 fl (7.5-11.1) L 10/06/16 07:35 CMP Sodium 137 mmol/L (136-145) 10/06/16 07:35 Potassium 3.7 mmol/L (3.5-5.1) 10/06/16 07:35 Chloride 99 mmol/L (98-107) 10/06/16 07:35 Carbon Dioxide 29 mmol/L (21-32) D 10/06/16 07:35 Anion Gap 9 (8-16) 10/06/16 07:35 BUN 8 mg/dL (7-18) 10/06/16 07:35 Creatinine 0.5 mg/dL (0.7-1.3) L 10/06/16 07:35 Creat Clearance w eGFR > 60 (>60) 10/06/16 07:35 Random Glucose 106 mg/dL (74-106) D 10/06/16 07:35 Calcium 8.9 mg/dL (8.5-10.1) 10/06/16 07:35 Total Bilirubin 0.3 mg/dL (0.2-1.0) D 10/06/16 07:35 AST 23 U/L (15-37) D 10/06/16 07:35 ALT 121 U/L (12-78) H D 10/06/16 07:35 Alkaline Phosphatase 71 U/L (45-117) 10/06/16 07:35 Total Protein 6.2 g/dl (6.4-8.2) L 10/06/16 07:35 Albumin 3.1 g/dl (3.4-5.0) L 10/06/16 07:35 Microbiology 10/03/16 19:00 Blood - Peripheral Venous Blood Culture - Final Staphylococcus Aureus 10/03/16 19:00 Blood - Peripheral Venous Blood Culture - Final Staphylococcus Aureus 10/03/16 08:00 Blood - Peripheral Venous Blood Culture - Final Staphylococcus Aureus 10/03/16 08:00 Blood - Peripheral Venous Blood Culture - Preliminary NO GROWTH OBTAINED AFTER 72 HOURS, INCUBATION TO CONTINUE FOR 2 DAYS. 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, and frequent seizures, admitted for seizure activity and was found to have bacteremia Plan: 1) ID: Gram positive bacteremia - Afebrile - WBC WNL - Continue Vancomycin bid - Continue Cefazolin - Empiric mepron daily - Warm compresses to RUE anticubtal area - Appreciate ID consult RUE thrombophlebitis of the cephalic vein - Ultrasound with heterogenous tissue medial elbow joint - Continue abx as above - Appreciate surgery consult Diffuse pustular rash on trunk and back - Lotrimin cream bid - Per patient rash began about 3 weeks ago with recent radiation appointment 2) Neuro: Seizure activity 2/2 metastatic lung cancer - Continue Decadron 4mg to bid - Continue Keppra 1500mg po bid - Continue Vimpat 100mg po bid - Appreciate neuro consult 3) Cardiology: HTN - Controlled 4) Heme: Hx of LUE DVT - Not on chemical anticoagulation 2/2 hx of hemorrhagic [employer] mets - LUE with no DVT, may use for IV site 5) F/E/N: - Diabetic diet (sugars high from Decadron) - Monitor electrolytes 6) Prophylaxis: - OOB ambulating 7) Dispo: - To be discharged with Ceftriaxone 2g daily and come to the infusion center daily x14 days - Discussed with Dr. Sanz, Dr. Conde, and Dr. Badillo - Awaiting approval from insurance company CODE STATUS: FULL CODE Visit type - Emergency Visit Emergency Visit: Yes ED Registration Date: 10/04/16 Care time: The patient presented to the Emergency Department on the above date and was hospitalized for further evaluation of their emergent condition. - New Patient This patient is new to me today: No - Critical Care Critical Care patient: No
--- NOTE | 2016-10-08 10:58 | PN ---
Progress Note (short form) - Note Progress Note: Oncology follow-up note S- He feels better overall today. His right arm feels better, he is able to flex and extend without pain which was hard previously. Last Vital Signs Temp Pulse Resp BP Pulse Ox 97.8 F 92 H 20 112/72 98 10/08/16 10:00 10/08/16 10:00 10/08/16 10:00 10/08/16 10:00 10/06/16 20:52 Physical exam : AOx3, pleasant Cor: RSR, No murmurs, No gallops Lungs: Clear to P&A Abd: Soft, Normal bowel sounds, No organomegaly Ext:RUE erythema upto the level of the right elbow, small purulent follicle on arm also- this is improved today CBC, BMP 10/06/16 07:35 10/06/16 07:35 Current Medications Generic Name Dose Route Start Last Admin Trade Name Freq PRN Reason Stop Dose Admin Acetaminophen 650 mg 10/04/16 17:22 Tylenol - PO Q6H PRN FEVER OR PAIN Atovaquone 1,500 mg 10/04/16 18:00 10/07/16 17:36 Mepron - PO 1,500 mg DAILY@1800 RISHI Administration Bacitracin 1 applic 10/05/16 10:00 10/07/16 10:27 Bacitracin - TP 1 applic DAILY RISHI Administration Clonazepam 0.5 mg 10/07/16 22:00 10/08/16 09:38 Klonopin - PO 0.5 mg BID RISHI Administration Clotrimazole 1 applic 10/04/16 22:00 10/07/16 21:07 Lotrimin 1% Cream - TP 1 applic BID RISHI Administration Dexamethasone 4 mg 10/05/16 22:00 10/08/16 09:38 Decadron - PO 4 mg BID RISHI Administration Folic Acid 1 mg 10/05/16 10:00 10/08/16 09:39 Folic Acid - PO 1 mg DAILY RISHI Administration Vancomycin HCl 1,500 mg/ 500 mls @ 250 mls/hr 10/06/16 00:00 10/07/16 23:04 Dextrose IVPB 250 mls/hr 0000,1200 RISHI Administration Cefazolin Sodium/Dextrose 50 mls @ 100 mls/hr 10/05/16 18:00 06/18/17 01:45 Ancef 2 Gm Premixed Ivpb - IVPB 100 mls/hr Q8H-IV RISHI Administration Lacosamide 100 mg 10/04/16 22:00 10/08/16 09:37 Vimpat - PO 100 mg BID RISHI Administration Levetiracetam 1,500 mg 10/04/16 22:00 10/08/16 09:39 Keppra - PO 1,500 mg BID RISHI Administration Oxycodone HCl 10 mg 10/04/16 15:40 10/08/16 09:39 Roxicodone - PO 10 mg Q6H PRN Administration Pantoprazole Sodium 40 mg 10/05/16 10:00 10/08/16 09:39 Protonix - PO 40 mg DAILY RISHI Administration A/P 36 year old male with a significant PMH of HTN, lung cancer--metastatic Pancoasts tumor, with mets to the brain, and frequent seizures, admitted for bacteremia. 1. Seizures secondary to lung cancer with metastatic disease including the brain - Decadron now tapered down to 4 mg BID. Continue this current dose - Keppra 1500mg BID - lacosamide 100mg bid - neuro following 2. RUE cellulitis -appears much improved on exam today -Blood cultures are positive for Staph aureus On Vancomycin + cefazolin -plan is to discharge patient and bring him back daily X14 days for ceftriaxone 2 g infusion 3. Brain mets: s/p SRS, s/p WBRT tapered steroids to 4mg bid , hold at this dose for the weekend 4.Lung cancer --brain mets as thang systemic disease relatively well controlled on abraxane AVOID DVT prophylaxis given h/o hemorrhagic brain mets within last 6 months. Please discuss with oncologist if the need arises to start AC Discussed plan with patient at bedside today.
[2016-10-08] MEDS: BACITRACIN 30 GM TUBE TOPICAL OINTMENT TP SCH (11:18)
[2016-10-08] MEDS: CLOTRIMAZOLE 1% CREAM 15 GM TUBE TP SCH ×2 (11:18→21:24)
[2016-10-08] MEDS: VANCOMYCIN 1,500 MG in DEXTROSE 5%-WATER - 500 ML IVPB SCH ×2 (12:10→23:04)
[2016-10-08] MEDS ORDERED: PT OWN MED DRAWER 7, Y5N ONE (18:12)
[2016-10-08] MEDS: ATOVAQUONE 750 MG/5 ML (UNIT-DOSE PACKAGING) PO SCH (18:13)
[2016-10-08] MEDS ORDERED: morphine SO4 SUSTAINED ACTING 15 MG TABLET.SA PO PRN (21:30)
[2016-10-09] MEDS: CEFAZOLIN 2 GM/D5W 50 ML IVPB SCH ×2 (01:13→10:15)
--- NOTE | 2016-10-09 10:10 | PN ---
Progress Note, Physician Chief Complaint: ID Cefazolin day 6 therapy MSSA blood - Current Medication List Current Medications: Active Medications Acetaminophen (Tylenol -) 650 mg PO Q6H PRN PRN Reason: FEVER OR PAIN Atovaquone (Mepron -) 1,500 mg PO DAILY@1800 [facility] Last Admin: 10/08/16 18:13 Dose: 1,500 mg Bacitracin (Bacitracin -) 1 applic TP DAILY [facility] Last Admin: 10/08/16 11:18 Dose: 1 applic Clonazepam (Klonopin -) 0.5 mg PO BID [facility] Last Admin: 10/08/16 21:23 Dose: 0.5 mg Clotrimazole (Lotrimin 1% Cream -) 1 applic TP BID [facility] Last Admin: 10/08/16 21:24 Dose: 1 applic Dexamethasone (Decadron -) 4 mg PO BID [facility] Last Admin: 10/08/16 21:23 Dose: 4 mg Folic Acid (Folic Acid -) 1 mg PO DAILY [facility] Last Admin: 10/08/16 09:39 Dose: 1 mg Vancomycin HCl 1,500 mg/ (Dextrose) 500 mls @ 250 mls/hr IVPB 0000,1200 [facility] Last Admin: 10/08/16 23:04 Dose: 250 mls/hr Cefazolin Sodium/Dextrose (Ancef 2 Gm Premixed Ivpb -) 50 mls @ 100 mls/hr IVPB Q8H-IV [facility] Last Admin: 10/09/16 01:13 Dose: 100 mls/hr Lacosamide (Vimpat -) 100 mg PO BID [facility] Last Admin: 10/08/16 21:23 Dose: 100 mg Levetiracetam (Keppra -) 1,500 mg PO BID [facility] Last Admin: 10/08/16 21:23 Dose: 1,500 mg Morphine Sulfate (Ms Contin -) 15 mg PO BID PRN Last Admin: 10/08/16 22:09 Dose: 15 mg Oxycodone HCl (Roxicodone -) 10 mg PO Q6H PRN Last Admin: 10/08/16 18:23 Dose: 10 mg Pantoprazole Sodium (Protonix -) 40 mg PO DAILY [facility] Last Admin: 10/08/16 09:39 Dose: 40 mg - Objective Vital Signs: Vital Signs Temperature 98.2 F 10/09/16 08:30 Pulse Rate 80 10/09/16 08:30 Respiratory Rate 18 10/09/16 08:30 Blood Pressure 128/70 10/09/16 08:30 O2 Sat by Pulse Oximetry (%) 100 10/09/16 08:30 Cardiovascular: Yes: Regular Rate and Rhythm, S1, S2 Respiratory: Yes: WNL, Regular, CTA Bilaterally Extremities: Yes: Other (Right arm swelling less redness less pustule) Labs: CBC, BMP 10/06/16 07:35 10/06/16 07:35 Assessment/Plan Laboratory Tests 10/06/16 10/06/16 07:35 07:35 WBC 7.8 Hgb 11.7 Plt Count 184 BUN 8 Assessment MSSA bacteremia Plan Ceftriaxone 2 grs daily x 14 days ? PICC Kindly recall as needed [facility]
[2016-10-09] MEDS ORDERED: PT OWN MED DRAWER 7, Y5N ONE (10:13)
[2016-10-09] MEDS: levETIRAcetam 500 MG TABLET (FP) PO SCH (10:14)
[2016-10-09] MEDS: clonazePAM 0.5 MG TABLET PO SCH (10:15)
[2016-10-09] MEDS: LACOSAMIDE 50 MG TABLET PO SCH (10:15)
[2016-10-09] MEDS: FOLIC ACID 1 MG TABLET (FP) PO SCH (10:15)
[2016-10-09] MEDS: PANTOPRAZOLE 40 MG TABLET (FP) PO SCH (10:15)
[2016-10-09] MEDS: DEXAMETHASONE 4 MG TABLET (FP) PO SCH (10:15)
[2016-10-09] MEDS: CLOTRIMAZOLE 1% CREAM 15 GM TUBE TP SCH (10:16)
[2016-10-09] MEDS: BACITRACIN 30 GM TUBE TOPICAL OINTMENT TP SCH (10:17)
--- NOTE | 2016-10-09 10:21 | PN ---
Physical Exam: SUBJECTIVE: Patient seen and examined. No fevers overnight, no acute issues. OBJECTIVE: Vital Signs Period Temp Pulse Resp BP Sys/Lindo Pulse Ox Last 24 Hr 97.4 F-98.9 F 72-119 18-20 105-134/70-82 100 PE: Neuro: alert, awake, CN 2-12 intact Pulm: CTAB CV: s1 s2 rrr no mtg Abd: s nt nd + bs +Hepatomegaly Ext: RUE AC erythema, warm, no le edema Active Medications Generic Name Dose Route Start Last Admin Trade Name Freq PRN Reason Stop Dose Admin Acetaminophen 650 mg 10/04/16 17:22 Tylenol - PO Q6H PRN FEVER OR PAIN Atovaquone 1,500 mg 10/04/16 18:00 10/08/16 18:13 Mepron - PO 1,500 mg DAILY@1800 RISHI Administration Bacitracin 1 applic 10/05/16 10:00 10/08/16 11:18 Bacitracin - TP 1 applic DAILY RISHI Administration Clonazepam 0.5 mg 10/07/16 22:00 10/08/16 21:23 Klonopin - PO 0.5 mg BID RISHI Administration Clotrimazole 1 applic 10/04/16 22:00 10/08/16 21:24 Lotrimin 1% Cream - TP 1 applic BID RISHI Administration Dexamethasone 4 mg 10/05/16 22:00 10/08/16 21:23 Decadron - PO 4 mg BID RISHI Administration Folic Acid 1 mg 10/05/16 10:00 10/08/16 09:39 Folic Acid - PO 1 mg DAILY RISHI Administration Vancomycin HCl 1,500 mg/ 500 mls @ 250 mls/hr 10/06/16 00:00 10/08/16 23:04 Dextrose IVPB 250 mls/hr 0000,1200 RISHI Administration Cefazolin Sodium/Dextrose 50 mls @ 100 mls/hr 10/05/16 18:00 10/09/16 01:13 Ancef 2 Gm Premixed Ivpb - IVPB 100 mls/hr Q8H-IV RISHI Administration Lacosamide 100 mg 10/04/16 22:00 10/08/16 21:23 Vimpat - PO 100 mg BID RISHI Administration Levetiracetam 1,500 mg 10/04/16 22:00 10/08/16 21:23 Keppra - PO 1,500 mg BID RISHI Administration Morphine Sulfate 15 mg 10/08/16 21:30 10/08/16 22:09 Ms Contin - PO 15 mg BID PRN Administration Oxycodone HCl 10 mg 10/04/16 15:40 10/08/16 18:23 Roxicodone - PO 10 mg Q6H PRN Administration Pantoprazole Sodium 40 mg 10/05/16 10:00 10/08/16 09:39 Protonix - PO 40 mg DAILY RISHI Administration Imaging: - Ultrasound with heterogenous tissue medial elbow joint Assessment: 36 year old male with PMHx of HTN, lung cancer with mets to the brain, and frequent seizures, admitted for seizure activity and was found to have bacteremia. Plan: 1. Gram positive bacteremia - Stating tomorrow Ceftriaxone 2gm x 7 days, f/b f/u with Dr. Sanz - Continue Vancomycin bid - Continue Cefazolin - Empiric mepron daily - Warm compresses to RUE anticubtal area 2. RUE thrombophlebitis of the cephalic vein - No I&D at this time, per surgery - Continue abx as above 3. Diffuse pustular rash on trunk and back - Lotrimin cream bid - Per patient rash began about 3 weeks ago with recent radiation appointment 4. Seizure activity 2/2 metastatic lung cancer - Decadron 4mg to bid - Keppra 1500mg po bid - Vimpat 100mg po bid 5. HTN - Controlled 6. 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
[2016-10-09] MEDS: oxyCODONE HCL 5 MG TABLET PO PRN (10:24)
--- NOTE | 2016-10-09 11:21 | DS ---
Physical Exam: SUBJECTIVE: Patient seen and examined. No acute issues overnight, feeling a little groggy from overnight pain medication. Feels his arm is better. OBJECTIVE: Vital Signs Period Temp Pulse Resp BP Sys/Lindo Pulse Ox Last 24 Hr 97.4 F-98.9 F 72-119 18-20 105-134/70-82 100 PE: Neuro: alert, awake, CN 2-12 intact Pulm: CTAB CV: s1 s2 rrr no mtg Abd: s nt nd + bs +Hepatomegaly Ext: RUE AC erythema, pustular center, induration- improved no le edema HOSPITAL COURSE: Date of Admission:10/04/16 Date of Discharge: 10/09/16 Minutes to complete discharge: 37 Discharge Summary Reason For Visit: BACTEREMIA Current Active Problems Bacteremia (Acute) Metastatic lung carcinoma (Acute) Hospital Course: Initial Hospital Course: Briefly, this 36 year old male with PMH of asthma, HTN lung CA (mets to the brain), re-admission for bacteremia and seizures after signing out AMA. Imaging: - Ultrasound with heterogenous tissue medial elbow joint Subsequent Hospital Course/Progress Note/Discharge Summary by a/p: Assessment: 36 year old male with PMHx of HTN, lung cancer with mets to the brain, and frequent seizures, admitted for seizure activity and was found to have bacteremia. Plan: 1. Gram positive bacteremia - Stating tomorrow Ceftriaxone 2gm x 7 days, followed by f/u with Dr. Sanz for assessment, pt aware - s/p 4 days Vancomycin bid - s/p 4 days Cefazolin 2gm q8 - Empiric mepron daily - Warm compresses to RUE anticubtal area, bacitracin daily 2. RUE thrombophlebitis of the cephalic vein - No I&D at this time, per surgery - Continue abx as above 3. Diffuse pustular rash on trunk and back - Lotrimin cream bid - Per patient rash began about 3 weeks ago with recent radiation appointment 4. Seizure activity 2/2 metastatic lung cancer - Decadron 4mg to bid, maintain this dose, follow with Dr. conde - Sabine 1500mg po bid - Vimpat 100mg po bid 5. HTN - Controlled 6. 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 Please follow-up with providers as indicated. Resume home medications as directed on home medication list Follow up with doctors as listed Daily infusions for 7 days at infusion center, follow up with Dr. Sanz when done Referrals: Johny Ordaz MD [Staff Physician] - 1 Week (Please follow-up with surgery within 2-3 days for reevaluation of your right arm) Harlan Brown MD [Primary Care Provider] - 1 Week Mario Sanz MD [Staff Physician] - (Please follow-up with Dr. Sanz within 1 week for further management of your antibiotics) Amaya León MD [Staff Physician] - (Please follow-up with Dr. Conde within 1 week) Disposition: HOME - Home Medications Comprehensive Discharge Medication List: Ambulatory Orders Oxycodone HCl 10 mg PO Q6H PRN 02/21/16 Pantoprazole Sodium [Protonix -] 40 mg PO DAILY #30 tablet.ec 03/08/16 Folic Acid 800 mcg PO DAILY 07/10/16 Atovaquone [Mepron Oral Solution -] 1,500 mg PO DAILY@1800 #300 ml 08/21/16 Clonazepam [Klonopin -] 0.5 mg PO BID MDD 2 08/26/16 Levetiracetam [Keppra -] 1,500 mg PO BID 08/26/16 Ceftriaxone [Rocephin 2Gm Ivpb (Pre-Docked)] 2 gm IVPB DAILY #14 vial 10/07/16 Acetaminophen [Tylenol .Regular Strength -] 650 mg PO Q6H PRN #0 tablet Clotrimazole [Lotrimin -] 1 applic TP BID #1 tube 10/08/16 Dexamethasone [Decadron -] 4 mg PO BID #60 tablet 10/08/16 Lacosamide [Vimpat -] 100 mg PO BID #120 tab MDD 200mg 10/08/16 This patient is new to me today: Yes Date on this admission: 10/09/16 Emergency Visit: Yes ED Registration Date: 10/04/16 Care time: The patient presented to the Emergency Department on the above date and was hospitalized for further evaluation of their emergent condition. Critical Care patient: No - Discharge Referral Referred to [facility] No
[2016-10-09] MEDS: VANCOMYCIN 1,500 MG in DEXTROSE 5%-WATER - 500 ML IVPB SCH (12:17)
[2016-10-09 14:50] VITALS: BP 136/74; PULSE 85; TEMP 98.6
== END 2016-10-09 15:15 | disposition home or self-care (01) | DRG 197 ==
LOC: JER 14:31 → JERBED 16:26 → J6S 10-05 12:27
PROVIDERS: ADMIT Internal Medicine; ATTEND Nurse Practitioner Acute Care
DX: I80.8 Phlebitis and thrombophlebitis of other sites (principal); G93.6 Cerebral edema; R78.81 Bacteremia; C79.31 Secondary malignant neoplasm of brain; C34.90 Malignant neoplasm of unspecified part of unspecified bronchus or lung; L03.113 Cellulitis of right upper limb; J45.909 Unspecified asthma, uncomplicated; I10 Essential (primary) hypertension; G40.909 Epilepsy, unspecified, not intractable, without status epilepticus; Z86.718 Personal history of other venous thrombosis and embolism; B95.61 Methicillin susceptible Staphylococcus aureus infection as the cause of diseases classified elsewhere
CPT/HCPCS: 36415; 76882; 80048; 80053; 85025; 87040; 93306-TC; 93971; 97116-GP; 97161-GP; 99283-25; G0480

== ENCOUNTER 2016-10-10 10:37 | Day surgery (SDC) | payer OTHER ==
[2016-10-10] MEDS ORDERED: CEFTRIAXONE 2 GM in DEXTROSE 5%-WATER - 100 ML IVPB ONE (11:30)
[2016-10-10 15:14] VITALS: BP 108/74; PULSE 88; TEMP 99.1
== END 2016-10-10 13:25 | disposition home or self-care (01) ==
LOC: JINFUSION 10:37
PROVIDERS: ATTEND Internal Medicine
DX: L03.113 Cellulitis of right upper limb (principal); R78.81 Bacteremia; B95.61 Methicillin susceptible Staphylococcus aureus infection as the cause of diseases classified elsewhere; C79.31 Secondary malignant neoplasm of brain; C34.90 Malignant neoplasm of unspecified part of unspecified bronchus or lung
CPT/HCPCS: 96365

== ENCOUNTER 2016-10-11 13:37 | Day surgery (SDC) | payer OTHER ==
[2016-10-11] MEDS ORDERED: cefTRIAXone 2 GM/100 ML BAG (PRE-DOCKED) IVPB ONE (14:15)
[2016-10-11 15:02] VITALS: BP 115/71; PULSE 98; TEMP 98.2
== END 2016-10-11 15:02 | disposition home or self-care (01) ==
LOC: JINFUSION 13:37
PROVIDERS: ATTEND Internal Medicine
DX: L03.113 Cellulitis of right upper limb (principal); R78.81 Bacteremia; C34.90 Malignant neoplasm of unspecified part of unspecified bronchus or lung; C79.31 Secondary malignant neoplasm of brain
CPT/HCPCS: 96365

== ENCOUNTER 2016-10-12 14:27 | Day surgery (SDC) | payer OTHER ==
[2016-10-12] MEDS ORDERED: cefTRIAXone 2 GM/100 ML BAG (PRE-DOCKED) IVPB ONE (14:45)
[2016-10-12 14:57] VITALS: BP 102/56; PULSE 82; TEMP 98.1
== END 2016-10-12 15:41 | disposition home or self-care (01) ==
LOC: JASU-ENDO 14:27 → JINFUSION 14:27 → JASU-ENDO 15:41
PROVIDERS: ATTEND Internal Medicine
DX: L03.113 Cellulitis of right upper limb (principal); R78.81 Bacteremia; C34.90 Malignant neoplasm of unspecified part of unspecified bronchus or lung; C79.31 Secondary malignant neoplasm of brain
CPT/HCPCS: 96365

== ENCOUNTER 2016-10-13 14:20 | Day surgery (SDC) | payer OTHER ==
[2016-10-13 14:48] VITALS: TEMP 99.1
[2016-10-13] MEDS ORDERED: cefTRIAXone 2 GM/100 ML BAG (PRE-DOCKED) IVPB ONE (15:00)
[2016-10-13 16:00] VITALS: BP 118/79; PULSE 80
== END 2016-10-13 15:55 | disposition home or self-care (01) ==
LOC: JINFUSION 14:20
PROVIDERS: ATTEND Internal Medicine
DX: L03.113 Cellulitis of right upper limb (principal); R78.81 Bacteremia; C34.90 Malignant neoplasm of unspecified part of unspecified bronchus or lung; C79.31 Secondary malignant neoplasm of brain
CPT/HCPCS: 96365

== ENCOUNTER 2016-10-14 09:07 | Day surgery (SDC) | payer OTHER ==
[2016-10-14] MEDS ORDERED: cefTRIAXone 2 GM/100 ML BAG (PRE-DOCKED) IVPB SCH (09:30)
[2016-10-14 09:33] VITALS: TEMP 99; BMI 29.0
[2016-10-14 10:30] VITALS: BP 99/62; PULSE 82
== END 2016-10-14 12:26 | disposition home or self-care (01) ==
LOC: J7W 09:07 → JINFUSION 09:07
PROVIDERS: ATTEND Internal Medicine
DX: L03.113 Cellulitis of right upper limb (principal); R78.81 Bacteremia; C34.90 Malignant neoplasm of unspecified part of unspecified bronchus or lung; C79.31 Secondary malignant neoplasm of brain
CPT/HCPCS: 96365; 96366

== ENCOUNTER 2016-10-15 10:35 | Day surgery (SDC) | payer OTHER ==
[2016-10-15] MEDS ORDERED: cefTRIAXone 2 GM/100 ML BAG (PRE-DOCKED) IVPB SCH (10:50)
[2016-10-15 11:22] VITALS: TEMP 98
[2016-10-15 12:00] VITALS: BP 94/69; PULSE 89
[2016-10-15] MEDS ORDERED: PORTA CATH FLUSH 10 ML IVPUSH ONE (12:00)
== END 2016-10-15 12:00 | disposition home or self-care (01) ==
LOC: JINFUSION 10:35 → J7W 10:35 → JINFUSION 12:00
PROVIDERS: ATTEND Internal Medicine
DX: L03.113 Cellulitis of right upper limb (principal); R78.81 Bacteremia; C34.90 Malignant neoplasm of unspecified part of unspecified bronchus or lung; C79.31 Secondary malignant neoplasm of brain
CPT/HCPCS: 96365

== ENCOUNTER 2016-10-16 15:41 | Day surgery (SDC) | payer OTHER ==
[2016-10-16 16:49] VITALS: TEMP 99
[2016-10-16 17:09] LABS: BASOPHIL 0.1 % (0-2.0); MCH 32.2 pg (25.7-33.7); MCHC 33.9 g/dl (32.0-35.9); MEAN CELL VOLUME 95.1 fl (80-96); MEAN PLT VOLUME 6.9 fl (7.5-11.1); NEUTROPHILS 92.3 % (42.8-82.8); PLATELET COUNT 246 K/MM3 (134-434); RDW 15.8 % (11.9-15.9); WHITE BLOOD COUNT 13.3 K/mm3 (4.0-10.0)
[2016-10-16 17:19] VITALS: BP 142/86; PULSE 83
[2016-10-16 17:22] LABS: ALBUMIN 3.7 g/dl (3.4-5.0); ANION GAP 11 (8-16); CO2 27 mmol/L (21-32); GLUCOSE,RANDOM 134 mg/dL (74-106)
[2016-10-16 17:26] LABS: ALK PHOS 80 U/L (45-117); BILIRUBIN,TOTAL 0.7 mg/dL (0.2-1.0); CREATININE 0.8 mg/dL (0.7-1.3); SGOT/AST 51 U/L (15-37); SGPT/ALT 147 U/L (12-78); TOT PROT 6.5 g/dl (6.4-8.2)
== END 2016-10-16 17:19 | disposition home or self-care (01) ==
LOC: JASU-ENDO 15:41
PROVIDERS: ATTEND Internal Medicine
DX: L03.113 Cellulitis of right upper limb (principal); R78.81 Bacteremia; C34.90 Malignant neoplasm of unspecified part of unspecified bronchus or lung; C79.31 Secondary malignant neoplasm of brain
CPT/HCPCS: 36415; 80053; 85025; 96365

== ENCOUNTER 2016-10-18 08:26 | Inpatient (IN) | payer OTHER ==
--- NOTE | 2016-10-18 08:35 | PDOC ---
History of Present Illness - General Chief Complaint: Seizure Stated Complaint: Syncope/Near Syncope History Source: Patient Exam Limitations: No Limitations - History of Present Illness Initial Comments: 10/18/16 08:35 This is a 36 yo M with PMH of asthma, HTN lung CA (mets to the brain R side), who presents to ED due to auro w/o SZ. He was recently d/cd 10/09 after being treated for seizures and hospital acquired soft tissue staph aureus infection wiht bacteremia. Hi finished his abx infusions and had picc line removed on sun. He has been taking his SZ meds as prescribed (Decadron 4mg bid, Keppra 1500mg po bid, Vimpat 100mg po bid). Last SZ was 2 w ago. For the past 3 days he has had a new, intermittent, throbbing occipital h/a. This morning he woke up with L arm and leg numbness that usually preceded SZ episodes and can last for days, however did not seize. He was with his mother at the time. He denies weakness, incontinence or loss of bowel fxn. He denies f/c, n/v chest pain, cough, sob, abd pain, dysuria, peripheral edema. Neurology: Dr Badillo 10/18/16 11:13 Past History - Past Medical History Allergies/Adverse Reactions: Allergies Allergy/AdvReac Type Severity Reaction Status Date / Time No Known Drug Allergies Allergy Verified 10/18/16 08:32 Home Medications: Ambulatory Orders Oxycodone HCl 10 mg PO Q6H PRN 02/21/16 Pantoprazole Sodium [Protonix -] 40 mg PO DAILY #30 tablet.ec 03/08/16 Folic Acid 800 mcg PO DAILY 07/10/16 Clonazepam [Klonopin -] 0.5 mg PO BID MDD 2 08/26/16 Levetiracetam [Keppra -] 1,500 mg PO BID 08/26/16 Clotrimazole [Lotrimin -] 1 applic TP BID #1 tube 10/08/16 Dexamethasone [Decadron -] 4 mg PO BID #60 tablet 10/08/16 Lacosamide [Vimpat -] 100 mg PO BID #120 tab MDD 200mg 10/08/16 Anemia: No Asthma: Yes ( A CHILD - RESOLVED) 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,RADIATION,BRAIN,ADRENAL GLAND) Cardiac Disorders: No CVA: No COPD: No CHF: No Dementia: No Diabetes: No GI Disorders: No Disorders: No HTN: Yes Hypercholesterolemia: No Liver Disease: No Seizures: Yes Thyroid Disease: No - Surgical History Abdominal Surgery: No Appendectomy: No Cardiac Surgery: No Cholecystectomy: No Lung Surgery: Yes (TUMOR REMOVED GENNY LUNG) Neurologic Surgery: No Orthopedic Surgery: No - Immunization History Immunization Up to Date: Yes - Psycho/Social/Smoking Cessation Hx Anxiety: No Suicidal Ideation: No Smoking History: Never smoked Have you smoked in the past 12 months: No Number of Cigarettes Smoked Daily: 4 If you are a former smoker, when did you quit?: 7 MO AGO 'Breaking Loose' booklet given: 08/19/16 Hx Alcohol Use: No Drug/Substance Use Hx: No Substance Use Type: Marijuana Hx Substance Use Treatment: No Review of Systems - Review of Systems Able to Perform ROS?: Yes Is the patient limited Polish proficient: No Constitutional: Yes: Weakness. No: Chills, Fever HEENTM: No: Double Vision, Nose Congestion, Tinnitus, Throat Pain, Difficulty Swallowing Respiratory: No: Cough, Orthopnea, Shortness of Breath, Hemoptysis Cardiac (ROS): No: Chest Pain, Edema, Irregular Heart Rate, Lightheadedness, Palpitations, Syncope ABD/GI: No: Abdominal Distended, Constipated, Diarrhea, Nausea, Vomiting, Abdominal cramping : No: Dysuria, Flank Pain Musculoskeletal: No: Back Pain, Joint Pain, Neck Pain Integumentary: No: Bruising, Dryness Neurological: Yes: Headache, Numbness, Seizure Endocrine: No: Change in Weight Hematologic/Lymphatic: No: Anemia, Blood Clots, Easy Bleeding, Easy Bruising All Other Systems: Reviewed and Negative *Physical Exam - Vital Signs Last Vital Signs Temp Pulse Resp BP Pulse Ox 98.2 F 61 18 114/89 97 10/18/16 08:30 10/18/16 08:30 10/18/16 08:30 10/18/16 08:30 10/18/16 08:30 - Physical Exam Comments: 10/18/16 11:06 General: Lethargic, aao x 3, NAD HEENT: PERRLA EOMI, sclera anicteric, conjunctiva clear Neuro: CN II-XII intact, facial sensation intact, Strength 5/5 in all extremities. Sensation slightly decreased in LUE and LLE. CV: RRR S1S2 Pulm: cta b/l GI: soft, nontender, nondistended, normoactive bowel sounds. Musculoskeletal: no peripheral edema. ED Treatment Course - LABORATORY CBC & Chemistry Diagram: 10/18/16 09:03 10/18/16 09:03 Medical Decision Making - Medical Decision Making 10/18/16 10:19 Patient presents with an aura that precedes SZ and new occipital h/a. In ED patient has a focal seizure with convulsions of L arm , given IV ativan 2 mg. CBC w diff, cmp, mag: CBC leukocytosis increased to 16.7 form 13 however left shift decreased. Patient is on Decadron Laboratory Tests 10/16/16 10/18/16 16:20 09:03 Total Bilirubin 0.7 D 1.1 H D AST 51 H D 44 H ALT 147 H D 131 H bilirubin and LFTs slightly increased CT head: R parietal lobe lesion with vasogenic edema. Compared to CT September 30, there is increased dilation if 3rd ventricle and lateral ventricles with temporal horns, indicating early hydrocephalus. Correlate clinically with meningitis. -discussed with radiology. No concern for herniation 10/18/16 10:[address] Conde, agrees with plan, mentioned possibility of leptomeningial disease, further plan per Dr Badillo Patient should be admtted for further evaluation 10/18/16 11:[address] Badillo, who recommended increasing Vimpat to 200 BID. He advised against LP, stating that meningitis is highly unlikely. *DC/Admit/Observation/Transfer Diagnosis at time of Disposition: Seizure, Brain metastases, Hydrocephalus - Discharge Dispostion Admit: Yes - Referrals
[2016-10-18] MEDS ORDERED: DEXAMETHASONE SOD PHOSPHATE 4 MG/1 ML VIAL IVPUSH ONE (09:01)
[2016-10-18] MEDS ORDERED: levETIRAcetam 500 MG/5 ML INJECTION VIAL IVPB ONE ×2 (09:01→09:46)
[2016-10-18] MEDS ORDERED: Lacosamide 200 MG/20 ML VIAL IVPB ONE ×3 (09:12→11:19)
[2016-10-18 09:32] LABS: BASOPHIL 0.2 % (0-2.0); MCH 32.4 pg (25.7-33.7); MCHC 34.4 g/dl (32.0-35.9); MEAN CELL VOLUME 94.1 fl (80-96); MEAN PLT VOLUME 6.7 fl (7.5-11.1); NEUTROPHILS 88.5 % (42.8-82.8); PLATELET COUNT 208 K/MM3 (134-434); RDW 15.4 % (11.9-15.9); WHITE BLOOD COUNT 16.7 K/mm3 (4.0-10.0)
--- NOTE | 2016-10-18 09:33 | PDOC ---
Attending Attestation - Resident Resident Name: Sierra Garcia - ED Attending Attestation I have performed the following: I have examined & evaluated the patient, The case was reviewed & discussed with the resident, I agree w/resident's findings & plan - HPI HPI: 10/18/16 09:33 36y M hx of asthma, htn, lung ca w/ mets, seizures, presents with seizure aura prior to presentation. pt endorses mild headache which he has had previously. pts strength intact and symmetric. exam otherwise as documented by resident 10/18/16 11:[address] head noted for the edema that was on his prior ct. there is suggestion of early hydrocelphalus. case was d/w dr. brock - would recommend increasing his vimpat, but would not tap him at this point as there is no clnical suggestion of meningitis labs noted for mild luekoctyosis, likely due to steroid use pt was noted to have a brief <1min episode of focal seizure with clonic movements of his LUE. will admit the pt for further managment and evaluation of symptoms and possible early hydrocephalus 10/19/16 09:14 - Physicial Exam PE: 10/19/16 09:14 see above - Medical Decision Making 10/19/16 09:15 see above Heart Score/ECG Review - ECG Impressions Comment:: 10/18/16 12:31 Twelve-lead EKG was performed and reviewed by me. There is normal sinus rhythm with a rate of 107 The axis is normal. The intervals are normal. There is normal R wave progression There are no ST or T wave abnormalities. Impression:sinus tachycardia
[2016-10-18] MEDS ORDERED: DEXAMETHASONE SOD PHOSPHATE 4 MG/1 ML VIAL ONE (09:46)
[2016-10-18 09:57] LABS: ALBUMIN 3.8 g/dl (3.4-5.0); ALK PHOS 85 U/L (45-117); ANION GAP 12 (8-16); BILIRUBIN,TOTAL 1.1 mg/dL (0.2-1.0); CO2 25 mmol/L (21-32); CREATININE 0.5 mg/dL (0.7-1.3); GLUCOSE,RANDOM 96 mg/dL (74-106); SGPT/ALT 131 U/L (12-78)
[2016-10-18 09:59] LABS: SGOT/AST 44 U/L (15-37)
[2016-10-18] MEDS ORDERED: LORAZEPAM CARPU-JECT 2 MG/ML DISP.SYRIN IVPUSH ONE (10:08)
[2016-10-18] MEDS ORDERED: LORazepam 2 MG/ML SDV VIAL ONE (10:12)
--- NOTE | 2016-10-18 12:07 | CON.NEURO ---
Consult - History of Present Illness History of Present Illness: 36 yo M with PMH of asthma, HTN lung CA (mets to the brain R side), who presents to ED due to auro w/o SZ. He was recently d/cd 10/09 after being treated for seizures and hospital acquired soft tissue staph aureus infection wiht bacteremia. Hi finished his abx infusions and had picc line removed on sun. He has been taking his SZ meds as prescribed (Keppra 1500mg po bid, Vimpat 100mg po bid). Last SZ was 2 w ago. For the past 3 days he has had a new, intermittent, throbbing occipital h/a. This morning he woke up with L arm and leg numbness that usually preceded SZ episodes and can last for days, however did not seize. He was with his mother at the time. He denies weakness, incontinence or loss of bowel fxn. He denies f/c, n/v chest pain, cough, sob, abd pain, dysuria, peripheral edema. +NV and sleepy x 1-2 weeks, has been on ABX since [facility] hospital stay no seziures in interim, until yesterday, left sided shaking and LOC, currently sleepy , mother of his children bedside CT brain September 30, 2016, MRI of the brain August 17, 2016. Findings. Serial axial images of the brain were obtained from foramen magnum to the cranial vertex without intravenous contrast. The study was supplemented with computer- generated coronal and sagittal reconstruction images. Preparing Box Tender image was reviewed. Right parietal lobe vasogenic edema attributed to hyperdense lesion in the right parietal lobe. There is no evidence of acute subarachnoid hemorrhage, acute subdural or epidural hematoma. No mass effect, midline shift, herniation is present. Normal kapadia matter white matter differentiation. Perimesencephalic cisterns, prepontine cisterns are not effaced. Limited evaluation of posterior fossa due to the beam hardening artifacts. Increased dilatation of the third, lateral ventricles including temporal horns of lateral ventricles in comparison to September 30, 2016. The visualized paranasal sinuses and mastoid air cells are clear. Symmetrical ocular globes. Unremarkable retro-orbital soft tissues. Impression. Right parietal lobe hyperdense lesion with vasogenic edema. In comparison to CT of the brain September 30, 2016, increased dilatation of the third ventricle, lateral ventricles including the temporal horns of lateral ventricles indicating early hydrocephalus. Clinically correlate for meningitis. The findings were discussed with medical staff in ER. 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) Cardio/Vascular: Yes: Deep Vein Thrombosis, HTN, Other Pulmonary: Yes: Cancer, Other (adenoca of lung undergoing chemotherapy) Gastrointestinal: Yes: Other (adrenal gland metastasis ) Endocrine: Yes: Other (rt adrenal mass) - Alcohol/Substance Use Hx Alcohol Use: No History of Substance Use: reports: Marijuana Date of Last Use: 03/06/16 (2-3 joints/day) - Smoking History Smoking history: Never smoked Have you smoked in the past 12 months: No Aproximately how many cigarettes per day: 4 If you are a former smoker, when did you quit?: 7 MO AGO - Social History Usual Living Arrangement: Alone ADL: Independent Occupation: works at [employer] History of Recent Travel: No Home Medications - Allergies Allergies/Adverse Reactions: Allergies Allergy/AdvReac Type Severity Reaction Status Date / Time No Known Drug Allergies Allergy Verified 10/18/16 08:32 - Home Medications Home Medications: Ambulatory Orders Oxycodone HCl 10 mg PO Q6H PRN 02/21/16 Pantoprazole Sodium [Protonix -] 40 mg PO DAILY #30 tablet.ec 03/08/16 Folic Acid 800 mcg PO DAILY 07/10/16 Clonazepam [Klonopin -] 0.5 mg PO BID MDD 2 08/26/16 Levetiracetam [Keppra -] 1,500 mg PO BID 08/26/16 Clotrimazole [Lotrimin -] 1 applic TP BID #1 tube 10/08/16 Dexamethasone [Decadron -] 4 mg PO BID #60 tablet 10/08/16 Lacosamide [Vimpat -] 100 mg PO BID #120 tab MDD 200mg 10/08/16 Atovaquone [Mepron Oral Solution -] 750 mg PO DAILY 10/18/16 Family Disease History - Family Disease History Family Disease History: CA: Mother (HTN, ovarian cancer), Other: Father (, had HIV) Physical Exam-Neuro Vital Signs: Vital Signs Temperature 98.2 F 10/18/16 08:30 Pulse Rate 79 10/18/16 11:05 Respiratory Rate 18 10/18/16 11:05 Blood Pressure 155/90 10/18/16 11:05 O2 Sat by Pulse Oximetry (%) 99 10/18/16 11:05 Constitutional: Yes: Other (sleepy but arousable, (post ictal ), EOMI, mild left sided weakness, though limited effort at this time; ) NIH Stroke Scale - Total Score NIH Stroke Scale Score: 0 Imaging - Results Cat Scan: Report Reviewed, Image Reviewed (prior R sided mass with edema, no signs of hydrocephalus to my eye) Problem List - Problems (1) Brain metastases Code(s): C79.31 - SECONDARY MALIGNANT NEOPLASM OF BRAIN (2) Seizure Code(s): R56.9 - UNSPECIFIED CONVULSIONS Assessment/Plan 36 yo M with PMH of asthma, HTN lung CA (mets to the brain R side), who presents to ED due to auro w/o SZ. He was recently d/cd 10/09 after being treated for seizures and hospital acquired soft tissue staph aureus infection wiht bacteremia. Hi finished his abx infusions and had picc line removed on sun. He has been taking his SZ meds as prescribed (Keppra 1500mg po bid, Vimpat 100mg po bid). missed RT bc wasnt feeling well +NV and sleepy x 1-2 weeks, has been on ABX since last hospital stay + Breakthrough seizure -- no signs of hydrocephalus to my eye ; known cause for seizures, so meningitis not clinically suspected inc VIMPAT 200BID and continue KEPPRA 1500BID NV may be from ABX --doubt bc of increased intracranial pressure-- will continue to monitor if remains sleepy will CONSIDER higher dose of decadron , maintain dose for now Dr Badillo [phone]
--- NOTE | 2016-10-18 12:55 | HP ---
CHIEF COMPLAINT: PCP: HISTORY OF PRESENT ILLNESS: This is a 36 yo M with PMH of asthma, HTN lung CA (mets to the brain R side), who presents to ED due to auro w/o SZ. He was recently d/cd 10/09 after being treated for seizures and hospital acquired soft tissue staph aureus infection wiht bacteremia. Hi finished his abx infusions and had picc line removed on sun. He has been taking his SZ meds as prescribed (Decadron 4mg bid, Keppra 1500mg po bid, Vimpat 100mg po bid). Last SZ was 2 w ago. For the past 3 days he has had a new, intermittent, throbbing occipital h/a. This morning he woke up with L arm and leg numbness that usually preceded SZ episodes and can last for days, however did not seize. He was with his mother at the time. He denies weakness, incontinence or loss of bowel fxn. He denies f/c, n/v chest pain, cough, sob, abd pain, dysuria, peripheral edema. Neurology: Dr Badillo ER course was notable for: (1) head CT done with findings suggested of hydrocephalus (2) neurology consult with pt primary (3) Social History: Smoking:denies Alcohol: denies Drugs: leisa works for [employer] Family History: Allergies No Known Drug Allergies Allergy (Verified 10/18/16 08:32) HOME MEDICATIONS: Home Medications Medication Instructions Recorded Oxycodone HCl 10 mg PO Q6H PRN 02/21/16 Pantoprazole Sodium [Protonix -] 40 mg PO DAILY #30 tablet.ec 03/08/16 Folic Acid 800 mcg PO DAILY 07/10/16 Clonazepam [Klonopin -] 0.5 mg PO BID MDD 2 08/26/16 Levetiracetam [Keppra -] 1,500 mg PO BID 08/26/16 Clotrimazole [Lotrimin -] 1 applic TP BID #1 tube 10/08/16 Dexamethasone [Decadron -] 4 mg PO BID #60 tablet 10/08/16 Lacosamide [Vimpat -] 100 mg PO BID #120 tab MDD 200mg 10/08/16 REVIEW OF SYSTEMS Pt sleeping comfortable with girlfriend at his side. PHYSICAL EXAMINATION Vital Signs - 24 hr 10/18/16 11:05 Pulse Rate [ 79 Apical] Respiratory 18 Rate Blood Pressure 155/90 [Right Arm] O2 Sat by Pulse 99 Oximetry (%) General: Pt with a recent seizure and further decline of brain tumor Respirtory: CTA Cardiac: s1s2 Abd soft nontender : voids on own Skin intact without leisons or wounds Neuro: currently intact with some postictal tiredness lingering ASSESSMENT/PLAN: Problem List - Problem (1) Brain metastases Code(s): C79.31 - SECONDARY MALIGNANT NEOPLASM OF BRAIN (2) Hydrocephalus Assessment/Plan: -continue meds -consult with neuro Code(s): G91.9 - HYDROCEPHALUS, UNSPECIFIED (3) Seizure Assessment/Plan: -continue antiseizure meds -consult pending with neurology Code(s): R56.9 - UNSPECIFIED CONVULSIONS (4) Metastatic lung carcinoma Code(s): C78.00 - SECONDARY MALIGNANT NEOPLASM OF UNSPECIFIED LUNG Qualifiers : Laterality: unspecified laterality Qualified Code(s): C78.00 - Secondary malignant neoplasm of unspecified lung (5) Seizure disorder, complex partial Code(s): G40.209 - LOCAL-REL SYMPTC EPI W CMPLX PRT SEIZ,NOT NTRCT,W/O STAT EPI Qualifiers: Epilepsy type: partial symptomatic Visit type - Emergency Visit Emergency Visit: Yes ED Registration Date: 10/18/16 Care time: The patient presented to the Emergency Department on the above date and was hospitalized for further evaluation of their emergent condition. - New Patient This patient is new to me today: Yes Date on this admission: 10/18/16 - Critical Care Critical Care patient: No
[2016-10-18 14:04] VITALS: BMI 25.8
[2016-10-18] MEDS ORDERED: clonazePAM 0.5 MG TABLET PO PRN (19:44)
--- NOTE | 2016-10-18 19:48 | CONSULT ---
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 foot weakness, trouble ambulating . He was recently d/cd 10/09 after being treated for seizures and hospital acquired soft tissue staph aureus infection wiht bacteremia. He has been taking his SZ meds as prescribed (Keppra 1500mg po bid, Vimpat 100mg po bid). For the past 3 days he has had a new, intermittent, throbbing occipital h/a. This morning he woke up with L arm and leg numbness that usually preceded SZ episodes and can last for days, however did not seize. He was with his mother at the time. He denies weakness, incontinence or loss of bowel fxn. He denies f/c, n/v chest pain, cough, sob, abd pain, dysuria, peripheral edema. He is alert and oriented but sleepy +NV and sleepy x 1-2 weeks, has been on ABX since [facility] hospital stay no seziures in interim, until yesterday, left sided shaking and LOC, CT brain September 30, 2016, MRI of the brain August 17, 2016. Findings. Serial axial images of the brain were obtained from foramen magnum to the cranial vertex without intravenous contrast. The study was supplemented with computer- generated coronal and sagittal reconstruction images. Senior Investment Analyst image was reviewed. Right parietal lobe vasogenic edema attributed to hyperdense lesion in the right parietal lobe. There is no evidence of acute subarachnoid hemorrhage, acute subdural or epidural hematoma. No mass effect, midline shift, herniation is present. Normal kapadia matter white matter differentiation. Perimesencephalic cisterns, prepontine cisterns are not effaced. Limited evaluation of posterior fossa due to the beam hardening artifacts. Increased dilatation of the third, lateral ventricles including temporal horns of lateral ventricles in comparison to September 30, 2016. The visualized paranasal sinuses and mastoid air cells are clear. Symmetrical ocular globes. Unremarkable retro-orbital soft tissues. Impression. Right parietal lobe hyperdense lesion with vasogenic edema. In comparison to CT of the brain September 30, 2016, increased dilatation of the third ventricle, lateral ventricles including the temporal horns of lateral ventricles indicating early hydrocephalus. Clinically correlate for meningitis. The findings were discussed with medical staff in ER. - Past Medical History NURSE INTERN: Yes: Seizure, Other (brain mets, s/p SRS x 2 ; progression of NURSE INTERN met) Cardio/Vascular: Yes: Deep Vein Thrombosis, HTN, Other Pulmonary: Yes: Cancer, Other (adenoca of lung undergoing chemotherapy) Gastrointestinal: Yes: Other (adrenal gland metastasis ) Endocrine: Yes: Other (rt adrenal mass) - Smoking History Smoking history: Never smoked - Allergies Allergies/Adverse Reactions: Allergies Allergy/AdvReac Type Severity Reaction Status Date / Time No Known Drug Allergies Allergy Verified 10/18/16 08:32 - Home Medications Home Medications: Ambulatory Orders Oxycodone HCl 10 mg PO Q6H PRN 02/21/16 Pantoprazole Sodium [Protonix -] 40 mg PO DAILY #30 tablet.ec 03/08/16 Folic Acid 800 mcg PO DAILY 07/10/16 Clonazepam [Klonopin -] 0.5 mg PO BID MDD 2 08/26/16 Levetiracetam [Keppra -] 1,500 mg PO BID 08/26/16 Clotrimazole [Lotrimin -] 1 applic TP BID #1 tube 10/08/16 Dexamethasone [Decadron -] 4 mg PO BID #60 tablet 10/08/16 Lacosamide [Vimpat -] 100 mg PO BID #120 tab MDD 200mg 10/08/16 Atovaquone [Mepron Oral Solution -] 750 mg PO DAILY 10/18/16 Family Disease History - Family Disease History Family Disease History: CA: Mother (HTN, ovarian cancer), Other: Father (, had HIV) Physical Exam-Neuro Vital Signs: Last Vital Signs Temp Pulse Resp BP Pulse Ox 97.9 F 88 18 92/67 99 10/18/16 17:30 10/18/16 13:31 10/18/16 13:31 10/18/16 13:31 10/18/16 11:05 Cor: RSR, No murmurs, No gallops Lungs: Clear to P&A Abd: Soft, Normal bowel sounds, No organomegaly Ext:No significant edema RT.foor drop Abnormal Lab Results 10/18/16 10/18/16 09:03 09:03 WBC 16.7 H MPV 6.7 L Neutrophils % 88.5 H Lymphocytes % 4.9 L Sodium 130 L Chloride 93 L Creatinine 0.5 L D Total Bilirubin 1.1 H D AST 44 H ALT 131 H - Results Cat Scan: Report Reviewed, Image Reviewed (prior R sided mass with edema, no signs of hydrocephalus to my eye) Problem List - Problems (1) Brain metastases Code(s): C79.31 - SECONDARY MALIGNANT NEOPLASM OF BRAIN (2) Seizure Code(s): R56.9 - UNSPECIFIED CONVULSIONS Assessment/Plan 36 yo M with PMH of asthma, HTN lung CA (mets to the brain R side), who presents to ED due to Partial seizure Lt. UE. He was recently d/cd 10/09 after being treated for seizures and hospital acquired soft tissue staph aureus infection wiht bacteremia. Hi finished his abx infusions and had picc line removed on sun. He has been taking his SZ meds as prescribed (Keppra 1500mg po bid, Vimpat 100mg po bid). +NV and sleepy x 1-2 weeks, has has Given rt, foot drop, lethargy, restlessness, suspect leptomeningeal meatstases. Will check MRI brain with and without contrast Will also check Lumbar puncture with csf cytology will also check csf for EBV PCR, HSV PCR, cell count,protein, glucose Poor prognosis for leptomeningeal mets , andrew given several lines of treatment, SRS, WBRT
[2016-10-18] MEDS: ATOVAQUONE 750 MG/5 ML (UNIT-DOSE PACKAGING) PO SCH (20:50)
[2016-10-18] MEDS: DOCUSATE SODIUM 100 MG CAPSULE (FP) PO SCH (21:15)
[2016-10-18] MEDS: levETIRAcetam 500 MG TABLET (FP) PO SCH (21:15)
[2016-10-18] MEDS: DEXAMETHASONE 4 MG TABLET (FP) PO SCH (21:15)
[2016-10-18] MEDS: LACOSAMIDE 50 MG TABLET PO SCH (21:16)
[2016-10-19] MEDS: oxyCODONE HCL 5 MG TABLET PO PRN ×2 (06:44→21:32)
[2016-10-19] MEDS ORDERED: ATOVAQUONE 750 MG/5 ML (UNIT-DOSE PACKAGING) PO SCH (08:00)
[2016-10-19 08:22] LABS: MCH 33.1 pg (25.7-33.7); MEAN CELL VOLUME 91.9 fl (80-96); MEAN PLT VOLUME 6.8 fl (7.5-11.1); PLATELET COUNT 169 K/MM3 (134-434); RDW 15.6 % (11.9-15.9); WHITE BLOOD COUNT 16.3 K/mm3 (4.0-10.0)
[2016-10-19 08:31] LABS: INR 1.11 (0.82-1.09); PROTHROMBIN TIME (PATIENT) 12.2 SEC (9.98-11.88)
[2016-10-19 08:34] LABS: ACTIVATED PTT 24.5 SECONDS (26.9-34.4)
[2016-10-19 09:07] LABS: ALK PHOS 88 U/L (45-117); BILIRUBIN,TOTAL 1.5 mg/dL (0.2-1.0); CO2 22 mmol/L (21-32); CREATININE 0.4 mg/dL (0.7-1.3); GLUCOSE,RANDOM 111 mg/dL (74-106); SGOT/AST 30 U/L (15-37); SGPT/ALT 117 U/L (12-78); TOT PROT 7.1 g/dl (6.4-8.2)
[2016-10-19 09:22] LABS: ANION GAP 17 (8-16)
[2016-10-19] MEDS ORDERED: PANTOPRAZOLE 40 MG TABLET (FP) PO SCH (10:00)
--- NOTE | 2016-10-19 11:11 | EKG ---
Test Reason : Blood Pressure : / mmHG Vent. Rate : 107 BPM Atrial Rate : 107 BPM P-R Int : 130 ms QRS Dur : 086 ms QT Int : 330 ms P-R-T Axes : 069 080 042 degrees QTc Int : 440 ms SINUS TACHYCARDIA POSSIBLE LEFT ATRIAL ENLARGEMENT BORDERLINE ECG WHEN COMPARED WITH ECG OF 30-SEP-2016 13:47, NONSPECIFIC T WAVE ABNORMALITY HAS REPLACED INVERTED T WAVES IN INFERIOR LEADS Confirmed by LENA BENJAMIN, MARISOL ([id number]) on 10/19/2016 11:11:42 AM Referred By: Confirmed By:MARISOL PAREDES MD
[2016-10-19] MEDS ORDERED: PT OWN MED DRAWER 7, Y5N ONE (11:54)
--- NOTE | 2016-10-19 11:59 | PN ---
Progress Note (short form) - Note Progress Note: Subjective: The patient was seen at the bedside, his mom is there as well. He is asleep and opens his eyes to verbal stimuli but is refusing to speak to me. His mother reports he is unable to ambulate anymore Work-up for possible leptomeningeal disease F/u neuro consult for lumbar puncture Current Medications Generic Name Dose Route Start Last Admin Trade Name Freq PRN Reason Stop Dose Admin Atovaquone 750 mg 10/18/16 20:00 10/18/16 20:50 Mepron - PO 750 mg DAILY@0800 RISHI Administration Clonazepam 0.5 mg 10/18/16 19:44 10/19/16 06:44 Klonopin - PO 0.5 mg BID PRN Administration ANXIETY Dexamethasone 4 mg 10/18/16 22:00 10/18/16 21:15 Decadron - PO 4 mg BID RISHI Administration Docusate Sodium 100 mg 10/18/16 22:00 10/18/16 21:15 Colace - PO 100 mg BID RISHI Administration Folic Acid 1 mg 10/19/16 10:00 Folic Acid - PO DAILY RISHI Lacosamide 200 mg 10/18/16 22:00 10/18/16 21:16 Vimpat - PO 200 mg BID RISHI Administration Levetiracetam 1,500 mg 10/18/16 22:00 10/18/16 21:15 Keppra - PO 1,500 mg BID RISHI Administration Oxycodone HCl 5 mg 10/18/16 15:27 10/19/16 06:44 Roxicodone - PO 5 mg Q6H PRN Administration PAIN Pantoprazole Sodium 40 mg 10/19/16 10:00 Protonix - PO DAILY RISHI Objective: Vital Signs Period Temp Pulse Resp BP Sys/Lindo Pulse Ox Last 24 Hr 97.8 F-99.2 F 71-88 18-20 92-116/63-76 Physical Exam: Exam refused CBCD WBC 16.3 K/mm3 (4.0-10.0) H 10/19/16 06:35 RBC 4.11 M/mm3 (4.00-5.60) 10/19/16 06:35 Hgb 13.6 GM/dL (11.7-16.9) 10/19/16 06:35 Hct 37.8 % (35.4-49) 10/19/16 06:35 MCV 91.9 fl (80-96) 10/19/16 06:35 MCHC 36.0 g/dl (32.0-35.9) H 10/19/16 06:35 RDW 15.6 % (11.9-15.9) 10/19/16 06:35 Plt Count 169 K/MM3 (134-434) 10/19/16 06:35 MPV 6.8 fl (7.5-11.1) L 10/19/16 06:35 CMP Sodium 125 mmol/L (136-145) L 10/19/16 06:35 Potassium 3.7 mmol/L (3.5-5.1) 10/19/16 06:35 Chloride 86 mmol/L (98-107) L 10/19/16 06:35 Carbon Dioxide 22 mmol/L (21-32) 10/19/16 06:35 Anion Gap 17 (8-16) H 10/19/16 06:35 BUN 11 mg/dL (7-18) 10/19/16 06:35 Creatinine 0.4 mg/dL (0.7-1.3) L 10/19/16 06:35 Creat Clearance w eGFR > 60 (>60) 10/19/16 06:35 Random Glucose 111 mg/dL (74-106) H 10/19/16 06:35 Calcium 9.0 mg/dL (8.5-10.1) 10/19/16 06:35 Total Bilirubin 1.5 mg/dL (0.2-1.0) H D 10/19/16 06:35 AST 30 U/L (15-37) D 10/19/16 06:35 ALT 117 U/L (12-78) H 10/19/16 06:35 Alkaline Phosphatase 88 U/L (45-117) 10/19/16 06:35 Total Protein 7.1 g/dl (6.4-8.2) 10/19/16 06:35 Albumin 4.0 g/dl (3.4-5.0) 10/19/16 06:35 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, and frequent seizures who presented to the ED with an aura without seizure activity Plan: 1) Neuro: Aura without seizure activity - Head CT with hydrocephalus (patient afebrile, no neck stiffness). 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 - New Patient This patient is new to me today: Yes Date on this admission: 10/19/16 - Critical Care Critical Care patient: No
[2016-10-19] MEDS: DEXAMETHASONE 4 MG TABLET (FP) PO SCH (12:01)
[2016-10-19] MEDS: levETIRAcetam 500 MG TABLET (FP) PO SCH ×2 (12:02→21:31)
[2016-10-19] MEDS: LORazepam 0.5 MG TABLET PO ONE ×3 (12:02→15:38)
[2016-10-19] MEDS: FOLIC ACID 1 MG TABLET (FP) PO SCH (12:03)
[2016-10-19] MEDS: DOCUSATE SODIUM 100 MG CAPSULE (FP) PO SCH (12:03)
[2016-10-19] MEDS ORDERED: DOCUSATE SODIUM 100 MG CAPSULE (FP) PO PRN (13:24)
[2016-10-19] MEDS: ATOVAQUONE 750 MG/5 ML (UNIT-DOSE PACKAGING) PO SCH (14:59)
[2016-10-19] MEDS ORDERED: LORAZEPAM CARPU-JECT 2 MG/ML DISP.SYRIN IVPUSH PRN (15:00)
[2016-10-19] MEDS: LACOSAMIDE 50 MG TABLET PO SCH ×2 (15:01→21:32)
[2016-10-19] MEDS ORDERED: LORAZEPAM CARPU-JECT 2 MG/ML DISP.SYRIN IVPUSH ONE ×2 (16:05)
--- NOTE | 2016-10-19 16:58 | PN ---
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 Willie undergone gamma knife x2 in the past 6 + months. c/o increasing lethargy, partial seizure, weakness, trouble ambulating . He was recently d/cd 10/09 after being treated for seizures and soft tissue staph aureus infection/bacteremia. He has been taking his Sz meds as prescribed. For the past 3 days he has had a new, intermittent, throbbing occipital h/a and some L sided numbness. Had undergone gamma knife x2 by report. PE: AF, VSS HEENT- NC/AT; Neck- supple; CV-RRR, Lungs: decreased base BS B; Abd- benign; Ext- no sign of DVT NEURO- Slightly drowsy from MRI sedation; following simple commands CN- intact; Motor- 4+/5 without drift; Sensation- intact LT; DTR- 2+; Gait- not tested Head CT- R temporal > L parietal vasogenic edema Brain MRI ()- R ant temporal 1.7 cm; R parietal 8 mm, L posterior temporal 5 mm rim enhancing lesions with edema c/w mets WBC 16.3; Na 125 CT head- increased R parietal ICH with edema c/w prior 6-10 scan; minimally more prominent ventricular system; no transependymal edema Brain MRI (prelim)- moderate R parietal ICH and rim enhancement; significant motion artifact on contrast imaging; mild ventriculomegaly Multiple brain mets s/p chemo and radiation R/o neoplastic meningeal dz vs bacterial meningitis Pt is not a neurosurgical candidate and no neurosurgical intervention is indicated nor recommended Brain metastasis best addressed by his treating neurosurgeon at [facility], who performed two procedures for him reportedly Medical tx per medical team
--- NOTE | 2016-10-19 17:24 | PN ---
Progress Note (short form) - Note Progress Note: 36 yo M with PMH of asthma, HTN lung CA (mets to the brain R side), who presents to ED due to auro w/o SZ. He was recently d/cd 10/09 after being treated for seizures and hospital acquired soft tissue staph aureus infection wiht bacteremia. Hi finished his abx infusions and had picc line removed on sun. He has been taking his SZ meds as prescribed (Keppra 1500mg po bid, Vimpat 100mg po bid). Last SZ was 2 w ago. For the past 3 days he has had a new, intermittent, throbbing occipital h/a. This morning he woke up with L arm and leg numbness that usually preceded SZ episodes and can last for days, however did not seize. He was with his mother at the time. He denies weakness, incontinence or loss of bowel fxn. He denies f/c, n/v chest pain, cough, sob, abd pain, dysuria, peripheral edema. +NV and sleepy x 1-2 weeks, has been on ABX since [facility] hospital stay no seziures in interim, until yesterday, left sided shaking and LOC, FU: was sleepy again this morning, team noted right sided weakness (righ foot dipak) though he was too lethargic for formal muscle testing this AM going for MRI now CT brain September 30, 2016, MRI of the brain August 17, 2016. Findings. Serial axial images of the brain were obtained from foramen magnum to the cranial vertex without intravenous contrast. The study was supplemented with computer- generated coronal and sagittal reconstruction images. Ferry Captain image was reviewed. Right parietal lobe vasogenic edema attributed to hyperdense lesion in the right parietal lobe. There is no evidence of acute subarachnoid hemorrhage, acute subdural or epidural hematoma. No mass effect, midline shift, herniation is present. Normal kapadia matter white matter differentiation. Perimesencephalic cisterns, prepontine cisterns are not effaced. Limited evaluation of posterior fossa due to the beam hardening artifacts. Increased dilatation of the third, lateral ventricles including temporal horns of lateral ventricles in comparison to September 30, 2016. The visualized paranasal sinuses and mastoid air cells are clear. Symmetrical ocular globes. Unremarkable retro-orbital soft tissues. Impression. Right parietal lobe hyperdense lesion with vasogenic edema. In comparison to CT of the brain September 30, 2016, increased dilatation of the third ventricle, lateral ventricles including the temporal horns of lateral ventricles indicating early hydrocephalus. Clinically correlate for meningitis. The findings were discussed with medical staff in ER. 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 DEBURRER: Yes: Seizure, Other (brain mets, s/p SRS x 2 ; progression of STRIP DEBURRER met) Cardio/Vascular: Yes: Deep Vein Thrombosis, HTN, Other Pulmonary: Yes: Cancer, Other (adenoca of lung undergoing chemotherapy) Gastrointestinal: Yes: Other (adrenal gland metastasis ) Endocrine: Yes: Other (rt adrenal mass) - Alcohol/Substance Use Hx Alcohol Use: No History of Substance Use: reports: Marijuana Date of Last Use: 03/06/16 (2-3 joints/day) - Smoking History Smoking history: Never smoked Have you smoked in the past 12 months: No Aproximately how many cigarettes per day: 4 If you are a former smoker, when did you quit?: 7 MO AGO - Social History Usual Living Arrangement: Alone ADL: Independent Occupation: works at [id number] History of Recent Travel: No Home Medications - Allergies Allergies/Adverse Reactions: Allergies Allergy/AdvReac Type Severity Reaction Status Date / Time No Known Drug Allergies Allergy Verified 10/18/16 08:32 - Home Medications Home Medications: Ambulatory Orders Oxycodone HCl 10 mg PO Q6H PRN 02/21/16 Pantoprazole Sodium [Protonix -] 40 mg PO DAILY #30 tablet.ec 03/08/16 Folic Acid 800 mcg PO DAILY 07/10/16 Clonazepam [Klonopin -] 0.5 mg PO BID MDD 2 08/26/16 Levetiracetam [Keppra -] 1,500 mg PO BID 08/26/16 Clotrimazole [Lotrimin -] 1 applic TP BID #1 tube 10/08/16 Dexamethasone [Decadron -] 4 mg PO BID #60 tablet 10/08/16 Lacosamide [Vimpat -] 100 mg PO BID #120 tab MDD 200mg 10/08/16 Atovaquone [Mepron Oral Solution -] 750 mg PO DAILY 10/18/16 Family Disease History - Family Disease History Family Disease History: CA: Mother (HTN, ovarian cancer), Other: Father (, had HIV) Physical Exam-Neuro Vital Signs: Vital Signs Temperature 98.2 F 10/19/16 14:46 Pulse Rate 76 10/19/16 14:46 Respiratory Rate 22 10/19/16 14:46 Blood Pressure 130/76 10/19/16 14:46 O2 Sat by Pulse Oximetry (%) 99 10/19/16 14:13 Constitutional: Yes: Other (sleepy but arousable, (post ictal ), EOMI, mild left sided weakness, though limited effort at this time; ) NIH Stroke Scale - Total Score NIH Stroke Scale Score: 0 Imaging - Results Cat Scan: Report Reviewed, Image Reviewed (prior R sided mass with edema, no signs of hydrocephalus to my eye) Problem List - Problems (1) Brain metastases Code(s): C79.31 - SECONDARY MALIGNANT NEOPLASM OF BRAIN (2) Seizure Code(s): R56.9 - UNSPECIFIED CONVULSIONS Assessment/Plan 36 yo M with PMH of asthma, HTN lung CA (mets to the brain R side), who presents to ED due to auro w/o SZ. He was recently d/cd 10/09 after being treated for seizures and hospital acquired soft tissue staph aureus infection wiht bacteremia. Hi finished his abx infusions and had picc line removed on sun. He has been taking his SZ meds as prescribed (Keppra 1500mg po bid, Vimpat 100mg po bid). missed RT bc wasnt feeling well +NV and sleepy x 1-2 weeks, has been on ABX since last hospital stay + [facility] seizure -- continues to be lethargic , ?mass vs leptomeningeal no signs of obstructive hydrocephalus , though ? communicating a possibility to get flouroguided LP in AM, with pressure and CSF CYTOLOGY, gluc, prot, cell count VIMPAT 200BID and continue KEPPRA 1500BID inc decdron 4 q6 low NA (cerebral salt wasting ?)-- call renal, LFTS elevated and BILI 1.[address] Badillo [phone] Problem List - Problems (1) Brain metastases Code(s): C79.31 - SECONDARY MALIGNANT NEOPLASM OF BRAIN (2) Seizure Code(s): R56.9 - UNSPECIFIED CONVULSIONS
--- NOTE | 2016-10-19 19:38 | PN ---
Progress Note (short form) - Note Progress Note: Patient seen and examined lethargic/oriented in person Last Vital Signs Temp Pulse Resp BP Pulse Ox 97.4 F L 113 H 22 124/109 99 10/19/16 18:56 10/19/16 18:56 10/19/16 18:56 10/19/16 18:56 10/19/16 14:13 Cor: RSR, No murmurs, No gallops Lungs: Clear to P&A Abd: Soft, Normal bowel sounds, No organomegaly Ext:No significant edema Abnormal Lab Results 10/19/16 10/19/16 10/19/16 06:35 06:35 06:35 WBC 16.3 H MCHC 36.0 H MPV 6.8 L PTT (Actin FS) 24.5 L Sodium 125 L Chloride 86 L Anion Gap 17 H Creatinine 0.4 L Random Glucose 111 H Total Bilirubin 1.5 H D ALT 117 H Home Medication List Medication Instructions Recorded Confirmed Type Oxycodone HCl 10 mg PO Q6H PRN 02/21/16 10/18/16 History Folic Acid 800 mcg PO DAILY 07/10/16 10/18/16 History Clonazepam [Klonopin -] 0.5 mg PO BID MDD 2 08/26/16 10/18/16 History Levetiracetam [Keppra -] 1,500 mg PO BID 08/26/16 10/18/16 History Atovaquone [Mepron Oral Solution -] 750 mg PO DAILY 10/18/16 10/18/16 History Active Medications Generic Name Dose Route Start Last Admin Trade Name Freq PRN Reason Stop Dose Admin Atovaquone 750 mg 10/18/16 20:00 10/19/16 14:59 Mepron - PO Not Given DAILY@0800 RISHI Clonazepam 0.5 mg 10/18/16 19:44 10/19/16 06:44 Klonopin - PO 0.5 mg BID PRN Administration ANXIETY Dexamethasone Sodium Phosphate 4 mg 10/19/16 21:00 Decadron Injection - IVPB Q6H-IV RISHI Docusate Sodium 100 mg 10/19/16 13:24 Colace - PO BID PRN CONSTIPATION Folic Acid 1 mg 10/19/16 10:00 10/19/16 12:03 Folic Acid - PO 1 mg DAILY RISHI Administration Lacosamide 200 mg 10/18/16 22:00 10/19/16 15:01 Vimpat - PO 200 mg BID IRSHI Administration Levetiracetam 1,500 mg 10/18/16 22:00 10/19/16 12:02 Keppra - PO 1,500 mg BID RISHI Administration Lorazepam 2 mg 10/19/16 15:00 Ativan Injection - IVPUSH Q12H PRN seizure Oxycodone HCl 5 mg 10/18/16 15:27 10/19/16 06:44 Roxicodone - PO 5 mg Q6H PRN Administration PAIN Pantoprazole Sodium 40 mg 10/19/16 10:00 10/19/16 12:01 Protonix - PO 40 mg DAILY RISHI Administration A?P 36 y/o patient with lung cancer/brain mets s/p srs, s/p wbrt concern for leptomeningeal disease awaiting mri results for LP hyponatremia--? SIADH consider renal consult fluid management per primary team
[2016-10-19] MEDS: DEXAMETHASONE SOD PHOSPHATE 4 MG/1 ML VIAL IVPB SCH (21:31)
[2016-10-19 21:33] LABS: ANION GAP 14 (8-16); CALCIUM 8.8 mg/dL (8.5-10.1); CO2 24 mmol/L (21-32); CREATININE 0.5 mg/dL (0.7-1.3); GLUCOSE,RANDOM 101 mg/dL (74-106)
--- NOTE | 2016-10-19 22:40 | HOSP ---
Subjective - Review of Symptoms Events since last encounter: Hospitalist Encounter Notified by RN that the patient's repeat Na- 123 Order NS@100ml, repeat BMP in 6 hrs If Na continues to trend down, will treat for SIADH and place on fluid restrictions, and d/c IV fluids Per RN, IVF changed to D5NS by SENIOR DATABASE PROGRAMMER Thaliaoe, with BMP to be drawn at 0200 03:10 Notified by primary RN that the BMP results Na 134, K 2.6, Glu 1419. Will have RN re-draw from extremity that does not have IV fluids running, to check for accuracy of results BMP redrawn- results reviewed Will continue with current regimen, repeat BMP in am Physical Examination Vital Signs: Vital Signs Temperature 98.0 F 10/19/16 21:47 Pulse Rate 108 H 10/19/16 21:47 Respiratory Rate 18 10/19/16 21:47 Blood Pressure 130/75 10/19/16 21:47 O2 Sat by Pulse Oximetry (%) 99 10/19/16 14:13 Labs: CBC, BMP 10/19/16 06:35 10/19/16 20:30 Intake & Output 10/16/16 10/17/16 10/18/16 10/19/16 23:59 23:59 23:59 23:59 Intake Total 500 200 Balance 500 200 Weight 77.111 kg Current Medications Generic Name Dose Route Start Last Admin Trade Name Freq PRN Reason Stop Dose Admin Atovaquone 750 mg 10/18/16 20:00 10/19/16 14:59 Mepron - PO Not Given DAILY@0800 RISHI Clonazepam 0.5 mg 10/18/16 19:44 10/19/16 06:44 Klonopin - PO 0.5 mg BID PRN Administration ANXIETY Dexamethasone Sodium Phosphate 4 mg 10/19/16 21:00 10/19/16 21:31 Decadron Injection - IVPB 4 mg Q6H-IV RISHI Administration Docusate Sodium 100 mg 10/19/16 13:24 Colace - PO BID PRN CONSTIPATION Folic Acid 1 mg 10/19/16 10:00 10/19/16 12:03 Folic Acid - PO 1 mg DAILY RISHI Administration Sodium Chloride 1,000 mls @ 100 mls/hr 10/19/16 22:45 Normal Saline - IV ASDIR RISHI Lacosamide 200 mg 10/18/16 22:00 10/19/16 21:32 Vimpat - PO 200 mg BID RISHI Administration Levetiracetam 1,500 mg 10/18/16 22:00 10/19/16 21:31 Keppra - PO 1,500 mg BID RISHI Administration Lorazepam 2 mg 10/19/16 15:00 Ativan Injection - IVPUSH Q12H PRN seizure Oxycodone HCl 5 mg 10/18/16 15:27 10/19/16 21:32 Roxicodone - PO 5 mg Q6H PRN Administration PAIN Pantoprazole Sodium 40 mg 10/19/16 10:00 10/19/16 12:01 Protonix - PO 40 mg DAILY RISHI Administration
[2016-10-19] MEDS ORDERED: SODIUM CHLORIDE 1,000 ML IV SCH (22:45)
[2016-10-19] MEDS: DEXTROSE 5%-NORMAL SALINE 1,000 ML IV SCH (22:57)
[2016-10-20] MEDS: DEXAMETHASONE SOD PHOSPHATE 4 MG/1 ML VIAL IVPB SCH ×4 (02:53→21:56)
[2016-10-20 02:54] LABS: ANION GAP 11 (8-16); CO2 17 mmol/L (21-32); CREATININE 0.9 mg/dL (0.7-1.3)
[2016-10-20] MEDS ORDERED: LORAZEPAM CARPU-JECT 2 MG/ML DISP.SYRIN IVPUSH ONE ×2 (03:02→08:28)
[2016-10-20] MEDS ORDERED: PT OWN MED DRAWER 7, Y5N ONE (03:28)
[2016-10-20 03:51] LABS: ANION GAP 13 (8-16); CO2 26 mmol/L (21-32); CREATININE 0.6 mg/dL (0.7-1.3); GLUCOSE,RANDOM 109 mg/dL (74-106)
[2016-10-20 08:26] LABS: MCH 33.1 pg (25.7-33.7); MCHC 35.5 g/dl (32.0-35.9); MEAN CELL VOLUME 93.3 fl (80-96); MEAN PLT VOLUME 6.8 fl (7.5-11.1); PLATELET COUNT 146 K/MM3 (134-434); RDW 15.2 % (11.9-15.9); WHITE BLOOD COUNT 13.4 K/mm3 (4.0-10.0)
--- NOTE | 2016-10-20 08:32 | PN ---
Progress Note (short form) - Note Progress Note: Subjective: The patient was seen at the bedside, more alert today. He states his name is Sherman and then falls back to sleep. For lumbar puncture with IR today Changed meds to IV given lethargy Current Medications Generic Name Dose Route Start Last Admin Trade Name Shayna PRN Reason Stop Dose Admin Atovaquone 750 mg 10/18/16 20:00 10/19/16 14:59 Mepron - PO Not Given DAILY@0800 RISHI Clonazepam 0.5 mg 10/18/16 19:44 10/19/16 06:44 Klonopin - PO 0.5 mg BID PRN Administration ANXIETY Dexamethasone Sodium Phosphate 4 mg 10/19/16 21:00 10/20/16 02:53 Decadron Injection - IVPB 4 mg Q6H-IV RISHI Administration Docusate Sodium 100 mg 10/19/16 13:24 Colace - PO BID PRN CONSTIPATION Folic Acid 1 mg 10/19/16 10:00 10/19/16 12:03 Folic Acid - PO 1 mg DAILY RISHI Administration Dextrose/Sodium Chloride 1,000 mls @ 75 mls/hr 10/19/16 22:45 10/19/16 22:57 D5-Ns - IV 75 mls/hr ASDIR RISHI Administration Lacosamide 200 mg 10/20/16 10:00 Vimpat Injection - IVPB BID RISHI Levetiracetam 1,500 mg 10/20/16 10:00 Keppra Injection - IVPB BID RISHI Lorazepam 2 mg 10/19/16 15:00 Ativan Injection - IVPUSH Q12H PRN seizure Lorazepam 0.5 mg 10/20/16 08:28 Ativan Injection - IVPUSH 10/20/16 08:29 ONCE ONE Morphine Sulfate 2 mg 10/19/16 22:53 Morphine Injection - IVPUSH Q4H PRN PAIN Oxycodone HCl 5 mg 10/18/16 15:27 10/19/16 21:32 Roxicodone - PO 5 mg Q6H PRN Administration PAIN Pantoprazole Sodium 40 mg 10/20/16 10:00 Protonix 40mg Ivpb (Pre-Docked) IVPB DAILY RISHI Objective: Vital Signs Period Temp Pulse Resp BP Sys/Lindo Pulse Ox Last 24 Hr 97.4 F-99.0 F 71-113 18-22 115-130/63-109 99-99 Physical Exam: Exam refused CBCD WBC 16.3 K/mm3 (4.0-10.0) H 10/19/16 06:35 RBC 4.11 M/mm3 (4.00-5.60) 10/19/16 06:35 Hgb 13.6 GM/dL (11.7-16.9) 10/19/16 06:35 Hct 37.8 % (35.4-49) 10/19/16 06:35 MCV 91.9 fl (80-96) 10/19/16 06:35 MCHC 36.0 g/dl (32.0-35.9) H 10/19/16 06:35 RDW 15.6 % (11.9-15.9) 10/19/16 06:35 Plt Count 169 K/MM3 (134-434) 10/19/16 06:35 MPV 6.8 fl (7.5-11.1) L 10/19/16 06:35 CMP Sodium 124 mmol/L (136-145) L* 10/20/16 03:25 Potassium 4.3 mmol/L (3.5-5.1) D 10/20/16 03:25 Chloride 85 mmol/L (98-107) L D 10/20/16 03:25 Carbon Dioxide 26 mmol/L (21-32) D 10/20/16 03:25 Anion Gap 13 (8-16) 10/20/16 03:25 BUN 8 mg/dL (7-18) D 10/20/16 03:25 Creatinine 0.6 mg/dL (0.7-1.3) L D 10/20/16 03:25 Creat Clearance w eGFR > 60 (>60) 10/19/16 06:35 Random Glucose 109 mg/dL (74-106) H D 10/20/16 03:25 Calcium 9.0 mg/dL (8.5-10.1) D 10/20/16 03:25 Total Bilirubin 1.5 mg/dL (0.2-1.0) H D 10/19/16 06:35 AST 30 U/L (15-37) D 10/19/16 06:35 ALT 117 U/L (12-78) H 10/19/16 06:35 Alkaline Phosphatase 88 U/L (45-117) 10/19/16 06:35 Total Protein 7.1 g/dl (6.4-8.2) 10/19/16 06:35 Albumin 4.0 g/dl (3.4-5.0) 10/19/16 06:35 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, and frequent seizures who presented to the ED with an aura without seizure activity Plan: 1) Neuro: Aura without seizure activity - Head CT with hydrocephalus (patient afebrile, no neck stiffness). 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 Badillo and Dr. Conde - Continue Keppra 1500mg IVPB bid - Continue Vimpat 200mg IVPB bid 2) Cardiology: HTN - Controlled 3) F/E/N: - Severe hyponatremia: may be SIADH, f/u cortisol level. Discussed with Dr. Uriarte, started on D5NS, monitor sodium level closely - Monitor electrolytes - Regular diet 4) Prophylaxis: - Hold all chemical DVT prophylaxis 2/2 hx of bleeding in brain from mets 5) Dispo: - Spoke to mother, Shayla, regarding low sodium level. Informed mother that to treat we would have to send Sherman to the ICU and place him on hypertonic solution and closely monitor his sodium level with frequent blood draws. Informed Iris that risks for hypertonic solution include osmotic demyelination and herniation. Iris states she does NOT want Sherman in the ICU at this time, does not want hypertonic solution to be given as he already has intracranial pathology and she fears it could worsen his mental status. She also states she does not want her son to have blood drawn every "few hours". When asked if she still wants daily blood draws she has responded "yes" - Ongoing hospice discussion CODE STATUS: DNR/DNI Visit type - Emergency Visit Emergency Visit: Yes ED Registration Date: 10/18/16 Care time: The patient presented to the Emergency Department on the above date and was hospitalized for further evaluation of their emergent condition. - New Patient This patient is new to me today: No - Critical Care Critical Care patient: No
--- NOTE | 2016-10-20 08:40 | PN ---
Progress Note (short form) - Note Progress Note: NEUROSURGERY More awake No significant headaches Mother at bedside had undergone gamma knife x2 and 10 sessions of RT (to chest?) PE: AF, VSS HEENT- NC/AT; Neck- supple; CV-RRR, Lungs: decreased base BS B; Abd- benign; Ext- no sign of DVT NEURO- Slightly drowsy; following commands CN- intact; Motor- 4+/5 without drift; Sensation- intact LT; DTR- 2+; Gait- not tested Head CT- R temporal > L parietal vasogenic edema Brain MRI ()- R ant temporal; R parietal, L posterior temporal 5 mm rim enhancing lesions with edema CT head- increased R parietal ICH with edema c/w prior 6-10 scan; minimally more prominent ventricular system; no transependymal edema Brain MRI (prelim, final pending)- moderate R parietal ICH and rim enhancement; significant motion artifact on contrast imaging; mild ventriculomegaly Multiple brain mets s/p chemo and gamma knife x2; prognosis is poor overall R/o neoplastic meningeal dz vs bacterial meningitis Pt is DNI/DNR Pt is not a good neurosurgical candidate Brain metastasis best addressed by his treating neurosurgeon at [facility], who performed gamma knife x2 Care d/w Dr. Verdin yesterday, rad onc
[2016-10-20 09:10] LABS: ALK PHOS 87 U/L (45-117); ANION GAP 15 (8-16); BILIRUBIN,TOTAL 1.4 mg/dL (0.2-1.0); CALCIUM 8.8 mg/dL (8.5-10.1); CO2 21 mmol/L (21-32); CREATININE 0.4 mg/dL (0.7-1.3); GLUCOSE,RANDOM 101 mg/dL (74-106); SGOT/AST 30 U/L (15-37); SGPT/ALT 99 U/L (12-78); THYROID STIMULATING HORMONE 0.48 uIU/ml (0.358-3.74)
[2016-10-20] MEDS: ATOVAQUONE 750 MG/5 ML (UNIT-DOSE PACKAGING) PO SCH (09:15)
--- NOTE | 2016-10-20 09:17 | PN ---
Progress Note (short form) - Note Progress Note: 36 yo M with PMH of asthma, HTN lung CA (mets to the brain R side), who presents to ED due to auro w/o SZ. He was recently d/cd 10/09 after being treated for seizures and hospital acquired soft tissue staph aureus infection wiht bacteremia. Hi finished his abx infusions and had picc line removed on sun. He has been taking his SZ meds as prescribed (Keppra 1500mg po bid, Vimpat 100mg po bid). Last SZ was 2 w ago. For the past 3 days he has had a new, intermittent, throbbing occipital h/a. This morning he woke up with L arm and leg numbness that usually preceded SZ episodes and can last for days, however did not seize. He was with his mother at the time. He denies weakness, incontinence or loss of bowel fxn. He denies f/c, n/v chest pain, cough, sob, abd pain, dysuria, peripheral edema. +NV and sleepy x 1-2 weeks, has been on ABX since [facility] hospital stay no seziures in interim, until yesterday, left sided shaking and LOC, FU: no seizures reported s/p repeat MRI--no sig interval changes given Ativan for LP , remians sleepy mother by bedside MRI BRAIN 10/19/16 Impression: In comparison to prior MRI August 17, 2016, increased dilatation of the lateral third ventricles including the temporal horns is seen. Development of hyperintense periventricular caps and bands attributable to breakdown of ependymal lining, increased of extracellular fluid. Within the limitation of examination, no leptomeningeal, or dural enhancement is seen. Ring enhancing lesion in the right temporal lobe measures approximately 9.1 mm x 6.3 mm, decreased in size in comparison to MRI of the brain August 17, 2016. Unchanged size of the hemorrhagic mass in the right parietal lobe with decreased vasogenic edema. CT brain September 30, 2016, Impression. Right parietal lobe hyperdense lesion with vasogenic edema. In comparison to CT of the brain September 30, 2016, increased dilatation of the third ventricle, lateral ventricles including the temporal horns of lateral ventricles indicating early hydrocephalus. Clinically correlate for meningitis. The findings were discussed with medical staff in ER. 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, Other (brain mets, s/p SRS x 2 ; progression of EXECUTIVE VICE PRESIDENT met) Cardio/Vascular: Yes: Deep Vein Thrombosis, HTN, Other Pulmonary: Yes: Cancer, Other (adenoca of lung undergoing chemotherapy) Gastrointestinal: Yes: Other (adrenal gland metastasis ) Endocrine: Yes: Other (rt adrenal mass) - Alcohol/Substance Use Hx Alcohol Use: No History of Substance Use: reports: Marijuana Date of Last Use: 03/06/16 (2-3 joints/day) - Smoking History Smoking history: Never smoked Have you smoked in the past 12 months: No Aproximately how many cigarettes per day: 4 If you are a former smoker, when did you quit?: 7 MO AGO - Social History Usual Living Arrangement: Alone ADL: Independent Occupation: works at [employer] History of Recent Travel: No Home Medications - Allergies Allergies/Adverse Reactions: Allergies Allergy/AdvReac Type Severity Reaction Status Date / Time No Known Drug Allergies Allergy Verified 10/18/16 08:32 - Home Medications Home Medications: Ambulatory Orders Oxycodone HCl 10 mg PO Q6H PRN 02/21/16 Pantoprazole Sodium [Protonix -] 40 mg PO DAILY #30 tablet.ec 03/08/16 Folic Acid 800 mcg PO DAILY 07/10/16 Clonazepam [Klonopin -] 0.5 mg PO BID MDD 2 08/26/16 Levetiracetam [Keppra -] 1,500 mg PO BID 08/26/16 Clotrimazole [Lotrimin -] 1 applic TP BID #1 tube 10/08/16 Dexamethasone [Decadron -] 4 mg PO BID #60 tablet 10/08/16 Lacosamide [Vimpat -] 100 mg PO BID #120 tab MDD 200mg 10/08/16 Atovaquone [Mepron Oral Solution -] 750 mg PO DAILY 10/18/16 Family Disease History - Family Disease History Family Disease History: CA: Mother (HTN, ovarian cancer), Other: Father (, had HIV) Physical Exam-Neuro Vital Signs: Vital Signs Temperature 99 F 10/20/16 06:21 Pulse Rate 99 H 10/20/16 06:21 Respiratory Rate 20 10/20/16 06:21 Blood Pressure 119/76 10/20/16 06:21 O2 Sat by Pulse Oximetry (%) 99 10/19/16 21:00 Constitutional: Yes: Other (sleepy but arousable, (post ictal ), EOMI, mild left sided weakness, though limited effort at this time; ) NIH Stroke Scale - Total Score NIH Stroke Scale Score: 0 Imaging - Results Cat Scan: Report Reviewed, Image Reviewed (prior R sided mass with edema, no signs of hydrocephalus to my eye) Problem List - Problems (1) Brain metastases Code(s): C79.31 - SECONDARY MALIGNANT NEOPLASM OF BRAIN (2) Seizure Code(s): R56.9 - UNSPECIFIED CONVULSIONS Assessment/Plan 36 yo M with PMH of asthma, HTN lung CA (mets to the brain R side), who presents to ED due to auro w/o SZ. He was recently d/cd 10/09 after being treated for seizures and hospital acquired soft tissue staph aureus infection wiht bacteremia. Hi finished his abx infusions and had picc line removed on sun. He has been taking his SZ meds as prescribed (Keppra 1500mg po bid, Vimpat 100mg po bid). missed RT bc wasnt feeling well +NV and sleepy x 1-2 weeks, has been on ABX since last hospital stay + [facility] seizure -- continues to be lethargic , ?mass vs leptomeningeal MRI REPEAT no leptomingeal disease no signs of obstructive hydrocephalus to get flouroguided LP today with pressure and CSF CYTOLOGY, gluc, prot, cell count VIMPAT 200BID and continue KEPPRA 1500BID on decdron 4 q6 low NA (cerebral salt wasting ?)-RENAL FU , may move to unit team aware Dr Badillo [phone] Problem List - Problems (1) Brain metastases Code(s): C79.31 - SECONDARY MALIGNANT NEOPLASM OF BRAIN (2) Seizure Code(s): R56.9 - UNSPECIFIED CONVULSIONS
[2016-10-20 09:43] LABS: CALCIUM 5.3 mg/dL (8.5-10.1); GLUCOSE,RANDOM 1419 mg/dL (74-106)
[2016-10-20] MEDS ORDERED: PANTOPRAZOLE SODIUM 40 MG in SODIUM CHLORIDE 100 ML IVPB SCH (10:00)
[2016-10-20 10:33] LABS: OSMOLALITY,SERUM 247 mosm/kg (278-305)
--- NOTE | 2016-10-20 11:58 | CONSULT ---
Consult - text type - Consultation Consultation Note: Radiation Oncology Mr. Frias had an LP today. He was sedated when I saw him, but I spoke with his family and they decided to send him to hospice. I think this is reasonable because he still has persistent disease in the brain despite two course of radiosurgery and whole brain radiotherapy. The prognosis is poor.
[2016-10-20 12:18] LABS: METAMYELOCYTE 1 % (0-2)
[2016-10-20 12:19] LABS: PLATELET ESTIMATE DECREASED (NORMAL)
[2016-10-20] MEDS: Lacosamide 200 MG/20 ML VIAL IVPB SCH ×2 (12:57→21:57)
[2016-10-20 13:18] LABS: ANION GAP 14 (8-16); CALCIUM 9.1 mg/dL (8.5-10.1); CO2 20 mmol/L (21-32); CREATININE 0.4 mg/dL (0.7-1.3); GLUCOSE,RANDOM 97 mg/dL (74-106)
[2016-10-20 13:28] LABS: GLUCOSE,CSF 13 mg/dL (50-80)
[2016-10-20] MEDS: levETIRAcetam 500 MG/5 ML INJECTION VIAL IVPB SCH ×2 (14:00→21:57)
[2016-10-20] MEDS: FOLIC ACID 1 MG TABLET (FP) PO SCH (14:39)
[2016-10-20 14:52] LABS: CSF APPEARANCE CLEAR; CSF COLOR COLORLESS; CSF MONOCYTES 22 %; CSF NEUTROPHILS 71 %; CSF RBC 220 /mm3; OTHER CELLS MANY MALIGNANT CELLS
[2016-10-20] MEDS: PANTOPRAZOLE SODIUM 40 MG/100 ML PRE-DOCKED IVPB SCH (15:16)
--- NOTE | 2016-10-20 16:10 | CONSULT ---
Consult Consult Specialty:: Nephrology Reason for Consultation:: hyponatremia - History of Present Illness Chief Complaint: presents with seizure History of Present Illness: Pt is a 36 year old male with pmhx of HTN, lung cancer and asthma who presents to the ER with seizure. He is lethargic and not able to give history. Chart was reviewed. Pts mother is the health care proxy. I was called to evaluate him for hyponatremia. He did not respond to saline. 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 He does have history of seizure. He was found to have a right parietal lobe hyperdense lesion on CT scan. He has not been eating and drinking much. 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, Other (brain mets, s/p SRS x 2 ; progression of BACK ROLLER met) Cardio/Vascular: Yes: Deep Vein Thrombosis, HTN Pulmonary: Yes: Cancer, Other (adenoca of lung undergoing chemotherapy) Gastrointestinal: Yes: Other (adrenal gland metastasis ) Endocrine: Yes: Other (rt adrenal mass) - Alcohol/Substance Use Hx Alcohol Use: No History of Substance Use: reports: Marijuana Date of Last Use: 03/06/16 (2-3 joints/day) - Smoking History Smoking history: Never smoked Have you smoked in the past 12 months: No Aproximately how many cigarettes per day: 4 If you are a former smoker, when did you quit?: 7 MO AGO - Social History Usual Living Arrangement: Alone ADL: Independent Occupation: works at [employer] History of Recent Travel: No Home Medications - Allergies Allergies/Adverse Reactions: Allergies Allergy/AdvReac Type Severity Reaction Status Date / Time No Known Drug Allergies Allergy Verified 10/18/16 08:32 - Home Medications Home Medications: Ambulatory Orders Oxycodone HCl 10 mg PO Q6H PRN 02/21/16 Pantoprazole Sodium [Protonix -] 40 mg PO DAILY #30 tablet.ec 03/08/16 Folic Acid 800 mcg PO DAILY 07/10/16 Clonazepam [Klonopin -] 0.5 mg PO BID MDD 2 08/26/16 Levetiracetam [Keppra -] 1,500 mg PO BID 08/26/16 Clotrimazole [Lotrimin -] 1 applic TP BID #1 tube 10/08/16 Dexamethasone [Decadron -] 4 mg PO BID #60 tablet 10/08/16 Lacosamide [Vimpat -] 100 mg PO BID #120 tab MDD 200mg 10/08/16 Atovaquone [Mepron Oral Solution -] 750 mg PO DAILY 10/18/16 Family Disease History - Family Disease History Family Disease History: CA: Mother (HTN, ovarian cancer), Other: Father (, had HIV) Review of Systems Unable to obtain ROS, reason: pt lethargic Physical Exam Vital Signs: Vital Signs Temperature 98.3 F 10/20/16 13:07 Pulse Rate 82 10/20/16 13:07 Respiratory Rate 16 10/20/16 13:07 Blood Pressure 131/84 10/20/16 13:07 O2 Sat by Pulse Oximetry (%) 99 10/19/16 21:00 Constitutional: Yes: Calm Eyes: Yes: Conjunctiva Clear HENT: Yes: Atraumatic Neck: Yes: Supple Cardiovascular: Yes: S1, S2 Respiratory: Yes: Rhonchi Gastrointestinal: Yes: Soft Renal/: Yes: Incontinence Musculoskeletal: Yes: Muscle Weakness Edema: No Neurological: Yes: Lethargy Labs: CBC, BMP 10/20/16 07:20 10/20/16 12:35 Laboratory Tests 10/18/16 10/19/16 10/20/16 09:03 06:35 07:20 WBC 16.7 H 16.3 H Hgb Plt Count Sodium 122 L* Potassium 3.9 Chloride 86 L Carbon Dioxide 21 Anion Gap 15 BUN 7 Creatinine 0.4 L D Serum Osmolality 247 L Urine Osmolality Ur Random Sodium 10/20/16 10/20/16 10/20/16 07:20 09:00 09:00 WBC 13.4 H Hgb 13.6 Plt Count 146 Sodium Potassium Chloride Carbon Dioxide Anion Gap BUN Creatinine Serum Osmolality Urine Osmolality 390 Ur Random Sodium 68 10/20/16 12:35 WBC Hgb Plt Count Sodium 123 L* Potassium 4.2 Chloride 89 L Carbon Dioxide 20 L Anion Gap 14 BUN 7 Creatinine 0.4 L Serum Osmolality Urine Osmolality Ur Random Sodium Imaging - Results Cat Scan: Report Reviewed Problem List - Problems (1) Brain metastases Code(s): C79.31 - SECONDARY MALIGNANT NEOPLASM OF BRAIN (2) Seizure Code(s): R56.9 - UNSPECIFIED CONVULSIONS (3) Metastatic lung carcinoma Code(s): C78.00 - SECONDARY MALIGNANT NEOPLASM OF UNSPECIFIED LUNG Qualifiers : Laterality: unspecified laterality Qualified Code(s): C78.00 - Secondary malignant neoplasm of unspecified lung (4) Hyponatremia Code(s): E87.1 - HYPO-OSMOLALITY AND HYPONATREMIA Assessment/Plan Current Medications Generic Name Dose Route Start Last Admin Trade Name Freq PRN Reason Stop Dose Admin Atovaquone 750 mg 10/18/16 20:00 10/20/16 09:15 Mepron - PO 750 mg DAILY@0800 RISHI Administration Clonazepam 0.5 mg 10/18/16 19:44 10/19/16 06:44 Klonopin - PO 0.5 mg BID PRN Administration ANXIETY Dexamethasone Sodium Phosphate 4 mg 10/19/16 21:00 10/20/16 09:16 Decadron Injection - IVPB 4 mg Q6H-IV RISHI Administration Docusate Sodium 100 mg 10/19/16 13:24 Colace - PO BID PRN CONSTIPATION Folic Acid 1 mg 10/19/16 10:00 10/20/16 14:39 Folic Acid - PO Not Given DAILY RISHI Dextrose/Sodium Chloride 1,000 mls @ 75 mls/hr 10/19/16 22:45 10/19/16 22:57 D5-Ns - IV 75 mls/hr ASDIR RISHI Administration Lacosamide 200 mg 10/20/16 10:00 10/20/16 12:57 Vimpat Injection - IVPB 200 mg BID RISHI Administration Levetiracetam 1,500 mg 10/20/16 10:00 10/20/16 14:00 Keppra Injection - IVPB 1,500 mg BID RISHI Administration Lorazepam 2 mg 10/19/16 15:00 Ativan Injection - IVPUSH Q12H PRN seizure Morphine Sulfate 2 mg 10/19/16 22:53 Morphine Injection - IVPUSH Q4H PRN PAIN Oxycodone HCl 5 mg 10/18/16 15:27 10/19/16 21:32 Roxicodone - PO 5 mg Q6H PRN Administration PAIN Pantoprazole Sodium 40 mg 10/20/16 10:00 10/20/16 15:16 Protonix 40mg Ivpb (Pre-Docked) IVPB 40 mg DAILY RISHI Administration Impression 1. 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 lung cancer with mets 3. brain metastatic disease 4. asthma 5. htn 6. seizure Plan - likely etiology of hyponatremia is SIADH - pt is not eating or drinking - can cont with d5ns for now - called pts mother Iris [phone] and discussed care - mother does not want hypertonic saline or aggressive measures. She wound like to transfer to [facility] - will follow - discussed with hospitalist Dr Uriarte
--- NOTE | 2016-10-20 17:35 | PN ---
Progress Note (short form) - Note Progress Note: Patient seen and examined Sister at bedside comforting patient S/P L.P. Prior notes reviewed and decision re [facility] transfer planned. CBC, BMP 10/20/16 07:20 10/20/16 12:35 Complains of headache Last Vital Signs Temp Pulse Resp BP Pulse Ox 98.3 F 82 16 131/84 99 10/20/16 13:07 10/20/16 13:07 10/20/16 13:07 10/20/16 13:07 10/19/16 21:00 Cushingoid Clear lungs RSR Current Medications Generic Name Dose Route Start Last Admin Trade Name Freq PRN Reason Stop Dose Admin Atovaquone 750 mg 10/18/16 20:00 10/20/16 09:15 Mepron - PO 750 mg DAILY@0800 RISHI Administration Clonazepam 0.5 mg 10/18/16 19:44 10/19/16 06:44 Klonopin - PO 0.5 mg BID PRN Administration ANXIETY Dexamethasone Sodium Phosphate 4 mg 10/19/16 21:00 10/20/16 09:16 Decadron Injection - IVPB 4 mg Q6H-IV RISHI Administration Docusate Sodium 100 mg 10/19/16 13:24 Colace - PO BID PRN CONSTIPATION Folic Acid 1 mg 10/19/16 10:00 10/20/16 14:39 Folic Acid - PO Not Given DAILY RISHI Dextrose/Sodium Chloride 1,000 mls @ 75 mls/hr 10/19/16 22:45 10/19/16 22:57 D5-Ns - IV 75 mls/hr ASDIR RISHI Administration Lacosamide 200 mg 10/20/16 10:00 10/20/16 12:57 Vimpat Injection - IVPB 200 mg BID RISHI Administration Levetiracetam 1,500 mg 10/20/16 10:00 10/20/16 14:00 Keppra Injection - IVPB 1,500 mg BID RISHI Administration Lorazepam 2 mg 10/19/16 15:00 Ativan Injection - IVPUSH Q12H PRN seizure Morphine Sulfate 2 mg 10/19/16 22:53 Morphine Injection - IVPUSH Q4H PRN PAIN Pantoprazole Sodium 40 mg 10/20/16 10:00 10/20/16 15:16 Protonix 40mg Ivpb (Pre-Docked) IVPB 40 mg DAILY RISHI Administration Impression Metastatic lung ca, probable leptomeningeal involvement SIADH Headache Plan: Increase decadron for headaches
[2016-10-20] MEDS: DEXTROSE 5%-NORMAL SALINE 1,000 ML IV SCH (21:56)
[2016-10-20] MEDS: morphine CARPU-JECT 2 MG/1 ML DISP.SYRIN IVPUSH PRN (23:31)
[2016-10-21] MEDS: DEXAMETHASONE SOD PHOSPHATE 4 MG/1 ML VIAL IVPB SCH ×4 (03:32→20:37)
[2016-10-21] MEDS: ATOVAQUONE 750 MG/5 ML (UNIT-DOSE PACKAGING) PO SCH (08:00)
[2016-10-21 08:07] LABS: ANION GAP 13 (8-16); CALCIUM 8.8 mg/dL (8.5-10.1); CO2 22 mmol/L (21-32); CREATININE 0.5 mg/dL (0.7-1.3); GLUCOSE,RANDOM 135 mg/dL (74-106)
--- NOTE | 2016-10-21 10:53 | PN ---
Progress Note (short form) - Note Progress Note: NEUROSURGERY S/p LP yesterday In bed PE: Tmax 98.3, AF, VSS HEENT- NC/AT; Neck- supple; CV-RRR, Lungs: decreased base BS B; Abd- benign; Ext- no sign of DVT NEURO- Slightly drowsy CN- intact; Motor- 4+/5 without drift; Sensation- intact LT; DTR- 2+; Gait- not tested CT head- increased R parietal ICH with edema c/w prior 6-10 scan; minimally more prominent ventricular system; no transependymal edema Brain MRI - moderate R parietal ICH and rim enhancement; significant motion artifact on contrast imaging; mild ventriculomegaly Multiple brain mets s/p chemo and gamma knife x2; prognosis is poor overall CSF- gram stain negative; 10 WBC 220 RBC; glucose 13, protein 79 R/o neoplastic meningeal dz vs bacterial meningitis F/u CSF culture Pt is DNI/DNR Pt is not a good neurosurgical candidate Brain metastasis best addressed by his treating neurosurgeon at [facility], who performed gamma knife x2
[2016-10-21] MEDS: PANTOPRAZOLE SODIUM 40 MG/100 ML PRE-DOCKED IVPB SCH (11:22)
[2016-10-21] MEDS: FOLIC ACID 1 MG TABLET (FP) PO SCH (11:24)
[2016-10-21] MEDS: Lacosamide 200 MG/20 ML VIAL IVPB SCH ×2 (11:28→21:43)
[2016-10-21] MEDS: levETIRAcetam 500 MG/5 ML INJECTION VIAL IVPB SCH ×2 (11:30→21:43)
[2016-10-21] MEDS ORDERED: PT OWN MED DRAWER 7, Y5N ONE (11:32)
--- NOTE | 2016-10-21 12:45 | PN ---
Progress Note (short form) - Note Progress Note: Progress Note (short form) - Note Progress Note: Patient seen and examined Prior notes reviewed and decision re [place] transfer planned. sleeping well CBC, BMP 10/20/16 07:20 10/21/16 06:00 Current Medications Generic Name Dose Route Start Last Admin Trade Name Freq PRN Reason Stop Dose Admin Atovaquone 750 mg 10/18/16 20:00 10/21/16 08:00 Mepron - PO 750 mg DAILY@0800 RISHI Administration Clonazepam 0.5 mg 10/18/16 19:44 10/19/16 06:44 Klonopin - PO 0.5 mg BID PRN Administration ANXIETY Dexamethasone Sodium Phosphate 6 mg 10/20/16 17:35 10/21/16 09:00 Decadron Injection - IVPB 6 mg Q6H-IV RISHI Administration Docusate Sodium 100 mg 10/19/16 13:24 Colace - PO BID PRN CONSTIPATION Folic Acid 1 mg 10/19/16 10:00 10/21/16 11:24 Folic Acid - PO 1 mg DAILY RISHI Administration Dextrose/Sodium Chloride 1,000 mls @ 75 mls/hr 10/19/16 22:45 10/20/16 21:56 D5-Ns - IV 75 mls/hr ASDIR RISHI Administration Lacosamide 200 mg 10/20/16 10:00 10/21/16 11:28 Vimpat Injection - IVPB 200 mg BID RISHI Administration Levetiracetam 1,500 mg 10/20/16 10:00 10/21/16 11:30 Keppra Injection - IVPB 1,500 mg BID RISHI Administration Lorazepam 2 mg 10/19/16 15:00 Ativan Injection - IVPUSH Q12H PRN seizure Morphine Sulfate 2 mg 10/19/16 22:53 10/20/16 23:31 Morphine Injection - IVPUSH 2 mg Q4H PRN Administration PAIN Pantoprazole Sodium 40 mg 10/20/16 10:00 10/21/16 11:22 Protonix 40mg Ivpb (Pre-Docked) IVPB 40 mg DAILY RISHI Administration Impression Metastatic lung ca, probable leptomeningeal involvement -for comfort care
--- NOTE | 2016-10-21 14:17 | PN ---
Physical Exam: SUBJECTIVE: Patient seen and examined. No acute issues or complaints. Sleeping in bed OBJECTIVE: Vital Signs Period Temp Pulse Resp BP Sys/Lindo Pulse Ox Last 24 Hr 98.0 F-98.4 F 88-123 18-22 101-118/74-78 99-99 PE Neuro: lethargic, arousable Pulm: no sob, clear CV: s1 s2 rrr Abd: s nt nd + bs Ext: warm, right foot drop skin: diffuse dried petical rash, hematoma to R forearm Laboratory Results - last 24 hr 10/20/16 10/20/16 10/20/16 07:20 11:25 11:25 Other Cells # Cancelled Many malignant cells Sodium Potassium Chloride Carbon Dioxide Anion Gap BUN Creatinine POC Glucometer Random Glucose Calcium Cortisol AM Sample 1.8 CSF Appearance Cancelled Clear CSF Color Cancelled Colorless CSF WBC Cancelled 10 CSF RBC Cancelled 220 CSF Neutrophils Cancelled 71 CSF Lymphocytes Cancelled 7 CSF Monocytes Cancelled 22 CSF Eosinophils Cancelled CSF Basophils Cancelled CSF Macrophages Cancelled CSF Plasma Cells Cancelled CSF Diff Comment Cancelled CSF Comment Cancelled CSF Glucose 13 L CSF Total Protein 79 H 10/20/16 10/20/16 10/21/16 16:05 21:55 06:00 Other Cells # Sodium 132 L Potassium 3.9 Chloride 97 L Carbon Dioxide 22 Anion Gap 13 BUN 9 D Creatinine 0.5 L D POC Glucometer 103 120 Random Glucose 135 H D Calcium 8.8 Cortisol AM Sample CSF Appearance CSF Color CSF WBC CSF RBC CSF Neutrophils CSF Lymphocytes CSF Monocytes CSF Eosinophils CSF Basophils CSF Macrophages CSF Plasma Cells CSF Diff Comment CSF Comment CSF Glucose CSF Total Protein Active Medications Generic Name Dose Route Start Last Admin Trade Name Shayna PRN Reason Stop Dose Admin Atovaquone 750 mg 10/18/16 20:00 10/21/16 08:00 Mepron - PO 750 mg DAILY@0800 RISHI Administration Clonazepam 0.5 mg 10/18/16 19:44 10/19/16 06:44 Klonopin - PO 0.5 mg BID PRN Administration ANXIETY Dexamethasone Sodium Phosphate 6 mg 10/20/16 17:35 10/21/16 09:00 Decadron Injection - IVPB 6 mg Q6H-IV RISHI Administration Docusate Sodium 100 mg 10/19/16 13:24 Colace - PO BID PRN CONSTIPATION Folic Acid 1 mg 10/19/16 10:00 10/21/16 11:24 Folic Acid - PO 1 mg DAILY RISHI Administration Dextrose/Sodium Chloride 1,000 mls @ 75 mls/hr 10/19/16 22:45 10/20/16 21:56 D5-Ns - IV 75 mls/hr ASDIR RISHI Administration Lacosamide 200 mg 10/20/16 10:00 10/21/16 11:28 Vimpat Injection - IVPB 200 mg BID RISHI Administration Levetiracetam 1,500 mg 10/20/16 10:00 10/21/16 11:30 Keppra Injection - IVPB 1,500 mg BID RISHI Administration Lorazepam 2 mg 10/19/16 15:00 Ativan Injection - IVPUSH Q12H PRN seizure Morphine Sulfate 2 mg 10/19/16 22:53 10/20/16 23:31 Morphine Injection - IVPUSH 2 mg Q4H PRN Administration PAIN Pantoprazole Sodium 40 mg 10/20/16 10:00 10/21/16 11:22 Protonix 40mg Ivpb (Pre-Docked) IVPB 40 mg DAILY RISHI Administration Imaging: - Head CT with hydrocephalus - Brain MRI - moderate R parietal ICH and rim enhancement; significant motion artifact on contrast imaging; mild ventriculomegaly Assessment: 36 year old male with PMHx of HTN, lung cancer with mets to the brain, and frequent seizures admitted with an aura without seizure activity. Plan: 1. Aura without seizure activity - s/p LP 10/20 - Await CSF cx r/o neoplastic leptomeningeal dz vs bacterial meningitis 2. 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 Hyponatremia - Likely SIADH - Improving - Continue D5ns 75cc/hr 4. HTN - Controlled 5. DVT ppx - Hold all chemical DVT prophylaxis 2/2 hx of bleeding in brain from mets Dispo: - Ongoing hospice discussion, [facility] placement CODE STATUS: DNR/DNI Visit type - Emergency Visit Emergency Visit: Yes ED Registration Date: 10/18/16 Care time: The patient presented to the Emergency Department on the above date and was hospitalized for further evaluation of their emergent condition. - New Patient This patient is new to me today: Yes Date on this admission: 10/21/16 - Critical Care Critical Care patient: No
[2016-10-21] MEDS: morphine CARPU-JECT 2 MG/1 ML DISP.SYRIN IVPUSH PRN ×2 (14:44→20:28)
--- NOTE | 2016-10-21 16:46 | PN ---
Progress Note, Physician History of Present Illness: Pt seen and examined at bedside. He remains lethargic. - Current Medication List Current Medications: Active Medications Atovaquone (Mepron -) 750 mg PO DAILY@0800 [facility] Last Admin: 10/21/16 08:00 Dose: 750 mg Clonazepam (Klonopin -) 0.5 mg PO BID PRN PRN Reason: ANXIETY Last Admin: 10/19/16 06:44 Dose: 0.5 mg Dexamethasone Sodium Phosphate (Decadron Injection -) 6 mg IVPB Q6H-IV [facility] Last Admin: 10/21/16 14:44 Dose: 6 mg Docusate Sodium (Colace -) 100 mg PO BID PRN PRN Reason: CONSTIPATION Folic Acid (Folic Acid -) 1 mg PO DAILY [facility] Last Admin: 10/21/16 11:24 Dose: 1 mg Dextrose/Sodium Chloride (D5-Ns -) 1,000 mls @ 75 mls/hr IV ASDIR [facility] Last Admin: 10/20/16 21:56 Dose: 75 mls/hr Lacosamide (Vimpat Injection -) 200 mg IVPB BID [facility] Last Admin: 10/21/16 11:28 Dose: 200 mg Levetiracetam (Keppra Injection -) 1,500 mg IVPB BID [facility] Last Admin: 10/21/16 11:30 Dose: 1,500 mg Lorazepam (Ativan Injection -) 2 mg IVPUSH Q12H PRN PRN Reason: seizure Morphine Sulfate (Morphine Injection -) 2 mg IVPUSH Q4H PRN PRN Reason: PAIN Last Admin: 10/21/16 14:44 Dose: 2 mg Pantoprazole Sodium (Protonix 40mg Ivpb (Pre-Docked)) 40 mg IVPB DAILY [facility] Last Admin: 10/21/16 11:22 Dose: 40 mg - Objective Vital Signs: Vital Signs Temperature 99.7 F H 10/21/16 16:05 Pulse Rate 101 H 10/21/16 16:05 Respiratory Rate 20 10/21/16 16:05 Blood Pressure 119/76 10/21/16 16:05 O2 Sat by Pulse Oximetry (%) 99 10/21/16 09:00 Constitutional: Yes: Calm Eyes: Yes: Conjunctiva Clear HENT: Yes: Atraumatic Neck: Yes: Supple Cardiovascular: Yes: S1, S2 Respiratory: Yes: CTA Bilaterally Gastrointestinal: Yes: Soft Genitourinary: Yes: Incontinence Edema: No Neurological: Yes: Lethargy Labs: CBC, BMP 10/20/16 07:20 10/21/16 06:00 INR, PTT INR 1.11 (0.82-1.09) 10/19/16 06:35 Fibrinogen 360.0 mg/dL (238-498) 10/19/16 06:35 Problem List - Problems (1) Brain metastases Code(s): C79.31 - SECONDARY MALIGNANT NEOPLASM OF BRAIN (2) Seizure Code(s): R56.9 - UNSPECIFIED CONVULSIONS (3) Metastatic lung carcinoma Code(s): C78.00 - SECONDARY MALIGNANT NEOPLASM OF UNSPECIFIED LUNG Qualifiers : Laterality: unspecified laterality Qualified Code(s): C78.00 - Secondary malignant neoplasm of unspecified lung (4) Hyponatremia Code(s): E87.1 - HYPO-OSMOLALITY AND HYPONATREMIA Assessment/Plan Current Medications Generic Name Dose Route Start Last Admin Trade Name Sergeq PRN Reason Stop Dose Admin Atovaquone 750 mg 10/18/16 20:00 10/21/16 08:00 Mepron - PO 750 mg DAILY@0800 RISHI Administration Clonazepam 0.5 mg 10/18/16 19:44 10/19/16 06:44 Klonopin - PO 0.5 mg BID PRN Administration ANXIETY Dexamethasone Sodium Phosphate 6 mg 10/20/16 17:35 10/21/16 14:44 Decadron Injection - IVPB 6 mg Q6H-IV RISHI Administration Docusate Sodium 100 mg 10/19/16 13:24 Colace - PO BID PRN CONSTIPATION Folic Acid 1 mg 10/19/16 10:00 10/21/16 11:24 Folic Acid - PO 1 mg DAILY RISHI Administration Dextrose/Sodium Chloride 1,000 mls @ 75 mls/hr 10/19/16 22:45 10/20/16 21:56 D5-Ns - IV 75 mls/hr ASDIR RISHI Administration Lacosamide 200 mg 10/20/16 10:00 10/21/16 11:28 Vimpat Injection - IVPB 200 mg BID RISHI Administration Levetiracetam 1,500 mg 10/20/16 10:00 10/21/16 11:30 Keppra Injection - IVPB 1,500 mg BID RISHI Administration Lorazepam 2 mg 10/19/16 15:00 Ativan Injection - IVPUSH Q12H PRN seizure Morphine Sulfate 2 mg 10/19/16 22:53 10/21/16 14:44 Morphine Injection - IVPUSH 2 mg Q4H PRN Administration PAIN Pantoprazole Sodium 40 mg 10/20/16 10:00 10/21/16 11:22 Protonix 40mg Ivpb (Pre-Docked) IVPB 40 mg DAILY RISHI Administration Impression 1. 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 lung cancer with mets 3. brain metastatic disease 4. asthma 5. htn 6. seizure Plan - sodium is stabilizing - can decrease rate of fluids - repeat labs in am - family have decided they want [place] - likely etiology of hyponatremia was SIADH - discussed with hospitalist Dr Uriarte
[2016-10-21] MEDS: DEXTROSE 5%-NORMAL SALINE 1,000 ML IV SCH (17:33)
[2016-10-22 00:08] LABS: HSV 2 DNA. Negative (Negative)
[2016-10-22] MEDS: morphine CARPU-JECT 2 MG/1 ML DISP.SYRIN IVPUSH PRN ×4 (01:12→18:11)
[2016-10-22] MEDS: DEXAMETHASONE SOD PHOSPHATE 4 MG/1 ML VIAL IVPB SCH ×4 (02:33→20:55)
[2016-10-22] MEDS: Lacosamide 200 MG/20 ML VIAL IVPB SCH ×2 (09:28→22:59)
[2016-10-22] MEDS: levETIRAcetam 500 MG/5 ML INJECTION VIAL IVPB SCH ×2 (09:28→22:39)
[2016-10-22] MEDS: FOLIC ACID 1 MG TABLET (FP) PO SCH (09:28)
[2016-10-22] MEDS: PANTOPRAZOLE SODIUM 40 MG/100 ML PRE-DOCKED IVPB SCH (09:29)
[2016-10-22] MEDS: ATOVAQUONE 750 MG/5 ML (UNIT-DOSE PACKAGING) PO SCH (09:40)
--- NOTE | 2016-10-22 09:45 | PN ---
Progress Note (short form) - Note Progress Note: NEUROSURGERY In bed No new complaint PE: Tmax 98.3, AF, VSS HEENT- NC/AT; Neck- supple; CV-RRR, Lungs: decreased base BS B; Abd- benign; Ext- no sign of DVT NEURO- Slightly drowsy CN- intact; Motor- 4+/5 without drift; Sensation- intact LT; DTR- 2+ CT head- increased R parietal ICH with edema compared with prior 6-10 scan; minimally more prominent ventricular system; no transependymal edema Brain MRI - moderate R parietal ICH and rim enhancement; significant motion artifact on contrast imaging; mild ventriculomegaly Multiple brain mets s/p chemo and gamma knife x2; prognosis is poor overall CSF- gram stain negative; culture negative x 24 hours; 10 WBC 220 RBC; glucose 13, protein 79 R/o neoplastic meningeal dz vs bacterial meningitis Pt is DNI/DNR Pt is not a good neurosurgical candidate [place] transfer noted
--- NOTE | 2016-10-22 12:15 | PN ---
Progress Note (short form) - Note Progress Note: Progress Note (short form) - Note Progress Note: Patient seen and examined Prior notes reviewed and decision re [place] transfer planned. Has no pain He is curled up and says he is ok CBC, BMP 10/20/16 07:20 10/21/16 06:00 Active Medications Generic Name Dose Route Start Last Admin Trade Name Freq PRN Reason Stop Dose Admin Atovaquone 750 mg 10/18/16 20:00 10/22/16 09:40 Mepron - PO 750 mg DAILY@0800 RISHI Administration Dexamethasone Sodium Phosphate 6 mg 10/20/16 17:35 10/22/16 09:28 Decadron Injection - IVPB 6 mg Q6H-IV RISHI Administration Docusate Sodium 100 mg 10/19/16 13:24 Colace - PO BID PRN CONSTIPATION Folic Acid 1 mg 10/19/16 10:00 10/22/16 09:28 Folic Acid - PO 1 mg DAILY RISHI Administration Dextrose/Sodium Chloride 1,000 mls @ 65 mls/hr 10/21/16 16:46 10/21/16 17:33 D5-Ns - IV 65 mls/hr ASDIR RISHI Administration Lacosamide 200 mg 10/20/16 10:00 10/22/16 09:28 Vimpat Injection - IVPB 200 mg BID RISHI Administration Levetiracetam 1,500 mg 10/20/16 10:00 10/22/16 09:28 Keppra Injection - IVPB 1,500 mg BID RISHI Administration Lorazepam 2 mg 10/19/16 15:00 Ativan Injection - IVPUSH Q12H PRN seizure Morphine Sulfate 2 mg 10/19/16 22:53 10/22/16 09:29 Morphine Injection - IVPUSH 2 mg Q4H PRN Administration PAIN Pantoprazole Sodium 40 mg 10/20/16 10:00 10/22/16 09:29 Protonix 40mg Ivpb (Pre-Docked) IVPB 40 mg DAILY RISHI Administration Impression Metastatic lung ca, probable leptomeningeal involvement -for comfort care
--- NOTE | 2016-10-22 15:40 | PN ---
Progress Note, Physician History of Present Illness: Pt seen and examined at bedside. He is awake and much more alert than yesterday. He refused labs this morning. He has poor appetite. - Current Medication List Current Medications: Active Medications Atovaquone (Mepron -) 750 mg PO DAILY@0800 [facility] Last Admin: 10/22/16 09:40 Dose: 750 mg Dexamethasone Sodium Phosphate (Decadron Injection -) 6 mg IVPB Q6H-IV [facility] Last Admin: 10/22/16 15:03 Dose: 6 mg Docusate Sodium (Colace -) 100 mg PO BID PRN PRN Reason: CONSTIPATION Folic Acid (Folic Acid -) 1 mg PO DAILY [facility] Last Admin: 10/22/16 09:28 Dose: 1 mg Dextrose/Sodium Chloride (D5-Ns -) 1,000 mls @ 65 mls/hr IV ASDIR [facility] Last Admin: 10/21/16 17:33 Dose: 65 mls/hr Lacosamide (Vimpat Injection -) 200 mg IVPB BID [facility] Last Admin: 10/22/16 09:28 Dose: 200 mg Levetiracetam (Keppra Injection -) 1,500 mg IVPB BID [facility] Last Admin: 10/22/16 09:28 Dose: 1,500 mg Lorazepam (Ativan Injection -) 2 mg IVPUSH Q12H PRN PRN Reason: seizure Morphine Sulfate (Morphine Injection -) 3 mg IVPUSH Q4H PRN PRN Reason: PAIN Last Admin: 10/22/16 13:28 Dose: 3 mg Pantoprazole Sodium (Protonix 40mg Ivpb (Pre-Docked)) 40 mg IVPB DAILY [facility] Last Admin: 10/22/16 09:29 Dose: 40 mg - Objective Vital Signs: Vital Signs Temperature 98.4 F 10/22/16 10:00 Pulse Rate 84 10/22/16 10:00 Respiratory Rate 18 10/22/16 10:00 Blood Pressure 118/74 10/22/16 10:00 O2 Sat by Pulse Oximetry (%) 98 10/22/16 10:00 Constitutional: Yes: Calm Eyes: Yes: Conjunctiva Clear HENT: Yes: Atraumatic Neck: Yes: Supple Cardiovascular: Yes: S1, S2 Respiratory: Yes: CTA Bilaterally Gastrointestinal: Yes: Normal Bowel Sounds, Soft Genitourinary: Yes: WNL Musculoskeletal: Yes: WNL Edema: No Neurological: Yes: Oriented Labs: CBC, BMP 10/20/16 07:20 10/21/16 06:00 INR, PTT INR 1.11 (0.82-1.09) 10/19/16 06:35 Fibrinogen 360.0 mg/dL (238-498) 10/19/16 06:35 Problem List - Problems (1) Brain metastases Code(s): C79.31 - SECONDARY MALIGNANT NEOPLASM OF BRAIN (2) Seizure Code(s): R56.9 - UNSPECIFIED CONVULSIONS (3) Metastatic lung carcinoma Code(s): C78.00 - SECONDARY MALIGNANT NEOPLASM OF UNSPECIFIED LUNG Qualifiers : Laterality: unspecified laterality Qualified Code(s): C78.00 - Secondary malignant neoplasm of unspecified lung (4) Hyponatremia Code(s): E87.1 - HYPO-OSMOLALITY AND HYPONATREMIA Assessment/Plan Current Medications Generic Name Dose Route Start Last Admin Trade Name Freq PRN Reason Stop Dose Admin Atovaquone 750 mg 10/18/16 20:00 10/22/16 09:40 Mepron - PO 750 mg DAILY@0800 RISHI Administration Dexamethasone Sodium Phosphate 6 mg 10/20/16 17:35 10/22/16 15:03 Decadron Injection - IVPB 6 mg Q6H-IV RISHI Administration Docusate Sodium 100 mg 10/19/16 13:24 Colace - PO BID PRN CONSTIPATION Folic Acid 1 mg 10/19/16 10:00 10/22/16 09:28 Folic Acid - PO 1 mg DAILY RISHI Administration Dextrose/Sodium Chloride 1,000 mls @ 65 mls/hr 10/21/16 16:46 10/21/16 17:33 D5-Ns - IV 65 mls/hr ASDIR RISHI Administration Lacosamide 200 mg 10/20/16 10:00 10/22/16 09:28 Vimpat Injection - IVPB 200 mg BID RISHI Administration Levetiracetam 1,500 mg 10/20/16 10:00 10/22/16 09:28 Keppra Injection - IVPB 1,500 mg BID RISHI Administration Lorazepam 2 mg 10/19/16 15:00 Ativan Injection - IVPUSH Q12H PRN seizure Morphine Sulfate 3 mg 10/22/16 12:49 10/22/16 13:28 Morphine Injection - IVPUSH 3 mg Q4H PRN Administration PAIN Pantoprazole Sodium 40 mg 10/20/16 10:00 10/22/16 09:29 Protonix 40mg Ivpb (Pre-Docked) IVPB 40 mg DAILY RISHI Administration Impression 1. 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 lung cancer with mets 3. brain metastatic disease 4. asthma 5. htn 6. seizure Plan - no new labs - pt pending placement in [place] - can cont current fluids as he has poor PO intake - likely etiology of hyponatremia was SIADH - discussed with hospitalist Dr Uriarte
--- NOTE | 2016-10-22 15:51 | PN ---
Physical Exam: SUBJECTIVE: Patient seen and examined. Pt awake, he is playing on his phone, he refuses cbc, he willing to drink a milkshake. Has back pain OBJECTIVE: Vital Signs Period Temp Pulse Resp BP Sys/Lindo Pulse Ox Last 24 Hr 97.6 F-99.7 F 75-101 18-20 116-148/74-83 98 PE Neuro: awake, alert, oriented to hospital and sister at bedside Pulm: CTAB CV: s1 s2 rrr no mr Abd: s nt nd + bs Ext: warm, no edema skin: diffuse dried petical rash, hematoma to R forearm Laboratory Results - last 24 hr 10/20/16 10/21/16 10/21/16 11:25 17:30 17:32 POC Glucometer 136 Ur Random Urea Nitrogn 508 HSV I DNA Quant (PCR) Negative HSV II DNA Quant (PCR) Negative Active Medications Generic Name Dose Route Start Last Admin Trade Name Freq PRN Reason Stop Dose Admin Atovaquone 750 mg 10/18/16 20:00 10/22/16 09:40 Mepron - PO 750 mg DAILY@0800 RISHI Administration Dexamethasone Sodium Phosphate 6 mg 10/20/16 17:35 10/22/16 15:03 Decadron Injection - IVPB 6 mg Q6H-IV RISHI Administration Docusate Sodium 100 mg 10/19/16 13:24 Colace - PO BID PRN CONSTIPATION Folic Acid 1 mg 10/19/16 10:00 10/22/16 09:28 Folic Acid - PO 1 mg DAILY RISHI Administration Dextrose/Sodium Chloride 1,000 mls @ 65 mls/hr 10/21/16 16:46 10/21/16 17:33 D5-Ns - IV 65 mls/hr ASDIR RISHI Administration Lacosamide 200 mg 10/20/16 10:00 10/22/16 09:28 Vimpat Injection - IVPB 200 mg BID RISHI Administration Levetiracetam 1,500 mg 10/20/16 10:00 10/22/16 09:28 Keppra Injection - IVPB 1,500 mg BID RISHI Administration Lorazepam 2 mg 10/19/16 15:00 Ativan Injection - IVPUSH Q12H PRN seizure Morphine Sulfate 3 mg 10/22/16 12:49 10/22/16 13:28 Morphine Injection - IVPUSH 3 mg Q4H PRN Administration PAIN Pantoprazole Sodium 40 mg 10/20/16 10:00 10/22/16 09:29 Protonix 40mg Ivpb (Pre-Docked) IVPB 40 mg DAILY RISHI Administration Imaging: - Head CT with hydrocephalus - Brain MRI - moderate R parietal ICH and rim enhancement; significant motion artifact on contrast imaging; mild ventriculomegaly Assessment: 36 year old male with PMHx of HTN, lung cancer with mets to the brain, and frequent seizures admitted with an aura without seizure activity. Plan: 1. Aura without seizure activity - s/p LP 10/20 - Await CSF cx r/o neoplastic leptomeningeal dz vs bacterial meningitis 2. Seizure disorder 2/2 metastasis - Decadron to 6mg q6h IVPB for headaches - Keppra 1500mg IVPB bid - Vimpat 200mg IVPB bid 3. Hyponatremia - Likely SIADH - Improving - Pt refused labs today - Maintain D5ns 65cc/hr 4. HTN - Controlled 5. DVT ppx - Hold all chemical DVT prophylaxis 2/2 hx of bleeding in brain from mets Dispo: - Ongoing hospice discussion,awaiting [facility] placement CODE STATUS: DNR/DNI Visit type - Emergency Visit Emergency Visit: Yes ED Registration Date: 10/18/16 Care time: The patient presented to the Emergency Department on the above date and was hospitalized for further evaluation of their emergent condition. - New Patient This patient is new to me today: No - Critical Care Critical Care patient: No
[2016-10-22] MEDS: DEXTROSE 5%-NORMAL SALINE 1,000 ML IV SCH (16:14)
[2016-10-23] MEDS: DEXAMETHASONE SOD PHOSPHATE 4 MG/1 ML VIAL IVPB SCH ×2 (02:43→10:42)
[2016-10-23] MEDS ORDERED: PT OWN MED DRAWER 7, Y5N ONE ×2 (08:10→08:39)
[2016-10-23] MEDS: morphine CARPU-JECT 2 MG/1 ML DISP.SYRIN IVPUSH PRN (09:28)
[2016-10-23] MEDS: PANTOPRAZOLE SODIUM 40 MG/100 ML PRE-DOCKED IVPB SCH (09:38)
[2016-10-23] MEDS: ATOVAQUONE 750 MG/5 ML (UNIT-DOSE PACKAGING) PO SCH (09:39)
[2016-10-23] MEDS: FOLIC ACID 1 MG TABLET (FP) PO SCH (09:40)
--- NOTE | 2016-10-23 09:40 | PN ---
Progress Note (short form) - Note Progress Note: NEUROSURGERY In bed No new complaint Pt wants to go home; mother does not feel she could take care of him at home and wants him to go to [place] PE: Tmax 98.9, AF, VSS HEENT- NC/AT; Neck- supple; CV-RRR, Lungs: decreased base BS B; Abd- benign; Ext- no sign of DVT NEURO- More awake, easily arousable CN- intact; Motor- 4+/5 without drift; Sensation- intact LT; DTR- 2+ CT head- increased R parietal ICH with edema compared with prior 6-10 scan; minimally more prominent ventricular system; no transependymal edema Brain MRI - moderate R parietal ICH and rim enhancement; significant motion artifact on contrast imaging; mild ventriculomegaly Multiple brain mets; prognosis is poor overall CSF- gram stain negative; culture negative x 24 hours+, final pending; 10 WBC 220 RBC; glucose 13, protein 79 Pt is DNI/DNR Pt is not a good neurosurgical candidate
[2016-10-23] MEDS: levETIRAcetam 500 MG/5 ML INJECTION VIAL IVPB SCH (11:30)
--- NOTE | 2016-10-23 11:32 | PATH ---
Cytology Non-Gynecological Report Patient Name: JONI EISENBERG [facility]. Rec. #: [id number] /Age/Gender: 1980 (Age: 36) / M Account: [id number] Location: [address] [place] [address]/[facility] Taken: 10/20/2016 Received: 10/20/2016 Reported: 10/23/2016 Physicians: NASIR Arredondo M.D. Specimen(s) Received CEREBRAL SPINAL FLUID Clinical History Metastatic lung cancer Final Diagnosis CEREBROSPINAL FLUID: SATISFACTORY FOR EVALUATION. POSITIVE FOR MALIGNANT CELLS. CONSISTENT WITH INVOLVEMENT BY ADENOCARCINOMA (SEE COMMENT). Comment: Prior history of metastatic lung adenocarcinoma is noted. The findings are morphologically consistent with involvement by adenocarcinoma. Clinical and imaging correlations are suggested. The case was preliminary discussed with Dr. León on 10/20/16. Electronically Signed Tee Vasquez M.D. Addendum Reported: 10/23/2016 Addendum Diagnosis Immunohistochemical stain for Ae1/Ae3 keratin performed and interpreted [facility] is positive in malignant cells supporting the interpretation above. Tee Vasquez M.D. Gross Description Received is 4 cc of clear fluid. Two cytofunnel slides, one Diff=Quik stained, one Pap staed are made.
[2016-10-23] MEDS: Lacosamide 200 MG/20 ML VIAL IVPB SCH (12:29)
--- NOTE | 2016-10-23 13:50 | PN ---
Physical Exam: SUBJECTIVE: Patient seen and examined. No acute issues. Reports arm numbness, he is having a milkshake. OBJECTIVE: Vital Signs Period Temp Pulse Resp BP Sys/Lindo Pulse Ox Last 24 Hr 97.5 F-98.9 F 88-96 18-20 110-123/46-83 96-96 PE Neuro: awake, alert, oriented to hospital and sister at bedside Pulm: CTAB CV: s1 s2 rrr Abd: s nt nd + bs Ext: warm, no edema skin: diffuse dried petical rash, hematoma to R forearm Laboratory Results - last 24 hr 10/23/16 05:41 POC Glucometer 127 Active Medications Generic Name Dose Route Start Last Admin Trade Name Freq PRN Reason Stop Dose Admin Atovaquone 750 mg 10/18/16 20:00 10/23/16 09:39 Mepron - PO 750 mg DAILY@0800 RISHI Administration Dexamethasone 6 mg 10/23/16 13:45 Decadron - PO Q6H RISHI Docusate Sodium 100 mg 10/19/16 13:24 Colace - PO BID PRN CONSTIPATION Folic Acid 1 mg 10/19/16 10:00 10/23/16 09:40 Folic Acid - PO 1 mg DAILY RISHI Administration Dextrose/Sodium Chloride 1,000 mls @ 65 mls/hr 10/21/16 16:46 10/22/16 16:14 D5-Ns - IV 65 mls/hr ASDIR RISHI Administration Lacosamide 100 mg 10/23/16 22:00 Vimpat - PO BID RISHI Levetiracetam 1,500 mg 10/23/16 22:00 Keppra - PO BID [facility] Lorazepam 2 mg 10/19/16 15:00 Ativan Injection - IVPUSH Q12H PRN seizure Morphine Sulfate 3 mg 10/22/16 12:49 10/23/16 09:28 Morphine Injection - IVPUSH 3 mg Q4H PRN Administration PAIN Morphine Sulfate 15 mg 10/23/16 22:00 Ms Contin - PO BID RISHI Oxycodone HCl 5 mg 10/23/16 13:46 Roxicodone - PO Q3H PRN MODERATE PAIN Pantoprazole Sodium 40 mg 10/24/16 10:00 Protonix - PO DAILY [facility] Imaging: - Head CT with hydrocephalus - Brain MRI - moderate R parietal ICH and rim enhancement; significant motion artifact on contrast imaging; mild ventriculomegaly Assessment: 36 year old male with PMHx of HTN, lung cancer with mets to the brain, and frequent seizures admitted with an aura without seizure activity. Plan: 1. Aura without seizure activity - Results for LP 10/20 c/w malignant cells - Serology with many malignant cells - Transition to PO pain management - Start MS SR 15mg BID - Oxycodone 5mg q3hr PRN breakthrough 2. Seizure disorder 2/2 metastasis - Convert AED and steroids to PO - Decadron 6mg PO q6hr - Keppra 1500mg PO BID - Vimpat 200mg PO BID 3. Hyponatremia - Likely SIADH - Maintain D5ns 65cc/hr 4. HTN - Controlled 5. DVT ppx - Hold all chemical DVT prophylaxis 2/2 hx of bleeding in brain from mets Dispo: - Ongoing hospice discussion,awaiting [facility] placement CODE STATUS: DNR/DNI
--- NOTE | 2016-10-23 15:11 | PN ---
Progress Note, Physician History of Present Illness: Pt seen and examined at bedside. He is awake. He has poor po intake. - Current Medication List Current Medications: Active Medications Atovaquone (Mepron -) 750 mg PO DAILY@0800 [facility] Last Admin: 10/23/16 09:39 Dose: 750 mg Dexamethasone (Decadron -) 6 mg PO Q6HPO [facility] Docusate Sodium (Colace -) 100 mg PO BID PRN PRN Reason: CONSTIPATION Folic Acid (Folic Acid -) 1 mg PO DAILY [facility] Last Admin: 10/23/16 09:40 Dose: 1 mg Dextrose/Sodium Chloride (D5-Ns -) 1,000 mls @ 65 mls/hr IV ASDIR [facility] Last Admin: 10/22/16 16:14 Dose: 65 mls/hr Lacosamide (Vimpat -) 100 mg PO BID [facility] Levetiracetam (Keppra -) 1,500 mg PO BID [facility] Lorazepam (Ativan Injection -) 2 mg IVPUSH Q12H PRN PRN Reason: seizure Morphine Sulfate (Morphine Injection -) 3 mg IVPUSH Q4H PRN PRN Reason: PAIN Last Admin: 10/23/16 09:28 Dose: 3 mg Morphine Sulfate (Ms Contin -) 15 mg PO BID [facility] Oxycodone HCl (Roxicodone -) 5 mg PO Q3H PRN PRN Reason: MODERATE PAIN Pantoprazole Sodium (Protonix -) 40 mg PO DAILY [facility] - Objective Vital Signs: Vital Signs Temperature 97.5 F L 10/23/16 07:07 Pulse Rate 88 10/23/16 10:31 Respiratory Rate 18 10/23/16 09:30 Blood Pressure 122/62 10/23/16 09:30 O2 Sat by Pulse Oximetry (%) 96 10/23/16 10:31 Constitutional: Yes: Calm Eyes: Yes: Conjunctiva Clear HENT: Yes: Atraumatic Neck: Yes: Supple Cardiovascular: Yes: S1, S2 Respiratory: Yes: CTA Bilaterally Gastrointestinal: Yes: Soft Musculoskeletal: Yes: Muscle Weakness Edema: No Neurological: Yes: Oriented Labs: CBC, BMP 10/20/16 07:20 10/21/16 06:00 INR, PTT INR 1.11 (0.82-1.09) 10/19/16 06:35 Fibrinogen 360.0 mg/dL (238-498) 10/19/16 06:35 Problem List - Problems (1) Brain metastases Code(s): C79.31 - SECONDARY MALIGNANT NEOPLASM OF BRAIN (2) Seizure Code(s): R56.9 - UNSPECIFIED CONVULSIONS (3) Metastatic lung carcinoma Code(s): C78.00 - SECONDARY MALIGNANT NEOPLASM OF UNSPECIFIED LUNG Qualifiers : Laterality: unspecified laterality Qualified Code(s): C78.00 - Secondary malignant neoplasm of unspecified lung (4) Hyponatremia Code(s): E87.1 - HYPO-OSMOLALITY AND HYPONATREMIA Assessment/Plan Current Medications Generic Name Dose Route Start Last Admin Trade Name Freq PRN Reason Stop Dose Admin Atovaquone 750 mg 10/18/16 20:00 10/23/16 09:39 Mepron - PO 750 mg DAILY@0800 RISHI Administration Dexamethasone 6 mg 10/23/16 18:00 Decadron - PO Q6HPO RISHI Docusate Sodium 100 mg 10/19/16 13:24 Colace - PO BID PRN CONSTIPATION Folic Acid 1 mg 10/19/16 10:00 10/23/16 09:40 Folic Acid - PO 1 mg DAILY RISHI Administration Dextrose/Sodium Chloride 1,000 mls @ 65 mls/hr 10/21/16 16:46 10/22/16 16:14 D5-Ns - IV 65 mls/hr ASDIR RISH[facility] Administration Lacosamide 100 mg 10/23/16 22:00 Vimpat - PO BID RISHI Levetiracetam 1,500 mg 10/23/16 22:00 Keppra - PO BID R[facility] Lorazepam 2 mg 10/19/16 15:00 Ativan Injection - IVPUSH Q12H PRN seizure Morphine Sulfate 3 mg 10/22/16 12:49 10/23/16 09:28 Morphine Injection - IVPUSH 3 mg Q4H PRN Administration PAIN Morphine Sulfate 15 mg 10/23/16 22:00 Ms Contin - PO BID RISHI Oxycodone HCl 5 mg 10/23/16 13:46 Roxicodone - PO Q3H PRN MODERATE PAIN Pantoprazole Sodium 40 mg 10/24/16 10:00 Protonix - PO DAILY [facility] Impression 1. 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 lung cancer with mets 3. brain metastatic disease 4. asthma 5. htn 6. seizure Plan - discussed care with pt and his mother who is at bedside - pt does not want bloodwork checked - pt pending placement in [place] - likely etiology of hyponatremia was SIADH - discussed with hospitalist - csf fluid positive for malignant cells Dr Uriarte
[2016-10-23] MEDS: oxyCODONE HCL 5 MG TABLET PO PRN ×2 (16:01→23:32)
[2016-10-23] MEDS: DEXAMETHASONE 4 MG TABLET (FP) PO SCH ×2 (17:36→23:32)
--- NOTE | 2016-10-23 17:40 | PN ---
Progress Note (short form) - Note Progress Note: Patient seen and examined lethargic/oriented in person Last Vital Signs Temp Pulse Resp BP Pulse Ox 97.5 F L 109 H 18 119/85 96 10/23/16 15:30 10/23/16 15:30 10/23/16 15:30 10/23/16 15:30 10/23/16 10:31 Cor: RSR, No murmurs, No gallops Lungs: Clear to P&A Abd: Soft, Normal bowel sounds, No organomegaly Ext:No significant edema Home Medication List Medication Instructions Recorded Confirmed Type Oxycodone HCl 10 mg PO Q6H PRN 02/21/16 10/18/16 History Folic Acid 800 mcg PO DAILY 07/10/16 10/18/16 History Clonazepam [Klonopin -] 0.5 mg PO BID MDD 2 08/26/16 10/18/16 History Levetiracetam [Keppra -] 1,500 mg PO BID 08/26/16 10/18/16 History Atovaquone [Mepron Oral Solution -] 750 mg PO DAILY 10/18/16 10/18/16 History Active Medications Generic Name Dose Route Start Last Admin Trade Name Freq PRN Reason Stop Dose Admin Atovaquone 750 mg 10/18/16 20:00 10/23/16 09:39 Mepron - PO 750 mg DAILY@0800 RISHI Administration Dexamethasone 6 mg 10/23/16 18:00 Decadron - PO Q6HPO RISHI Docusate Sodium 100 mg 10/19/16 13:24 Colace - PO BID PRN CONSTIPATION Folic Acid 1 mg 10/19/16 10:00 10/23/16 09:40 Folic Acid - PO 1 mg DAILY RISHI Administration Dextrose/Sodium Chloride 1,000 mls @ 65 mls/hr 10/21/16 16:46 10/22/16 16:14 D5-Ns - IV 65 mls/hr ASDIR RISHI Administration Lacosamide 100 mg 10/23/16 22:00 Vimpat - PO BID RISHI Levetiracetam 1,500 mg 10/23/16 22:00 Keppra - PO BID [facility] Lorazepam 2 mg 10/19/16 15:00 Ativan Injection - IVPUSH Q12H PRN seizure Morphine Sulfate 3 mg 10/22/16 12:49 10/23/16 09:28 Morphine Injection - IVPUSH 3 mg Q4H PRN Administration PAIN Morphine Sulfate 15 mg 10/23/16 22:00 Ms Contin - PO BID RISHI Oxycodone HCl 5 mg 10/23/16 13:46 10/23/16 16:01 Roxicodone - PO 5 mg Q3H PRN Administration MODERATE PAIN Pantoprazole Sodium 40 mg 10/24/16 10:00 Protonix - PO DAILY RISHI A/P 36 y/o patient with lung cancer/brain mets s/p srs, s/p wbrt concern for leptomeningeal disease MRI--ventricular dilatation. unchanged brain mets CSF cytology + for adenoca hyponatremia--? SIADH improved PAtient wants me to discuss all details and future treatment plan with his mother, who is his health care proxy. discussed in detail with his mother overallpoor prognosis given his leptomeningeal disease, radio resistant, poor performance status given the above scenario , family pursuing hospice placement in [place] continue ssteroids/fluids/pain control/antiepileptics
[2016-10-23] MEDS: DEXTROSE 5%-NORMAL SALINE 1,000 ML IV SCH (17:46)
[2016-10-23] MEDS: LACOSAMIDE 50 MG TABLET PO SCH (22:03)
[2016-10-23] MEDS: morphine SO4 SUSTAINED ACTING 15 MG TABLET.SA PO SCH (22:04)
[2016-10-23] MEDS: levETIRAcetam 500 MG TABLET (FP) PO SCH (22:04)
[2016-10-24] MEDS: oxyCODONE HCL 5 MG TABLET PO PRN ×3 (06:26→19:36)
[2016-10-24] MEDS: DEXAMETHASONE 4 MG TABLET (FP) PO SCH ×4 (06:26→23:20)
[2016-10-24] MEDS ORDERED: PT OWN MED DRAWER 7, Y5N ONE (08:40)
[2016-10-24] MEDS: FOLIC ACID 1 MG TABLET (FP) PO SCH (10:44)
[2016-10-24] MEDS: morphine SO4 SUSTAINED ACTING 15 MG TABLET.SA PO SCH ×2 (10:44→21:44)
[2016-10-24] MEDS: levETIRAcetam 500 MG TABLET (FP) PO SCH ×2 (10:44→21:44)
[2016-10-24] MEDS: LACOSAMIDE 50 MG TABLET PO SCH ×2 (10:44→21:44)
[2016-10-24] MEDS: PANTOPRAZOLE 40 MG TABLET (FP) PO SCH (10:44)
[2016-10-24] MEDS: ATOVAQUONE 750 MG/5 ML (UNIT-DOSE PACKAGING) PO SCH (10:45)
--- NOTE | 2016-10-24 15:32 | PN ---
Physical Exam: SUBJECTIVE: Patient seen and examined. He denies any pain or discomfort. OBJECTIVE: Appears comfortable at rest, alert and oriented x 3 Vital Signs Period Temp Pulse Resp BP Sys/Lindo Pulse Ox Last 24 Hr 97.9 F-98.8 F 76-99 16-22 118-160/66-93 100-100 GENERAL: The patient is awake, alert, and fully oriented, in no acute distress. HEAD: Normal with no signs of trauma. EYES: PERRL, extraocular movements intact, sclera anicteric, conjunctiva clear. No ptosis. ENT: Ears normal, nares patent, oropharynx clear without exudates, moist mucous membranes. NECK: Trachea midline, full range of motion, supple. LUNGS: Breath sounds equal, clear to auscultation bilaterally, no wheezes, no crackles, no accessory muscle use. EXTREMITIES: 2+ pulses, warm, well-perfused, no edema. NEUROLOGICAL: Normal speech, gait not observed - seizure precautions PSYCH: Normal mood, normal affect. SKIN: Warm, dry, normal turgor, no rashes or lesions noted Active Medications Generic Name Dose Route Start Last Admin Trade Name Freq PRN Reason Stop Dose Admin Atovaquone 750 mg 10/18/16 20:00 10/24/16 10:45 Mepron - PO 750 mg DAILY@0800 R[facility] Administration Dexamethasone 6 mg 10/23/16 18:00 10/24/16 13:02 Decadron - PO 6 mg Q6HPO RISHI Administration Docusate Sodium 100 mg 10/19/16 13:24 Colace - PO BID PRN CONSTIPATION Folic Acid 1 mg 10/19/16 10:00 10/24/16 10:44 Folic Acid - PO 1 mg DAILY R[facility] Administration Lacosamide 100 mg 10/23/16 22:00 10/24/16 10:44 Vimpat - PO 100 mg BID RISHI Administration Levetiracetam 1,500 mg 10/23/16 22:00 10/24/16 10:44 Keppra - PO 1,500 mg BID RISHI Administration Lorazepam 2 mg 10/19/16 15:00 Ativan Injection - IVPUSH Q12H PRN seizure Morphine Sulfate 3 mg 10/22/16 12:49 10/23/16 09:28 Morphine Injection - IVPUSH 3 mg Q4H PRN Administration PAIN Morphine Sulfate 15 mg 10/23/16 22:00 10/24/16 10:44 Ms Contin - PO 15 mg BID RISHI Administration Oxycodone HCl 5 mg 10/23/16 13:46 10/24/16 13:03 Roxicodone - PO 5 mg Q3H PRN Administration MODERATE PAIN Pantoprazole Sodium 40 mg 10/24/16 10:00 10/24/16 10:44 Protonix - PO 40 mg DAILY RISHI Administration ASSESSMENT/PLAN: Patient is a 36 year old male with a significant past medical hitory of lung cancer with metastatic disease to the brain with frequent seizures. He was admitted on 10/18/2016 for hydrocephalus and seizures. Neurology: Seizures likely secondary to brain mets Assessment/Plan: On Keprra 1500mg PO BID and Vimpat 100mg PO BID On Decadron 6mg PO q6 Monitor for seizure activity Neurosurgery following, notes reviewed, pt is not a surgical candidate Patient is awaiting placement to [facility] Oncology: Lung Cancer with brain mets Assessment/Plan: csf fluid positive for malignant cells Oncologist following F.E.N. Fluids: tolerating PO Electrolytes: no further blood work, hyponatremia likely SIADH as per renal Nutrition: regular Prophylaxis: GI: On Protonix DVT: No AC secondary to brain mets and risk of bleeding Disposition: Awaiting bed at [facility]. Visit type - Emergency Visit Emergency Visit: Yes ED Registration Date: 10/18/16 Care time: The patient presented to the Emergency Department on the above date and was hospitalized for further evaluation of their emergent condition. - New Patient This patient is new to me today: Yes Date on this admission: 10/24/16 - Critical Care Critical Care patient: No - Discharge Referral Referred to [facility] Med P.C.: No
--- NOTE | 2016-10-24 17:14 | PN ---
Progress Note (short form) - Note Progress Note: Patient seen and examined Little p.o. intake Pain seems adequately controlled on M.S. Contin and breakthrough meds No further seizures Last Vital Signs Temp Pulse Resp BP Pulse Ox 97.9 F 99 H 17 118/81 100 10/24/16 14:22 10/24/16 14:22 10/24/16 14:22 10/24/16 14:22 10/24/16 09:00 Cushingoid Clear lungs RSR Soft abd Ext- neg\ CBC, BMP 10/20/16 07:20 10/21/16 06:00 No recent labs. Impression: Lung ca - leptomeningeal involvement S/P multiple chemotherpay regimens S/P whole brain RT and SRSx 2. For [facility] placement.
[2016-10-25] MEDS: DEXAMETHASONE 4 MG TABLET (FP) PO SCH ×3 (05:20→18:03)
[2016-10-25] MEDS: levETIRAcetam 500 MG TABLET (FP) PO SCH ×2 (10:52→21:50)
[2016-10-25] MEDS: morphine SO4 SUSTAINED ACTING 15 MG TABLET.SA PO SCH ×2 (10:53→21:50)
[2016-10-25] MEDS: FOLIC ACID 1 MG TABLET (FP) PO SCH (10:53)
[2016-10-25] MEDS: PANTOPRAZOLE 40 MG TABLET (FP) PO SCH (10:53)
[2016-10-25] MEDS: LACOSAMIDE 50 MG TABLET PO SCH ×2 (10:54→21:51)
[2016-10-25] MEDS: ATOVAQUONE 750 MG/5 ML (UNIT-DOSE PACKAGING) PO SCH (10:54)
--- NOTE | 2016-10-25 13:31 | DS ---
Physical Exam: SUBJECTIVE: Patient seen and examined with this mother at the bedside. OBJECTIVE: Patient to be discharged to home vs. facility [facility] still pending bed availability Spoke to patient's mother who is tearful and states that taking care of her son will be difficult for her, willing to try new facility. As per CW note, mother may be willing to take patient home for a short while Vital Signs Period Temp Pulse Resp BP Sys/Lindo Pulse Ox Last 24 Hr 97.7 F-98.3 F 86-105 17-20 115-153/70-97 98-100 PHYSICAL EXAM GENERAL: The patient is awake, alert, and fully oriented, in no acute distress. HEAD: Normal with no signs of trauma. EYES: PERRL, extraocular movements intact, sclera anicteric, conjunctiva clear. No ptosis. ENT: Ears normal, nares patent, oropharynx clear without exudates, moist mucous membranes. NECK: Trachea midline, full range of motion, supple. LUNGS: Breath sounds equal, clear to auscultation bilaterally, no wheezes, no crackles, no accessory muscle use. EXTREMITIES: 2+ pulses, warm, well-perfused, no edema. NEUROLOGICAL: Normal speech, gait not observed - seizure precautions PSYCH: Normal mood, normal affect. SKIN: Warm, dry, normal turgor, no rashes or lesions noted LABS Laboratory Results - last 24 hr 10/25/16 11:52 POC Glucometer 112 HOSPITAL COURSE: Date of Admission:10/18/16 Date of Discharge: 10/25/16 ASSESSMENT/PLAN: Patient is a 36 year old male with a significant past medical hitory of lung cancer with metastatic disease to the brain with frequent seizures. He was admitted on 10/18/2016 for hydrocephalus and seizures. Neurology: Seizures likely secondary to brain mets Assessment/Plan: On Keprra 1500mg PO BID and Vimpat 100mg PO BID On Decadron 6mg PO q6 Monitor for seizure activity Neurosurgery following, notes reviewed, pt is not a surgical candidate Patient is awaiting placement to [facility] but bed is still not available Family and patient to consider another facility vs. home Oncology: Lung Cancer with brain mets Assessment/Plan: csf fluid positive for malignant cells Oncologist following F.E.N. Fluids: tolerating PO Electrolytes: no further blood work, hyponatremia likely SIADH as per renal Nutrition: regular Prophylaxis: GI: On Protonix DVT: No AC secondary to brain mets and risk of bleeding Disposition: Awaiting bed at [facility], if no bed becomes available, family may consider other options such as another facility vs. home. Minutes to complete discharge: 60 Discharge Summary Reason For Visit: HYDROCEPHALUS,SEIZURE Current Active Problems Brain metastases (Acute) Hydrocephalus (Acute) Hyponatremia (Acute) Seizure (Acute) Condition: Improved - Instructions Diet, Activity, Other Instructions: Mr. Frias: Patient is a DNR/DNI Please continue all medications as prescribed. Seizure precautions. Referrals: Harlan Brown MD [Primary Care Provider] - Disposition: [facility]ACILITY - Home Medications Comprehensive Discharge Medication List: Ambulatory Orders Oxycodone HCl 10 mg PO Q6H PRN 02/21/16 Pantoprazole Sodium [Protonix -] 40 mg PO DAILY #30 tablet.ec 03/08/16 Folic Acid 800 mcg PO DAILY 07/10/16 Clonazepam [Klonopin -] 0.5 mg PO BID MDD 2 08/26/16 Levetiracetam [Keppra -] 1,500 mg PO BID 08/26/16 Clotrimazole [Lotrimin -] 1 applic TP BID #1 tube 10/08/16 Lacosamide [Vimpat -] 100 mg PO BID #120 tab MDD 200mg 10/08/16 Atovaquone [Mepron Oral Solution -] 750 mg PO DAILY 10/18/16 Atovaquone [Mepron Oral Solution -] 750 mg PO DAILY@0800 #30 pkt 10/25/16 Dexamethasone [Decadron -] 6 mg PO Q6HPO tablet 10/25/16 Docusate Sodium [Colace -] 100 mg PO BID PRN #30 tab 10/25/16 Folic Acid - 1 mg PO DAILY tablet 10/25/16 Lacosamide [Vimpat -] 100 mg PO BID #60 tab MDD 2 tabs 10/25/16 Levetiracetam [Keppra -] 1,500 mg PO BID #60 tablet 10/25/16 Morphine *Sr* [Ms Contin -] 15 mg PO BID #60 tab MDD 2 tabs 10/25/16 Oxycodone HCl [Roxicodone -] 5 mg PO Q3H PRN #0 tablet MDD 8 tabs 10/25/16 Pantoprazole Sodium [Protonix -] 40 mg PO DAILY #30 tab 10/25/16 This patient is new to me today: No Emergency Visit: Yes ED Registration Date: 10/18/16 Care time: The patient presented to the Emergency Department on the above date and was hospitalized for further evaluation of their emergent condition. Critical Care patient: No - Discharge Referral Referred to [facility] Med P.C.: No
[2016-10-25] MEDS: oxyCODONE HCL 5 MG TABLET PO PRN (18:03)
[2016-10-25] MEDS ORDERED: clonazePAM 0.5 MG TABLET PO PRN (19:24)
--- NOTE | 2016-10-25 19:51 | PN ---
Progress Note (short form) - Note Progress Note: Patient seen and examined lethargic/oriented in person Last Vital Signs Temp Pulse Resp BP Pulse Ox 97.5 F L 102 H 18 100/50 98 10/25/16 18:00 10/25/16 18:00 10/25/16 18:00 10/25/16 18:00 10/25/16 10:27 Cor: RSR, No murmurs, No gallops Lungs: Clear to P&A Abd: Soft, Normal bowel sounds, No organomegaly Ext:No significant edema Active Medications Generic Name Dose Route Start Last Admin Trade Name Freq PRN Reason Stop Dose Admin Atovaquone 750 mg 10/18/16 20:00 10/25/16 10:54 Mepron - PO 750 mg DAILY@0800 RISHI Administration Clonazepam 0.5 mg 10/25/16 19:24 Klonopin - PO BID PRN ANXIETY Dexamethasone 6 mg 10/23/16 18:00 10/25/16 18:03 Decadron - PO 6 mg Q6HPO RISHI Administration Docusate Sodium 100 mg 10/19/16 13:24 Colace - PO BID PRN CONSTIPATION Folic Acid 1 mg 10/19/16 10:00 10/25/16 10:53 Folic Acid - PO 1 mg DAILY RISHI Administration Lacosamide 100 mg 10/23/16 22:00 10/25/16 10:54 Vimpat - PO 100 mg BID RISHI Administration Levetiracetam 1,500 mg 10/23/16 22:00 10/25/16 10:52 Keppra - PO 1,500 mg BID RISHI Administration Morphine Sulfate 15 mg 10/23/16 22:00 10/25/16 10:53 Ms Contin - PO 15 mg BID RISHI Administration Oxycodone HCl 5 mg 10/23/16 13:46 10/25/16 18:03 Roxicodone - PO 5 mg Q3H PRN Administration MODERATE PAIN Pantoprazole Sodium 40 mg 10/24/16 10:00 10/25/16 10:53 Protonix - PO 40 mg DAILY RISHI Administration Labs reviewed A/P 36 y/o patient with lung cancer/brain mets s/p srs, s/p wbrt concern for leptomeningeal disease MRI--ventricular dilatation. unchanged brain mets CSF cytology + for adenoca hyponatremia--? SIADH improved continue ssteroids/fluids/pain control/antiepileptics psych consult/physical therapy patient has been opn [facility] benzos--to continue klonipin await placement
[2016-10-26] MEDS: DEXAMETHASONE 4 MG TABLET (FP) PO SCH ×3 (00:26→12:24)
[2016-10-26] MEDS: oxyCODONE HCL 5 MG TABLET PO PRN (06:10)
[2016-10-26 07:33] LABS: MCH 33.3 pg (25.7-33.7); MCHC 35.7 g/dl (32.0-35.9); MEAN CELL VOLUME 93.3 fl (80-96); MEAN PLT VOLUME 6.6 fl (7.5-11.1); PLATELET COUNT 223 K/MM3 (134-434); RDW 15.2 % (11.9-15.9); WHITE BLOOD COUNT 18.3 K/mm3 (4.0-10.0)
[2016-10-26 08:34] LABS: ALBUMIN 4.3 g/dl (3.4-5.0); ALK PHOS 88 U/L (45-117); ANION GAP 13 (8-16); CALCIUM 9.7 mg/dL (8.5-10.1); CO2 25 mmol/L (21-32); CREATININE 0.6 mg/dL (0.7-1.3); GLUCOSE,RANDOM 98 mg/dL (74-106); SGPT/ALT 154 U/L (12-78); TOT PROT 7.1 g/dl (6.4-8.2)
[2016-10-26 08:35] LABS: SGOT/AST 45 U/L (15-37)
[2016-10-26] MEDS ORDERED: PT OWN MED DRAWER 7, Y5N ONE ×2 (08:46→21:16)
[2016-10-26] MEDS: LACOSAMIDE 50 MG TABLET PO SCH ×2 (09:50→22:16)
[2016-10-26] MEDS: morphine SO4 SUSTAINED ACTING 15 MG TABLET.SA PO SCH ×2 (09:50→21:48)
[2016-10-26] MEDS: FOLIC ACID 1 MG TABLET (FP) PO SCH (09:50)
[2016-10-26] MEDS: levETIRAcetam 500 MG TABLET (FP) PO SCH ×2 (09:50→21:48)
[2016-10-26] MEDS: PANTOPRAZOLE 40 MG TABLET (FP) PO SCH (09:50)
[2016-10-26] MEDS: ATOVAQUONE 750 MG/5 ML (UNIT-DOSE PACKAGING) PO SCH (09:51)
[2016-10-26 11:12] LABS: PLATELET COMMENT2 NO CLOTTING DETECTED; PLATELET ESTIMATE ADEQUATE (NORMAL)
--- NOTE | 2016-10-26 12:33 | PN ---
Physical Exam: SUBJECTIVE: Very limited exam as patient was asleep. Lethargic, brother in room and answering questions for patient Brother states patient was restless last night, did not sleep. Started on Klonopin overnight for anxiety OBJECTIVE: Started on Klonopin overnight for anxiety Lethargic, asleep Vital Signs Period Temp Pulse Resp BP Sys/Lindo Pulse Ox Last 24 Hr 97.5 F-98.8 F 92-118 17-20 100-164/50-108 98-98 GENERAL: Lethargic HEAD: Normal with no signs of trauma. ABDOMEN: nondistended EXTREMITIES: 2+ pulses, warm, well-perfused, no edema. NEUROLOGICAL:Lethargic, asleep, in no acute distress PSYCH: Normal mood, normal affect. SKIN: Warm, dry, normal turgor, no rashes or lesions noted Laboratory Results - last 24 hr 10/26/16 10/26/16 06:10 06:10 WBC 18.3 H D RBC 4.20 Hgb 14.0 Hct 39.2 MCV 93.3 MCHC 35.7 RDW 15.2 Plt Count 223 D MPV 6.6 L Neutrophils % 88.0 H Lymphocytes % 8.0 D Monocytes % 4.0 Nucleated RBCs 3 H Platelet Estimate Adequate Platelet Comment No clotting detected Sodium 130 L Potassium 3.8 Chloride 92 L Carbon Dioxide 25 Anion Gap 13 BUN 20 H D Creatinine 0.6 L Creat Clearance w eGFR > 60 Random Glucose 98 D Calcium 9.7 Total Bilirubin 1.0 D AST 45 H D ALT 154 H D Alkaline Phosphatase 88 Total Protein 7.1 Albumin 4.3 Active Medications Generic Name Dose Route Start Last Admin Trade Name Sergeq PRN Reason Stop Dose Admin Atovaquone 750 mg 10/18/16 20:00 10/26/16 09:51 Mepron - PO 750 mg DAILY@0800 RISHI Administration Clonazepam 0.5 mg 10/25/16 19:24 10/25/16 21:50 Klonopin - PO 0.5 mg BID PRN Administration ANXIETY Dexamethasone 6 mg 10/23/16 18:00 10/26/16 12:24 Decadron - PO 6 mg Q6HPO RISHI Administration Docusate Sodium 100 mg 10/19/16 13:24 Colace - PO BID PRN CONSTIPATION Folic Acid 1 mg 10/19/16 10:00 10/26/16 09:50 Folic Acid - PO 1 mg DAILY RISHI Administration Lacosamide 100 mg 10/23/16 22:00 10/26/16 09:50 Vimpat - PO 100 mg BID RISHI Administration Levetiracetam 1,500 mg 10/23/16 22:00 10/26/16 09:50 Keppra - PO 1,500 mg BID RISHI Administration Morphine Sulfate 15 mg 10/23/16 22:00 10/26/16 09:50 Ms Contin - PO 15 mg BID RISHI Administration Oxycodone HCl 5 mg 10/23/16 13:46 10/26/16 06:10 Roxicodone - PO 5 mg Q3H PRN Administration MODERATE PAIN Pantoprazole Sodium 40 mg 10/24/16 10:00 10/26/16 09:50 Protonix - PO 40 mg DAILY RISHI Administration ASSESSMENT/PLAN: Patient is a 36 year old male with a significant past medical hitory of lung cancer with metastatic disease to the brain with frequent seizures. He was admitted on 10/18/2016 for hydrocephalus and seizures. Neurology: Seizures likely secondary to brain mets Assessment/Plan: On Keprra 1500mg PO BID and Vimpat 100mg PO BID On Decadron 6mg PO q6 Monitor for seizure activity Neurosurgery following, notes reviewed, pt is not a surgical candidate Patient is awaiting placement to [facility] but bed is still not available Family and patient to consider another facility vs. home hospice Oncology: Lung Cancer with brain mets Assessment/Plan: csf fluid positive for malignant cells Oncologist following Prophylaxis: GI: On Protonix DVT: No AC secondary to brain mets and risk of bleeding Disposition: Awaiting bed at [facility], if no bed becomes available, family may consider other options such as another facility vs. home. Visit type - Emergency Visit Emergency Visit: Yes ED Registration Date: 10/18/16 Care time: The patient presented to the Emergency Department on the above date and was hospitalized for further evaluation of their emergent condition. - New Patient This patient is new to me today: No - Critical Care Critical Care patient: No - Discharge Referral Referred to [facility] Med P.C.: No
--- NOTE | 2016-10-26 14:41 | PN ---
Progress Note, Physician History of Present Illness: Pt seen and examined at bedside. He is drowsy. - Current Medication List Current Medications: Active Medications Atovaquone (Mepron -) 750 mg PO DAILY@0800 [facility] Last Admin: 10/26/16 09:51 Dose: 750 mg Clonazepam (Klonopin -) 0.5 mg PO BID PRN PRN Reason: ANXIETY Last Admin: 10/25/16 21:50 Dose: 0.5 mg Dexamethasone (Decadron -) 6 mg PO Q6HPO [facility] Last Admin: 10/26/16 12:24 Dose: 6 mg Docusate Sodium (Colace -) 100 mg PO BID PRN PRN Reason: CONSTIPATION Folic Acid (Folic Acid -) 1 mg PO DAILY [facility] Last Admin: 10/26/16 09:50 Dose: 1 mg Lacosamide (Vimpat -) 100 mg PO BID [facility] Last Admin: 10/26/16 09:50 Dose: 100 mg Levetiracetam (Keppra -) 1,500 mg PO BID [facility] Last Admin: 10/26/16 09:50 Dose: 1,500 mg Morphine Sulfate (Ms Contin -) 15 mg PO BID [facility] Last Admin: 10/26/16 09:50 Dose: 15 mg Pantoprazole Sodium (Protonix -) 40 mg PO DAILY [facility] Last Admin: 10/26/16 09:50 Dose: 40 mg - Objective Vital Signs: Vital Signs Temperature 98.6 F 10/26/16 10:00 Pulse Rate 100 H 10/26/16 10:00 Respiratory Rate 20 10/26/16 10:00 Blood Pressure 130/82 10/26/16 10:00 O2 Sat by Pulse Oximetry (%) 98 10/26/16 09:00 Constitutional: Yes: Calm Eyes: Yes: Conjunctiva Clear HENT: Yes: Atraumatic Cardiovascular: Yes: S1, S2 Respiratory: Yes: CTA Bilaterally Gastrointestinal: Yes: Soft Genitourinary: Yes: WNL Musculoskeletal: Yes: Muscle Weakness Edema: No Neurological: Yes: Other (drowsy) Labs: CBC, BMP 10/26/16 06:10 10/26/16 06:10 INR, PTT INR 1.11 (0.82-1.09) 10/19/16 06:35 Fibrinogen 360.0 mg/dL (238-498) 10/19/16 06:35 Problem List - Problems (1) Brain metastases Code(s): C79.31 - SECONDARY MALIGNANT NEOPLASM OF BRAIN (2) Seizure Code(s): R56.9 - UNSPECIFIED CONVULSIONS (3) Metastatic lung carcinoma Code(s): C78.00 - SECONDARY MALIGNANT NEOPLASM OF UNSPECIFIED LUNG Qualifiers : Laterality: unspecified laterality Qualified Code(s): C78.00 - Secondary malignant neoplasm of unspecified lung (4) Hyponatremia Code(s): E87.1 - HYPO-OSMOLALITY AND HYPONATREMIA Assessment/Plan Current Medications Generic Name Dose Route Start Last Admin Trade Name Freq PRN Reason Stop Dose Admin Atovaquone 750 mg 10/18/16 20:00 10/26/16 09:51 Mepron - PO 750 mg DAILY@0800 RISHI Administration Clonazepam 0.5 mg 10/25/16 19:24 10/25/16 21:50 Klonopin - PO 0.5 mg BID PRN Administration ANXIETY Dexamethasone 6 mg 10/23/16 18:00 10/26/16 12:24 Decadron - PO 6 mg Q6HPO RISHI Administration Docusate Sodium 100 mg 10/19/16 13:24 Colace - PO BID PRN CONSTIPATION Folic Acid 1 mg 10/19/16 10:00 10/26/16 09:50 Folic Acid - PO 1 mg DAILY RISHI Administration Lacosamide 100 mg 10/23/16 22:00 10/26/16 09:50 Vimpat - PO 100 mg BID RISHI Administration Levetiracetam 1,500 mg 10/23/16 22:00 10/26/16 09:50 Keppra - PO 1,500 mg BID RISHI Administration Morphine Sulfate 15 mg 10/23/16 22:00 10/26/16 09:50 Ms Contin - PO 15 mg BID RISHI Administration Pantoprazole Sodium 40 mg 10/24/16 10:00 10/26/16 09:50 Protonix - PO 40 mg DAILY RISHI Administration Impression 1. 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 lung cancer with mets 3. brain metastatic disease 4. asthma 5. htn 6. seizure Plan - likely etiology of hyponatremia is SIADH - pt also has poor PO intake - labs were reviewed - he is pending a bed in [place] - will follow PRN - csf fluid positive for malignant cells Dr Uriarte
--- NOTE | 2016-10-26 16:09 | PN ---
Progress Note (short form) - Note Progress Note: Patient seen and examined lethargic/oriented in person very weak, declining performance status, lethargic. spending most of the day in bed Last Vital Signs Temp Pulse Resp BP Pulse Ox 98.7 F 91 H 17 159/88 98 10/26/16 14:49 10/26/16 14:49 10/26/16 14:49 10/26/16 14:49 10/26/16 09:00 Cor: RSR, No murmurs, No gallops Lungs: Clear to P&A Abd: Soft, Normal bowel sounds, No organomegaly Ext:No significant edema Rt. foot drop cushingoid facies Abnormal Lab Results 10/26/16 10/26/16 06:10 06:10 WBC 18.3 H D MPV 6.6 L Neutrophils % 88.0 H Nucleated RBCs 3 H Sodium 130 L Chloride 92 L BUN 20 H D Creatinine 0.6 L AST 45 H D ALT 154 H D Active Medications Generic Name Dose Route Start Last Admin Trade Name Freq PRN Reason Stop Dose Admin Atovaquone 750 mg 10/18/16 20:00 10/26/16 09:51 Mepron - PO 750 mg DAILY@0800 RISHI Administration Clonazepam 0.5 mg 10/25/16 19:24 10/25/16 21:50 Klonopin - PO 0.5 mg BID PRN Administration ANXIETY Dexamethasone Sodium Phosphate 4 mg 10/26/16 21:00 Decadron Injection - IVPB Q6H-IV RISHI Docusate Sodium 100 mg 10/19/16 13:24 Colace - PO BID PRN CONSTIPATION Folic Acid 1 mg 10/19/16 10:00 10/26/16 09:50 Folic Acid - PO 1 mg DAILY RISHI Administration Lacosamide 100 mg 10/23/16 22:00 10/26/16 09:50 Vimpat - PO 100 mg BID RISHI Administration Levetiracetam 1,500 mg 10/23/16 22:00 10/26/16 09:50 Keppra - PO 1,500 mg BID RISHI Administration Morphine Sulfate 15 mg 10/23/16 22:00 10/26/16 09:50 Ms Contin - PO 15 mg BID RISHI Administration Pantoprazole Sodium 40 mg 10/24/16 10:00 10/26/16 09:50 Protonix - PO 40 mg DAILY RISHI Administration A/P 36 y/o patient with lung cancer/brain mets s/p srs, s/p wbrt concern for leptomeningeal disease MRI--ventricular dilatation. unchanged brain mets CSF cytology + for adenoca hyponatremia-- SIADH PAtient with adenocarcinoma of the lung, with h/o brain mets, s/p SRS x2, s/p WBRT, now with leptomeningeal mets, SIADH, rt. foot drop, declining performance status, PAtient with lethagy,seizures and severe hyponatremia + rt. foot drop due to leptomeningeal mets Also with recurrent admissions for seizures due to brain mets/leptomeningeal disease PAtient on decadron IV due to recurrent seizures/leptomeningeal mets causing lethargy. Had several admission on steroid taper Given poor prognosis from leptomeningeal mets , expect < 3months life expectancy from leptomeningeal mets, would consider hospice placement
--- NOTE | 2016-10-26 17:09 | CON.PSY ---
Psychiatry Consult Chief Complaint: incresed anxiety and agitation. Symptoms: reports: Anxiety - Previous Psychiatric Treatment Outpatient: None Inpatient: None - Previous Substance Abuse Treatment Outpatient: None Inpatient: None - Current Medications Current Medications: Active Medications Atovaquone (Mepron -) 750 mg PO DAILY@0800 [facility] Last Admin: 10/26/16 09:51 Dose: 750 mg Dexamethasone Sodium Phosphate (Decadron Injection -) 4 mg IVPB Q6H-IV RISHI Docusate Sodium (Colace -) 100 mg PO BID PRN PRN Reason: CONSTIPATION Folic Acid (Folic Acid -) 1 mg PO DAILY [facility] Last Admin: 10/26/16 09:50 Dose: 1 mg Lacosamide (Vimpat -) 100 mg PO BID [facility] Last Admin: 10/26/16 09:50 Dose: 100 mg Levetiracetam (Keppra -) 1,500 mg PO BID [facility] Last Admin: 10/26/16 09:50 Dose: 1,500 mg Morphine Sulfate (Ms Contin -) 15 mg PO BID [facility] Last Admin: 10/26/16 09:50 Dose: 15 mg Pantoprazole Sodium (Protonix -) 40 mg PO DAILY [facility] Last Admin: 10/26/16 09:50 Dose: 40 mg - Allergies Allergies: Allergies Allergy/AdvReac Type Severity Reaction Status Date / Time No Known Drug Allergies Allergy Verified 10/18/16 08:32 - Current Living Status Usual Living Arrangement: With Significant Other - Current Mental Status Evaluation Appearance: Disheveled Attitude: Guarded - Affect Affect: Constrictive Appropriateness: Appropriate to Content - Mood Mood: Anxious, Irritable - Speech/Language Receptive: Age Appropriate Comprehension of Spoken Words - Psychomotor Activity Psychomotor Activity: Slowed - Thought Process Thought Process: Circumstantial - Thought Content Hallucinations: Absent Delusions: Absent - Self Perception Self Perception: No Impairment - Cognition Attention: Alert Orientation: Time Memory, Immediate Recall: Intact - Concentration Serial Sevens Intact: No Simple Calculations Intact: No - Abstraction Proverb Interpretation: Impaired Judgement: Minimally Impaired - Insight Insight: Intact - Suicidal Ideation Suicidal Ideation: No - Homicidal Ideation Homicidal Ideation: No Assessment/Plan 1) Klonapin 2mg po BID PRN for anxiety
[2016-10-26] MEDS ORDERED: oxyCODONE HCL 5 MG TABLET PO PRN (20:30)
[2016-10-26] MEDS: clonazePAM 2 MG TABLET PO PRN (21:48)
[2016-10-26] MEDS: DEXAMETHASONE SOD PHOSPHATE 4 MG/1 ML VIAL IVPB SCH (22:16)
[2016-10-27] MEDS: DEXAMETHASONE SOD PHOSPHATE 4 MG/1 ML VIAL IVPB SCH ×2 (02:03→10:17)
[2016-10-27 06:06] LABS: EBVAB EARLY D AG IGG <5.0 U/mL (0.0-10.9)
[2016-10-27 06:30] VITALS: TEMP 97.9
[2016-10-27] MEDS ORDERED: PT OWN MED DRAWER 7, Y5N ONE (09:36)
[2016-10-27] MEDS ORDERED: morphine SO4 SUSTAINED ACTING 15 MG TABLET.SA PO SCH (10:00)
[2016-10-27] MEDS: clonazePAM 2 MG TABLET PO PRN (10:29)
--- NOTE | 2016-10-27 10:36 | DS ---
Physical Exam: SUBJECTIVE: Patient seen and examined. Minimally responsive, opens eyes briefly , then falls back to sleep. Restless, not agitated. OBJECTIVE: Patient's mental status has drastically changed in the last 24-48 hours He is very restless, not following commands, sleeps most of the day Now non communicative [facility] life care Vital Signs Period Temp Pulse Resp BP Sys/Lindo Pulse Ox Last 24 Hr 97.9 F-98.7 F 91-115 17-20 105-159/47-88 98 PHYSICAL EXAM GENERAL: Lethargic, minimally responsive to tactile or verbal stimuli, opens eyes but then falls back to sleep. HEAD: Normal with no signs of trauma. ABDOMEN: nondistended EXTREMITIES: 2+ pulses, warm, well-perfused, no edema. NEUROLOGICAL:Lethargic, asleep, in no acute distress - very restless PSYCH: restless, lethargic, less responsive SKIN: Warm, dry, normal turgor, no rashes or lesions noted LABS Laboratory Results - last 24 hr 10/26/16 10/26/16 06:10 18:33 WBC 18.3 H D RBC 4.20 Hgb 14.0 Hct 39.2 MCV 93.3 MCHC 35.7 RDW 15.2 Plt Count 223 D MPV 6.6 L Neutrophils % 88.0 H Lymphocytes % 8.0 D Monocytes % 4.0 Nucleated RBCs 3 H Platelet Estimate Adequate Platelet Comment No clotting detected POC Glucometer 138 HOSPITAL COURSE: Date of Admission:10/18/16 Date of Discharge: 10/27/16 ASSESSMENT/PLAN: Patient is a 36 year old male with a significant past medical hitory of lung cancer with metastatic disease to the brain with frequent seizures. He was admitted on 10/18/2016 for hydrocephalus and seizures. Neurology: Seizures likely secondary to brain mets Assessment/Plan: On Keppra 1500mg PO BID and Vimpat 100mg PO BID On Decadron IV to better control seizure activity/leptomeningeal mets causing lethargy. Neurosurgery following, notes reviewed, pt is not a surgical candidate Discharge today to [facility] End of life care, comfort care Oncology: Lung Cancer with brain mets Assessment/Plan: csf fluid positive for malignant cells Prophylaxis: GI: On Protonix DVT: No AC secondary to brain mets and risk of bleeding Disposition: [facility] for end of life comfort care. DNR/DNI Minutes to complete discharge: 45 Discharge Summary Reason For Visit: HYDROCEPHALUS,SEIZURE Current Active Problems Brain metastases (Acute) Hydrocephalus (Acute) Hyponatremia (Acute) Seizure (Acute) Condition: Improved - Instructions Diet, Activity, Other Instructions: Mr. Frias: Please continue all medications as directed on your discharge instruction list. Referrals: Harlan Brown MD [Primary Care Provider] - [facility]position: [facility] - Home Medications Comprehensive Discharge Medication List: Ambulatory Orders Oxycodone HCl 10 mg PO Q6H PRN 02/21/16 Pantoprazole Sodium [Protonix -] 40 mg PO DAILY #30 tablet.ec 03/08/16 Folic Acid 800 mcg PO DAILY 07/10/16 Clonazepam [Klonopin -] 0.5 mg PO BID MDD 2 08/26/16 Levetiracetam [Keppra -] 1,500 mg PO BID 08/26/16 Clotrimazole [Lotrimin -] 1 applic TP BID #1 tube 10/08/16 Lacosamide [Vimpat -] 100 mg PO BID #120 tab MDD 200mg 10/08/16 Atovaquone [Mepron Oral Solution -] 750 mg PO DAILY 10/18/16 Atovaquone [Mepron Oral Solution -] 750 mg PO DAILY@0800 #30 pkt 10/25/16 Dexamethasone [Decadron -] 6 mg PO Q6HPO tablet 10/25/16 Docusate Sodium [Colace -] 100 mg PO BID PRN #30 tab 10/25/16 Folic Acid - 1 mg PO DAILY tablet 10/25/16 Lacosamide [Vimpat -] 100 mg PO BID #60 tab MDD 2 tabs 10/25/16 Levetiracetam [Keppra -] 1,500 mg PO BID #60 tablet 10/25/16 Morphine *Sr* [Ms Contin -] 15 mg PO BID #60 tab MDD 2 tabs 10/25/16 Oxycodone HCl [Roxicodone -] 5 mg PO Q3H PRN #0 tablet MDD 8 tabs 10/25/16 Pantoprazole Sodium [Protonix -] 40 mg PO DAILY #30 tab 10/25/16 Clonazepam [KlonoPIN -] 2 mg PO BID PRN #15 tablet MDD 2 tablets 10/27/16 Dexamethasone Injection [Decadron Injection -] 4 mg IVPB Q6H-IV vial 10/27/16 This patient is new to me today: No Emergency Visit: Yes ED Registration Date: 10/18/16 Care time: The patient presented to the Emergency Department on the above date and was hospitalized for further evaluation of their emergent condition. Critical Care patient: No - Discharge Referral Referred to [facility] Med P.C.: No
[2016-10-27] MEDS: levETIRAcetam 500 MG TABLET (FP) PO SCH (10:51)
[2016-10-27] MEDS: PANTOPRAZOLE 40 MG TABLET (FP) PO SCH (10:52)
[2016-10-27] MEDS: LACOSAMIDE 50 MG TABLET PO SCH (10:52)
[2016-10-27] MEDS: FOLIC ACID 1 MG TABLET (FP) PO SCH (10:52)
[2016-10-27] MEDS: ATOVAQUONE 750 MG/5 ML (UNIT-DOSE PACKAGING) PO SCH (11:05)
[2016-10-27 11:43] VITALS: BP 146/84; PULSE 112
== END 2016-10-27 11:32 | disposition hospice, inpatient (51) | DRG 41 ==
LOC: JER 08:26 → JERBED 11:03 → J5S 13:10
PROVIDERS: ADMIT Internal Medicine; ATTEND Nurse Practitioner Family
PROC: 009U3ZX Drainage of Spinal Canal, Percutaneous Approach, Diagnostic (ICD-10-PCS; principal; 2016-10-20)
DX: C79.31 Secondary malignant neoplasm of brain (principal); C34.90 Malignant neoplasm of unspecified part of unspecified bronchus or lung; G93.6 Cerebral edema; G91.4 Hydrocephalus in diseases classified elsewhere; J45.909 Unspecified asthma, uncomplicated; I10 Essential (primary) hypertension; G40.89 Other seizures; Z86.718 Personal history of other venous thrombosis and embolism; C79.71 Secondary malignant neoplasm of right adrenal gland; M21.371 Foot drop, right foot; Z66 Do not resuscitate; E22.2 Syndrome of inappropriate secretion of antidiuretic hormone; R51 Headache; C79.49 Secondary malignant neoplasm of other parts of nervous system; Z87.891 Personal history of nicotine dependence; I61.9 Nontraumatic intracerebral hemorrhage, unspecified
CPT/HCPCS: 36415; 62272; 70450-TC; 70553-TC; 77002-TC; 80048; 80053; 82140; 82436; 82533; 82945; 83735; 83930; 83935; 84133; 84157; 84300; 84443; 84540; 85025; 85027; 85384; 85610; 85730; 86663; 86664; 86665; 87070; 87205; 87529; 88108; 89050; 93005; 93010; 94010; 97116-GP; 97162-GP; 99283-25